=== PATIENT | male | born 1955 | race Caucasian/White ===

== ENCOUNTER 2018-05-23 11:43 | Inpatient (IN) ==
[2018-05-23] MEDS ORDERED: Sod Chloride 0.9% Inj 1,000 ML IV.SIG ONE (12:33)
--- NOTE | 2018-05-23 13:39 | XR ---
EXAM DATE: 05/23/2018 1:21 PM EDT AGE/SEX: 62 years / Male INDICATIONS: Shortness of breath. CLINICAL DATA: This is the patient's initial encounter. Patient reports that signs and symptoms have been present for 1 day and indicates a pain score of 0/10. MEDICAL/SURGICAL HISTORY: Cirrhosis. Diabetes. Hepatitis C. None. COMPARISON: No prior exams available for comparison. FINDINGS: No significant focal pleural or parenchymal opacities. The cardiomediastinal contours are unremarkabl e. Healed right clavicle fracture. Healed right rib fractures. CONCLUSION: 1. No acute cardiopulmonary disease. Electronically signed by: Bubba Vaughn MD 05/23/2018 1:38 PM EDT
[2018-05-23 14:11] LABS: Baso % (Auto) 0.4 % (0.0-2.0); Eos % (Auto) 0.2 % (0.0-4.0); Hematocrit 25.5 % (39.0-51.0); Lymph # (Auto) 0.5 th/mm3 (1.0-4.8); Lymph % (Auto) 8.7 % (9.0-44.0); Mean Corpuscular HGB Conc 35.4 % (32.0-36.0); Mean Corpuscular Hemoglobin 37.6 pg (27.0-34.0); Mean Corpuscular Volume 106.2 fL (80.0-100.0); Mean Platelet Volume 9.3 fL (7.0-11.0); Mono # (Auto) 0.7 th/mm3 (0.0-0.9); Mono % (Auto) 12.1 % (0.0-8.0); Neut # (Auto) 4.4 th/mm3 (1.8-7.7); Neut % (Auto) 78.6 % (16.0-70.0); Platelet Count 83 th/mm3 (150-450); Red Cell Distribution Width 15.7 % (11.6-17.2); White Blood Count 5.6 th/mm3 (4.0-11.0)
[2018-05-23 14:32] LABS: Albumin 1.4 g/dL (3.4-5.0); Anion Gap 9 meq/L (5-15); Aspartate Aminotransferase 60 U/L (15-37); Blood Urea Nitrogen 12 mg/dL (7-18); Calcium 7.5 mg/dL (8.5-10.1); Chloride 97 meq/L (98-107); Glomerular Filtration Rate 83 mL/min (>89); Glucose,Random 132 mg/dL (74-106); Potassium 4.6 meq/L (3.5-5.1); Sodium 131 meq/L (136-145)
--- NOTE | 2018-05-23 14:32 | ED ---
HPI General Chief complaint: Weakness Stated complaint: Medical Complaint Time Seen by Provider: 05/23/18 12:11 Source: patient and family Mode of arrival: ambulatory Limitations: no limitations History of Present Illness HPI Narrative: 62-year-old male with PMH of chronic alcoholism, hepatitis C, recently diagnosed diabetes presents to the ED for evaluation of "2 or 3 months " history of weakness, dyspnea on exertion. States that it has gotten acutely worse over the last few days. Patient endorses episodic dizziness, states that "even making myself a meal, I have to sit down because him too tired." He also complains of RLQ groin pain. Rated 6/10. Aching, occasionally sharp. No alleviating or exacerbating factors reported. No history of trauma. He denies fever or chills. He endorses occasional left-sided headaches, occasional left- sided chest pain. No headache or chest pain on presentation. He denies palpitations, cough. He endorses early satiety and low appetite. He denies abdominal pain, nausea, vomiting, changes in bowel habits, melena, hematochezia dysuria, hematuria. He was evaluated at [place], found to have a retroperitoneal mass and provided with outpatient follow-up instructions, however he states that he has decided to move back to [facility] and stay with his family and seek treatment here. He does not have a primary care provider. He states that he has not had any alcohol in "a few months." Denies history of withdrawal seizure. He is a current smoker. He has smoked since the age of 27. His sister is at bedside and helps to provide some information. She thinks he "looks more jaundiced." He does not work. He states that his overall activity level is very low. The patient is overall a poor historian. Related Data Home Medications Medication Instructions Recorded Confirmed ibuprofen [Advil] 200 mg PO Q6-8H PRN 05/23/18 05/23/18 Allergies Allergy/AdvReac Type Severity Reaction Status Date / Time penicillin G Allergy Severe Anaphylaxis Unverified 05/11/17 12:16 Review of Systems ROS: all other systems reviewed are negative [facility] Medical History Medical History Cirrhosis (Acute) Degenerative joint disease (Acute) Diabetes (Acute) Hep C w/o coma, chronic (Acute) Psoriasis (Acute) Retroperitoneal mass (Acute) Family History Family History Other Bone cancer Social History Social History Substance History: Past History Second Hand Smoke Exposure: Yes Smoking Status: Current some day smoker (The patient admits to 4 cigarettes daily) Tobacco Type: Cigarettes How Often Do You Have a Drink Containing Alcohol: Monthly or less (The patient says he quit drinking 8-10 weeks ago) Immunization History Tetanus Immunization: Unsure Exam Narrative Exam Narrative: GENERAL: Thin, chronically ill-appearing white male in no acute distress. SKIN: Focused skin assessment warm/dry. Psoriatic changes diffusely. Jaundiced. HEAD: Atraumatic. Normocephalic. EYES: Pupils equal and round. No scleral icterus. No injection or drainage. ENT: No nasal bleeding or discharge. Mucous membranes pink and moist. NECK: Trachea midline. No JVD. CARDIOVASCULAR: Regular rate and rhythm. No murmur appreciated. RESPIRATORY: No accessory muscle use. Clear to auscultation. Breath sounds equal bilaterally. GASTROINTESTINAL: Abdomen soft, nondistended. Hepatic and splenic margins not palpable. Tender to palpation in the right lower quadrant. No evidence of hernia. Active bowel sounds. RECTAL EXAM: No masses or tenderness, stool is brown. Guaiac negative. MUSCULOSKELETAL: No obvious deformities. No clubbing. No cyanosis. No edema. NEUROLOGICAL: Awake and alert. No obvious cranial nerve deficits. Motor grossly within normal limits. Normal speech. PSYCHIATRIC: Anhedonic, exasperated. Procedures Hemaprompt Stool Procedural Steps Taken: specimen placed in appropriate test area and controls appropriately positive and negative Hemaprompt Stool Result: negative Course Initial Documented Vital Signs Temperature 99.6 F 05/23/18 11:48 Pulse Rate 112 H 05/23/18 11:48 Respiratory Rate 20 05/23/18 11:48 Blood Pressure 110/72 05/23/18 11:48 Pulse Oximetry 98 05/23/18 11:48 Last Documented Vital Signs Temperature 99.6 F 05/23/18 11:48 Pulse Rate 72 05/23/18 19:16 Respiratory Rate 15 05/23/18 19:16 Blood Pressure 125/72 05/23/18 19:16 Pulse Oximetry 100 05/23/18 19:16 Medical Decision Making MDM Narrative Medical decision making narrative: 62-year-old male with PMH of chronic alcoholism, hepatitis C, recently diagnosed diabetes presents to the ED for evaluation of "2 or 3 months" history of weakness, dyspnea on exertion. States that it has gotten acutely worse over the last few days. Patient's afebrile, pulse 112, BP 106/58 on presentation. Physical exam reveals a thin, mildly jaundiced, chronically ill-appearing white male in no acute distress. No focal neuro deficits noted. Tender to palpation in the right lower quadrant of the abdomen. IV was established. Patient was administered 1 L normal saline. Lab work reveals hemoglobin of 9.0, thrombocytopenia with platelets of 83, hyper boot bilirubinemia 3.1 hypocalcemia 7.5. BUN and creatinine within normal limits. Ammonia 22. Alcohol less than 3. No acute changes on EKG. Cardiac enzymes negative 1. CT reveals right iliopsoas fluid collection abscess versus hematoma with extensive varicosities of the splenic hilum, fundus of the stomach. There is a small and patent portal vein. There is trace ascites and trace pleural effusion noted. I spoke with Dr. Woodard who does not recommend any surgical intervention but suggests that IR further evaluate the fluid collection. I spoke with Dr. Vaughn who suspects this is a perinephric hematoma and does not recommend intervention at this time. I discussed the results the workup with the patient as well as the recommendation for admission. He is agreeable. I spoke with Dr. Baker who agrees to accept the patient the medicine service. Please see medicine notes for disposition. Medical Screen Exam Complete: Yes Emergency Medical Condition: Yes Differential Diagnosis Differential Diagnosis: Deconditioning versus anemia versus metabolic derangement versus Lab Data Result diagrams: 05/23/18 12:50 05/23/18 12:50 Lab Results 05/23/18 05/23/18 05/23/18 Range/Units 12:50 12:50 14:30 WBC 5.6 (4.0-11.0) th/mm3 RBC 2.40 L (4.50-5.90) mil/mm3 Hgb 9.0 L (13.0-17.0) gm/dL Hct 25.5 L (39.0-51.0) % MCV 106.2 H (80.0-100.0) fL MCH 37.6 H (27.0-34.0) pg MCHC 35.4 (32.0-36.0) % RDW 15.7 (11.6-17.2) % Plt Count 83 L (150-450) th/mm3 MPV 9.3 (7.0-11.0) fL Prelim Diff (Auto) Slide review pending Neut % (Auto) 78.6 H (16.0-70.0) % Lymph % (Auto) 8.7 L (9.0-44.0) % Garza % (Auto) 12.1 H (0.0-8.0) % Eos % (Auto) 0.2 (0.0-4.0) % Baso % (Auto) 0.4 (0.0-2.0) % Neut # (Auto) 4.4 (1.8-7.7) th/mm3 Lymph # (Auto) 0.5 L (1.0-4.8) th/mm3 Garza # (Auto) 0.7 (0.0-0.9) th/mm3 Eos # (Auto) 0.0 (0.0-0.4) th/mm3 Baso # (Auto) 0.0 (0.0-0.2) th/mm3 WBC Differential . Diff Scan Auto diff confirmed Differential Comment . Platelet Estimate Low L (Normal) Platelet Morphology Normal (Normal) PT (9.8-11.6) sec INR Ratio APTT (24.3-30.1) sec Sodium 131 L (136-145) meq/L Potassium 4.6 (3.5-5.1) meq/L Chloride 97 L (98-107) meq/L Carbon Dioxide 25.0 (21.0-32.0) meq/L Anion Gap 9 (5-15) meq/L BUN 12 (7-18) mg/dL Creatinine 0.93 (0.60-1.30) mg/dL Estimated GFR 83 L (>89) mL/min Random Glucose 132 H (74-106) mg/dL Lactic Acid (0.4-2.0) mmol/L Calcium 7.5 L (8.5-10.1) mg/dL Magnesium 1.4 L (1.5-2.5) mg/dL Iron (65-175) mcg/dL TIBC (250-450) mcg/dL % Saturation (20-50) % Ferritin (26-388) ng/mL Total Bilirubin 3.1 H (0.2-1.0) mg/dL AST 60 H (15-37) U/L ALT 29 (12-78) U/L Alkaline Phosphatase 120 H (45-117) U/L Ammonia (11-32) mcmol/L Troponin I Less than 0.02 L (0.02-0.05) ng/mL Total Protein 8.5 H (6.4-8.2) g/dL Albumin 1.4 L (3.4-5.0) g/dL Vitamin B12 (193-986) pg/mL Folate (3.1-17.5) ng/mL TSH 1.500 (0.358-3.740) uIU/mL Urine Color (Yellw/Straw) Urine Clarity (Clear) Urine pH (5.0-8.5) Ur Specific [place] (1.002-1.035) Urine Protein (Neg-Trace) mg/dL Urine Glucose (UA) (Negative) mg/dL Urine Ketones (Negative) mg/dL Urine Occult Blood (Negative) Urine Nitrate (Negative) Urine Bilirubin (Negative) Urine Urobilinogen (Less than 2) mg/dL Ur Leukocyte Esterase (Negative) Urine RBC (0-3) /hpf Urine WBC (0-5) /hpf Urine Mucus (Occasional) /lpf Micro UA Comment Ur Microscopic Review Urine Culture Comments Serum Alcohol Less than 3 (0-5) mg/dL Blood Type Blood Type Recheck Antibody Screen 05/23/18 05/23/18 05/23/18 Range/Units 14:30 14:30 16:25 WBC (4.0-11.0) th/mm3 RBC (4.50-5.90) mil/mm3 Hgb (13.0-17.0) gm/dL Hct (39.0-51.0) % MCV (80.0-100.0) fL MCH (27.0-34.0) pg MCHC (32.0-36.0) % RDW (11.6-17.2) % Plt Count (150-450) th/mm3 MPV (7.0-11.0) fL Prelim Diff (Auto) Neut % (Auto) (16.0-70.0) % Lymph % (Auto) (9.0-44.0) % Garza % (Auto) (0.0-8.0) % Eos % (Auto) (0.0-4.0) % Baso % (Auto) (0.0-2.0) % Neut # (Auto) (1.8-7.7) th/mm3 Lymph # (Auto) (1.0-4.8) th/mm3 Garza # (Auto) (0.0-0.9) th/mm3 Eos # (Auto) (0.0-0.4) th/mm3 Baso # (Auto) (0.0-0.2) th/mm3 WBC Differential Diff Scan Differential Comment Platelet Estimate (Normal) Platelet Morphology (Normal) PT 15.4 H (9.8-11.6) sec INR 1.5 Ratio APTT 32.4 H (24.3-30.1) sec Sodium (136-145) meq/L Potassium (3.5-5.1) meq/L Chloride (98-107) meq/L Carbon Dioxide (21.0-32.0) meq/L Anion Gap (5-15) meq/L BUN (7-18) mg/dL Creatinine (0.60-1.30) mg/dL Estimated GFR (>89) mL/min Random Glucose (74-106) mg/dL Lactic Acid (0.4-2.0) mmol/L Calcium (8.5-10.1) mg/dL Magnesium (1.5-2.5) mg/dL Iron 45 L (65-175) mcg/dL TIBC 143 L (250-450) mcg/dL % Saturation 31.5 (20-50) % Ferritin 765 H (26-388) ng/mL Total Bilirubin (0.2-1.0) mg/dL AST (15-37) U/L ALT (12-78) U/L Alkaline Phosphatase (45-117) U/L Ammonia 22 (11-32) mcmol/L Troponin I (0.02-0.05) ng/mL Total Protein (6.4-8.2) g/dL Albumin (3.4-5.0) g/dL Vitamin B12 952 (193-986) pg/mL Folate 11.7 (3.1-17.5) ng/mL TSH (0.358-3.740) uIU/mL Urine Color (Yellw/Straw) Urine Clarity (Clear) Urine pH (5.0-8.5) Ur Specific [place] (1.002-1.035) Urine Protein (Neg-Trace) mg/dL Urine Glucose (UA) (Negative) mg/dL Urine Ketones (Negative) mg/dL Urine Occult Blood (Negative) Urine Nitrate (Negative) Urine Bilirubin (Negative) Urine Urobilinogen (Less than 2) mg/dL Ur Leukocyte Esterase (Negative) Urine RBC (0-3) /hpf Urine WBC (0-5) /hpf Urine Mucus (Occasional) /lpf Micro UA Comment Ur Microscopic Review Urine Culture Comments Serum Alcohol (0-5) mg/dL Blood Type Blood Type Recheck Antibody Screen 05/23/18 05/23/18 05/23/18 Range/Units 16:25 16:50 16:50 WBC (4.0-11.0) th/mm3 RBC (4.50-5.90) mil/mm3 Hgb (13.0-17.0) gm/dL Hct (39.0-51.0) % MCV (80.0-100.0) fL MCH (27.0-34.0) pg MCHC (32.0-36.0) % RDW (11.6-17.2) % Plt Count (150-450) th/mm3 MPV (7.0-11.0) fL Prelim Diff (Auto) Neut % (Auto) (16.0-70.0) % Lymph % (Auto) (9.0-44.0) % Garza % (Auto) (0.0-8.0) % Eos % (Auto) (0.0-4.0) % Baso % (Auto) (0.0-2.0) % Neut # (Auto) (1.8-7.7) th/mm3 Lymph # (Auto) (1.0-4.8) th/mm3 Garza # (Auto) (0.0-0.9) th/mm3 Eos # (Auto) (0.0-0.4) th/mm3 Baso # (Auto) (0.0-0.2) th/mm3 WBC Differential Diff Scan Differential Comment Platelet Estimate (Normal) Platelet Morphology (Normal) PT (9.8-11.6) sec INR Ratio APTT (24.3-30.1) sec Sodium (136-145) meq/L Potassium (3.5-5.1) meq/L Chloride (98-107) meq/L Carbon Dioxide (21.0-32.0) meq/L Anion Gap (5-15) meq/L BUN (7-18) mg/dL Creatinine (0.60-1.30) mg/dL Estimated GFR (>89) mL/min Random Glucose (74-106) mg/dL Lactic Acid 1.3 (0.4-2.0) mmol/L Calcium (8.5-10.1) mg/dL Magnesium (1.5-2.5) mg/dL Iron (65-175) mcg/dL TIBC (250-450) mcg/dL % Saturation (20-50) % Ferritin (26-388) ng/mL Total Bilirubin (0.2-1.0) mg/dL AST (15-37) U/L ALT (12-78) U/L Alkaline Phosphatase (45-117) U/L Ammonia (11-32) mcmol/L Troponin I (0.02-0.05) ng/mL Total Protein (6.4-8.2) g/dL Albumin (3.4-5.0) g/dL Vitamin B12 (193-986) pg/mL Folate (3.1-17.5) ng/mL TSH (0.358-3.740) uIU/mL Urine Color [place] (Yellw/Straw) Urine Clarity Clear (Clear) Urine pH 6.0 (5.0-8.5) Ur Specific [place] 1.038 H (1.002-1.035) Urine Protein 30 H (Neg-Trace) mg/dL Urine Glucose (UA) Negative (Negative) mg/dL Urine Ketones Trace (Negative) mg/dL Urine Occult Blood Negative (Negative) Urine Nitrate Negative (Negative) Urine Bilirubin Negative (Negative) Urine Urobilinogen 4 or greater (Less than 2) mg/dL Ur Leukocyte Esterase Negative (Negative) Urine RBC 2 (0-3) /hpf Urine WBC 7 H (0-5) /hpf Urine Mucus Few H (Occasional) /lpf Micro UA Comment Culture not ind Ur Microscopic Review Not Reportable Urine Culture Comments Culture not ind Serum Alcohol (0-5) mg/dL Blood Type B Positive Blood Type Recheck Required Antibody Screen Negative Imaging Data Radiologist's impression: Chest X-Ray 05/23/18 12:35 CONCLUSION: 1. No acute cardiopulmonary disease. Abdomen/Pelvis CT 05/23/18 14:34 CONCLUSION: 1. Right iliopsoas/psoas fluid collection either abscess or hematoma. 2. Extensive varicosities about the splenic hilum and fundus of the stomach with a patent but small portal vein. 3. Trace ascites in the pelvis 4. Trace right pleural effusion. Discharge Plan Discharge Disposition Patient Disposition: 30 Still Patient Discharge Details Diagnosis: Anemia, Thrombocytopenia, Hyperbilirubinemia Physicians Team ED Provider: Teodora Brandt ED Midlevel Provider: Magdalena Triplett Primary Care Provider: UNKNOWN, Attending Provider: Benito Baker Discharge Interventions Interventions: Vital Signs Last Done: 05/23/18 16:57 Status ED Status: Admitted Patient
[2018-05-23 14:34] LABS: Alanine Aminotransferase 29 U/L (12-78)
[2018-05-23 14:38] LABS: Platelet Morphology Normal (Normal)
[2018-05-23 14:43] LABS: Alkaline Phosphatase 120 U/L (45-117); Total Protein 8.5 g/dL (6.4-8.2)
--- NOTE | 2018-05-23 16:00 | CT ---
EXAM DATE: 05/23/2018 3:48 PM EDT AGE/SEX: 62 years / Male INDICATIONS: Right lower quadrant abdomen pain. CLINICAL DATA: This is the patient's initial encounter. Patient reports that signs and symptoms have been present for 1 day and indicates a pain score of 4/10. MEDICAL/SURGICAL HISTORY: Diabetes. Cirrhosis. Hepatitis C. Retroperitoneal mass. None. ORAL CONTRAST: No oral contrast ingested. RADIATION DOSE: 6.58 CTDI (mGy) COMPARISON: No prior exams available for comparison. TECHNIQUE: Multiple contiguous axial images were obtained through the abdomen and pelvis following b olus infusion of 71 ml Omnipaque 350 (iohexol) nonionic water-soluble contrast as a single exam dos e. No oral contrast ingested. Using automated exposure control and adjustment of the mA and/or kV ac cording to patient size, radiation dose was kept as low as reasonably achievable to obtain optimal di agnostic quality images. DICOM format image data is available electronically for review and comparis on. FINDINGS: Small right pleural effusion with normal size heart. Small liver with trace ascites Extensive varicosities in the left upper quadrant associated with the splenic hilum and stomach fundu s. The portal vein and left renal vein are patent. The adrenal glands appear normal. There is symmetrical renal function. There is a large psoas fluid collection extending obliquely down the right psoas and iliopsoas to the iliac crest. Considerations would include hematoma as well as inflammatory process. The cecum and terminal unremarkable In the pelvis Pelvis there are diverticuli in the sigmoid colon. Trace ascites is present. Bladder an d prostate are unremarkable. Review of bone windows reveals only degenerative changes. CONCLUSION: 1. Right iliopsoas/psoas fluid collection either abscess or hematoma. 2. Extensive varicosities about the splenic hilum and fundus of the stomach with a patent but small portal vein. 3. Trace ascites in the pelvis 4. Trace right pleural effusion. Electronically signed by: Ulises Crespo MD 05/23/2018 3:58 PM EDT
[2018-05-23] MEDS ORDERED: Morphine Inj 4 MG/ML Vial IV.PUSH ONE (16:12)
[2018-05-23 16:49] LABS: Activated Partial Thrombo Time 32.4 sec (24.3-30.1); INR 1.5 Ratio; Prothrombin Time 15.4 sec (9.8-11.6)
[2018-05-23 17:15] LABS: Bilirubin,Urine Negative (Negative); Clarity,Urine Clear (Clear); Color,Urine Amber (Yellw/Straw); Glucose,Urine (UA) Negative (Negative); Leukocyte Esterase,Urine Negative (Negative); Mucus,Urine Few /lpf (Occasional); Nitrite,Urine Negative (Negative); Specific Gravity,Urine 1.038 (1.002-1.035); Urobilinogen,Urine 4 or Greater mg/dL (Less than 2)
[2018-05-23] MEDS ORDERED: Acetaminophen 325 MG Tablet PO PRN (17:58)
--- NOTE | 2018-05-23 18:36 | P.HPIM ---
History of Present Illness Primary Care Physician: UNKNOWN Chief Complaint: Abdominal pain History of Present Illness: The patient is a 62-year-old male with a past medical history of hepatitis C and diabetes who is presenting to the hospital with abdominal pain, weakness and shortness of breath. The patient states that his girlfriend made him come to the hospital because she was concerned about his medical condition. The patient has been complaining of pain in the right lower quadrant. He says he has noticed that the pain is positional and goes away if he finds the right position. The patient says that his girlfriend told him he looks yellow. The patient states that he lost 24 pounds in the past 3 weeks. He says he cannot eat very much. He says he has lost his sense of taste. He endorses cold and hot sweats. He has not had any documented fevers. He denies any blood in his stools. He says that he is short of breath with minimal exertion. He says he brings a stool with him to sit down in so he can catch his breath. He says he has experienced episodes where his vision goes black and he falls to the floor. He denies loss of consciousness with those episodes. He states that he has had a colonoscopy but it has been over 10 years since then. He says he stopped drinking 8-10 weeks ago. He says he used drugs in the 80s. Inpatient Certification: I certify that the inpatient services were ordered in accordance with Medicare regulations governing the order. This includes certification that hospital inpatient services are reasonable and necessary and in the case of services not specified as inpatient-only under 42 CFR 419.22(n), that they are appropriately provided as inpatient services in accordance to with the 2-midnight benchmark under 43 CFR 412.3(e) Estimated Total Length of Stay (Days): 2 Plans for Post Hospital Care: Home Review of Systems All other systems reviewed negative except as stated in HPI PMFSH - History History Provided By: Patient, Family Member - Medical History Medical History: Medical History (Last Updated 05/23/18 @ 18:37 by Benito Baker DO) Cirrhosis Degenerative joint disease Diabetes Hep C w/o coma, chronic Psoriasis Retroperitoneal mass - Family History Family History: Family History (Last Updated 05/23/18 @ 18:37 by Benito Baker DO) Other Bone cancer - Tobacco History Second Hand Smoke Exposure: Yes Tobacco Use In Past 30 Days: Yes Smoking Status: Current some day smoker (The patient admits to 4 cigarettes daily) Tobacco Type: Cigarettes - Alcohol History How Often Do You Have a Drink Containing Alcohol: Monthly or less (The patient says he quit drinking 8-10 weeks ago) - Substance Use History Substance History: Past History - Immunization History Tetanus Immunization: Unsure Medications and Allergies Active Medications: Active Medications Acetaminophen (Tylenol) 650 mg PO Q4H PRN PRN Reason: Temp > 100.4 Ondansetron HCl (Zofran Inj) 4 mg IV.PUSH Q6H PRN PRN Reason: NAUSEA OR VOMITING Senna/Docusate Sodium (Lina-Colace) 1 tab PO BID CHARANJIT Sodium Chloride (Ns Flush) 2 ml IV.FLUSH PRN PRN PRN Reason: FLUSH AFTER USING IV ACCESS Allergies Allergy/AdvReac Type Severity Reaction Status Date / Time penicillin G Allergy Severe Anaphylaxis Unverified 05/11/17 12:16 Home Medications Medication Instructions Recorded Confirmed Type ibuprofen [Advil] 200 mg PO Q6-8H PRN 05/23/18 05/23/18 History Exam Vital signs: Vital Signs 05/23/18 11:48 05/23/18 12:11 05/23/18 12:54 Temperature 99.6 F Pulse Rate 112 H 96 H Respiratory Rate 20 17 Blood Pressure 110/72 106/58 L Pulse Oximetry 98 100 96 05/23/18 16:57 Temperature Pulse Rate 78 Respiratory Rate 18 Blood Pressure 133/72 Pulse Oximetry 96 Intake & Output 05/22/18 05/23/18 05/23/18 18:59 06:59 18:59 Intake Total 1000 / 1000 Balance 1000 / 1000 Weight 68.039 kg Intake: IV 1000 / 1000 NS Inj 1,000 ML @ Wide Open IV. 1000 / 1000 SIG BOLUS ONE Rx#:[id number] Narrative: GENERAL: Thin, chronically ill-appearing male in no acute distress. SKIN: Focused skin assessment warm/dry. Psoriatic changes diffusely. Jaundiced. HEAD: Atraumatic. Normocephalic. EYES: Pupils equal and round. No scleral icterus. No injection or drainage. ENT: No nasal bleeding or discharge. Mucous membranes pink and moist. NECK: Trachea midline. No JVD. CARDIOVASCULAR: Regular rate and rhythm. No murmur appreciated. RESPIRATORY: No accessory muscle use. Clear to auscultation. Breath sounds equal bilaterally. GASTROINTESTINAL: Abdomen soft, nondistended. Hepatic and splenic margins not palpable. Tender to palpation in the right lower quadrant. No evidence of hernia. Active bowel sounds. MUSCULOSKELETAL: No obvious deformities. No clubbing. No cyanosis. No edema. NEUROLOGICAL: Awake and alert. No obvious cranial nerve deficits. Motor grossly within normal limits. Normal speech. Results - Labs CBC & Chem 7: 05/23/18 12:50 05/23/18 12:50 Labs: Short CBC 05/23/18 Range/Units 12:50 WBC 5.6 (4.0-11.0) th/mm3 Hgb 9.0 L (13.0-17.0) gm/dL Hct 25.5 L (39.0-51.0) % Plt Count 83 L (150-450) th/mm3 BMP 05/23/18 12:50 Sodium 131 L Potassium 4.6 Chloride 97 L Carbon Dioxide 25.0 BUN 12 Creatinine 0.93 Calcium 7.5 L Cardiac Enzymes 05/23/18 Range/Units 12:50 Troponin I Less than 0.02 L (0.02-0.05) ng/mL Liver Function 05/23/18 Range/Units 12:50 Total Bilirubin 3.1 H (0.2-1.0) mg/dL AST 60 H (15-37) U/L ALT 29 (12-78) U/L Alkaline Phosphatase 120 H (45-117) U/L Albumin 1.4 L (3.4-5.0) g/dL Urine 05/23/18 Range/Units 16:50 Urine Color Silvia (Yellw/Straw) Urine Clarity Clear (Clear) Urine pH 6.0 (5.0-8.5) Ur Specific Gem 1.038 H (1.002-1.035) Urine Protein 30 H (Neg-Trace) mg/dL Urine Glucose (UA) Negative (Negative) mg/dL - Imaging Impressions Chest X-Ray 05/23/18 12:35 CONCLUSION: 1. No acute cardiopulmonary disease. Abdomen/Pelvis CT 05/23/18 14:34 CONCLUSION: 1. Right iliopsoas/psoas fluid collection either abscess or hematoma. 2. Extensive varicosities about the splenic hilum and fundus of the stomach with a patent but small portal vein. 3. Trace ascites in the pelvis 4. Trace right pleural effusion. Caprini VTE Risk Assessment Caprini VTE Risk Assessment: Moderate/High Risk (score >= 2) Caprini Risk Assessment Model: Point Value = 1 Point Value = 2 Point Value = 3 Point Value = 5 Age 41-60 Minor surgery BMI > 25 kg/m2 Swollen legs Varicose veins or History of unexplained or recurrent spontaneous Oral contraceptives or hormone replacement Sepsis (< 1 month) Serious lung disease, including pneumonia (< 1 month) Abnormal pulmonary function Acute myocardial infarction Congestive heart failure (< 1 month) History of inflammatory bowel disease Medical patient at bed rest Age 61-74 Arthroscopic surgery Major open surgery (> 45 min) Laparoscopic surgery (> 45 min) Malignancy Confined to bed (> 72 hours) Immobilizing plaster cast Central venous access Age >= 75 History of VTE Family history of VTE Factor V Leiden Prothrombin [id number] Lupus anticoagulant Anticardiolipin antibodies Elevated serum homocysteine Heparin-induced thrombocytopenia Other congenital or acquired thrombophilia Stroke (< 1 month) Elective arthroplasty Hip, pelvis, or leg fracture Acute spinal cord injury (< 1 month) Prophylaxis Regimen: Total Risk Factor Score Risk Level Prophylaxis Regimen 0-1 Low Early ambulation 2 Moderate Order ONE of the following: *Sequential Compression Device (SCD) *Heparin 5000 units SQ BID 3-4 Higher Order ONE of the following medications: *Heparin 5000 units SQ TID *Enoxaparin/Lovenox 40 mg SQ daily (WT < 150 kg, CrCl > 30 mL/min) *Enoxaparin/Lovenox 30 mg SQ daily (WT < 150 kg, CrCl > 10-29 mL/min) *Enoxaparin/Lovenox 30 mg SQ BID (WT < 150 kg, CrCl > 30 mL/min) AND/OR *Sequential Compression Device (SCD) 5 or more Highest Order ONE of the following medications: *Heparin 5000 units SQ TID (Preferred with Epidurals) *Enoxaparin/Lovenox 40 mg SQ daily (WT < 150 kg, CrCl > 30 mL/min) *Enoxaparin/Lovenox 30 mg SQ daily (WT < 150 kg, CrCl > 10-29 mL/min) *Enoxaparin/Lovenox 30 mg SQ BID (WT < 150 kg, CrCl > 30 mL/min) AND *Sequential Compression Device (SCD) Assessment and Plan - Plan Abdominal pain CT revealed a fluid collection in the right psoas area. Thought to be resolving hematoma vs abscess. Surgery and IR were contacted by the ED and no invasive procedure was recommended at the time. -pain control with a bowel regimen. -serial abdominal exams. -check a lipase level. -start a PPI. Weight loss/ Weakness/ Dyspnea on exertion/ DM MCKEE and weakness likely exacerbated by anemia. Weight loss may be exacerbated by diabetes, for which he has yet to start medications for. CXR unremarkable. TSH unremarkable. -PT eval. -oxygen and nebs as needed. -incentive spirometry. -check A1c and HIV serology. Anemia/ Thrombocytopenia Likely s/t underlying liver disease. Guaic negative in the ED. -follow CBC. -check Hemoccult. -check iron studies, B12 and folate levels. HCV INR is elevated and LFTs are decreased, suggesting cirrhosis. The pt says he quit drinking 8-10 weeks ago. -follow LFTs. -continue alcohol cessation. Nicotine abuse The pt smokes 4 cigarettes daily. -cessation instruction. PPx: SCDs Code Status: Full
[2018-05-23 19:28] LABS: % Iron Saturation 31.5 % (20-50)
[2018-05-23 19:53] LABS: Folate 11.7 ng/mL (3.1-17.5)
[2018-05-23] MEDS: Senna/Docusate Sodium 8.6/50 MG Tablet PO SCH (21:45)
[2018-05-24 06:42] LABS: INR 1.5 Ratio; Prothrombin Time 14.8 sec (9.8-11.6)
[2018-05-24 06:47] LABS: Baso % (Auto) 0.6 % (0.0-2.0); Eos # (Auto) 0.1 th/mm3 (0.0-0.4); Eos % (Auto) 2.9 % (0.0-4.0); Hematocrit 22.7 % (39.0-51.0); Lymph # (Auto) 1.1 th/mm3 (1.0-4.8); Lymph % (Auto) 21.4 % (9.0-44.0); Mean Corpuscular HGB Conc 35.3 % (32.0-36.0); Mean Corpuscular Hemoglobin 38.2 pg (27.0-34.0); Mean Corpuscular Volume 108.4 fL (80.0-100.0); Mean Platelet Volume 9.5 fL (7.0-11.0); Mono # (Auto) 0.6 th/mm3 (0.0-0.9); Mono % (Auto) 12.9 % (0.0-8.0); Neut # (Auto) 3.1 th/mm3 (1.8-7.7); Neut % (Auto) 62.2 % (16.0-70.0); Platelet Count 66 th/mm3 (150-450); Red Blood Count 2.09 mil/mm3 (4.50-5.90); White Blood Count 4.9 th/mm3 (4.0-11.0)
[2018-05-24 07:07] LABS: Alanine Aminotransferase 25 U/L (12-78); Albumin 1.1 g/dL (3.4-5.0); Anion Gap 10 meq/L (5-15); Aspartate Aminotransferase 47 U/L (15-37); Blood Urea Nitrogen 11 mg/dL (7-18); Calcium 6.9 mg/dL (8.5-10.1); Carbon Dioxide 24.8 meq/L (21.0-32.0); Chloride 98 meq/L (98-107); Glomerular Filtration Rate Greater Than 89 mL/min (>89); Glucose,Random 146 mg/dL (74-106); Lipase 280 U/L (73-393); Potassium 3.6 meq/L (3.5-5.1); Sodium 133 meq/L (136-145)
[2018-05-24 07:08] LABS: Alkaline Phosphatase 108 U/L (45-117); Total Protein 7.6 g/dL (6.4-8.2)
[2018-05-24 08:24] LABS: Eosinophils 1 % (0-4); Lymphocytes 20 % (9-44); Monocytes 4 % (0-8); Ovalocytes 1+; Platelet Morphology Normal (Normal)
--- NOTE | 2018-05-24 09:33 | P.PNIM ---
Subjective Interval history: The patient was a little disoriented. He said he received a painkiller a few hours ago. He thought he was going for a colonoscopy soon. He wanted the fluid collection drained. Discussed with nursing. Physical Exam Vital signs: Vital Signs 05/23/18 11:48 05/23/18 12:11 05/23/18 12:54 Temperature 99.6 F Pulse Rate 112 H 96 H Respiratory Rate 20 17 Blood Pressure 110/72 106/58 L Pulse Oximetry 98 100 96 05/23/18 16:57 05/23/18 18:43 05/23/18 19:16 Temperature Pulse Rate 78 72 72 Respiratory Rate 18 17 15 Blood Pressure 133/72 120/69 125/72 Pulse Oximetry 96 100 100 05/23/18 21:20 05/24/18 00:00 05/24/18 04:00 Temperature 98.2 F 98 F 98.7 F Pulse Rate 86 78 75 Respiratory Rate 17 19 16 Blood Pressure 124/64 118/60 109/58 L Pulse Oximetry 100 100 94 L Intake & Output 05/23/18 05/24/18 05/24/18 18:59 06:59 18:59 Intake Total 1000 / 1000 240 / 240 Output Total 550 / 550 Balance 1000 / 1000 -310 / -310 Weight 68.039 kg 67.6 kg Intake: IV 1000 / 1000 NS Inj 1,000 ML @ Wide Open IV. 1000 / 1000 SIG BOLUS ONE Rx#:[id number] Oral 240 / 240 Output: Urine 550 / 550 Narrative: GENERAL: Thin, chronically ill-appearing male in no acute distress. SKIN: Focused skin assessment warm/dry. Psoriatic changes diffusely. Jaundiced. HEAD: Atraumatic. Normocephalic. EYES: Pupils equal and round. No scleral icterus. No injection or drainage. ENT: No nasal bleeding or discharge. Mucous membranes pink and moist. NECK: Trachea midline. No JVD. CARDIOVASCULAR: Regular rate and rhythm. No murmur appreciated. RESPIRATORY: No accessory muscle use. Clear to auscultation. Breath sounds equal bilaterally. GASTROINTESTINAL: Abdomen soft, nondistended. Hepatic and splenic margins not palpable. Mildly tender to palpation in the right lower quadrant. No evidence of hernia. Active bowel sounds. MUSCULOSKELETAL: No obvious deformities. No clubbing. No cyanosis. No edema. NEUROLOGICAL: Awake and alert. No obvious cranial nerve deficits. Motor grossly within normal limits. Normal speech. Results - Labs CBC & Chem 7: 05/24/18 05:24 05/24/18 05:24 Laboratory Results - last 24 hr 05/23/18 05/23/18 05/23/18 12:50 12:50 12:50 WBC 5.6 RBC 2.40 L Hgb 9.0 L Hct 25.5 L MCV 106.2 H MCH 37.6 H MCHC 35.4 RDW 15.7 Plt Count 83 L MPV 9.3 Prelim Diff (Auto) Slide review pending Neut % (Auto) 78.6 H Lymph % (Auto) 8.7 L [place] % (Auto) 12.1 H Eos % (Auto) 0.2 Baso % (Auto) 0.4 Neut # (Auto) 4.4 Lymph # (Auto) 0.5 L [place] # (Auto) 0.7 Eos # (Auto) 0.0 Baso # (Auto) 0.0 WBC Differential . Diff Scan Auto diff confirmed Seg Neuts % (Manual) Band Neuts % (Manual) Lymphocytes % (Manual) Monocytes % (Manual) Eosinophils % (Manual) Abs Neuts (Manual) Differential Comment . Platelet Estimate Low L Platelet Morphology Normal Ovalocytes PT INR APTT Sodium 131 L Potassium 4.6 Chloride 97 L Carbon Dioxide 25.0 Anion Gap 9 BUN 12 Creatinine 0.93 Estimated GFR 83 L Random Glucose 132 H Hemoglobin A1c Lactic Acid Calcium 7.5 L Prot Corrected Calcium Magnesium Iron TIBC % Saturation Ferritin Total Bilirubin 3.1 H AST 60 H ALT 29 Alkaline Phosphatase 120 H Ammonia Troponin I Less than 0.02 L B-Natriuretic Peptide 43 Total Protein 8.5 H Albumin 1.4 L Lipase Vitamin B12 Folate TSH 1.500 Urine Color Urine Clarity Urine pH Ur Specific [place] Urine Protein Urine Glucose (UA) Urine Ketones Urine Occult Blood Urine Nitrate Urine Bilirubin Urine Urobilinogen Ur Leukocyte Esterase Urine RBC Urine WBC Urine Mucus Micro UA Comment Ur Microscopic Review Urine Culture Comments Serum Alcohol Less than 3 HIV 1&2 Ab/P24 Ag 4thGn Blood Type Blood Type Recheck Antibody Screen 05/23/18 05/23/18 05/23/18 12:50 14:30 14:30 WBC RBC Hgb Hct MCV MCH MCHC RDW Plt Count MPV Prelim Diff (Auto) Neut % (Auto) Lymph % (Auto) [place] % (Auto) Eos % (Auto) Baso % (Auto) Neut # (Auto) Lymph # (Auto) [place] # (Auto) Eos # (Auto) Baso # (Auto) WBC Differential Diff Scan Seg Neuts % (Manual) Band Neuts % (Manual) Lymphocytes % (Manual) Monocytes % (Manual) Eosinophils % (Manual) Abs Neuts (Manual) Differential Comment Platelet Estimate Platelet Morphology Ovalocytes PT INR APTT Sodium Potassium Chloride Carbon Dioxide Anion Gap BUN Creatinine Estimated GFR Random Glucose Hemoglobin A1c 7.0 H Lactic Acid Calcium Prot Corrected Calcium Magnesium 1.4 L Iron TIBC % Saturation Ferritin Total Bilirubin AST ALT Alkaline Phosphatase Ammonia 22 Troponin I B-Natriuretic Peptide Total Protein Albumin Lipase Vitamin B12 Folate TSH Urine Color Urine Clarity Urine pH Ur Specific [place] Urine Protein Urine Glucose (UA) Urine Ketones Urine Occult Blood Urine Nitrate Urine Bilirubin Urine Urobilinogen Ur Leukocyte Esterase Urine RBC Urine WBC Urine Mucus Micro UA Comment Ur Microscopic Review Urine Culture Comments Serum Alcohol HIV 1&2 Ab/P24 Ag 4thGn Blood Type Blood Type Recheck Antibody Screen 05/23/18 05/23/18 05/23/18 14:30 16:25 16:25 WBC RBC Hgb Hct MCV MCH MCHC RDW Plt Count MPV Prelim Diff (Auto) Neut % (Auto) Lymph % (Auto) [place] % (Auto) Eos % (Auto) Baso % (Auto) Neut # (Auto) Lymph # (Auto) [place] # (Auto) Eos # (Auto) Baso # (Auto) WBC Differential Diff Scan Seg Neuts % (Manual) Band Neuts % (Manual) Lymphocytes % (Manual) Monocytes % (Manual) Eosinophils % (Manual) Abs Neuts (Manual) Differential Comment Platelet Estimate Platelet Morphology Ovalocytes PT 15.4 H INR 1.5 APTT 32.4 H Sodium Potassium Chloride Carbon Dioxide Anion Gap BUN Creatinine Estimated GFR Random Glucose Hemoglobin A1c Lactic Acid 1.3 Calcium Prot Corrected Calcium Magnesium Iron 45 L TIBC 143 L % Saturation 31.5 Ferritin 765 H Total Bilirubin AST ALT Alkaline Phosphatase Ammonia Troponin I B-Natriuretic Peptide Total Protein Albumin Lipase Vitamin B12 952 Folate 11.7 TSH Urine Color Urine Clarity Urine pH Ur Specific [place] Urine Protein Urine Glucose (UA) Urine Ketones Urine Occult Blood Urine Nitrate Urine Bilirubin Urine Urobilinogen Ur Leukocyte Esterase Urine RBC Urine WBC Urine Mucus Micro UA Comment Ur Microscopic Review Urine Culture Comments Serum Alcohol HIV 1&2 Ab/P24 Ag 4thGn Blood Type Blood Type Recheck Antibody Screen 05/23/18 05/23/18 05/23/18 16:50 16:50 19:54 WBC RBC Hgb Hct MCV MCH MCHC RDW Plt Count MPV Prelim Diff (Auto) Neut % (Auto) Lymph % (Auto) [place] % (Auto) Eos % (Auto) Baso % (Auto) Neut # (Auto) Lymph # (Auto) [place] # (Auto) Eos # (Auto) Baso # (Auto) WBC Differential Diff Scan Seg Neuts % (Manual) Band Neuts % (Manual) Lymphocytes % (Manual) Monocytes % (Manual) Eosinophils % (Manual) Abs Neuts (Manual) Differential Comment Platelet Estimate Platelet Morphology Ovalocytes PT INR APTT Sodium Potassium Chloride Carbon Dioxide Anion Gap BUN Creatinine Estimated GFR Random Glucose Hemoglobin A1c Lactic Acid Calcium Prot Corrected Calcium Magnesium Iron TIBC % Saturation Ferritin Total Bilirubin AST ALT Alkaline Phosphatase Ammonia Troponin I B-Natriuretic Peptide Total Protein Albumin Lipase Vitamin B12 Folate TSH Urine Color Silvia Urine Clarity Clear Urine pH 6.0 Ur Specific [place] 1.038 H Urine Protein 30 H Urine Glucose (UA) Negative Urine Ketones Trace Urine Occult Blood Negative Urine Nitrate Negative Urine Bilirubin Negative Urine Urobilinogen 4 or greater Ur Leukocyte Esterase Negative Urine RBC 2 Urine WBC 7 H Urine Mucus Few H Micro UA Comment Culture not ind Ur Microscopic Review Not Reportable Urine Culture Comments Culture not ind Serum Alcohol HIV 1&2 Ab/P24 Ag 4thGn Nonreactive Blood Type B Positive Blood Type Recheck Required Antibody Screen Negative 05/24/18 05/24/18 05/24/18 05:24 05:24 05:24 WBC 4.9 RBC 2.09 L Hgb 8.0 L Hct 22.7 L MCV 108.4 H MCH 38.2 H MCHC 35.3 RDW 16.0 Plt Count 66 L MPV 9.5 Prelim Diff (Auto) Slide review pending Neut % (Auto) 62.2 Lymph % (Auto) 21.4 [place] % (Auto) 12.9 H Eos % (Auto) 2.9 Baso % (Auto) 0.6 Neut # (Auto) 3.1 Lymph # (Auto) 1.1 [place] # (Auto) 0.6 Eos # (Auto) 0.1 Baso # (Auto) 0.0 WBC Differential Manual diff final Diff Scan Seg Neuts % (Manual) 69 Band Neuts % (Manual) 6 Lymphocytes % (Manual) 20 Monocytes % (Manual) 4 Eosinophils % (Manual) 1 Abs Neuts (Manual) 3.7 Differential Comment . Platelet Estimate Low L Platelet Morphology Normal Ovalocytes 1+ H PT 14.8 H INR 1.5 APTT Sodium 133 L Potassium 3.6 D Chloride 98 Carbon Dioxide 24.8 Anion Gap 10 BUN 11 Creatinine 0.80 Estimated GFR Greater than 89 Random Glucose 146 H Hemoglobin A1c Lactic Acid Calcium 6.9 L* Prot Corrected Calcium 6.7 L* Magnesium Iron TIBC % Saturation Ferritin Total Bilirubin 1.9 H AST 47 H ALT 25 Alkaline Phosphatase 108 Ammonia Troponin I B-Natriuretic Peptide Total Protein 7.6 D Albumin 1.1 L Lipase 280 Vitamin B12 Folate TSH Urine Color Urine Clarity Urine pH Ur Specific [place] Urine Protein Urine Glucose (UA) Urine Ketones Urine Occult Blood Urine Nitrate Urine Bilirubin Urine Urobilinogen Ur Leukocyte Esterase Urine RBC Urine WBC Urine Mucus Micro UA Comment Ur Microscopic Review Urine Culture Comments Serum Alcohol HIV 1&2 Ab/P24 Ag 4thGn Blood Type Blood Type Recheck Antibody Screen - Imaging Impressions Chest X-Ray 05/23/18 12:35 CONCLUSION: 1. No acute cardiopulmonary disease. Abdomen/Pelvis CT 05/23/18 14:34 CONCLUSION: 1. Right iliopsoas/psoas fluid collection either abscess or hematoma. 2. Extensive varicosities about the splenic hilum and fundus of the stomach with a patent but small portal vein. 3. Trace ascites in the pelvis 4. Trace right pleural effusion. Assessment and Plan - Plan Abdominal pain CT revealed a fluid collection in the right psoas area. Thought to be resolving hematoma vs abscess. Surgery and IR were contacted by the ED and no invasive procedure was recommended at the time. Lipase level not elevated. -pain control with a bowel regimen. -serial abdominal exams. Stable. -continue PPI. Weight loss/ Weakness/ Dyspnea on exertion/ DM MCKEE and weakness likely exacerbated by anemia. Weight loss may be exacerbated by diabetes, for which he has yet to start medications for. CXR unremarkable. TSH unremarkable. A1c 7%. HIV serology negative. -PT eval. -oxygen and nebs as needed. -incentive spirometry. -GI eval. Anemia/ Thrombocytopenia Likely s/t underlying liver disease. Guaiac negative in the ED. -follow CBC. -check Hemoccult. -GI eval. HCV INR is elevated and LFTs are decreased, suggesting cirrhosis. The pt says he quit drinking 8-10 weeks ago. -follow LFTs. Improving. -continue alcohol cessation. Nicotine abuse The pt smokes 4 cigarettes daily. -cessation instruction. PPx: Sherrie
--- NOTE | 2018-05-24 10:35 | P.CONGI ---
History of Present Illness Consult date: 05/24/18 Chief complaint: Symptomatic Anemia, Thrombocytopenia, Hyponatremia History of Present Illness: This is a slim 62-year-old male who entered the hospital on 05/23/2018 symptoms right lower quadrant abdominal pain, weakness, and shortness of breath. Onset of symptoms of the uncontrolled right lower quadrant abdominal pain has been at least 2-1/2 months. Patient's weakness and shortness of breath has been going on for approximately a year and he also notes signs of dizziness with some near syncopal episodes for approximately 6 months. Patient denies any nausea or vomiting and no dyspepsia. Patient has been taking Advil on a routine basis, ( 1 bottle in a month), unknown number of pills, for pain meds and to assist with being able to get up and ambulate. Patient denies any obvious rectal bleeding and no epigastric pain. Patient is positive for weight loss and decreased appetite over a six-month period of approximately 27 pounds. He also has a history of hepatitis C and was receiving treatment at least 10 years ago but was unable to complete due to the side effects. Patient is awake attempting to answer simple questions but is a poor historian due to timing of some of the events. Some of his history is being obtained from the record. Patient does note previous colonoscopy over 10 years ago and no previous EGD. He does note history of tobacco use and daily shot of alcohol which he quit drinking approximately 8-10 weeks ago. Current labs show bilirubin 1.5, AST 47 ALT 25, hemoglobin initially on admission was 9 but has decreased to 8. in a 24 hour, platelets 66 today. Gastroenterology has been consulted to assist with this patient's symptom management and plan of care in relation to his anemia and weight loss. CT scan performed on 05/23/2018 showed a trace of ascites, extensive varicosities in the splenic hilum, and fundus of the stomach, right iliopsoas fluid which could be abscess or hematoma. <Radha Nazario - Last Filed: 05/24/18 10:55> Review of Systems All other systems reviewed negative except as stated in HPI <Radha Nazario - Last Filed: 05/24/18 10:55> PMFSH - History History Provided By: Patient - Medical History Medical History: Medical History (Last Reviewed 05/24/18 @ 08:21 by Jazmyne Martinez) Cirrhosis Degenerative joint disease Diabetes Hep C w/o coma, chronic Psoriasis Retroperitoneal mass - Family History Family History: Family History (Last Updated 05/23/18 @ 18:37 by Benito Baker DO) Other Bone cancer - Tobacco History Second Hand Smoke Exposure: Yes Tobacco Use In Past 30 Days: Yes Smoking Status: Light tobacco smoker Tobacco Type: Cigarettes - Alcohol History How Often Do You Have a Drink Containing Alcohol: Never - Substance Use History Substance History: Past History - Immunization History Tetanus Immunization: Unsure <Radha Nazario - Last Filed: 05/24/18 10:55> - Medical History Medical History: Medical History (Last Reviewed 05/24/18 @ 08:21 by Jazmyne Martinez) Cirrhosis Degenerative joint disease Diabetes Hep C w/o coma, chronic Psoriasis Retroperitoneal mass - Family History Family History: Family History (Last Updated 05/23/18 @ 18:37 by Benito Baker DO) Other Bone cancer <Venice Mcgowan - Last Filed: 05/24/18 15:48> Medications and Allergies Active Medications: Active Medications Acetaminophen (Tylenol) 650 mg PO Q4H PRN PRN Reason: Temp > 100.4 Calcium Chloride 2 gm/ Sodium (Chloride) 120 mls @ 120 mls/hr IV.SIG ONCE ONE Stop: 05/24/18 10:16 Magnesium Sulfate/Dextrose (Magnesium Sulfate 1 Gm/D5w 100 Ml Premix) 100 mls @ 100 mls/hr IV.SIG Q1H CHARANJIT Stop: 05/24/18 11:59 Ondansetron HCl (Zofran Inj) 4 mg IV.PUSH Q6H PRN PRN Reason: NAUSEA OR VOMITING Oxycodone HCl (Roxicodone) 5 mg PO Q6H PRN PRN Reason: pain 3-10 Last Admin: 05/24/18 05:29 Dose: 5 mg Pantoprazole Sodium (Protonix) 40 mg PO DAILY [facility] Last Admin: 05/23/18 19:14 Dose: 40 mg Senna/Docusate Sodium (Lina-Colace) 1 tab PO BID [facility] Last Admin: 05/23/18 21:45 Dose: Not Given Sodium Chloride (Ns Flush) 2 ml IV.FLUSH PRN PRN PRN Reason: FLUSH AFTER USING IV ACCESS <Radha Nazario - Last Filed: 05/24/18 10:55> Active Medications: Active Medications Acetaminophen (Tylenol) 650 mg PO Q4H PRN PRN Reason: Temp > 100.4 Bisacodyl (Dulcolax Ec) 20 mg PO ONCE ONE Stop: 05/24/18 16:01 Sodium Chloride (Ns Inj) 250 mls @ 15 mls/hr IV.SIG ONCE CHARANJIT Stop: 05/25/18 03:39 Magnesium Citrate (Citroma Liq) 300 ml PO ONCE ONE Stop: 05/24/18 16:01 Magnesium Citrate (Citroma Liq) 300 ml PO ONCE ONE Stop: 05/24/18 18:01 Ondansetron HCl (Zofran Inj) 4 mg IV.PUSH Q6H PRN PRN Reason: NAUSEA OR VOMITING Oxycodone HCl (Roxicodone) 5 mg PO Q6H PRN PRN Reason: pain 3-10 Last Admin: 05/24/18 05:29 Dose: 5 mg Pantoprazole Sodium (Protonix) 40 mg PO BID CHARANJIT Senna/Docusate Sodium (Lina-Colace) 1 tab PO BID CHARANJIT Last Admin: 05/24/18 12:11 Dose: 1 tab Sodium Chloride (Ns Flush) 2 ml IV.FLUSH PRN PRN PRN Reason: FLUSH AFTER USING IV ACCESS <Venice Mcgowan - Last Filed: 05/24/18 15:48> Allergies Allergy/AdvReac Type Severity Reaction Status Date / Time penicillin G Allergy Severe Anaphylaxis Verified 05/23/18 21:01 Home Medications Medication Instructions Recorded Confirmed Type ibuprofen [Advil] 200 mg PO Q6-8H PRN 05/23/18 05/23/18 History Exam Vital signs: Vital Signs 05/23/18 11:48 05/23/18 12:11 05/23/18 12:54 Temperature 99.6 F Pulse Rate 112 H 96 H Respiratory Rate 20 17 Blood Pressure 110/72 106/58 L Pulse Oximetry 98 100 96 05/23/18 16:57 05/23/18 18:43 05/23/18 19:16 Temperature Pulse Rate 78 72 72 Respiratory Rate 18 17 15 Blood Pressure 133/72 120/69 125/72 Pulse Oximetry 96 100 100 05/23/18 21:20 05/24/18 00:00 05/24/18 04:00 Temperature 98.2 F 98 F 98.7 F Pulse Rate 86 78 75 Respiratory Rate 17 19 16 Blood Pressure 124/64 118/60 109/58 L Pulse Oximetry 100 100 94 L 05/24/18 08:00 Temperature 97.4 F L Pulse Rate 77 Respiratory Rate 20 Blood Pressure 112/69 Pulse Oximetry 98 Intake & Output 05/23/18 05/24/18 05/24/18 18:59 06:59 18:59 Intake Total 1000 / 1000 240 / 240 Output Total 550 / 550 Balance 1000 / 1000 -310 / -310 Weight 68.039 kg 67.6 kg Intake: IV 1000 / 1000 NS Inj 1,000 ML @ Wide Open IV. 1000 / 1000 SIG BOLUS ONE Rx#:[id number] Oral 240 / 240 Output: Urine 550 / 550 - Constitutional mild distress, thin, cachectic - Routine HEENT Exam Head: Present: normocephalic ENT: Present: mucous membranes moist - Routine Neck Exam Present: supple - Routine Respiratory Exam Present: accessory muscle use (Low volumes but no obvious shortness of breath at rest) - Routine Cardiovascular Exam Present: S1, S2 - Routine Abdominal Exam Present: soft (Flat, right lower quadrant soft but palpable edema, no epigastric tenderness) - Routine Skin Exam Present: dry, pallor - Routine Neurological Exam Present: alert (Awake, answers simple questions but poor historian to some of the timing of situation) <Radha Nazario - Last Filed: 05/24/18 10:55> Vital signs: Vital Signs 05/23/18 16:57 05/23/18 18:43 05/23/18 19:16 Temperature Pulse Rate 78 72 72 Respiratory Rate 18 17 15 Blood Pressure 133/72 120/69 125/72 Pulse Oximetry 96 100 100 05/23/18 21:20 05/24/18 00:00 05/24/18 04:00 Temperature 98.2 F 98 F 98.7 F Pulse Rate 86 78 75 Respiratory Rate 17 19 16 Blood Pressure 124/64 118/60 109/58 L Pulse Oximetry 100 100 94 L 05/24/18 08:00 05/24/18 09:00 05/24/18 12:00 Temperature 97.4 F L 99.9 F H Pulse Rate 77 72 86 Respiratory Rate 20 20 Blood Pressure 112/69 93/50 L Pulse Oximetry 98 98 Intake & Output 05/23/18 05/24/18 05/24/18 18:59 06:59 18:59 Intake Total 1000 / 1000 240 / 240 Output Total 550 / 550 Balance 1000 / 1000 -310 / -310 Weight 68.039 kg 67.6 kg Intake: IV 1000 / 1000 NS Inj 1,000 ML @ Wide Open IV. 1000 / 1000 SIG BOLUS ONE Rx#:[id number] Oral 240 / 240 Output: Urine 550 / 550 <Venice Mcgowan - Last Filed: 05/24/18 15:48> Results - Labs CBC & Chem 7: 05/24/18 05:24 05/24/18 05:24 Labs: Laboratory Results - last 24 hr 05/23/18 05/23/18 05/23/18 12:50 12:50 12:50 WBC 5.6 RBC 2.40 L Hgb 9.0 L Hct 25.5 L MCV 106.2 H MCH 37.6 H MCHC 35.4 RDW 15.7 Plt Count 83 L MPV 9.3 Prelim Diff (Auto) Slide review pending Neut % (Auto) 78.6 H Lymph % (Auto) 8.7 L [place] % (Auto) 12.1 H Eos % (Auto) 0.2 Baso % (Auto) 0.4 Neut # (Auto) 4.4 Lymph # (Auto) 0.5 L [place] # (Auto) 0.7 Eos # (Auto) 0.0 Baso # (Auto) 0.0 WBC Differential . Diff Scan Auto diff confirmed Seg Neuts % (Manual) Band Neuts % (Manual) Lymphocytes % (Manual) Monocytes % (Manual) Eosinophils % (Manual) Abs Neuts (Manual) Differential Comment . Platelet Estimate Low L Platelet Morphology Normal Ovalocytes PT INR APTT Sodium 131 L Potassium 4.6 Chloride 97 L Carbon Dioxide 25.0 Anion Gap 9 BUN 12 Creatinine 0.93 Estimated GFR 83 L Random Glucose 132 H Hemoglobin A1c Lactic Acid Calcium 7.5 L Prot Corrected Calcium Magnesium Iron TIBC % Saturation Ferritin Total Bilirubin 3.1 H AST 60 H ALT 29 Alkaline Phosphatase 120 H Ammonia Troponin I Less than 0.02 L B-Natriuretic Peptide 43 Total Protein 8.5 H Albumin 1.4 L Lipase Vitamin B12 Folate TSH 1.500 Urine Color Urine Clarity Urine pH Ur Specific [place] Urine Protein Urine Glucose (UA) Urine Ketones Urine Occult Blood Urine Nitrate Urine Bilirubin Urine Urobilinogen Ur Leukocyte Esterase Urine RBC Urine WBC Urine Mucus Micro UA Comment Ur Microscopic Review Urine Culture Comments Serum Alcohol Less than 3 HIV 1&2 Ab/P24 Ag 4thGn Blood Type Blood Type Recheck Antibody Screen 05/23/18 05/23/18 05/23/18 12:50 14:30 14:30 WBC RBC Hgb Hct MCV MCH MCHC RDW Plt Count MPV Prelim Diff (Auto) Neut % (Auto) Lymph % (Auto) [place] % (Auto) Eos % (Auto) Baso % (Auto) Neut # (Auto) Lymph # (Auto) [place] # (Auto) Eos # (Auto) Baso # (Auto) WBC Differential Diff Scan Seg Neuts % (Manual) Band Neuts % (Manual) Lymphocytes % (Manual) Monocytes % (Manual) Eosinophils % (Manual) Abs Neuts (Manual) Differential Comment Platelet Estimate Platelet Morphology Ovalocytes PT INR APTT Sodium Potassium Chloride Carbon Dioxide Anion Gap BUN Creatinine Estimated GFR Random Glucose Hemoglobin A1c 7.0 H Lactic Acid Calcium Prot Corrected Calcium Magnesium 1.4 L Iron TIBC % Saturation Ferritin Total Bilirubin AST ALT Alkaline Phosphatase Ammonia 22 Troponin I B-Natriuretic Peptide Total Protein Albumin Lipase Vitamin B12 Folate TSH Urine Color Urine Clarity Urine pH Ur Specific [place] Urine Protein Urine Glucose (UA) Urine Ketones Urine Occult Blood Urine Nitrate Urine Bilirubin Urine Urobilinogen Ur Leukocyte Esterase Urine RBC Urine WBC Urine Mucus Micro UA Comment Ur Microscopic Review Urine Culture Comments Serum Alcohol HIV 1&2 Ab/P24 Ag 4thGn Blood Type Blood Type Recheck Antibody Screen 05/23/18 05/23/18 05/23/18 14:30 16:25 16:25 WBC RBC Hgb Hct MCV MCH MCHC RDW Plt Count MPV Prelim Diff (Auto) Neut % (Auto) Lymph % (Auto) [place] % (Auto) Eos % (Auto) Baso % (Auto) Neut # (Auto) Lymph # (Auto) [place] # (Auto) Eos # (Auto) Baso # (Auto) WBC Differential Diff Scan Seg Neuts % (Manual) Band Neuts % (Manual) Lymphocytes % (Manual) Monocytes % (Manual) Eosinophils % (Manual) Abs Neuts (Manual) Differential Comment Platelet Estimate Platelet Morphology Ovalocytes PT 15.4 H INR 1.5 APTT 32.4 H Sodium Potassium Chloride Carbon Dioxide Anion Gap BUN Creatinine Estimated GFR Random Glucose Hemoglobin A1c Lactic Acid 1.3 Calcium Prot Corrected Calcium Magnesium Iron 45 L TIBC 143 L % Saturation 31.5 Ferritin 765 H Total Bilirubin AST ALT Alkaline Phosphatase Ammonia Troponin I B-Natriuretic Peptide Total Protein Albumin Lipase Vitamin B12 952 Folate 11.7 TSH Urine Color Urine Clarity Urine pH Ur Specific [place] Urine Protein Urine Glucose (UA) Urine Ketones Urine Occult Blood Urine Nitrate Urine Bilirubin Urine Urobilinogen Ur Leukocyte Esterase Urine RBC Urine WBC Urine Mucus Micro UA Comment Ur Microscopic Review Urine Culture Comments Serum Alcohol HIV 1&2 Ab/P24 Ag 4thGn Blood Type Blood Type Recheck Antibody Screen 05/23/18 05/23/18 05/23/18 16:50 16:50 19:54 WBC RBC Hgb Hct MCV MCH MCHC RDW Plt Count MPV Prelim Diff (Auto) Neut % (Auto) Lymph % (Auto) [place] % (Auto) Eos % (Auto) Baso % (Auto) Neut # (Auto) Lymph # (Auto) [place] # (Auto) Eos # (Auto) Baso # (Auto) WBC Differential Diff Scan Seg Neuts % (Manual) Band Neuts % (Manual) Lymphocytes % (Manual) Monocytes % (Manual) Eosinophils % (Manual) Abs Neuts (Manual) Differential Comment Platelet Estimate Platelet Morphology Ovalocytes PT INR APTT Sodium Potassium Chloride Carbon Dioxide Anion Gap BUN Creatinine Estimated GFR Random Glucose Hemoglobin A1c Lactic Acid Calcium Prot Corrected Calcium Magnesium Iron TIBC % Saturation Ferritin Total Bilirubin AST ALT Alkaline Phosphatase Ammonia Troponin I B-Natriuretic Peptide Total Protein Albumin Lipase Vitamin B12 Folate TSH Urine Color Silvia Urine Clarity Clear Urine pH 6.0 Ur Specific [place] 1.038 H Urine Protein 30 H Urine Glucose (UA) Negative Urine Ketones Trace Urine Occult Blood Negative Urine Nitrate Negative Urine Bilirubin Negative Urine Urobilinogen 4 or greater Ur Leukocyte Esterase Negative Urine RBC 2 Urine WBC 7 H Urine Mucus Few H Micro UA Comment Culture not ind Ur Microscopic Review Not Reportable Urine Culture Comments Culture not ind Serum Alcohol HIV 1&2 Ab/P24 Ag 4thGn Nonreactive Blood Type B Positive Blood Type Recheck Required Antibody Screen Negative 05/24/18 05/24/18 05/24/18 05:24 05:24 05:24 WBC 4.9 RBC 2.09 L Hgb 8.0 L Hct 22.7 L MCV 108.4 H MCH 38.2 H MCHC 35.3 RDW 16.0 Plt Count 66 L MPV 9.5 Prelim Diff (Auto) Slide review pending Neut % (Auto) 62.2 Lymph % (Auto) 21.4 [place] % (Auto) 12.9 H Eos % (Auto) 2.9 Baso % (Auto) 0.6 Neut # (Auto) 3.1 Lymph # (Auto) 1.1 [place] # (Auto) 0.6 Eos # (Auto) 0.1 Baso # (Auto) 0.0 WBC Differential Manual diff final Diff Scan Seg Neuts % (Manual) 69 Band Neuts % (Manual) 6 Lymphocytes % (Manual) 20 Monocytes % (Manual) 4 Eosinophils % (Manual) 1 Abs Neuts (Manual) 3.7 Differential Comment . Platelet Estimate Low L Platelet Morphology Normal Ovalocytes 1+ H PT 14.8 H INR 1.5 APTT Sodium 133 L Potassium 3.6 D Chloride 98 Carbon Dioxide 24.8 Anion Gap 10 BUN 11 Creatinine 0.80 Estimated GFR Greater than 89 Random Glucose 146 H Hemoglobin A1c Lactic Acid Calcium 6.9 L* Prot Corrected Calcium 6.7 L* Magnesium Iron TIBC % Saturation Ferritin Total Bilirubin 1.9 H AST 47 H ALT 25 Alkaline Phosphatase 108 Ammonia Troponin I B-Natriuretic Peptide Total Protein 7.6 D Albumin 1.1 L Lipase 280 Vitamin B12 Folate TSH Urine Color Urine Clarity Urine pH Ur Specific [place] Urine Protein Urine Glucose (UA) Urine Ketones Urine Occult Blood Urine Nitrate Urine Bilirubin Urine Urobilinogen Ur Leukocyte Esterase Urine RBC Urine WBC Urine Mucus Micro UA Comment Ur Microscopic Review Urine Culture Comments Serum Alcohol HIV 1&2 Ab/P24 Ag 4thGn Blood Type Blood Type Recheck Antibody Screen - Imaging Impressions Chest X-Ray 05/23/18 12:35 CONCLUSION: 1. No acute cardiopulmonary disease. Abdomen/Pelvis CT 05/23/18 14:34 CONCLUSION: 1. Right iliopsoas/psoas fluid collection either abscess or hematoma. 2. Extensive varicosities about the splenic hilum and fundus of the stomach with a patent but small portal vein. 3. Trace ascites in the pelvis 4. Trace right pleural effusion. <Radha Nazario - Last Filed: 05/24/18 10:55> - Labs CBC & Chem 7: 05/24/18 05:24 05/24/18 05:24 Labs: Laboratory Results - last 24 hr 05/23/18 05/23/18 05/23/18 12:50 12:50 14:30 WBC RBC Hgb Hct MCV MCH MCHC RDW Plt Count MPV Prelim Diff (Auto) Neut % (Auto) Lymph % (Auto) [place] % (Auto) Eos % (Auto) Baso % (Auto) Neut # (Auto) Lymph # (Auto) [place] # (Auto) Eos # (Auto) Baso # (Auto) WBC Differential Seg Neuts % (Manual) Band Neuts % (Manual) Lymphocytes % (Manual) Monocytes % (Manual) Eosinophils % (Manual) Abs Neuts (Manual) Differential Comment Platelet Estimate Platelet Morphology Ovalocytes PT INR APTT Sodium Potassium Chloride Carbon Dioxide Anion Gap BUN Creatinine Estimated GFR Random Glucose Hemoglobin A1c 7.0 H Lactic Acid Calcium Prot Corrected Calcium Magnesium 1.4 L Iron TIBC % Saturation Ferritin Total Bilirubin AST ALT Alkaline Phosphatase B-Natriuretic Peptide 43 Total Protein Albumin Lipase Vitamin B12 Folate Urine Color Urine Clarity Urine pH Ur Specific [place] Urine Protein Urine Glucose (UA) Urine Ketones Urine Occult Blood Urine Nitrate Urine Bilirubin Urine Urobilinogen Ur Leukocyte Esterase Urine RBC Urine WBC Urine Mucus Micro UA Comment Ur Microscopic Review Urine Culture Comments HIV 1&2 Ab/P24 Ag 4thGn Blood Type Blood Type Recheck Antibody Screen Blood Bank Comment Bld Prod Order Comment 05/23/18 05/23/18 05/23/18 14:30 16:25 16:25 WBC RBC Hgb Hct MCV MCH MCHC RDW Plt Count MPV Prelim Diff (Auto) Neut % (Auto) Lymph % (Auto) [place] % (Auto) Eos % (Auto) Baso % (Auto) Neut # (Auto) Lymph # (Auto) [place] # (Auto) Eos # (Auto) Baso # (Auto) WBC Differential Seg Neuts % (Manual) Band Neuts % (Manual) Lymphocytes % (Manual) Monocytes % (Manual) Eosinophils % (Manual) Abs Neuts (Manual) Differential Comment Platelet Estimate Platelet Morphology Ovalocytes PT 15.4 H INR 1.5 APTT 32.4 H Sodium Potassium Chloride Carbon Dioxide Anion Gap BUN Creatinine Estimated GFR Random Glucose Hemoglobin A1c Lactic Acid 1.3 Calcium Prot Corrected Calcium Magnesium Iron 45 L TIBC 143 L % Saturation 31.5 Ferritin 765 H Total Bilirubin AST ALT Alkaline Phosphatase B-Natriuretic Peptide Total Protein Albumin Lipase Vitamin B12 952 Folate 11.7 Urine Color Urine Clarity Urine pH Ur Specific [place] Urine Protein Urine Glucose (UA) Urine Ketones Urine Occult Blood Urine Nitrate Urine Bilirubin Urine Urobilinogen Ur Leukocyte Esterase Urine RBC Urine WBC Urine Mucus Micro UA Comment Ur Microscopic Review Urine Culture Comments HIV 1&2 Ab/P24 Ag 4thGn Blood Type Blood Type Recheck Antibody Screen Blood Bank Comment Bld Prod Order Comment 05/23/18 05/23/18 05/23/18 16:50 16:50 19:54 WBC RBC Hgb Hct MCV MCH MCHC RDW Plt Count MPV Prelim Diff (Auto) Neut % (Auto) Lymph % (Auto) [place] % (Auto) Eos % (Auto) Baso % (Auto) Neut # (Auto) Lymph # (Auto) [place] # (Auto) Eos # (Auto) Baso # (Auto) WBC Differential Seg Neuts % (Manual) Band Neuts % (Manual) Lymphocytes % (Manual) Monocytes % (Manual) Eosinophils % (Manual) Abs Neuts (Manual) Differential Comment Platelet Estimate Platelet Morphology Ovalocytes PT INR APTT Sodium Potassium Chloride Carbon Dioxide Anion Gap BUN Creatinine Estimated GFR Random Glucose Hemoglobin A1c Lactic Acid Calcium Prot Corrected Calcium Magnesium Iron TIBC % Saturation Ferritin Total Bilirubin AST ALT Alkaline Phosphatase B-Natriuretic Peptide Total Protein Albumin Lipase Vitamin B12 Folate Urine Color Silvia Urine Clarity Clear Urine pH 6.0 Ur Specific [place] 1.038 H Urine Protein 30 H Urine Glucose (UA) Negative Urine Ketones Trace Urine Occult Blood Negative Urine Nitrate Negative Urine Bilirubin Negative Urine Urobilinogen 4 or greater Ur Leukocyte Esterase Negative Urine RBC 2 Urine WBC 7 H Urine Mucus Few H Micro UA Comment Culture not ind Ur Microscopic Review Not Reportable Urine Culture Comments Culture not ind HIV 1&2 Ab/P24 Ag 4thGn Nonreactive Blood Type B Positive Blood Type Recheck Required Antibody Screen Negative Blood Bank Comment Bld Prod Order Comment 05/24/18 05/24/18 05/24/18 05:24 05:24 05:24 WBC 4.9 RBC 2.09 L Hgb 8.0 L Hct 22.7 L MCV 108.4 H MCH 38.2 H MCHC 35.3 RDW 16.0 Plt Count 66 L MPV 9.5 Prelim Diff (Auto) Slide review pending Neut % (Auto) 62.2 Lymph % (Auto) 21.4 [place] % (Auto) 12.9 H Eos % (Auto) 2.9 Baso % (Auto) 0.6 Neut # (Auto) 3.1 Lymph # (Auto) 1.1 [place] # (Auto) 0.6 Eos # (Auto) 0.1 Baso # (Auto) 0.0 WBC Differential Manual diff final Seg Neuts % (Manual) 69 Band Neuts % (Manual) 6 Lymphocytes % (Manual) 20 Monocytes % (Manual) 4 Eosinophils % (Manual) 1 Abs Neuts (Manual) 3.7 Differential Comment . Platelet Estimate Low L Platelet Morphology Normal Ovalocytes 1+ H PT 14.8 H INR 1.5 APTT Sodium 133 L Potassium 3.6 D Chloride 98 Carbon Dioxide 24.8 Anion Gap 10 BUN 11 Creatinine 0.80 Estimated GFR Greater than 89 Random Glucose 146 H Hemoglobin A1c Lactic Acid Calcium 6.9 L* Prot Corrected Calcium 6.7 L* Magnesium Iron TIBC % Saturation Ferritin Total Bilirubin 1.9 H AST 47 H ALT 25 Alkaline Phosphatase 108 B-Natriuretic Peptide Total Protein 7.6 D Albumin 1.1 L Lipase 280 Vitamin B12 Folate Urine Color Urine Clarity Urine pH Ur Specific [place] Urine Protein Urine Glucose (UA) Urine Ketones Urine Occult Blood Urine Nitrate Urine Bilirubin Urine Urobilinogen Ur Leukocyte Esterase Urine RBC Urine WBC Urine Mucus Micro UA Comment Ur Microscopic Review Urine Culture Comments HIV 1&2 Ab/P24 Ag 4thGn Blood Type Blood Type Recheck Antibody Screen Blood Bank Comment Bld Prod Order Comment 05/24/18 10:58 WBC RBC Hgb Hct MCV MCH MCHC RDW Plt Count MPV Prelim Diff (Auto) Neut % (Auto) Lymph % (Auto) [place] % (Auto) Eos % (Auto) Baso % (Auto) Neut # (Auto) Lymph # (Auto) [place] # (Auto) Eos # (Auto) Baso # (Auto) WBC Differential Seg Neuts % (Manual) Band Neuts % (Manual) Lymphocytes % (Manual) Monocytes % (Manual) Eosinophils % (Manual) Abs Neuts (Manual) Differential Comment Platelet Estimate Platelet Morphology Ovalocytes PT INR APTT Sodium Potassium Chloride Carbon Dioxide Anion Gap BUN Creatinine Estimated GFR Random Glucose Hemoglobin A1c Lactic Acid Calcium Prot Corrected Calcium Magnesium Iron TIBC % Saturation Ferritin Total Bilirubin AST ALT Alkaline Phosphatase B-Natriuretic Peptide Total Protein Albumin Lipase Vitamin B12 Folate Urine Color Urine Clarity Urine pH Ur Specific [place] Urine Protein Urine Glucose (UA) Urine Ketones Urine Occult Blood Urine Nitrate Urine Bilirubin Urine Urobilinogen Ur Leukocyte Esterase Urine RBC Urine WBC Urine Mucus Micro UA Comment Ur Microscopic Review Urine Culture Comments HIV 1&2 Ab/P24 Ag 4thGn Blood Type Blood Type Recheck Antibody Screen Blood Bank Comment Bld Prod Order Comment - Imaging Impressions Abdomen/Pelvis CT 05/23/18 14:34 CONCLUSION: 1. Right iliopsoas/psoas fluid collection either abscess or hematoma. 2. Extensive varicosities about the splenic hilum and fundus of the stomach with a patent but small portal vein. 3. Trace ascites in the pelvis 4. Trace right pleural effusion. <Juan MVenice bledsoe - Last Filed: 05/24/18 15:48> Assessment and Plan (1) Hepatitis C Status: Acute Code(s): B19.20 - Unspecified viral hepatitis C without hepatic coma (2) Anemia Status: Acute Code(s): D64.9 - Anemia, unspecified (3) Thrombocytopenia Status: Acute Code(s): D69.6 - Thrombocytopenia, unspecified (4) Right lower quadrant abdominal pain Status: Acute Code(s): R10.31 - Right lower quadrant pain (5) Abdominal varicosities Status: Acute Code(s): I86.8 - Varicose veins of other specified sites (6) GI bleed due to NSAIDs Status: Acute Code(s): K92.2 - Gastrointestinal hemorrhage, unspecified; T39.395A - Adverse effect of other nonsteroidal anti-inflammatory drugs [NSAID] , initial encounter (7) GI bleed Status: Acute Code(s): K92.2 - Gastrointestinal hemorrhage, unspecified - Plan 62-year-old slim borderline frail male with a significant history of hepatitis C. Patient was initially treated 10 years or more ago but never completed his treatment due to the symptoms. Treatment was probably interferon, but patient is poor historian and does not remember some details to situation Current symptoms include right lower quadrant abdominal pain onset for at least 2-1/2 months or more affecting his ambulation and his stamina and mobility. 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 Patient denies any obvious bleeding, no rectal bleeding no hematemesis. Positive use for NSAIDs 1 bottle in 1 month, unknown number of tablets. Discussed with patient to use Tylenol instead of Aleve. Positive for weight loss at least 27 pounds and around a 6-month. Negative for nausea vomiting and dyspepsia but decreased appetite. EGD never, colonoscopy 10 years or more. Labs show hemoglobin on admission 9., Now 8 and a 24-hour period, PT/INR 1.5, bilirubin 1.5, AST 47, ALT 25, HIV nonreactive Thrombocytopenia platelet count 66 today, probable secondary to hep C. Transaminitis and hyperbilirubinemia also probable secondary to hep C, liver cirrhosis CT scan shows trace of ascites in the pelvis, extensive varicosities in the splenic hilum and fundus of the stomach, right iliopsoas fluid which could be hematoma or abscess. Appears at this point in time to be hematoma due to the extensive varicosities noted. Discussed with patient the need for EGD and colonoscopy to evaluate any obvious GI bleeding, and any other abnormal findings. Plan Diet clear liquids today, lunch, dinner Consent for EGD colonoscopy in a.m. Prep mag citrate x2 and Dulcolax tablets x4 Monitor labs with special attention to hemoglobin and transfuse as needed We will give 3 units of FFP and 1 unit platelets today PPI Bowel regimen Antiemetics Further recommendations to follow Patient was seen per myself and Dr. Mcgowan, note was written on his behalf <Radha Nazario - Last Filed: 05/24/18 10:55> (1) Hepatitis C Status: Acute Code(s): B19.20 - Unspecified viral hepatitis C without hepatic coma (2) Anemia Status: Acute Code(s): D64.9 - Anemia, unspecified (3) Thrombocytopenia Status: Acute Code(s): D69.6 - Thrombocytopenia, unspecified (4) Right lower quadrant abdominal pain Status: Acute Code(s): R10.31 - Right lower quadrant pain (5) Abdominal varicosities Status: Acute Code(s): I86.8 - Varicose veins of other specified sites (6) GI bleed due to NSAIDs Status: Acute Code(s): K92.2 - Gastrointestinal hemorrhage, unspecified; T39.395A - Adverse effect of other nonsteroidal anti-inflammatory drugs [NSAID] , initial encounter (7) GI bleed Status: Acute Code(s): K92.2 - Gastrointestinal hemorrhage, unspecified - Plan Seen and examined with Foreman/Project Manager, Transfuse 3 units of FFP and 1 packet of Platelets today. Monitor labs. Egd/colonoscopy tomorrow. Thankyou The exam, history, and the medical decision-making described in the above note were completed with the assistance of the mid-level provider. I reviewed and agree with the findings presented. I attest that I had a [id number] encounter with the patient on the same day, and personally performed and documented my assessment and findings in the medical record. <Venice Mcgowan - Last Filed: 05/24/18 15:48> <Radha Nazario - Last Filed: 05/24/18 10:55> (2) Anemia Qualifiers: Anemia type: unspecified type Qualified Code(s): D64.9 - Anemia, unspecified <Venice Mcgowan - Last Filed: 05/24/18 15:48> (2) Anemia Qualifiers: Anemia type: unspecified type Qualified Code(s): D64.9 - Anemia, unspecified
[2018-05-24] MEDS ORDERED: Calcium Chloride Inj 2 GM in Sodium Chlor 0.9% Inj 100 ML IV.SIG ONE (11:00)
[2018-05-24] MEDS ORDERED: Sodium Chlor 0.9% Inj 250 ML IV.SIG SCH (11:00)
[2018-05-24] MEDS: Senna/Docusate Sodium 8.6/50 MG Tablet PO SCH ×2 (12:11→20:35)
[2018-05-24] MEDS: Mag Sulf 1 gm/100 ml Premix 100 ML IV.SIG SCH ×2 (13:37→16:26)
--- NOTE | 2018-05-24 15:16 | P.DIET ---
Nutritional Evaluation Type of nutrition evaluation: initial Nutrition consult regarding: Diet Evaluation (MDC for Malnutrition) Subjective Subjective Comments: Pt seen in his room w/ no visitors. He was quite uncooperative with my assessment, occasionally cursing about the situation he's in. As I tried to ask more questions, pt became more defensive towards me and "his current medical situation". He did say he lost his taste buds ~2 years ago and states it's d/t something being wrong w/ his liver. Pt also has c/o early satiety, but would not elaborate on this. Pt was not cooperative w/ me so assessment was ended. Discussed w/ RN Mildred. Objective - Diagnosis Symptomatic Anemia, Thrombocytopenia, Hyponatremia - Objective % IBW: 78 (BJX=268#) Body Weight Used for Calculations: IBW (86.4kg) Energy Needs - Lower Range (kCal/kg): 25 Energy Needs - Upper Range (kCal/kg): 30 Lower Limit kCal/kg (kCals): 2,160 Upper Limit kCal/kg (kCals): 2,592 Lower Limit Protein Factor (Grams per Kg): 1.1 Upper Limit Protein Factor (Grams per Kg): 1.3 Lower Protein Needs (Protein): 95 Upper Protein Needs (Protein): 112 Dietitian Reviewed in Medical Record: Current diet, Curent medications, Intake & Output, Labs, Medical history Diet Order: Clear Liquid Objective Comments: Labs: Na 133, A1C 7.0, Ca 6.9, Donal Ca 6.7 (-) BM recorded Colonoscopy and EGD tomorrow Assessment Assessment: Pt admitted for symptomatic anemia, thrombocytopenia, and hyponatremia. Pt was uncooperative with my assessment, I was unable to get much information from him. He's currently on a clear liquid diet in preparation for EGD/colonoscopy tomorrow. Per EMR, he c/o 24# wt loss in 3 weeks. C/o loss of taste buds but cannot elaborate on this topic. Pt is at nutritional risk b/c he's at 78% of his IBW. This was explained to pt, but he was uninterested in any interventions or recommendations at that time. Advance diet per GI. Will continue to monitor. Recommendations: 1. Advance diet per GI. 2. Pt uncooperative w/ assessment, will continue to monitor. Dietitian to Monitor: Lab values, Intake & Output, Diet tolerance, Weight change , Diet advancement, Medical course
[2018-05-24] MEDS ORDERED: Magnesium Citrate Liq 300 ML Bottle PO ONE ×2 (16:00→18:00)
--- NOTE | 2018-05-24 16:06 | ECG ---
Date Performed: 05/23/2018 Time Performed: 15:04:52 PTAGE: 62 years EKG: Sinus rhythm NORMAL ECG NO PREVIOUS TRACING DOCTOR: Jovanni Li Interpretating Date/Time 05/24/2018 16:02:02
[2018-05-25] MEDS ORDERED: Chlorhexidine Gluconate 2% 1 Pack (2 Cloths) TOPICAL SCH (01:45)
[2018-05-25] MEDS ORDERED: Sodium Chlor 0.9% Inj 500 ML IV.SIG SCH (02:00)
[2018-05-25 07:12] LABS: Baso % (Auto) 0.5 % (0.0-2.0); Eos # (Auto) 0.1 th/mm3 (0.0-0.4); Lymph % (Auto) 18.9 % (9.0-44.0); Mean Corpuscular HGB Conc 35.6 % (32.0-36.0); Mean Corpuscular Hemoglobin 38.1 pg (27.0-34.0); Mean Corpuscular Volume 107.1 fL (80.0-100.0); Mean Platelet Volume 8.9 fL (7.0-11.0); Mono # (Auto) 0.7 th/mm3 (0.0-0.9); Mono % (Auto) 13.8 % (0.0-8.0); Neut # (Auto) 3.4 th/mm3 (1.8-7.7); Neut % (Auto) 65.8 % (16.0-70.0); Platelet Count 80 th/mm3 (150-450); Red Blood Count 1.89 mil/mm3 (4.50-5.90); Red Cell Distribution Width 15.5 % (11.6-17.2); White Blood Count 5.2 th/mm3 (4.0-11.0)
[2018-05-25 07:21] LABS: Albumin 1.6 g/dL (3.4-5.0); Anion Gap 7 meq/L (5-15); Aspartate Aminotransferase 47 U/L (15-37); Blood Urea Nitrogen 9 mg/dL (7-18); Calcium 7.6 mg/dL (8.5-10.1); Chloride 99 meq/L (98-107); Glomerular Filtration Rate Greater Than 89 mL/min (>89); Glucose,Random 97 mg/dL (74-106); Magnesium 1.7 mg/dL (1.5-2.5); Potassium 3.8 meq/L (3.5-5.1); Sodium 135 meq/L (136-145)
[2018-05-25 07:25] LABS: Alanine Aminotransferase 28 U/L (12-78); Alkaline Phosphatase 95 U/L (45-117); Total Protein 7.6 g/dL (6.4-8.2)
[2018-05-25 07:30] LABS: Hematocrit 20.3 % (39.0-51.0); Hemoglobin 7.2 gm/dL (13.0-17.0)
[2018-05-25 08:23] LABS: Platelet Morphology Normal (Normal)
[2018-05-25] MEDS ORDERED: Ketamine Inj 50 MG/5 ML Syringe IV.PUSH ONE (08:25)
[2018-05-25] MEDS ORDERED: Lidocaine PF 1% Inj 5 ML Syringe INFILTRATN ONE (09:37)
--- NOTE | 2018-05-25 09:43 | GIPROC ---
[facility] [address] [facility]. [facility], [address] EGD PROCEDURE REPORT EXAM DATE: 05/25/2018 PATIENT NAME: Ricardo Ma MR #: [id number] BIRTHDATE: 1955 ATTENDING: Venice Mcgowan MD ORDER #: [id number] STUDENT EDUCATION SPECIALIST: Julieth Crews and Tiffani Palumbo STATUS: inpatient INDICATIONS: The patient is a 62 yr old male here for an EGD due to iron deficiency anemia and abdominal pain PROCEDURE PERFORMED: EGD w/ biopsy MEDICATIONS: None and Per Anesthesia. TOPICAL ANESTHETIC: CONSENT: The patient understands the risks and benefits of the procedure and understands that these risks include, but are not limited to: sedation, allergic reaction, infection, perforation and/or bleeding. Alternative means of evaluation and treatment include, among others: physical exam, x-rays, and/or surgical intervention. The patient elects to proceed with this endoscopic procedure. medical equipment was checked for proper function. Hand hygiene and appropriate measures for infection prevention was taken. After the risks, benefits and alternatives of the procedure were thoroughly explained, Informed consent was verified, confirmed and timeout was successfully executed by the treatment team. The patient was anesthetized with topical anesthesia and the EC-[id number] (Pedi C) endoscope was introduced through the mouth and advanced to the second portion of the duodenum. Retroflexed views revealed no abnormalities The gastroscope was then slowly withdrawn and removed. ESOPHAGUS: The mucosa of the esophagus appeared normal. STOMACH: There was moderate and ulcerative gastritis in the gastric antrum. A biopsy was performed using cold forceps. Sample sent for histology. ADVERSE EVENTS: There were no complications. IMPRESSIONS: 1. The esophagus appeared normal 2. There was gastritis in the gastric antrum; biopsy was performed 3. Retroflexed views revealed no abnormalities RECOMMENDATIONS: 1. Await biopsy results. Biopsy results will not be ready for 7-10 days. If you don't hear from us in two weeks, call our office for biopsy results. 2. Anti-reflux regimen 3. Continue PPI 4. Avoid NSAIDS PATIENT CONDITION: stable DISPOSITION: Inpatient REPEAT EXAM: Return 3 months EGD pending biopsy results Venice Mcgowan MD eSigned: Venice Mcgowan MD 05/25/2018 9:42 AM cc: PATIENT NAME: Ricardo Ma Rafael MR#: [id number]
--- NOTE | 2018-05-25 09:56 | GIPROC ---
[facility] [address] [facility]. [facility], [address] COLONOSCOPY PROCEDURE REPORT EXAM DATE: 05/25/2018 PATIENT NAME: Ricardo Ma MR #: [id number] BIRTHDATE: 1955 ENDOSCOPIST: Venice Mcgowan MD ORDER #: [id number] CYBER SECURITY SPECIALIST: Julieth Crews RN STATUS: inpatient INDICATIONS: The patient is a 62 yr old male here for a colonoscopy due to abdominal pain and iron deficiency anemia PROCEDURE PERFORMED: Colonoscopy, diagnostic MEDICATIONS: None and Per Anesthesia. PREP QUALITY: The [place] Bowel Prep Score was Right colon 3, Mid colon 2, and Left colon 2. Total = 7. PREP TYPE:Magnesium Citrate ESTIMATED BLOOD LOSS: None CONSENT: The patient understands the risks and benefits of the procedure and understands that these risks include, but are not limited to: sedation, allergic reaction, infection, perforation and/or bleeding. Alternative means of evaluation and treatment include, among others: physical exam, x-rays, and/or surgical intervention. The patient elects to proceed with this endoscopic procedure. medical equipment was checked for proper function. Hand hygiene and appropriate measures for infection prevention was taken. After the risks, benefits and alternatives of the procedure were thoroughly explained, Informed consent was verified, confirmed and timeout was successfully executed by the treatment team. A digital exam revealed external hemorrhoids The Pentax EC-3490Li endoscope was introduced through the anus and advanced to the cecum, which was identified by both the appendix and ileocecal valve. The instrument was then slowly withdrawn as the colon was fully examined. COLON FINDINGS: The colonic mucosa appeared normal. Retroflexed views revealed internal hemorrhoids and Retroflexed views revealed medium internal hemorrhoids The scope was then completely withdrawn from the patient and the procedure terminated. PROCEDURE WITHDRAWAL TIME:6minutes ADVERSE EVENTS: There were no complications. IMPRESSIONS: 1. The colonic mucosa appeared normal 2. Retroflexed views revealed internal hemorrhoids 3. Retroflexed views revealed medium internal hemorrhoids 4. Revealed external hemorrhoids RECOMMENDATIONS: 1. Benefiber 2 tsp daily 2. Continue surveillance 3. Yearly hemoccult RECALL: Return 5 years Colonoscopy Venice Mcgowan MD eSigned: Venice Mcgowan MD 05/25/2018 9:56 AM cc:
[2018-05-25 13:14] LABS: INR 1.4 Ratio; Prothrombin Time 13.7 sec (9.8-11.6)
[2018-05-25] MEDS: Senna/Docusate Sodium 8.6/50 MG Tablet PO SCH ×2 (13:37→21:46)
--- NOTE | 2018-05-25 15:14 | P.PNIM ---
Subjective Interval history: The patient was feeling better. He said he slept through the procedures. His family was at the bedside. Their questions were answered. Discussed with nursing. Physical Exam Vital signs: Vital Signs 05/24/18 16:00 05/24/18 16:11 05/24/18 16:45 Temperature 99.9 F H 99.6 F 99.9 F H Pulse Rate 84 84 87 Respiratory Rate 20 18 18 Blood Pressure 119/58 L 119/58 L 115/58 L Pulse Oximetry 96 05/24/18 17:34 05/24/18 18:57 05/24/18 19:15 Temperature 100.0 F H 99.4 F 98.6 F Pulse Rate 87 77 70 Respiratory Rate 18 16 18 Blood Pressure 111/55 L 106/68 115/67 Pulse Oximetry 98 98 05/24/18 19:30 05/24/18 20:00 05/24/18 21:00 Temperature 98.8 F 99.2 F Pulse Rate 88 83 74 Respiratory Rate 20 17 Blood Pressure 108/57 L Pulse Oximetry 100 05/24/18 23:57 05/25/18 00:00 05/25/18 03:15 Temperature 98.6 F 98.5 F 98.9 F Pulse Rate 79 79 81 Respiratory Rate 18 19 20 Blood Pressure 123/68 123/68 107/57 L Pulse Oximetry 99 98 99 05/25/18 03:37 05/25/18 03:53 05/25/18 04:00 Temperature 98.9 F 98.5 F 99.5 F Pulse Rate 81 79 83 Respiratory Rate 20 20 16 Blood Pressure 113/59 L 115/68 126/71 Pulse Oximetry 96 05/25/18 09:03 05/25/18 09:14 05/25/18 10:18 Temperature 98.9 F 98.9 F Pulse Rate 77 77 69 Respiratory Rate 18 18 18 Blood Pressure 104/59 L 116/61 108/56 L Pulse Oximetry 98 98 100 Intake & Output 05/24/18 05/25/18 05/25/18 18:59 06:59 18:59 Intake Total 1679 / 1679 923 / 923 0 / 0 Output Total 354 / 354 550 / 550 Balance 1325 / 1325 373 / 373 0 / 0 Weight 69.1 kg Intake: IV 220 / 220 100 / 100 Calcium Chloride Inj 2 GM In NS 120 / 120 Inj 100 ML @ 120 mls/hr IV.SIG ONCE ONE Rx#:[id number] Magnesium Sulfate 1 gm/D5W 100 100 / 100 100 / 100 ml Premix 100 ML @ 100 mls/hr IV.SIG Q1H CHARANJIT Rx#:[id number] Oral 840 / 840 Intake (Blood Product) Amt 619 / 619 823 / 823 0 / 0 Liquid Plasma Cp2d Unit 233 / 233 [id number] Plasma Thawed 5 Day Acda Unit 232 / 232 [id number] Plasma Thawed 5 Day Cp2d Unit 358 / 358 [id number] Plt Pheresis S Leukoreduced 619 / 619 Unit [id number] Rbc As-3 Leukoreduced Unit 0 / 0 [id number] Output: Urine 354 / 354 550 / 550 Other: # Bowel Movements 1 Narrative: GENERAL: Thin, chronically ill-appearing male in no acute distress. SKIN: Focused skin assessment warm/dry. Psoriatic changes diffusely. Jaundiced. HEAD: Atraumatic. Normocephalic. EYES: Pupils equal and round. No scleral icterus. No injection or drainage. ENT: No nasal bleeding or discharge. Mucous membranes pink and moist. NECK: Trachea midline. No JVD. CARDIOVASCULAR: Regular rate and rhythm. No murmur appreciated. RESPIRATORY: No accessory muscle use. Clear to auscultation. Breath sounds equal bilaterally. GASTROINTESTINAL: Abdomen soft, nondistended. Hepatic and splenic margins not palpable. Mildly tender to palpation in the right lower quadrant. No evidence of hernia. Active bowel sounds. MUSCULOSKELETAL: No obvious deformities. No clubbing. No cyanosis. No edema. NEUROLOGICAL: Awake and alert. No obvious cranial nerve deficits. Motor grossly within normal limits. Normal speech. Results - Labs CBC & Chem 7: 05/25/18 06:37 05/25/18 06:37 Laboratory Results - last 24 hr 05/24/18 05/25/18 05/25/18 10:58 06:37 06:37 WBC 5.2 RBC 1.89 L Hgb 7.2 L Hct 20.3 L* MCV 107.1 H MCH 38.1 H MCHC 35.6 RDW 15.5 Plt Count 80 L MPV 8.9 Prelim Diff (Auto) Slide review pending Neut % (Auto) 65.8 Lymph % (Auto) 18.9 [place] % (Auto) 13.8 H Eos % (Auto) 1.0 Baso % (Auto) 0.5 Neut # (Auto) 3.4 Lymph # (Auto) 1.0 [place] # (Auto) 0.7 Eos # (Auto) 0.1 Baso # (Auto) 0.0 WBC Differential . Diff Scan Auto diff confirmed Differential Comment . Platelet Estimate Low L Platelet Morphology Normal PT INR Sodium 135 L Potassium 3.8 Chloride 99 Carbon Dioxide 29.0 Anion Gap 7 BUN 9 Creatinine 0.73 Estimated GFR Greater than 89 Random Glucose 97 Calcium 7.6 L Magnesium 1.7 Total Bilirubin 2.4 H Direct Bilirubin 1.6 H Indirect Bilirubin 0.8 AST 47 H ALT 28 Alkaline Phosphatase 95 Total Protein 7.6 Albumin 1.6 L MTS Gel Crossmatch Blood Bank Comment Bld Prod Order Comment 05/25/18 05/25/18 08:41 12:39 WBC RBC Hgb Hct MCV MCH MCHC RDW Plt Count MPV Prelim Diff (Auto) Neut % (Auto) Lymph % (Auto) [place] % (Auto) Eos % (Auto) Baso % (Auto) Neut # (Auto) Lymph # (Auto) [place] # (Auto) Eos # (Auto) Baso # (Auto) WBC Differential Diff Scan Differential Comment Platelet Estimate Platelet Morphology PT 13.7 H INR 1.4 Sodium Potassium Chloride Carbon Dioxide Anion Gap BUN Creatinine Estimated GFR Random Glucose Calcium Magnesium Total Bilirubin Direct Bilirubin Indirect Bilirubin AST ALT Alkaline Phosphatase Total Protein Albumin MTS Gel Crossmatch See Detail Blood Bank Comment Bld Prod Order Comment Microbiology 05/23/18 16:30 Blood - Peripheral Aerobic Blood Culture - Preliminary No growth in 2 days 05/23/18 16:30 Blood - Peripheral Anaerobic Blood Culture - Preliminary No growth in 2 days 05/23/18 16:25 Blood - Peripheral Aerobic Blood Culture - Preliminary No growth in 2 days 05/23/18 16:25 Blood - Peripheral Anaerobic Blood Culture - Preliminary No growth in 2 days 05/25/18 00:40 Stool Stool Occult Blood (WILLY) - Final Hemoccult negative Assessment and Plan - Plan Abdominal pain/ Hematoma/ Anemia CT revealed a fluid collection in the right psoas area. Thought to be resolving hematoma. Surgery and IR were contacted by the ED and no invasive procedure was recommended at the time. GI consult appreciated. S/p transfusion of FFP, platelets and red cells. S/p EGD and colonoscopy 05/25 without acute pathology -pain control with a bowel regimen. -follow pathology. -serial abdominal exams. Stable. -continue PPI. -follow CBC/INR and transfuse as needed. -hematology consult requested for hematoma and decreasing hemoglobin. Weight loss/ Weakness/ Dyspnea on exertion/ DM MCKEE and weakness likely exacerbated by anemia. Weight loss may be exacerbated by diabetes, for which he has yet to start medications for. CXR unremarkable. TSH unremarkable. A1c 7%. HIV serology negative. -PT eval. -oxygen and nebs as needed. -incentive spirometry. -GI eval as above. HCV INR is elevated and LFTs are decreased, suggesting cirrhosis. The pt says he quit drinking 8-10 weeks ago. -follow LFTs. Improving. -continue alcohol cessation. Nicotine abuse The pt smokes 4 cigarettes daily. -cessation instruction. PPx: ADALIs
[2018-05-25 16:17] LABS: Hematocrit 23.9 % (39.0-51.0); Hemoglobin 8.5 gm/dL (13.0-17.0); Mean Corpuscular HGB Conc 35.6 % (32.0-36.0); Mean Corpuscular Hemoglobin 37.1 pg (27.0-34.0); Mean Corpuscular Volume 104.3 fL (80.0-100.0); Mean Platelet Volume 9.2 fL (7.0-11.0); Platelet Count 81 th/mm3 (150-450); Red Blood Count 2.29 mil/mm3 (4.50-5.90); Red Cell Distribution Width 18.9 % (11.6-17.2); White Blood Count 6.2 th/mm3 (4.0-11.0)
[2018-05-26 05:44] LABS: Baso % (Auto) 0.5 % (0.0-2.0); Eos # (Auto) 0.1 th/mm3 (0.0-0.4); Hematocrit 22.2 % (39.0-51.0); Lymph # (Auto) 1.9 th/mm3 (1.0-4.8); Lymph % (Auto) 25.9 % (9.0-44.0); Mean Corpuscular Hemoglobin 36.9 pg (27.0-34.0); Mean Corpuscular Volume 102.5 fL (80.0-100.0); Mean Platelet Volume 8.4 fL (7.0-11.0); Mono # (Auto) 0.8 th/mm3 (0.0-0.9); Mono % (Auto) 10.9 % (0.0-8.0); Neut # (Auto) 4.4 th/mm3 (1.8-7.7); Neut % (Auto) 61.7 % (16.0-70.0); Platelet Count 69 th/mm3 (150-450); Red Blood Count 2.16 mil/mm3 (4.50-5.90); Red Cell Distribution Width 18.3 % (11.6-17.2); White Blood Count 7.1 th/mm3 (4.0-11.0)
[2018-05-26 05:51] LABS: INR 1.4 Ratio; Prothrombin Time 14.5 sec (9.8-11.6)
[2018-05-26 06:23] LABS: Alanine Aminotransferase 23 U/L (12-78); Albumin 1.4 g/dL (3.4-5.0); Alkaline Phosphatase 108 U/L (45-117); Anion Gap 8 meq/L (5-15); Aspartate Aminotransferase 39 U/L (15-37); Blood Urea Nitrogen 10 mg/dL (7-18); Calcium 7.1 mg/dL (8.5-10.1); Carbon Dioxide 27.2 meq/L (21.0-32.0); Chloride 99 meq/L (98-107); Glomerular Filtration Rate Greater Than 89 mL/min (>89); Glucose,Random 117 mg/dL (74-106); Magnesium 1.5 mg/dL (1.5-2.5); Potassium 3.8 meq/L (3.5-5.1); Sodium 134 meq/L (136-145); Total Protein 7.3 g/dL (6.4-8.2)
[2018-05-26] MEDS: Senna/Docusate Sodium 8.6/50 MG Tablet PO SCH ×2 (08:17→21:13)
[2018-05-26 08:33] LABS: Platelet Morphology Normal (Normal)
--- NOTE | 2018-05-26 11:03 | P.PNGI ---
Subjective Interval history: Pt resting in bed. States his family is bringing him in food from outside today , he is not happy with the hospital food. Denies nausea, vomiting. States some right lower quadrant abdominal pain. Has had some loose stools since the colonoscopy yesterday. <Ariadne Ortiz - Last Filed: 05/26/18 10:51> Physical Exam Vital signs: Vital Signs 05/25/18 12:00 05/25/18 13:00 05/25/18 16:00 Temperature 98.5 F 98.5 F 100.8 F H Pulse Rate 83 82 87 Respiratory Rate 20 16 20 Blood Pressure 123/57 L 110/66 126/71 Pulse Oximetry 100 98 98 05/25/18 20:00 05/25/18 20:05 05/26/18 00:00 Temperature 100.8 F H 100.7 F H Pulse Rate 91 H 97 H 86 Respiratory Rate 18 18 Blood Pressure 141/69 H 115/60 Pulse Oximetry 97 95 05/26/18 04:00 05/26/18 04:04 05/26/18 08:00 Temperature 97.3 F L 99.4 F Pulse Rate 84 88 81 Respiratory Rate 18 18 Blood Pressure 110/68 121/58 L Pulse Oximetry 96 97 05/26/18 09:00 Temperature Pulse Rate 82 Respiratory Rate Blood Pressure Pulse Oximetry Intake & Output 05/25/18 05/26/18 05/26/18 18:59 06:59 18:59 Intake Total 1040 / 1040 0 / 0 Output Total 0 / 0 Balance 1040 / 1040 0 / 0 Weight 70 kg Intake: Oral 240 / 240 0 / 0 Anesthesia Amount 400 / 400 Intake (Blood Product) Amt 400 / 400 Rbc As-3 Leukoreduced Unit 400 / 400 [id number] Output: Urine 0 / 0 Other: # Voids 3 # Bowel Movements 6 - Constitutional no acute distress - Routine HEENT Exam Head: Present: normocephalic, atraumatic - Routine Respiratory Exam Absent: accessory muscle use - Routine Abdominal Exam Present: soft, normoactive bowel sounds. Absent: tenderness, distended - Routine Skin Exam Present: dry, warm - Routine Neurological Exam Present: alert, oriented X3 <Ariadne Ortiz - Last Filed: 05/26/18 10:51> Vital signs: Vital Signs 05/25/18 16:00 05/25/18 20:00 05/25/18 20:05 Temperature 100.8 F H 100.8 F H Pulse Rate 87 91 H 97 H Respiratory Rate 20 18 Blood Pressure 126/71 141/69 H Pulse Oximetry 98 97 05/26/18 00:00 05/26/18 04:00 05/26/18 04:04 Temperature 100.7 F H 97.3 F L Pulse Rate 86 84 88 Respiratory Rate 18 18 Blood Pressure 115/60 110/68 Pulse Oximetry 95 96 05/26/18 08:00 05/26/18 09:00 05/26/18 12:00 Temperature 99.4 F 98.2 F Pulse Rate 81 82 79 Respiratory Rate 18 18 Blood Pressure 121/58 L 129/73 Pulse Oximetry 97 98 Intake & Output 05/25/18 05/26/18 05/26/18 18:59 06:59 18:59 Intake Total 1040 / 1040 0 / 0 120 / 120 Output Total 0 / 0 Balance 1040 / 1040 0 / 0 120 / 120 Weight 70 kg Intake: IV 120 / 120 Calcium Chloride Inj 2 GM In NS 120 / 120 Inj 100 ML @ 120 mls/hr IV.SIG ONCE ONE Rx#:[id number] Oral 240 / 240 0 / 0 Anesthesia Amount 400 / 400 Intake (Blood Product) Amt 400 / 400 Rbc As-3 Leukoreduced Unit 400 / 400 [id number] Output: Urine 0 / 0 Other: # Voids 3 # Bowel Movements 6 <Venice Mcgowan - Last Filed: 05/26/18 15:38> Results - Labs CBC & Chem 7: 05/26/18 05:20 05/26/18 05:20 Laboratory Results - last 24 hr 05/25/18 05/25/18 05/25/18 08:41 12:39 15:04 WBC 6.2 RBC 2.29 L Hgb 8.5 L Hct 23.9 L MCV 104.3 H MCH 37.1 H MCHC 35.6 RDW 18.9 H D Plt Count 81 L MPV 9.2 Prelim Diff (Auto) Neut % (Auto) Lymph % (Auto) Anson % (Auto) Eos % (Auto) Baso % (Auto) Neut # (Auto) Lymph # (Auto) Anson # (Auto) Eos # (Auto) Baso # (Auto) WBC Differential Diff Scan Differential Comment Platelet Estimate Platelet Morphology PT 13.7 H INR 1.4 Sodium Potassium Chloride Carbon Dioxide Anion Gap BUN Creatinine Estimated GFR Random Glucose Calcium Prot Corrected Calcium Magnesium Total Bilirubin Direct Bilirubin Indirect Bilirubin AST ALT Alkaline Phosphatase Total Protein Albumin MTS Gel Crossmatch See Detail 05/26/18 05/26/18 05/26/18 05:20 05:20 05:20 WBC 7.1 RBC 2.16 L Hgb 8.0 L Hct 22.2 L MCV 102.5 H MCH 36.9 H MCHC 36.0 RDW 18.3 H Plt Count 69 L MPV 8.4 Prelim Diff (Auto) Slide review pending Neut % (Auto) 61.7 Lymph % (Auto) 25.9 Anson % (Auto) 10.9 H Eos % (Auto) 1.0 Baso % (Auto) 0.5 Neut # (Auto) 4.4 Lymph # (Auto) 1.9 Anson # (Auto) 0.8 Eos # (Auto) 0.1 Baso # (Auto) 0.0 WBC Differential . Diff Scan Auto diff confirmed Differential Comment . Platelet Estimate Low L Platelet Morphology Normal PT 14.5 H INR 1.4 Sodium 134 L Potassium 3.8 Chloride 99 Carbon Dioxide 27.2 Anion Gap 8 BUN 10 Creatinine 0.74 Estimated GFR Greater than 89 Random Glucose 117 H Calcium 7.1 L* Prot Corrected Calcium 7.1 L* Magnesium 1.5 Total Bilirubin 1.8 H Direct Bilirubin 1.2 H Indirect Bilirubin 0.6 AST 39 H ALT 23 Alkaline Phosphatase 108 Total Protein 7.3 Albumin 1.4 L MTS Gel Crossmatch Microbiology 05/23/18 16:30 Blood - Peripheral Aerobic Blood Culture - Preliminary No growth in 2 days 05/23/18 16:30 Blood - Peripheral Anaerobic Blood Culture - Preliminary No growth in 2 days 05/23/18 16:25 Blood - Peripheral Aerobic Blood Culture - Preliminary No growth in 2 days 05/23/18 16:25 Blood - Peripheral Anaerobic Blood Culture - Preliminary No growth in 2 days <Ariadne Ortiz - Last Filed: 05/26/18 10:51> - Labs CBC & Chem 7: 05/26/18 05:20 05/26/18 05:20 Laboratory Results - last 24 hr 05/25/18 05/25/18 05/26/18 08:41 15:04 05:20 WBC 6.2 7.1 RBC 2.29 L 2.16 L Hgb 8.5 L 8.0 L Hct 23.9 L 22.2 L MCV 104.3 H 102.5 H MCH 37.1 H 36.9 H MCHC 35.6 36.0 RDW 18.9 H D 18.3 H Plt Count 81 L 69 L MPV 9.2 8.4 Prelim Diff (Auto) Slide review pending Neut % (Auto) 61.7 Lymph % (Auto) 25.9 Anson % (Auto) 10.9 H Eos % (Auto) 1.0 Baso % (Auto) 0.5 Neut # (Auto) 4.4 Lymph # (Auto) 1.9 Anson # (Auto) 0.8 Eos # (Auto) 0.1 Baso # (Auto) 0.0 WBC Differential . Diff Scan Auto diff confirmed Differential Comment . Platelet Estimate Low L Platelet Morphology Normal PT INR Sodium Potassium Chloride Carbon Dioxide Anion Gap BUN Creatinine Estimated GFR Random Glucose Calcium Prot Corrected Calcium Magnesium Total Bilirubin Direct Bilirubin Indirect Bilirubin AST ALT Alkaline Phosphatase Total Protein Albumin Hepatitis A IgM Ab Hep Bs Antigen Hep B Core IgM Ab Hep C IgG Ab MTS Gel Crossmatch See Detail 05/26/18 05/26/18 05/26/18 05:20 05:20 11:50 WBC RBC Hgb Hct MCV MCH MCHC RDW Plt Count MPV Prelim Diff (Auto) Neut % (Auto) Lymph % (Auto) Anson % (Auto) Eos % (Auto) Baso % (Auto) Neut # (Auto) Lymph # (Auto) Anson # (Auto) Eos # (Auto) Baso # (Auto) WBC Differential Diff Scan Differential Comment Platelet Estimate Platelet Morphology PT 14.5 H INR 1.4 Sodium 134 L Potassium 3.8 Chloride 99 Carbon Dioxide 27.2 Anion Gap 8 BUN 10 Creatinine 0.74 Estimated GFR Greater than 89 Random Glucose 117 H Calcium 7.1 L* Prot Corrected Calcium 7.1 L* Magnesium 1.5 Total Bilirubin 1.8 H Direct Bilirubin 1.2 H Indirect Bilirubin 0.6 AST 39 H ALT 23 Alkaline Phosphatase 108 Total Protein 7.3 Albumin 1.4 L Hepatitis A IgM Ab Nonreactive Hep Bs Antigen Nonreactive Hep B Core IgM Ab Nonreactive Hep C IgG Ab Reactive H MTS Gel Crossmatch Microbiology 05/23/18 16:30 Blood - Peripheral Aerobic Blood Culture - Preliminary No growth in 3 days 05/23/18 16:30 Blood - Peripheral Anaerobic Blood Culture - Preliminary No growth in 3 days 05/23/18 16:25 Blood - Peripheral Aerobic Blood Culture - Preliminary No growth in 3 days 05/23/18 16:25 Blood - Peripheral Anaerobic Blood Culture - Preliminary No growth in 3 days <Juan MVenice bledsoe - Last Filed: 05/26/18 15:38> Assessment and Plan (1) Hepatitis C Status: Acute Code(s): B19.20 - Unspecified viral hepatitis C without hepatic coma (2) Anemia Status: Acute Code(s): D64.9 - Anemia, unspecified (3) Thrombocytopenia Status: Acute Code(s): D69.6 - Thrombocytopenia, unspecified (4) Right lower quadrant abdominal pain Status: Acute Code(s): R10.31 - Right lower quadrant pain (5) Abdominal varicosities Status: Acute Code(s): I86.8 - Varicose veins of other specified sites (6) GI bleed due to NSAIDs Status: Acute Code(s): K92.2 - Gastrointestinal hemorrhage, unspecified; T39.395A - Adverse effect of other nonsteroidal anti-inflammatory drugs [NSAID] , initial encounter (7) GI bleed Status: Acute Code(s): K92.2 - Gastrointestinal hemorrhage, unspecified - Plan Assessment: - Anemia- pt with hematoma to right iliopsoas/psoas Macrocytic, hyperchromic- likely in part related to folate deficiency from ETOH history S/P EGD and colonoscopy --> Normal esophagus, gastritis in the gastric antrum - biopsy, colonic mucosa appeared normal, internal and external hemorrhoids - Cirrhosis secondary to ETOH abuse for multiple years, quit drinking 8-10 months ago and Hepatitis C S/P incomplete treatment with Interferon 10 years ago due to side effects Thrombocytopenia, coagulopathy, and hypoalbuminemia secondary to cirrhosis CT abdomen and pelvis W IV contrast (05/23) Extensive varicosities about the splenic hilum and fundus of the stomach with a patent but small portal vein. Trace ascites in the pelvis. Trace right pleural effusion. Plan: EGD biopsy pending Protonix Avoid hepatotoxins Monitor H/H Hematology has been consulted Hepatitis C tx outpatient Continue with ETOH cessation Megace can be considered if continued issues of weight loss Our service will sign off, please reconsult as needed Have pt follow up with GI after DC Pt has been seen and examined by myself and Dr. Mcgowan and this note is written on his behalf <Ariadne Ortiz - Last Filed: 05/26/18 10:51> (1) Hepatitis C Status: Acute Code(s): B19.20 - Unspecified viral hepatitis C without hepatic coma (2) Anemia Status: Acute Code(s): D64.9 - Anemia, unspecified (3) Thrombocytopenia Status: Acute Code(s): D69.6 - Thrombocytopenia, unspecified (4) Right lower quadrant abdominal pain Status: Acute Code(s): R10.31 - Right lower quadrant pain (5) Abdominal varicosities Status: Acute Code(s): I86.8 - Varicose veins of other specified sites (6) GI bleed due to NSAIDs Status: Acute Code(s): K92.2 - Gastrointestinal hemorrhage, unspecified; T39.395A - Adverse effect of other nonsteroidal anti-inflammatory drugs [NSAID] , initial encounter (7) GI bleed Status: Acute Code(s): K92.2 - Gastrointestinal hemorrhage, unspecified - Plan Seen and examined with ADVERTISING REP, no bleeding. egd/ colonoscopy biopsies pending.Ct scan reviewed.Gi will sign off. The exam, history, and the medical decision-making described in the above note were completed with the assistance of the mid-level provider. I reviewed and agree with the findings presented. I attest that I had a [id number] encounter with the patient on the same day, and personally performed and documented my assessment and findings in the medical record. <Venice Mcgowan - Last Filed: 05/26/18 15:38> <Ariadne Ortiz - Last Filed: 05/26/18 10:51> (2) Anemia Qualifiers: Anemia type: unspecified type Qualified Code(s): D64.9 - Anemia, unspecified <Venice Mcgowan - Last Filed: 05/26/18 15:38> (2) Anemia Qualifiers: Anemia type: unspecified type Qualified Code(s): D64.9 - Anemia, unspecified
[2018-05-26] MEDS ORDERED: Calcium Chloride Inj 2 GM in Sodium Chlor 0.9% Inj 100 ML IV.SIG ONE (11:44)
[2018-05-26 12:58] LABS: Hepatitits B Surface Antigen Nonreactive (Nonreactive)
--- NOTE | 2018-05-26 13:07 | P.PNIM ---
Subjective Interval history: The patient was upset that he needed to be connected back to the IV. He said he was concerned about his weight loss. He said he would drink Ensure shakes. Discussed with nursing at the bedside. Physical Exam Vital signs: Vital Signs 05/25/18 16:00 05/25/18 20:00 05/25/18 20:05 Temperature 100.8 F H 100.8 F H Pulse Rate 87 91 H 97 H Respiratory Rate 20 18 Blood Pressure 126/71 141/69 H Pulse Oximetry 98 97 05/26/18 00:00 05/26/18 04:00 05/26/18 04:04 Temperature 100.7 F H 97.3 F L Pulse Rate 86 84 88 Respiratory Rate 18 18 Blood Pressure 115/60 110/68 Pulse Oximetry 95 96 05/26/18 08:00 05/26/18 09:00 Temperature 99.4 F Pulse Rate 81 82 Respiratory Rate 18 Blood Pressure 121/58 L Pulse Oximetry 97 Intake & Output 05/25/18 05/26/18 05/26/18 18:59 06:59 18:59 Intake Total 1040 / 1040 0 / 0 Output Total 0 / 0 Balance 1040 / 1040 0 / 0 Weight 70 kg Intake: Oral 240 / 240 0 / 0 Anesthesia Amount 400 / 400 Intake (Blood Product) Amt 400 / 400 Rbc As-3 Leukoreduced Unit 400 / 400 [id number] Output: Urine 0 / 0 Other: # Voids 3 # Bowel Movements 6 Narrative: GENERAL: Cachectic. SKIN: Focused skin assessment warm/dry. Psoriatic changes diffusely. Jaundiced. HEAD: Atraumatic. Normocephalic. EYES: Pupils equal and round. No scleral icterus. No injection or drainage. ENT: No nasal bleeding or discharge. Mucous membranes pink and moist. NECK: Trachea midline. No JVD. CARDIOVASCULAR: Regular rate and rhythm. No murmur appreciated. RESPIRATORY: No accessory muscle use. Clear to auscultation. Breath sounds equal bilaterally. GASTROINTESTINAL: Abdomen soft, nondistended. Hepatic and splenic margins not palpable. Mildly tender to palpation in the right lower quadrant. No evidence of hernia. Active bowel sounds. MUSCULOSKELETAL: No obvious deformities. No clubbing. No cyanosis. No edema. NEUROLOGICAL: Awake and alert. No obvious cranial nerve deficits. Motor grossly within normal limits. Normal speech. Results - Labs CBC & Chem 7: 05/26/18 05:20 05/26/18 05:20 Laboratory Results - last 24 hr 05/25/18 05/25/18 05/25/18 08:41 12:39 15:04 WBC 6.2 RBC 2.29 L Hgb 8.5 L Hct 23.9 L MCV 104.3 H MCH 37.1 H MCHC 35.6 RDW 18.9 H D Plt Count 81 L MPV 9.2 Prelim Diff (Auto) Neut % (Auto) Lymph % (Auto) Vernon % (Auto) Eos % (Auto) Baso % (Auto) Neut # (Auto) Lymph # (Auto) Vernon # (Auto) Eos # (Auto) Baso # (Auto) WBC Differential Diff Scan Differential Comment Platelet Estimate Platelet Morphology PT 13.7 H INR 1.4 Sodium Potassium Chloride Carbon Dioxide Anion Gap BUN Creatinine Estimated GFR Random Glucose Calcium Prot Corrected Calcium Magnesium Total Bilirubin Direct Bilirubin Indirect Bilirubin AST ALT Alkaline Phosphatase Total Protein Albumin Hep Bs Antigen MTS Gel Crossmatch See Detail 05/26/18 05/26/18 05/26/18 05:20 05:20 05:20 WBC 7.1 RBC 2.16 L Hgb 8.0 L Hct 22.2 L MCV 102.5 H MCH 36.9 H MCHC 36.0 RDW 18.3 H Plt Count 69 L MPV 8.4 Prelim Diff (Auto) Slide review pending Neut % (Auto) 61.7 Lymph % (Auto) 25.9 Vernon % (Auto) 10.9 H Eos % (Auto) 1.0 Baso % (Auto) 0.5 Neut # (Auto) 4.4 Lymph # (Auto) 1.9 Vernon # (Auto) 0.8 Eos # (Auto) 0.1 Baso # (Auto) 0.0 WBC Differential . Diff Scan Auto diff confirmed Differential Comment . Platelet Estimate Low L Platelet Morphology Normal PT 14.5 H INR 1.4 Sodium 134 L Potassium 3.8 Chloride 99 Carbon Dioxide 27.2 Anion Gap 8 BUN 10 Creatinine 0.74 Estimated GFR Greater than 89 Random Glucose 117 H Calcium 7.1 L* Prot Corrected Calcium 7.1 L* Magnesium 1.5 Total Bilirubin 1.8 H Direct Bilirubin 1.2 H Indirect Bilirubin 0.6 AST 39 H ALT 23 Alkaline Phosphatase 108 Total Protein 7.3 Albumin 1.4 L Hep Bs Antigen MTS Gel Crossmatch 05/26/18 11:50 WBC RBC Hgb Hct MCV MCH MCHC RDW Plt Count MPV Prelim Diff (Auto) Neut % (Auto) Lymph % (Auto) Vernon % (Auto) Eos % (Auto) Baso % (Auto) Neut # (Auto) Lymph # (Auto) Vernon # (Auto) Eos # (Auto) Baso # (Auto) WBC Differential Diff Scan Differential Comment Platelet Estimate Platelet Morphology PT INR Sodium Potassium Chloride Carbon Dioxide Anion Gap BUN Creatinine Estimated GFR Random Glucose Calcium Prot Corrected Calcium Magnesium Total Bilirubin Direct Bilirubin Indirect Bilirubin AST ALT Alkaline Phosphatase Total Protein Albumin Hep Bs Antigen Nonreactive MTS Gel Crossmatch Microbiology 05/23/18 16:30 Blood - Peripheral Aerobic Blood Culture - Preliminary No growth in 3 days 05/23/18 16:30 Blood - Peripheral Anaerobic Blood Culture - Preliminary No growth in 3 days 05/23/18 16:25 Blood - Peripheral Aerobic Blood Culture - Preliminary No growth in 3 days 05/23/18 16:25 Blood - Peripheral Anaerobic Blood Culture - Preliminary No growth in 3 days Assessment and Plan - Plan Abdominal pain/ Hematoma/ Anemia CT revealed a fluid collection in the right psoas area. Thought to be resolving hematoma. Surgery and IR were contacted by the ED and no invasive procedure was recommended at the time. GI consult appreciated. S/p transfusion of FFP, platelets and red cells. S/p EGD and colonoscopy 05/25 without acute pathology -pain control with a bowel regimen. -follow pathology. -serial abdominal exams. Stable. -continue PPI. -follow CBC/INR and transfuse as needed. -hematology consult requested for hematoma and decreasing hemoglobin. Weight loss/ Weakness/ Dyspnea on exertion/ DM MCKEE and weakness likely exacerbated by anemia. Weight loss may be exacerbated by diabetes, for which he has yet to start medications for. CXR unremarkable. TSH unremarkable. A1c 7%. HIV serology negative. -PT eval. -oxygen and nebs as needed. -incentive spirometry. -GI and hematology evals as above. HCV INR is elevated and LFTs are decreased, suggesting cirrhosis. The pt says he quit drinking 8-10 weeks ago. -follow LFTs. Improving. -continue alcohol cessation. Nicotine abuse The pt smokes 4 cigarettes daily. -cessation instruction. Hypomagnesemia Stable. -replete and monitor. PPx: SCDs Discharge Planning: Await hematology evaluation. D/c when hemoglobin stable.
[2018-05-26 13:28] LABS: Hepatitis A IgM Antibody Nonreactive (Nonreactive)
[2018-05-26] MEDS ORDERED: Magnesium Sulfate Inj 2 GM in Sodium Chlor 0.9% Inj 96 ML IV.SIG ONE (15:00)
--- NOTE | 2018-05-27 02:41 | MB ---
cc: Kuldeep Alba MD DATE: 05/26/2018 REASON FOR CONSULTATION: The patient with a hematoma and underlying coagulopathy due to liver disease, also with anemia. HISTORY OF PRESENT ILLNESS: This is a 62-year-old male who has a history of alcoholic liver disease, liver cirrhosis, hepatitis C, and diabetes, who presents to the emergency department with symptoms of right lower quadrant abdominal pain. He states that the pain began approximately 2 months ago. He is also experiencing weight loss and loss of appetite. In the emergency department, he had a CT scan of the abdomen which showed trace ascites, extensive varicosities in the splenic hilum and fundus of the stomach, and there was right iliopsoas fluid which could be abscess or hematoma. The patient had been evaluated by gastroenterology for assessment of his anemia. EGD was completed. He also had a colonoscopy. Biopsies are pending. Final result on the EGD showed normal esophagus with gastritis in the gastric antrum. Colonoscopy showed internal and external hemorrhoids. The patient has thrombocytopenia with platelet count in the 60,000 range. His PT is 14.5 and INR is 1.4. The patient had anemia studies which showed an anemia of chronic disease with elevated ferritin level. TIBC low at 143. The patient has elevated total bilirubin of 1.8, AST is 39, ALT is 23. At this time, the patient is awake and alert, complains of right lower quadrant abdominal pain. REVIEW OF SYSTEMS: A comprehensive review of system was completed which is negative except as described in the HPI. PAST MEDICAL HISTORY: Alcoholic liver cirrhosis, degenerative joint disease, diabetes, hepatitis C, psoriasis, retroperitoneal bleeding. SURGICAL HISTORY: None. FAMILY HISTORY: Reviewed, is significant for some sort of bone cancer. SOCIAL HISTORY: He smoked cigarettes, half a pack per day. He states that he has not had an alcoholic beverage for 8-10 weeks and is trying to quit. He does have a history of alcoholism. He denies any illicit drug use. FAMILY HISTORY: Reviewed and is noncontributory to this admission. MEDICATIONS: 1. Tylenol p.r.n. 2. Chlorhexidine p.r.n. 3. Zofran p.r.n. 4. Roxicodone 5 mg p.o. q. 6 hours p.r.n. 5. Protonix 40 mg p.o. b.i.d. 6. Senna docusate 1 tablet p.o. b.i.d. ALLERGIES: HE IS ALLERGIC TO PENICILLIN. LABORATORY DATA: Sodium 134, potassium 3.8, chloride 99, BUN of 10, GFR is 89, calcium is 7.1. Total bilirubin is 1.8, direct bilirubin is 1.2, indirect is 0.6, AST is 39, ALT is 23, albumin is 1.4. PT is 14.5, INR is 1.4. WBC 7.1, hemoglobin is 8, and platelet count of 69,000. Imaging was reviewed in the EMR. ASSESSMENT AND PLAN: This is a 62-year-old male with a history of alcoholic liver cirrhosis, history of alcohol abuse, hepatitis C, who presents to the emergency department with right lower quadrant pain and was found to have a hematoma based on the CT scan. 1. Abdominal hematoma with anemia and coagulopathy due to alcoholic liver disease. I would recommend monitoring hemoglobin. We will check fibrinogen levels. We will transfuse cryoprecipitate if the fibrinogen level is less than 150. Monitor daily INR. Give vitamin K if INR is greater than 1.6. The patient has already been evaluated by GI. His hemoglobin appears to be stabilizing. We will continue to monitor. No blood product support is needed at this time. We will obtain LDH and haptoglobin. Obtain a direct Zeina test. He does have elevated total bilirubin, which is likely due to underlying alcoholic liver disease. 2. Alcoholic liver disease. 3. Elevated total bilirubin levels. 4. Elevated liver function tests. AST 39, ALT is 23, consistent with alcoholism. 5. Hypoalbuminemia with an albumin of 1.4. This is a poor prognostic feature in the setting of liver disease. Thank you for allowing us to participate in the care of this patient. We will continue to follow this patient along. MD LISE Regalado/dejah , 01:19 AM , 01:30 AM
[2018-05-27 04:40] LABS: Baso % (Auto) 0.5 % (0.0-2.0); Eos # (Auto) 0.1 th/mm3 (0.0-0.4); Eos % (Auto) 1.1 % (0.0-4.0); Hematocrit 22.7 % (39.0-51.0); Hemoglobin 8.2 gm/dL (13.0-17.0); Lymph # (Auto) 1.4 th/mm3 (1.0-4.8); Lymph % (Auto) 22.8 % (9.0-44.0); Mean Corpuscular HGB Conc 35.9 % (32.0-36.0); Mean Corpuscular Volume 103.1 fL (80.0-100.0); Mono # (Auto) 0.7 th/mm3 (0.0-0.9); Mono % (Auto) 11.3 % (0.0-8.0); Neut # (Auto) 4.1 th/mm3 (1.8-7.7); Neut % (Auto) 64.3 % (16.0-70.0); Platelet Count 71 th/mm3 (150-450); Red Blood Count 2.21 mil/mm3 (4.50-5.90); Red Cell Distribution Width 18.2 % (11.6-17.2); White Blood Count 6.3 th/mm3 (4.0-11.0)
[2018-05-27 04:47] LABS: INR 1.5 Ratio; Prothrombin Time 14.7 sec (9.8-11.6)
[2018-05-27 05:08] LABS: Alanine Aminotransferase 23 U/L (12-78); Albumin 1.3 g/dL (3.4-5.0); Anion Gap 7 meq/L (5-15); Aspartate Aminotransferase 37 U/L (15-37); Blood Urea Nitrogen 9 mg/dL (7-18); Calcium 7.4 mg/dL (8.5-10.1); Carbon Dioxide 29.1 meq/L (21.0-32.0); Chloride 98 meq/L (98-107); Glomerular Filtration Rate Greater Than 89 mL/min (>89); Glucose,Random 168 mg/dL (74-106); Magnesium 1.5 mg/dL (1.5-2.5); Potassium 3.7 meq/L (3.5-5.1); Sodium 134 meq/L (136-145)
[2018-05-27 05:16] LABS: Alkaline Phosphatase 97 U/L (45-117); Total Protein 7.3 g/dL (6.4-8.2)
[2018-05-27 07:59] LABS: Platelet Morphology Normal (Normal)
[2018-05-27] MEDS: Senna/Docusate Sodium 8.6/50 MG Tablet PO SCH ×2 (08:10→20:47)
--- NOTE | 2018-05-27 15:39 | P.PNONC ---
Subjective Interval history: Afebrile Patient reports he continues to have right lower quadrant abdominal pain Has just asked for something for pain a few minutes ago No bleeding Objective Vital Signs/Intake & Output: Vital Signs 05/26/18 16:00 05/26/18 19:49 05/26/18 20:00 Temperature 99.4 F 98.9 F Pulse Rate 89 80 87 Respiratory Rate 18 18 Blood Pressure 132/75 123/72 Pulse Oximetry 95 96 05/27/18 00:00 05/27/18 00:04 05/27/18 03:44 Temperature 97.8 F Pulse Rate 86 82 85 Respiratory Rate 18 Blood Pressure 136/74 Pulse Oximetry 94 L 05/27/18 04:00 05/27/18 08:00 05/27/18 12:00 Temperature 99.0 F 97.8 F 97.2 F L Pulse Rate 85 63 74 Respiratory Rate 18 18 18 Blood Pressure 121/62 106/65 107/63 Pulse Oximetry 94 L 96 100 Intake & Output 05/26/18 05/27/18 05/27/18 18:59 06:59 18:59 Intake Total 820 / 820 Balance 820 / 820 Weight 155 lb 6.814 oz Intake: IV 220 / 220 Calcium Chloride Inj 2 GM In NS 120 / 120 Inj 100 ML @ 120 mls/hr IV.SIG ONCE ONE Rx#:[id number] LR 1000 mL Inj 1,000 ML @ 30 0 / 0 mls/hr IV.SIG .Q24H [facility] Rx#: [id number] Magnesium Sulfate Inj 2 GM In 100 / 100 NS Inj 96 ML @ 50 mls/hr IV.SIG ONCE ONE Rx#:[id number] Oral 600 / 600 Other: # Voids 5 0 Date of Last Bowel Movement 05/26/18 Result Diagrams: 05/27/18 03:59 05/27/18 03:59 Laboratory Results: Laboratory Results - last 24 hr 05/27/18 05/27/18 05/27/18 03:59 03:59 03:59 WBC 6.3 RBC 2.21 L Hgb 8.2 L Hct 22.7 L MCV 103.1 H MCH 37.0 H MCHC 35.9 RDW 18.2 H Plt Count 71 L MPV 9.0 Prelim Diff (Auto) Slide review pending Neut % (Auto) 64.3 Lymph % (Auto) 22.8 [place] % (Auto) 11.3 H Eos % (Auto) 1.1 Baso % (Auto) 0.5 Neut # (Auto) 4.1 Lymph # (Auto) 1.4 [place] # (Auto) 0.7 Eos # (Auto) 0.1 Baso # (Auto) 0.0 WBC Differential . Diff Scan Auto diff confirmed Differential Comment . Platelet Estimate Low L Platelet Morphology Normal PT 14.7 H INR 1.5 Fibrinogen Sodium 134 L Potassium 3.7 Chloride 98 Carbon Dioxide 29.1 Anion Gap 7 BUN 9 Creatinine 0.77 Estimated GFR Greater than 89 Random Glucose 168 H Calcium 7.4 L* Prot Corrected Calcium 7.4 L* Magnesium 1.5 Total Bilirubin 1.8 H Direct Bilirubin 1.2 H Indirect Bilirubin 0.6 AST 37 ALT 23 Alkaline Phosphatase 97 Total Protein 7.3 Albumin 1.3 L 05/27/18 12:40 WBC RBC Hgb Hct MCV MCH MCHC RDW Plt Count MPV Prelim Diff (Auto) Neut % (Auto) Lymph % (Auto) [place] % (Auto) Eos % (Auto) Baso % (Auto) Neut # (Auto) Lymph # (Auto) [place] # (Auto) Eos # (Auto) Baso # (Auto) WBC Differential Diff Scan Differential Comment Platelet Estimate Platelet Morphology PT INR Fibrinogen 161 L Sodium Potassium Chloride Carbon Dioxide Anion Gap BUN Creatinine Estimated GFR Random Glucose Calcium Prot Corrected Calcium Magnesium Total Bilirubin Direct Bilirubin Indirect Bilirubin AST ALT Alkaline Phosphatase Total Protein Albumin Culture Results: Microbiology 05/23/18 16:30 Aerobic Blood Culture - Preliminary Blood - Peripheral No growth in 4 days Anaerobic Blood Culture - Preliminary No growth in 4 days 05/23/18 16:25 Aerobic Blood Culture - Preliminary Blood - Peripheral No growth in 4 days Anaerobic Blood Culture - Preliminary No growth in 4 days 05/25/18 00:40 Stool Occult Blood ([facility]) - Final Stool Hemoccult negative Medications: Active Medications Generic Name Dose Route Start Last Admin Trade Name Freq PRN Reason Stop Dose Admin Lactated Ringer's 1,000 mls @ 30 mls/hr 05/25/18 01:45 05/27/18 04:37 Lr 1000 Ml Inj IV.SIG 05/28/18 01:35 Not Given .Q24H [facility] Oxycodone HCl 5 mg 05/23/18 18:52 05/27/18 14:48 Roxicodone PO 5 mg Q6H PRN Administration pain 3-10 Pantoprazole Sodium 40 mg 05/24/18 21:00 05/27/18 08:10 Protonix PO 40 mg BID CHARANJIT Administration Senna/Docusate Sodium 1 tab 05/23/18 21:00 05/27/18 08:10 Lina-Colace PO Not Given BID CHARANJIT Sodium Chloride 2 ml 05/23/18 12:33 05/27/18 08:10 Ns Flush IV.FLUSH 2 ml PRN PRN Administration FLUSH AFTER USING IV ACCESS Objective Remarks: GENERAL: Older male resting in bed in no obvious distress. SKIN: Warm and dry. HEAD: Normocephalic. EYES: No injection or drainage. NECK: Supple, trachea midline. CARDIOVASCULAR: Regular rate and rhythm without murmurs. RESPIRATORY: Breath sounds equal bilaterally. No accessory muscle use. GASTROINTESTINAL: Right lower quadrant tenderness. Abdomen soft. EXTREMITIES: No cyanosis, or edema. MUSCULOSKELETAL: Adequate muscle tone. NEUROLOGICAL: No obvious focal deficit. Awake, alert, and oriented x3. Assessment/Plan - Plan 62-year-old male admitted with right lower quadrant pain. He has history of alcoholic liver disease, liver cirrhosis, hepatitis C and diabetes. He was found to have extensive varicosities on his CT abdomen and pelvis which could be possible abscess or hematoma. The patient has been evaluated by GI and is s/ p EGD and colonoscopy. 1. Fibrinogen okay today at 161. Patient is not having any bleeding. As hemoglobin is stable he can be discharged from hematology standpoint. 2. Thrombocytopenia due to liver disease. 3. Once patient is discharged he can follow-up with his primary care physician to monitor CBC.
[2018-05-27 16:49] LABS: Lactate Dehydrogenase 115 U/L (87-241)
--- NOTE | 2018-05-27 17:47 | P.PNIM ---
Subjective Interval history: Patient himself had no new complaints since last night. Was tolerating p.o. intake well, was complaining as to why he is getting laxatives when he had good and soft bowel movements. Says he still has pain in his right abdomen. Discharge was in process until the patient spiked a fever of 100.4 and he started feeling bad. Physical Exam Vital signs: Vital Signs 05/26/18 19:49 05/26/18 20:00 05/27/18 00:00 Temperature 98.9 F 97.8 F Pulse Rate 80 87 86 Respiratory Rate 18 18 Blood Pressure 123/72 136/74 Pulse Oximetry 96 94 L 05/27/18 00:04 05/27/18 03:44 05/27/18 04:00 Temperature 99.0 F Pulse Rate 82 85 85 Respiratory Rate 18 Blood Pressure 121/62 Pulse Oximetry 94 L 05/27/18 08:00 05/27/18 12:00 05/27/18 16:00 Temperature 97.8 F 97.2 F L Pulse Rate 63 74 78 Respiratory Rate 18 18 Blood Pressure 106/65 107/63 Pulse Oximetry 96 100 Intake & Output 05/26/18 05/27/18 05/27/18 18:59 06:59 18:59 Intake Total 820 / 820 Balance 820 / 820 Weight 70.5 kg Intake: IV 220 / 220 Calcium Chloride Inj 2 GM In NS 120 / 120 Inj 100 ML @ 120 mls/hr IV.SIG ONCE ONE Rx#:[id number] LR 1000 mL Inj 1,000 ML @ 30 0 / 0 mls/hr IV.SIG .Q24H [facility] Rx#: [id number] Magnesium Sulfate Inj 2 GM In 100 / 100 NS Inj 96 ML @ 50 mls/hr IV.SIG ONCE ONE Rx#:[id number] Oral 600 / 600 Other: # Voids 5 0 Date of Last Bowel Movement 05/26/18 Narrative: Soft, mild right sided tenderness palpation, nondistended Patient awake and alert, no acute distress Results - Labs CBC & Chem 7: 05/27/18 18:05 05/27/18 03:59 Laboratory Results - last 24 hr 05/27/18 05/27/18 05/27/18 03:59 03:59 03:59 WBC 6.3 RBC 2.21 L Hgb 8.2 L Hct 22.7 L MCV 103.1 H MCH 37.0 H MCHC 35.9 RDW 18.2 H Plt Count 71 L MPV 9.0 Prelim Diff (Auto) Slide review pending Neut % (Auto) 64.3 Lymph % (Auto) 22.8 [place] % (Auto) 11.3 H Eos % (Auto) 1.1 Baso % (Auto) 0.5 Neut # (Auto) 4.1 Lymph # (Auto) 1.4 [place] # (Auto) 0.7 Eos # (Auto) 0.1 Baso # (Auto) 0.0 WBC Differential . Diff Scan Auto diff confirmed Differential Comment . Platelet Estimate Low L Platelet Morphology Normal Haptoglobin PT 14.7 H INR 1.5 Fibrinogen Sodium 134 L Potassium 3.7 Chloride 98 Carbon Dioxide 29.1 Anion Gap 7 BUN 9 Creatinine 0.77 Estimated GFR Greater than 89 Random Glucose 168 H Calcium 7.4 L* Prot Corrected Calcium 7.4 L* Magnesium 1.5 Total Bilirubin 1.8 H Direct Bilirubin 1.2 H Indirect Bilirubin 0.6 AST 37 ALT 23 Alkaline Phosphatase 97 Lactate Dehydrogenase Total Protein 7.3 Albumin 1.3 L Direct Antiglob Test 05/27/18 05/27/18 05/27/18 12:40 15:36 16:05 WBC RBC Hgb Hct MCV MCH MCHC RDW Plt Count MPV Prelim Diff (Auto) Neut % (Auto) Lymph % (Auto) [place] % (Auto) Eos % (Auto) Baso % (Auto) Neut # (Auto) Lymph # (Auto) [place] # (Auto) Eos # (Auto) Baso # (Auto) WBC Differential Diff Scan Differential Comment Platelet Estimate Platelet Morphology Haptoglobin 51 PT INR Fibrinogen 161 L Sodium Potassium Chloride Carbon Dioxide Anion Gap BUN Creatinine Estimated GFR Random Glucose Calcium Prot Corrected Calcium Magnesium Total Bilirubin Direct Bilirubin Indirect Bilirubin AST ALT Alkaline Phosphatase Lactate Dehydrogenase 115 Total Protein Albumin Direct Antiglob Test Negative Microbiology 05/23/18 16:30 Blood - Peripheral Aerobic Blood Culture - Preliminary No growth in 4 days 05/23/18 16:30 Blood - Peripheral Anaerobic Blood Culture - Preliminary No growth in 4 days 05/23/18 16:25 Blood - Peripheral Aerobic Blood Culture - Preliminary No growth in 4 days 05/23/18 16:25 Blood - Peripheral Anaerobic Blood Culture - Preliminary No growth in 4 days Assessment and Plan - Plan New low-grade fever fever We will cancel discharge for now, ordering stat CBC, chest x-ray, blood cultures, UA Monitor, start antibiotics if fever recurs --> starting levaquin and vanc; source unclear, cxr w/ possible PNA, will repeat CT abd w/ contrast Abdominal pain/ Hematoma/ Anemia CT revealed a fluid collection in the right psoas area. Thought to be resolving hematoma. Surgery and IR were contacted by the ED and no invasive procedure was recommended at the time. GI consult appreciated. S/p transfusion of FFP, platelets and red cells. S/p EGD and colonoscopy 05/25 without acute pathology -pain control with a bowel regimen. -follow pathology. -serial abdominal exams. Stable. -continue PPI. -follow CBC/INR and transfuse as needed. -hematology input appreciated. Weight loss/ Weakness/ Dyspnea on exertion/ DM MCKEE and weakness likely exacerbated by anemia. Weight loss may be exacerbated by diabetes, for which he has yet to start medications for. CXR unremarkable. TSH unremarkable. A1c 7%. HIV serology negative. -PT eval. -GI and hematology evals as above. HCV INR is elevated and LFTs are decreased, suggesting cirrhosis. The pt says he quit drinking 8-10 weeks ago. -follow LFTs. Improving. -continue alcohol cessation. Nicotine abuse The pt smokes 4 cigarettes daily. -cessation instruction. Hypomagnesemia Stable.
[2018-05-27 18:25] LABS: Baso % (Auto) 0.7 % (0.0-2.0); Eos # (Auto) 0.1 th/mm3 (0.0-0.4); Eos % (Auto) 1.5 % (0.0-4.0); Hematocrit 23.4 % (39.0-51.0); Hemoglobin 8.3 gm/dL (13.0-17.0); Lymph % (Auto) 20.7 % (9.0-44.0); Mean Corpuscular HGB Conc 35.7 % (32.0-36.0); Mean Corpuscular Hemoglobin 36.8 pg (27.0-34.0); Mean Corpuscular Volume 103.1 fL (80.0-100.0); Mean Platelet Volume 8.9 fL (7.0-11.0); Mono # (Auto) 0.6 th/mm3 (0.0-0.9); Mono % (Auto) 11.6 % (0.0-8.0); Neut # (Auto) 3.2 th/mm3 (1.8-7.7); Neut % (Auto) 65.5 % (16.0-70.0); Platelet Count 70 th/mm3 (150-450); Red Blood Count 2.27 mil/mm3 (4.50-5.90); Red Cell Distribution Width 18.2 % (11.6-17.2); White Blood Count 4.8 th/mm3 (4.0-11.0)
[2018-05-27 18:57] LABS: Ovalocytes 1+; Platelet Morphology Normal (Normal)
--- NOTE | 2018-05-27 19:50 | XR ---
EXAM DATE: 05/27/2018 7:28 PM EDT AGE/SEX: 62 years / Male INDICATIONS: . Fever. CLINICAL DATA: This is the patient's subsequent encounter. Patient reports that signs and symptoms h ave been present for 1 day and indicates a pain score of 0/10. MEDICAL/SURGICAL HISTORY: . Cirrhosis. Diabetes. Hepatitis C. None. COMPARISON: [facility] – [place], CHEST 1V SINGLE AP, 05/23/2018. . FINDINGS: The heart size is normal. There is linear density seen at the medial right lower chest. Lungs are oth erwise clear. Old right rib fractures and right clavicle fracture seen. CONCLUSION: Linear atelectasis or consolidation at the medial right lower lung. Electronically signed by: Milton Augustine MD 05/27/2018 7:48 PM EDT
[2018-05-27] MEDS: Ibuprofen 600 MG Tablet PO PRN (22:26)
[2018-05-27] MEDS ORDERED: Vancomycin Consult Pharmacy OTHER PRN (23:06)
[2018-05-28] MEDS ORDERED: Vancomycin Inj 1,750 MG in Sodium Chlor 0.9% Inj 500 ML IV.SIG ONE (01:00)
[2018-05-28 02:15] LABS: Bacteria,Urine Moderate /hpf; Bilirubin,Urine Small (Negative); Clarity,Urine Cloudy (Clear); Color,Urine Amber (Yellw/Straw); Glucose,Urine (UA) 50 mg/dL (Negative); Hyaline Casts,Urine 52 /lpf (0-3); Leukocyte Esterase,Urine Small (Negative); Mucus,Urine Many /lpf (Occasional); Nitrite,Urine Negative (Negative); Specific Gravity,Urine 1.025 (1.002-1.035); Squamous Epithelial Cell,Urine 1 /hpf (0-5); Urobilinogen,Urine 4 or Greater mg/dL (Less than 2)
[2018-05-28 02:19] LABS: Ictotest,Urine Positive (Negative)
[2018-05-28 04:22] LABS: INR 1.6 Ratio; Prothrombin Time 15.8 sec (9.8-11.6)
[2018-05-28] MEDS: Senna/Docusate Sodium 8.6/50 MG Tablet PO SCH ×2 (08:08→20:29)
[2018-05-28] MEDS: Sod Chloride 0.9% Inj 1,000 ML IV.CONT SCH ×2 (09:04→18:02)
[2018-05-28] MEDS: Diatrizoate Meglum/Diatrizoate Sod Liq 9 ML UDC PO ONE ×2 (09:12→10:43)
[2018-05-28] MEDS ORDERED: Calcium Chloride Inj 0.3 GM in Sodium Chlor 0.9% Inj 100 ML IV.SIG ONE (11:00)
--- NOTE | 2018-05-28 12:45 | P.PNONC ---
Subjective Interval history: T max 103.3 last night Patient offers no specific complaints Abdominal pain improved today Waiting to go down for CT scan abdomen pelvis with recent pain and fever Objective Vital Signs/Intake & Output: Vital Signs 05/27/18 16:00 05/27/18 20:00 05/27/18 23:42 Temperature 100.4 F H 103.3 F H Pulse Rate 76 82 103 H Respiratory Rate 18 20 Blood Pressure 123/71 130/68 Pulse Oximetry 98 97 05/28/18 00:00 05/28/18 03:45 05/28/18 04:00 Temperature 100.5 F H 97.1 F L Pulse Rate 100 H 62 66 Respiratory Rate 16 18 Blood Pressure 102/60 101/62 Pulse Oximetry 94 L 98 05/28/18 08:00 05/28/18 12:00 Temperature 97.1 F L Pulse Rate 62 Respiratory Rate 16 Blood Pressure 91/53 L 101/58 L Pulse Oximetry 100 Intake & Output 05/27/18 05/28/18 05/28/18 18:59 06:59 18:59 Intake Total 720 / 720 907.5 / 907.5 1103 / 1103 Balance 720 / 720 907.5 / 907.5 1103 / 1103 Weight 155 lb 6.814 oz Intake: IV 667.5 / 667.5 1103 / 1103 NS Inj 1,000 ML @ 100 mls/hr IV 1000 / 1000 .CONT .Q10H [facility] Rx#:[id number] Calcium Chloride Inj 0.3 GM In 103 / 103 NS Inj 100 ML @ 103 mls/hr IV. SIG ONCE ONE Rx#:[id number] Levaquin 750 mg Premix Inj 150 150 / 150 ML @ 100 mls/hr IV.SIG Q24H [facility] Rx#:[id number] Vancomycin Inj 1,750 MG In NS 517.5 / 517.5 Inj 500 ML @ 250 mls/hr IV.SIG ONCE ONE Rx#:[id number] Oral 720 / 720 240 / 240 Other: # Voids 8 1 Date of Last Bowel Movement 05/26/18 05/26/18 Result Diagrams: 05/27/18 18:05 05/27/18 03:59 Laboratory Results: Laboratory Results - last 24 hr 05/27/18 05/27/18 05/27/18 12:40 15:36 16:05 WBC RBC Hgb Hct MCV MCH MCHC RDW Plt Count MPV Prelim Diff (Auto) Neut % (Auto) Lymph % (Auto) [place] % (Auto) Eos % (Auto) Baso % (Auto) Neut # (Auto) Lymph # (Auto) [place] # (Auto) Eos # (Auto) Baso # (Auto) WBC Differential Diff Scan Differential Comment Platelet Estimate Platelet Morphology Ovalocytes Haptoglobin 51 PT INR Fibrinogen 161 L Lactate Dehydrogenase 115 Urine Color Urine Clarity Urine pH Ur Specific [place] Urine Protein Urine Glucose (UA) Urine Ketones Urine Occult Blood Urine Nitrate Urine Bilirubin Urine Ictotest Urine Urobilinogen Ur Leukocyte Esterase Urine RBC Urine WBC Ur Squamous Epith Cells Urine Bacteria Hyaline Casts Urine Mucus Micro UA Comment Ur Microscopic Review Urine Culture Comments Direct Antiglob Test Negative 05/27/18 05/28/18 05/28/18 18:05 01:45 04:03 WBC 4.8 RBC 2.27 L Hgb 8.3 L Hct 23.4 L MCV 103.1 H MCH 36.8 H MCHC 35.7 RDW 18.2 H Plt Count 70 L MPV 8.9 Prelim Diff (Auto) Slide review pending Neut % (Auto) 65.5 Lymph % (Auto) 20.7 [place] % (Auto) 11.6 H Eos % (Auto) 1.5 Baso % (Auto) 0.7 Neut # (Auto) 3.2 Lymph # (Auto) 1.0 [place] # (Auto) 0.6 Eos # (Auto) 0.1 Baso # (Auto) 0.0 WBC Differential . Diff Scan Auto diff confirmed Differential Comment . Platelet Estimate Low L Platelet Morphology Normal Ovalocytes 1+ H Haptoglobin PT 15.8 H INR 1.6 Fibrinogen Lactate Dehydrogenase Urine Color [place] Urine Clarity Cloudy H Urine pH 5.0 Ur Specific [place] 1.025 Urine Protein 100 H Urine Glucose (UA) 50 Urine Ketones Trace H Urine Occult Blood Negative Urine Nitrate Negative Urine Bilirubin Small H Urine Ictotest Positive H Urine Urobilinogen 4 or greater Ur Leukocyte Esterase Small H Urine RBC 2 Urine WBC 146 H Ur Squamous Epith Cells 1 Urine Bacteria Moderate H Hyaline Casts 52 Urine Mucus Many H Micro UA Comment Culture indicated Ur Microscopic Review Not Reportable Urine Culture Comments Culture indicated Direct Antiglob Test Culture Results: Microbiology 05/27/18 17:50 Aerobic Blood Culture - Preliminary Blood - Peripheral No growth in 1 day Anaerobic Blood Culture - Preliminary No growth in 1 day 05/27/18 18:05 Aerobic Blood Culture - Preliminary Blood - Peripheral No growth in 1 day Anaerobic Blood Culture - Preliminary No growth in 1 day 05/23/18 16:30 Aerobic Blood Culture - Final Blood - Peripheral No growth in 5 days Anaerobic Blood Culture - Final No growth in 5 days 05/23/18 16:25 Aerobic Blood Culture - Final Blood - Peripheral No growth in 5 days Anaerobic Blood Culture - Final No growth in 5 days Imaging Studies: Impressions Chest X-Ray 05/27/18 00:00 CONCLUSION: Linear atelectasis or consolidation at the medial right lower lung. Medications: Active Medications Generic Name Dose Route Start Last Admin Trade Name Freq PRN Reason Stop Dose Admin Levofloxacin/Dextrose 150 mls @ 100 mls/hr 05/28/18 00:00 05/28/18 01:07 Levaquin 750 Mg Premix Inj IV.SIG Infused Q24H [facility] Infusion Sodium Chloride 1,000 mls @ 100 mls/hr 05/28/18 09:00 05/28/18 09:22 Ns Inj IV.CONT Infused .Q10H [facility] Infusion Ibuprofen 600 mg 05/27/18 21:56 05/27/18 22:26 Motrin PO 600 mg Q6H PRN Administration Fever >101 Ondansetron HCl 4 mg 05/23/18 17:58 05/28/18 09:41 Zofran Inj IV.PUSH 4 mg Q6H PRN Administration NAUSEA OR VOMITING Oxycodone HCl 5 mg 05/23/18 18:52 05/28/18 03:55 Roxicodone PO 5 mg Q6H PRN Administration pain 3-10 Pantoprazole Sodium 40 mg 05/24/18 21:00 05/28/18 08:08 Protonix PO 40 mg BID CHARANJIT Administration Senna/Docusate Sodium 1 tab 05/23/18 21:00 05/28/18 08:08 Lina-Colace PO 1 tab BID CHARANJIT Administration Sodium Chloride 2 ml 05/23/18 12:33 05/27/18 08:10 Ns Flush IV.FLUSH 2 ml PRN PRN Administration FLUSH AFTER USING IV ACCESS Objective Remarks: GENERAL: Older male resting in bed in no obvious distress. SKIN: Warm and dry. Few scattered psoriasis plaques noted HEAD: Normocephalic. EYES: No injection or drainage. NECK: Supple, trachea midline. CARDIOVASCULAR: Regular rate and rhythm without murmurs. RESPIRATORY: Clear posteriorly. Breathing unlabored at rest. GASTROINTESTINAL: Right lower quadrant tenderness; improved from yesterday. Abdomen soft. EXTREMITIES: No cyanosis, or edema. MUSCULOSKELETAL: Adequate muscle tone. NEUROLOGICAL: No obvious focal deficit. Awake, alert, and oriented x3. Assessment/Plan - Plan 62-year-old male admitted with right lower quadrant pain. He has history of alcoholic liver disease, liver cirrhosis, hepatitis C and diabetes. He was found to have extensive varicosities on his CT abdomen and pelvis which could be possible abscess or hematoma. The patient has been evaluated by GI and is s/ p EGD and colonoscopy. 1. Patient became febrile last night and discharge was held. He is currently waiting to go downstairs for CT abdomen and pelvis. He previously had EGD and colonoscopy that showed gastritis as well as internal and external hemorrhoids. 2. Blood cultures pending. Patient has been started on Levaquin. Continue to monitor CBC, coags. 3. Once patient is discharged he can follow-up with his primary care physician to monitor CBC. - Attending Statement The exam, history, and the medical decision-making described in the above note were completed with the assistance of the mid-level provider. I reviewed and agree with the findings presented. I attest that I had a [id number] encounter with the patient on the same day, and personally performed and documented my assessment and findings in the medical record. Pending CT of the abdomen. Noted no fever. No localizing symptoms. Labs are ordered for tomorrow. No evidence of bleeding. No petechia or bruising.
--- NOTE | 2018-05-28 14:43 | P.PNIM ---
Subjective Interval history: Patient reports no fevers today, still painful in his right lower quadrant and with extended leg moving. He is tolerating diet well. Physical Exam Vital signs: Vital Signs 05/27/18 16:00 05/27/18 20:00 05/27/18 23:42 Temperature 100.4 F H 103.3 F H Pulse Rate 76 82 103 H Respiratory Rate 18 20 Blood Pressure 123/71 130/68 Pulse Oximetry 98 97 05/28/18 00:00 05/28/18 03:45 05/28/18 04:00 Temperature 100.5 F H 97.1 F L Pulse Rate 100 H 62 66 Respiratory Rate 16 18 Blood Pressure 102/60 101/62 Pulse Oximetry 94 L 98 05/28/18 08:00 05/28/18 12:00 Temperature 97.1 F L Pulse Rate 62 Respiratory Rate 16 Blood Pressure 91/53 L 101/58 L Pulse Oximetry 100 Intake & Output 05/27/18 05/28/18 05/28/18 18:59 06:59 18:59 Intake Total 720 / 720 907.5 / 907.5 1103 / 1103 Balance 720 / 720 907.5 / 907.5 1103 / 1103 Weight 70.5 kg Intake: IV 667.5 / 667.5 1103 / 1103 NS Inj 1,000 ML @ 100 mls/hr IV 1000 / 1000 .CONT .Q10H [facility] Rx#:[id number] Calcium Chloride Inj 0.3 GM In 103 / 103 NS Inj 100 ML @ 103 mls/hr IV. SIG ONCE ONE Rx#:[id number] Levaquin 750 mg Premix Inj 150 150 / 150 ML @ 100 mls/hr IV.SIG Q24H [facility] Rx#:[id number] Vancomycin Inj 1,750 MG In NS 517.5 / 517.5 Inj 500 ML @ 250 mls/hr IV.SIG ONCE ONE Rx#:[id number] Oral 720 / 720 240 / 240 Other: # Voids 8 1 Date of Last Bowel Movement 05/26/18 05/26/18 Narrative: GENERAL: AAOx3, no acute distress SKIN: Warm and dry. Hyperpigmented [place] around umbilicus HEAD: Atruamtic, normocephalic. EYES: No scleral icterus. No injection or drainage. ENT: Moist mucous membranes, patent nares, no erythema of oropharynx. NECK: Supple, trachea midline. No JVD or lymphadenopathy. Normal thyroid. CARDIOVASCULAR: Regular rate and rhythm. No murmurs, gallops, or rubs. RESPIRATORY: Breath sounds clear equal bilaterally. No crackles or wheezes. No accessory muscle use. GASTROINTESTINAL: Abdomen soft, tender to palpation and inguinal line of right lower quadrant, nondistended, normal active bowel sounds MUSCULOSKELETAL: No cyanosis, or edema. NEURO: CN II-XII grossly intact, no focal deficits, no slurring of speech Results - Labs CBC & Chem 7: 05/27/18 18:05 05/27/18 03:59 Laboratory Results - last 24 hr 05/27/18 05/27/18 05/27/18 15:36 16:05 18:05 WBC 4.8 RBC 2.27 L Hgb 8.3 L Hct 23.4 L MCV 103.1 H MCH 36.8 H MCHC 35.7 RDW 18.2 H Plt Count 70 L MPV 8.9 Prelim Diff (Auto) Slide review pending Neut % (Auto) 65.5 Lymph % (Auto) 20.7 [place] % (Auto) 11.6 H Eos % (Auto) 1.5 Baso % (Auto) 0.7 Neut # (Auto) 3.2 Lymph # (Auto) 1.0 [place] # (Auto) 0.6 Eos # (Auto) 0.1 Baso # (Auto) 0.0 WBC Differential . Diff Scan Auto diff confirmed Differential Comment . Platelet Estimate Low L Platelet Morphology Normal Ovalocytes 1+ H Haptoglobin 51 PT INR Lactate Dehydrogenase 115 Urine Color Urine Clarity Urine pH Ur Specific [place] Urine Protein Urine Glucose (UA) Urine Ketones Urine Occult Blood Urine Nitrate Urine Bilirubin Urine Ictotest Urine Urobilinogen Ur Leukocyte Esterase Urine RBC Urine WBC Ur Squamous Epith Cells Urine Bacteria Hyaline Casts Urine Mucus Micro UA Comment Ur Microscopic Review Urine Culture Comments Direct Antiglob Test Negative 05/28/18 05/28/18 01:45 04:03 WBC RBC Hgb Hct MCV MCH MCHC RDW Plt Count MPV Prelim Diff (Auto) Neut % (Auto) Lymph % (Auto) [place] % (Auto) Eos % (Auto) Baso % (Auto) Neut # (Auto) Lymph # (Auto) [place] # (Auto) Eos # (Auto) Baso # (Auto) WBC Differential Diff Scan Differential Comment Platelet Estimate Platelet Morphology Ovalocytes Haptoglobin PT 15.8 H INR 1.6 Lactate Dehydrogenase Urine Color Silvia Urine Clarity Cloudy H Urine pH 5.0 Ur Specific [place] 1.025 Urine Protein 100 H Urine Glucose (UA) 50 Urine Ketones Trace H Urine Occult Blood Negative Urine Nitrate Negative Urine Bilirubin Small H Urine Ictotest Positive H Urine Urobilinogen 4 or greater Ur Leukocyte Esterase Small H Urine RBC 2 Urine WBC 146 H Ur Squamous Epith Cells 1 Urine Bacteria Moderate H Hyaline Casts 52 Urine Mucus Many H Micro UA Comment Culture indicated Ur Microscopic Review Not Reportable Urine Culture Comments Culture indicated Direct Antiglob Test Microbiology 05/27/18 17:50 Blood - Peripheral Aerobic Blood Culture - Preliminary No growth in 1 day 05/27/18 17:50 Blood - Peripheral Anaerobic Blood Culture - Preliminary No growth in 1 day 05/27/18 18:05 Blood - Peripheral Aerobic Blood Culture - Preliminary No growth in 1 day 05/27/18 18:05 Blood - Peripheral Anaerobic Blood Culture - Preliminary No growth in 1 day 05/23/18 16:30 Blood - Peripheral Aerobic Blood Culture - Final No growth in 5 days 05/23/18 16:30 Blood - Peripheral Anaerobic Blood Culture - Final No growth in 5 days 05/23/18 16:25 Blood - Peripheral Aerobic Blood Culture - Final No growth in 5 days 05/23/18 16:25 Blood - Peripheral Anaerobic Blood Culture - Final No growth in 5 days - Imaging Impressions Chest X-Ray 05/27/18 00:00 CONCLUSION: Linear atelectasis or consolidation at the medial right lower lung. Assessment and Plan - Plan New fever Yesterday's discharge held due to onset of fever, unexplained Continue Levaquin and vancomycin Possible pneumonia on chest x-ray, covered with current antibiotics CT of abdomen and pelvis is pending Abdominal pain/ Hematoma/ Anemia CT revealed a fluid collection in the right psoas area. Thought to be resolving hematoma. Consider infection. Surgery and IR were contacted by the ED and no invasive procedure was recommended at the time. S/p transfusion of FFP, platelets and red cells. S/p EGD and colonoscopy 05/25 without acute pathology Pathology reports pending Continue proton pump inhibitor Appreciate GI consult Appreciate heme/onc consult Weight loss/ Weakness/ Dyspnea on exertion/ DM MCKEE and weakness likely exacerbated by anemia. Weight loss may be exacerbated by diabetes, for which he has yet to start medications for. Hemoglobin A1c 7% CXR unremarkable. TSH within normal limits Hepatitis C INR is 1.6 naturally. Suggestive of cirrhosis. Patient quit drinking 10 weeks ago Consider coagulation abnormality in context of hematoma present and psoas Continue alcohol cessation Nicotine abuse Patient smokes 4 cigarettes daily DVT prophylaxis Ambulation, chemoprophylaxis held due to hematoma
[2018-05-28] MEDS: Vancomycin Inj 1,250 MG in Sodium Chlor 0.9% Inj 250 ML IV.SIG SCH (18:01)
--- NOTE | 2018-05-28 18:02 | CT ---
EXAM DATE: 05/28/2018 5:51 PM EDT AGE/SEX: 62 years / Male INDICATIONS: Diffuse abdomen pain today. CLINICAL DATA: This is the patient's initial encounter. Patient reports that signs and symptoms have been present for 1 day and indicates a pain score of 7/10. MEDICAL/SURGICAL HISTORY: None. None. ORAL CONTRAST: Prescribed oral contrast ingested. RADIATION DOSE: 5.5 CTDI (mGy) COMPARISON: [facility] [place] ABDOMEN & PELVIS W CONTRAST, 05/23/2018. . TECHNIQUE: Multiple contiguous axial images were obtained through the abdomen and pelvis following b olus infusion of 85 ml Omnipaque 350 (iohexol) nonionic water-soluble contrast as a single exam dos e. Prescribed oral contrast ingested. Using automated exposure control and adjustment of the mA and/ or kV according to patient size, radiation dose was kept as low as reasonably achievable to obtain op timal diagnostic quality images. DICOM format image data is available electronically for review and comparison. FINDINGS: Abdomen CT: The spleen, pancreas, kidneys, adrenals are unremarkable. The liver appears possibly congested. Again noted is a complex fluid collection in the perinephric space on the right side measures 5.8 x 5.1 cm with septation and soft tissue components to it. The largest pocket of fluid collection measures emile ost 5.3 cm in size not significantly changed. Extensive varices are present in the splenic hilum and surrounding the spleen not significantly changed. Small retroperitoneal lymph nodes are present the l argest one measures almost 1.4 cm in size not significantly changed. There is no evidence for any fr ee fluid, or bowel obstruction. Small right pleural effusion is present with slight right lung base atelectasis and/or infiltrate. There are atherosclerotic calcifications involving the aorta and iliac arteries chronic in nature. Pelvic CT: There is no evidence for mass, abscess formation, or any significant adenopathy within the pelvis. Th ere is moderate fluid within the intraperitoneal cavity of the pelvis increased since the prior exami [facility]. CONCLUSION: 1. No significant change in septated complex cystic mass in the perinephric space on the right side may be hematoma versus abscess. 2. Increasing sinusitis within the pelvis and otherwise not significantly changed. Electronically signed by: Valentin Cooper MD 05/28/2018 6:00 PM EDT
[2018-05-29] MEDS: Sod Chloride 0.9% Inj 1,000 ML IV.CONT SCH ×3 (01:24→14:36)
[2018-05-29 05:57] LABS: INR 1.6 Ratio; Prothrombin Time 16.1 sec (9.8-11.6)
[2018-05-29] MEDS: Vancomycin Inj 1,250 MG in Sodium Chlor 0.9% Inj 250 ML IV.SIG SCH ×2 (06:07→17:46)
[2018-05-29 07:51] LABS: HCV Genotype 1a (Not Detecte)
[2018-05-29] MEDS: Senna/Docusate Sodium 8.6/50 MG Tablet PO SCH ×2 (09:49→21:27)
[2018-05-29 10:12] LABS: Anion Gap 6 meq/L (5-15); Blood Urea Nitrogen 11 mg/dL (7-18); Calcium 7.1 mg/dL (8.5-10.1); Carbon Dioxide 28.1 meq/L (21.0-32.0); Chloride 100 meq/L (98-107); Glomerular Filtration Rate Greater Than 89 mL/min (>89); Glucose,Random 117 mg/dL (74-106); Potassium 4.4 meq/L (3.5-5.1); Sodium 134 meq/L (136-145)
--- NOTE | 2018-05-29 11:24 | P.PNIM ---
Subjective Interval history: Patient has no new complaints, he keeps having low calcium levels but does not have symptoms from this. He feels weak with right lower quadrant pain, but these are both chronic since his admission. Physical Exam Vital signs: Vital Signs 05/28/18 12:00 05/28/18 16:00 05/28/18 19:56 Temperature 97.1 F L 97.4 F L Pulse Rate 64 72 73 Respiratory Rate 16 16 Blood Pressure 101/58 L 107/55 L Pulse Oximetry 100 100 05/28/18 20:00 05/29/18 00:00 05/29/18 00:02 Temperature 97.4 F L 98.8 F Pulse Rate 84 82 90 Respiratory Rate 20 20 Blood Pressure 116/56 L 114/64 Pulse Oximetry 96 100 05/29/18 03:54 05/29/18 04:00 05/29/18 08:00 Temperature 98.3 F 99 F Pulse Rate 84 90 74 Respiratory Rate 20 18 Blood Pressure 95/52 L Pulse Oximetry 97 95 Intake & Output 05/28/18 05/29/18 05/29/18 18:59 06:59 18:59 Intake Total 2806 / 2806 990 / 990 262.5 / 262.5 Output Total 0 / 0 Balance 2806 / 2806 990 / 990 262.5 / 262.5 Weight 70.5 kg Intake: IV 2366 / 2366 150 / 150 262.5 / 262.5 NS Inj 1,000 ML @ 100 mls/hr IV 1999 / 1999 .CONT .Q10H [facility] Rx#:[id number] Calcium Chloride Inj 0.3 GM In 103 / 103 NS Inj 100 ML @ 103 mls/hr IV. SIG ONCE ONE Rx#:[id number] Levaquin 750 mg Premix Inj 150 150 / 150 ML @ 100 mls/hr IV.SIG Q24H [facility] Rx#:[id number] Vancomycin Inj 1,250 MG In NS 263 / 263 262.5 / 262.5 Inj 250 ML @ 250 mls/hr IV.SIG Q12H [facility] Rx#:[id number] Oral 440 / 440 440 / 440 Anesthesia Amount 400 / 400 Output: Urine 0 / 0 Other: # Voids 4 4 Date of Last Bowel Movement 05/26/18 05/26/18 # Bowel Movements 0 0 Narrative: GENERAL: AAOx3, no acute distress SKIN: Warm and dry. Hyperpigmented [place] around umbilicus HEAD: Atruamtic, normocephalic. EYES: No scleral icterus. No injection or drainage. ENT: Moist mucous membranes, patent nares, no erythema of oropharynx. NECK: Supple, trachea midline. No JVD or lymphadenopathy. Normal thyroid. CARDIOVASCULAR: Regular rate and rhythm. No murmurs, gallops, or rubs. RESPIRATORY: Breath sounds clear equal bilaterally. No crackles or wheezes. No accessory muscle use. GASTROINTESTINAL: Abdomen soft, tender to palpation and inguinal line of right lower quadrant, nondistended, normal active bowel sounds MUSCULOSKELETAL: No cyanosis, or edema. NEURO: CN II-XII grossly intact, no focal deficits, no slurring of speech Results - Labs CBC & Chem 7: 05/27/18 18:05 05/29/18 09:10 Laboratory Results - last 24 hr 05/26/18 05/28/18 05/29/18 11:50 01:45 04:31 PT 16.1 H INR 1.6 Sodium Potassium Chloride Carbon Dioxide Anion Gap BUN Creatinine Estimated GFR Random Glucose Calcium Prot Corrected Calcium Total Protein Urine Color Silvia Urine Clarity Cloudy H Urine pH 5.0 Ur Specific [place] 1.025 Urine Protein 100 H Urine Glucose (UA) 50 Urine Ketones Trace H Urine Occult Blood Negative Urine Nitrate Negative Urine Bilirubin Small H Urine Ictotest Positive H Urine Urobilinogen 4 or greater Ur Leukocyte Esterase Small H Urine RBC 2 Urine WBC 146 H Ur Squamous Epith Cells 1 Urine Bacteria Moderate H Hyaline Casts 52 Urine Mucus Many H Micro UA Comment Culture indicated Urine Culture Comments Culture indicated HCV RNA Genotype 1a 05/29/18 09:10 PT INR Sodium 134 L Potassium 4.4 Chloride 100 Carbon Dioxide 28.1 Anion Gap 6 BUN 11 Creatinine 0.86 Estimated GFR Greater than 89 Random Glucose 117 H Calcium 7.1 L* Prot Corrected Calcium 7.2 L* Total Protein 7.0 Urine Color Urine Clarity Urine pH Ur Specific [place] Urine Protein Urine Glucose (UA) Urine Ketones Urine Occult Blood Urine Nitrate Urine Bilirubin Urine Ictotest Urine Urobilinogen Ur Leukocyte Esterase Urine RBC Urine WBC Ur Squamous Epith Cells Urine Bacteria Hyaline Casts Urine Mucus Micro UA Comment Urine Culture Comments HCV RNA Genotype Microbiology 05/27/18 17:50 Blood - Peripheral Aerobic Blood Culture - Preliminary No growth in 2 days 05/27/18 17:50 Blood - Peripheral Anaerobic Blood Culture - Preliminary No growth in 2 days 05/27/18 18:05 Blood - Peripheral Aerobic Blood Culture - Preliminary No growth in 2 days 05/27/18 18:05 Blood - Peripheral Anaerobic Blood Culture - Preliminary No growth in 2 days 05/28/18 01:45 Clean Catch Urine Urine Culture - Preliminary Staphylococcus aureus 05/23/18 16:30 Blood - Peripheral Aerobic Blood Culture - Final No growth in 5 days 05/23/18 16:30 Blood - Peripheral Anaerobic Blood Culture - Final No growth in 5 days 05/23/18 16:25 Blood - Peripheral Aerobic Blood Culture - Final No growth in 5 days 05/23/18 16:25 Blood - Peripheral Anaerobic Blood Culture - Final No growth in 5 days - Imaging Impressions Abdomen/Pelvis CT 05/28/18 06:00 CONCLUSION: 1. No significant change in septated complex cystic mass in the perinephric space on the right side may be hematoma versus abscess. 2. Increasing sinusitis within the pelvis and otherwise not significantly changed. Assessment and Plan - Plan New fever Previous discharge held due to onset of fever, unexplained Possible pneumonia on chest x-ray, covered with current antibiotics CT of abdomen and pelvis shows complex cystic mass in the perinephric space, hematoma versus abscess Continue Levaquin and vancomycin Hypocalcemia Recurrent, possibly related to chronic liver disease Replace as needed, follow with daily lab work Abdominal pain/ Hematoma/ Anemia CT revealed a fluid collection in the right psoas area. Thought to be resolving hematoma. Consider infection. Repeat CT of abdomen and pelvis shows complex cystic mass in the perinephric space, hematoma versus abscess Surgery and IR were contacted by the ED and no invasive procedure was recommended at the time, INR 1.6 S/p transfusion of FFP, platelets and red cells. S/p EGD and colonoscopy 05/25 without acute pathology Pathology reports pending Continue proton pump inhibitor Appreciate GI consult Appreciate heme/onc consult Weight loss/ Weakness/ Dyspnea on exertion/ DM MCKEE and weakness likely exacerbated by anemia. Weight loss may be exacerbated by diabetes, for which he has yet to start medications for. Hemoglobin A1c 7% CXR unremarkable. TSH within normal limits Hepatitis C INR is 1.6 naturally. Suggestive of cirrhosis. Patient quit drinking 10 weeks ago Consider coagulation abnormality in context of hematoma present and psoas Continue alcohol cessation Nicotine abuse Patient smokes 4 cigarettes daily DVT prophylaxis Ambulation, chemoprophylaxis held due to hematoma
[2018-05-29] MEDS ORDERED: Calcium Chloride Inj 0.5 GM in Sodium Chlor 0.9% Inj 100 ML IV.SIG ONE (12:00)
[2018-05-29] MEDS: Artificial Tears Opth Drops 15 ML Bottle EACH EYE SCH ×4 (14:40→21:28)
[2018-05-29 15:50] LABS: Hepatitis C RNA (PCR) IUs/ml 1210000 IU/mL; Hepatitis C RNA (PCR) log IUs 6.08
[2018-05-29] MEDS: Hypromellose 0.3% Opth Gel 10 GM Bottle EACH EYE SCH ×2 (18:25→21:27)
[2018-05-29] MEDS: Ibuprofen 600 MG Tablet PO PRN (18:25)
[2018-05-30] MEDS: Artificial Tears Opth Drops 15 ML Bottle EACH EYE SCH ×6 (01:25→22:21)
[2018-05-30] MEDS: Hypromellose 0.3% Opth Gel 10 GM Bottle EACH EYE SCH ×6 (01:25→22:21)
[2018-05-30] MEDS: Sod Chloride 0.9% Inj 1,000 ML IV.CONT SCH ×3 (04:12→22:16)
[2018-05-30] MEDS: Vancomycin Inj 1,250 MG in Sodium Chlor 0.9% Inj 250 ML IV.SIG SCH ×2 (05:25→17:11)
[2018-05-30] MEDS ORDERED: Pharmacy Ordered Lab Info OTHER ONE (05:45)
[2018-05-30 06:36] LABS: Hematocrit 22.5 % (39.0-51.0); Mean Corpuscular HGB Conc 35.5 % (32.0-36.0); Mean Corpuscular Hemoglobin 36.9 pg (27.0-34.0); Mean Corpuscular Volume 103.8 fL (80.0-100.0); Mean Platelet Volume 9.2 fL (7.0-11.0); Platelet Count 67 th/mm3 (150-450); Red Blood Count 2.17 mil/mm3 (4.50-5.90); White Blood Count 4.7 th/mm3 (4.0-11.0)
[2018-05-30 06:42] LABS: INR 1.6 Ratio; Prothrombin Time 15.7 sec (9.8-11.6)
[2018-05-30 06:57] LABS: Calcium 7.1 mg/dL (8.5-10.1); Carbon Dioxide 25.8 meq/L (21.0-32.0); Potassium 3.9 meq/L (3.5-5.1); Vancomycin,Trough 16.7 mcg/mL (5.0-10.0)
[2018-05-30 07:16] LABS: Total Protein 6.7 g/dL (6.4-8.2)
[2018-05-30] MEDS ORDERED: Calcium Chloride Inj 1 GM in Dextrose 5% in Water Inj 100 ML IV.SIG ONE ×2 (08:30)
[2018-05-30] MEDS: Senna/Docusate Sodium 8.6/50 MG Tablet PO SCH ×2 (08:40→20:05)
--- NOTE | 2018-05-30 13:46 | P.PNIM ---
Subjective Interval history: Patient has no new complaints today. We discussed the new medication Harvoni as a treatment option for hepatitis C. Physical Exam Vital signs: Vital Signs 05/29/18 16:00 05/29/18 16:12 05/29/18 18:22 Temperature 100.4 F H 101.1 F H Pulse Rate 83 82 Respiratory Rate 18 Blood Pressure 96/59 L Pulse Oximetry 97 05/29/18 20:00 05/30/18 00:00 05/30/18 04:00 Temperature 97.8 F 97.1 F L 97.5 F L Pulse Rate 75 64 69 Respiratory Rate 20 20 20 Blood Pressure 105/76 120/58 L 102/58 L Pulse Oximetry 93 L 99 99 05/30/18 08:00 Temperature 97.5 F L Pulse Rate 69 Respiratory Rate 18 Blood Pressure 117/69 Pulse Oximetry 99 Intake & Output 05/29/18 05/30/18 05/30/18 18:59 06:59 18:59 Intake Total 2350.0 / 2350.0 1892.5 / 1892.5 2109 Output Total 3 / 3 400 / 400 Balance 2347.0 / 2347.0 1492.5 / 1492.5 2109 Weight 70.5 kg Intake: IV 1630.0 / 1630.0 1412.5 / 1412.5 2109 NS Inj 1,000 ML @ 100 mls/hr IV 1000 / 1000 1000 / 1000 1999 / 1999 .CONT .Q10H [facility] Rx#:[id number] Calcium Chloride Inj 1 GM In 110 / 110 D5W Inj 100 ML @ 110 mls/hr IV. SIG ONCE ONE Rx#:[id number] Calcium Chloride Inj 0.5 GM In 105 / 105 NS Inj 100 ML @ 110 mls/hr IV. SIG ONCE ONE Rx#:[id number] Levaquin 750 mg Premix Inj 150 150 / 150 ML @ 100 mls/hr IV.SIG Q24H [facility] Rx#:[id number] Vancomycin Inj 1,250 MG In NS 525.0 / 525.0 262.5 / 262.5 Inj 250 ML @ 250 mls/hr IV.SIG Q12H [facility] Rx#:[id number] Oral 720 / 720 480 / 480 Output: Urine 3 / 3 400 / 400 Other: # Voids 2 Date of Last Bowel Movement 05/26/18 Narrative: GENERAL: AAOx3, no acute distress SKIN: Warm and dry. Hyperpigmented [place] around umbilicus HEAD: Atruamtic, normocephalic. EYES: No scleral icterus. No injection or drainage. ENT: Moist mucous membranes, patent nares, no erythema of oropharynx. NECK: Supple, trachea midline. No JVD or lymphadenopathy. Normal thyroid. CARDIOVASCULAR: Regular rate and rhythm. No murmurs, gallops, or rubs. RESPIRATORY: Breath sounds clear equal bilaterally. No crackles or wheezes. No accessory muscle use. GASTROINTESTINAL: Abdomen soft, tender to palpation and inguinal line of right lower quadrant, nondistended, normal active bowel sounds MUSCULOSKELETAL: No cyanosis, or edema. NEURO: CN II-XII grossly intact, no focal deficits, no slurring of speech Results - Labs CBC & Chem 7: 05/30/18 05:56 05/30/18 05:16 Laboratory Results - last 24 hr 05/26/18 05/30/18 05/30/18 11:50 05:16 05:56 WBC 4.7 RBC 2.17 L Hgb 8.0 L Hct 22.5 L MCV 103.8 H MCH 36.9 H MCHC 35.5 RDW 18.0 H Plt Count 67 L MPV 9.2 PT INR Sodium 134 L Potassium 3.9 Chloride 101 Carbon Dioxide 25.8 Anion Gap 7 BUN 11 Creatinine 0.89 Estimated GFR 87 L Random Glucose 199 H Calcium 7.1 L* Prot Corrected Calcium 7.3 L* Ammonia Total Protein 6.7 Vancomycin Trough 16.7 H HCV RNA (PCR) IUs/ml [id number] H HCV RNA PCR log IUs/ml 6.08 H 05/30/18 05/30/18 05:56 05:56 WBC RBC Hgb Hct MCV MCH MCHC RDW Plt Count MPV PT 15.7 H INR 1.6 Sodium Potassium Chloride Carbon Dioxide Anion Gap BUN Creatinine Estimated GFR Random Glucose Calcium Prot Corrected Calcium Ammonia 20 Total Protein Vancomycin Trough HCV RNA (PCR) IUs/ml HCV RNA PCR log IUs/ml Microbiology 05/28/18 01:45 Clean Catch Urine Urine Culture - Final Staphylococcus aureus 05/27/18 17:50 Blood - Peripheral Aerobic Blood Culture - Preliminary No growth in 3 days 05/27/18 17:50 Blood - Peripheral Anaerobic Blood Culture - Preliminary No growth in 3 days 05/27/18 18:05 Blood - Peripheral Aerobic Blood Culture - Preliminary No growth in 3 days 05/27/18 18:05 Blood - Peripheral Anaerobic Blood Culture - Preliminary No growth in 3 days Assessment and Plan - Plan New fever Previous discharge held due to onset of fever, unexplained Possible pneumonia on chest x-ray, covered with current antibiotics CT of abdomen and pelvis shows complex cystic mass in the perinephric space, hematoma versus abscess Continue Levaquin and vancomycin Hypocalcemia Recurrent, possibly related to chronic liver disease Replace as needed, follow with daily lab work Abdominal pain/ Hematoma/ Anemia CT revealed a fluid collection in the right psoas area. Thought to be resolving hematoma. Consider infection. Repeat CT of abdomen and pelvis shows complex cystic mass in the perinephric space, hematoma versus abscess Surgery and IR were contacted by the ED and no invasive procedure was recommended at the time, INR 1.6 S/p transfusion of FFP, platelets and red cells. S/p EGD and colonoscopy 05/25 without acute pathology Pathology reports pending Continue proton pump inhibitor Appreciate GI consult Appreciate heme/onc consult Weight loss/ Weakness/ Dyspnea on exertion/ DM MCKEE and weakness likely exacerbated by anemia. Weight loss may be exacerbated by diabetes, for which he has yet to start medications for. Hemoglobin A1c 7% CXR unremarkable. TSH within normal limits Hepatitis C INR is 1.6 naturally. Suggestive of cirrhosis. Patient quit drinking 10 weeks ago Consider coagulation abnormality in context of hematoma present and psoas Continue alcohol cessation Nicotine abuse Patient smokes 4 cigarettes daily DVT prophylaxis Ambulation, chemoprophylaxis held due to hematoma
[2018-05-30] MEDS: Ibuprofen 600 MG Tablet PO PRN (22:18)
[2018-05-31] MEDS: Hypromellose 0.3% Opth Gel 10 GM Bottle EACH EYE SCH ×6 (01:44→21:35)
[2018-05-31] MEDS: Artificial Tears Opth Drops 15 ML Bottle EACH EYE SCH ×5 (01:44→21:35)
[2018-05-31] MEDS: Vancomycin Inj 1,250 MG in Sodium Chlor 0.9% Inj 250 ML IV.SIG SCH ×2 (05:31→18:09)
[2018-05-31 07:13] LABS: Hematocrit 23.5 % (39.0-51.0); Hemoglobin 8.2 gm/dL (13.0-17.0); Mean Corpuscular Hemoglobin 36.9 pg (27.0-34.0); Mean Corpuscular Volume 105.3 fL (80.0-100.0); Mean Platelet Volume 9.2 fL (7.0-11.0); Platelet Count 68 th/mm3 (150-450); Red Blood Count 2.23 mil/mm3 (4.50-5.90); Red Cell Distribution Width 18.1 % (11.6-17.2); White Blood Count 5.9 th/mm3 (4.0-11.0)
[2018-05-31 07:19] LABS: INR 1.5 Ratio; Prothrombin Time 15.5 sec (9.8-11.6)
[2018-05-31 07:43] LABS: Calcium 7.3 mg/dL (8.5-10.1); Carbon Dioxide 27.2 meq/L (21.0-32.0); Potassium 3.9 meq/L (3.5-5.1)
[2018-05-31] MEDS ORDERED: Calcium Chloride Inj 1 GM in Sodium Chlor 0.9% Inj 100 ML IV.SIG ONE (09:00)
[2018-05-31] MEDS: Senna/Docusate Sodium 8.6/50 MG Tablet PO SCH ×2 (10:16→20:06)
[2018-05-31] MEDS: Sod Chloride 0.9% Inj 1,000 ML IV.CONT SCH (10:17)
--- NOTE | 2018-05-31 11:25 | P.DIET ---
Nutritional Evaluation Type of nutrition evaluation: follow-up Nutrition consult regarding: Diet Evaluation ([facility] [place] for Malnutrition) Objective - Diagnosis Symptomatic Anemia, Thrombocytopenia, Hyponatremia - Objective % IBW: 90 (UEO=096#) Body Weight Used for Calculations: IBW (86.4kg) Energy Needs - Lower Range (kCal/kg): 25 Energy Needs - Upper Range (kCal/kg): 30 Lower Limit kCal/kg (kCals): 2,160 Upper Limit kCal/kg (kCals): 2,592 Lower Limit Protein Factor (Grams per Kg): 1.1 Upper Limit Protein Factor (Grams per Kg): 1.3 Lower Protein Needs (Protein): 95 Upper Protein Needs (Protein): 112 Dietitian Reviewed in Medical Record: Current diet, Curent medications, Intake & Output, Labs Diet Order: Regular Oral Diet Intake Amount: Excellent 90%+ Objective Comments: Labs: Na 135, A1C 7.0, Glucose 158, Ca 7.2, Donal Ca 7.4 LBM recorded 8/30 s/p EGD and colonoscopy-> gastritis in antrum, internal/external hemorrhoids Feeding - Current PO Supplement Current Supplement: Ensure Enlive Current Supplement Flavor: Chocolate Current Frequency of Supplement: Three times a day Current kCals Provided by Supplement: 350 Current Protein Provided by Supplement: 20 Assessment Assessment: Pt advanced to a Regular diet w/ Ensure Enlive TID per MD order. This is appropriate. Pt is eating well now that he is on a Regular diet, usually 100% of his meals. C/o the taste of hospital food. He remains at nutritional risk 2/ 2 being under his IBW of 190#. Questionable wt jump in the last 24hrs ( increased 7.4kg). Education was provided to the pt on initial visit regarding the importance of increasing nutritional intake and including oral supplements into his diet, even when he is D/C'd. Likes the Enlive supplements. Pt exhibits some confusion and resistance during visits. Continue current POC. RD will continue to follow. Recommendations: 1. Continue current POC. 2. Pt has been provided w/ oral education regarding nutritional intake, he is resistant and changes topics frequently during visits. Dietitian to Monitor: Lab values, Supplement acceptance, Intake & Output, Diet tolerance, Weight change, PO Intake, Medical course
--- NOTE | 2018-05-31 15:53 | P.PNIM ---
Subjective Interval history: Patient has no new complaints, his sister is looking up [employer] and trying to contact [employer] for charitable case. Physical Exam Vital signs: Vital Signs 05/30/18 16:00 05/30/18 20:00 05/31/18 00:00 Temperature 97.7 F 101.4 F H 101 F H Pulse Rate 70 98 H 89 Respiratory Rate 18 20 20 Blood Pressure 110/70 134/82 112/73 Pulse Oximetry 100 96 95 05/31/18 04:00 05/31/18 08:00 05/31/18 12:00 Temperature 97.4 F L 97.2 F L 98.1 F Pulse Rate 66 71 79 Respiratory Rate 18 18 18 Blood Pressure 117/69 103/64 115/78 Pulse Oximetry 98 96 96 Intake & Output 05/30/18 05/31/18 05/31/18 18:59 06:59 18:59 Intake Total 2703 / 2703 390 / 390 1000 / 1000 Output Total 750 / 750 Balance 2703 / 2703 -360 / -360 1000 / 1000 Weight 77.9 kg Intake: IV 2373 / 2373 150 / 150 1000 / 1000 NS Inj 1,000 ML @ 100 mls/hr IV 2000 / 2000 1000 / 1000 .CONT .Q10H [facility] Rx#:[id number] Calcium Chloride Inj 1 GM In 110 / 110 D5W Inj 100 ML @ 110 mls/hr IV. SIG ONCE ONE Rx#:[id number] Levaquin 750 mg Premix Inj 150 150 / 150 ML @ 100 mls/hr IV.SIG Q24H [facility] Rx#:[id number] Vancomycin Inj 1,250 MG In NS 263 / 263 Inj 250 ML @ 250 mls/hr IV.SIG Q12H [facility] Rx#:[id number] Oral 330 / 330 240 / 240 Output: Urine 750 / 750 Other: # Voids 2 # Bowel Movements 0 0 Narrative: GENERAL: AAOx3, no acute distress SKIN: Warm and dry. Hyperpigmented [place] around umbilicus HEAD: [place], normocephalic. EYES: No scleral icterus. No injection or drainage. ENT: Moist mucous membranes, patent nares, no erythema of oropharynx. NECK: Supple, trachea midline. No JVD or lymphadenopathy. Normal thyroid. CARDIOVASCULAR: Regular rate and rhythm. No murmurs, gallops, or rubs. RESPIRATORY: Breath sounds clear equal bilaterally. No crackles or wheezes. No accessory muscle use. GASTROINTESTINAL: Abdomen soft, tender to palpation and inguinal line of right lower quadrant, nondistended, normal active bowel sounds MUSCULOSKELETAL: No cyanosis, or edema. NEURO: CN II-XII grossly intact, no focal deficits, no slurring of speech Results - Labs CBC & Chem 7: 05/31/18 06:52 05/31/18 06:52 Laboratory Results - last 24 hr 05/31/18 05/31/18 05/31/18 06:52 06:52 06:52 WBC 5.9 RBC 2.23 L Hgb 8.2 L Hct 23.5 L MCV 105.3 H MCH 36.9 H MCHC 35.0 RDW 18.1 H Plt Count 68 L MPV 9.2 PT INR Sodium 135 L Potassium 3.9 Chloride 101 Carbon Dioxide 27.2 Anion Gap 7 BUN 10 Creatinine 0.96 Estimated GFR 80 L Random Glucose 158 H Calcium 7.3 L* Prot Corrected Calcium 7.4 L* Ammonia 17 Total Protein 7.0 05/31/18 06:52 WBC RBC Hgb Hct MCV MCH MCHC RDW Plt Count MPV PT 15.5 H INR 1.5 Sodium Potassium Chloride Carbon Dioxide Anion Gap BUN Creatinine Estimated GFR Random Glucose Calcium Prot Corrected Calcium Ammonia Total Protein Microbiology 05/27/18 17:50 Blood - Peripheral Aerobic Blood Culture - Preliminary No growth in 4 days 05/27/18 17:50 Blood - Peripheral Anaerobic Blood Culture - Preliminary No growth in 4 days 05/27/18 18:05 Blood - Peripheral Aerobic Blood Culture - Preliminary No growth in 4 days 05/27/18 18:05 Blood - Peripheral Anaerobic Blood Culture - Preliminary No growth in 4 days Assessment and Plan - Plan New fever Previous discharge held due to onset of fever, unexplained Possible pneumonia on chest x-ray, covered with current antibiotics CT of abdomen and pelvis shows complex cystic mass in the perinephric space, hematoma versus abscess Continue Levaquin and vancomycin Patient keeps having fevers, he blames this on blankets but that is not likely Consult infectious disease to assist with antibiotic selection Hypocalcemia Recurrent, possibly related to chronic liver disease Replace as needed, follow with daily lab work Abdominal pain/ Hematoma/ Anemia CT revealed a fluid collection in the right psoas area. Thought to be resolving hematoma. Consider infection. Repeat CT of abdomen and pelvis shows complex cystic mass in the perinephric space, hematoma versus abscess Surgery and IR were contacted by the ED and no invasive procedure was recommended at the time, INR 1.6 S/p transfusion of FFP, platelets and red cells. S/p EGD and colonoscopy 05/25 without acute pathology Pathology reports pending Continue proton pump inhibitor Appreciate GI consult Appreciate heme/onc consult Weight loss/ Weakness/ Dyspnea on exertion/ DM MCKEE and weakness likely exacerbated by anemia. Weight loss may be exacerbated by diabetes, for which he has yet to start medications for. Hemoglobin A1c 7% CXR unremarkable. TSH within normal limits Hepatitis C INR is 1.6 naturally. Suggestive of cirrhosis. Patient quit drinking 10 weeks ago Consider coagulation abnormality in context of hematoma present and psoas Continue alcohol cessation Nicotine abuse Patient smokes 4 cigarettes daily DVT prophylaxis Ambulation, chemoprophylaxis held due to hematoma
--- NOTE | 2018-05-31 16:53 | P.CONID ---
History of Present Illness Service: Infectious disease Consult date: 05/31/18 Requesting Physician: David Padilla Reason for Consult: Evaluate patient with fever Primary Care Provider: UNKNOWN Chief Complaint: Abdominal pain History of Present Illness: Patient seen and examined. Records reviewed. Patient is a 62-year-old male, brought into the hospital for further evaluation of generalized weakness, shortness of breath, poor appetite, weight loss, and abdominal pain. Patient is not a very good historian. Looks like he was hospitalized several times in [facility]. In 1 of his hospitalization he was apparently found to have some kind of a retroperitoneal mass, and a biopsy was done. Patient could not tell me when the biopsy was done but that was when the right-sided abdominal pain started. The pain would radiate to the back, and it could also radiate down to his right medial thigh. He was also having other problems then which was felt to be related to his hepatitis C. On this admission he was found to have anemia. He had an upper and lower endoscopy. The procedure showed some gastritis and there was no active bleeding. Since around May 28 he started having intermittent fevers. He has had blood cultures done and they were negative. He had a urinalysis which showed some pyuria, and the culture grew staph aureus methicillin sensitive. He has had CT of the abdomen and pelvis and they are showing a complex fluid collection in the right perinephric space, psoas muscle area. He continues to have the right lower quadrant pain. Denies any urinary complaints. He has not had any congestion or any cough. No nausea or vomiting. His WBC is normal. His had problem with thrombocytopenia which was felt to be related to his liver disease. Chest x-ray does not show any acute disease. Infectious disease consultation has been requested to evaluate the patient with fevers. He is currently on Levaquin and vancomycin. There is mention of anaphylaxis with penicillin. Review of Systems Constitutional: Reports anorexia, Reports chills, Reports fatigue, Reports fever (s), Reports lack of energy, Reports weakness, Reports weight loss Eyes: Denies discharge, Denies dry eyes Ears, Nose, Mouth, and Throat: Denies difficulty swallowing, Denies mouth lesions, Denies mouth pain, Denies nasal congestion, Denies nasal discharge, Denies sore throat Cardiovascular: Denies chest pain, Denies shortness of breath Respiratory: Denies chest congestion, Denies cough, Denies shortness of breath Gastrointestinal: Reports abdominal pain, Denies difficulty swallowing, Denies loose stools, Denies nausea, Denies pain with swallowing, Denies vomiting Genitourinary: Denies difficulty urinating, Denies painful urination Musculoskeletal: Reports back pain, Denies joint pain, Denies joint swelling Skin/Breast: Reports yellowing of the skin, Denies rash, Denies sores PMFSH - History History Provided By: Patient - Medical History Medical History: Medical History (Last Reviewed 05/31/18 @ 07:54 by [employer]) Cirrhosis Degenerative joint disease Diabetes Hep C w/o coma, chronic Psoriasis Retroperitoneal mass - Family History Family History: Family History (Last Updated 05/23/18 @ 18:37 by Benito Baker DO) Other Bone cancer - Tobacco History Second Hand Smoke Exposure: Yes Tobacco Use In Past 30 Days: Yes Smoking Status: Light tobacco smoker Tobacco Type: Cigarettes - Alcohol History How Often Do You Have a Drink Containing Alcohol: Never - Substance Use History Substance History: Past History - Immunization History Tetanus Immunization: Unsure Medications and Allergies Active Medications: Active Medications Artificial Tears (Tears Naturale Opth Drops) 1 drop EACH EYE Q4H [facility] Last Admin: 05/31/18 11:49 Dose: Not Given Artificial Tears (Genteal Severe Dry Eye Relief 0.3% Opth Gel) 1 drops EACH EYE Q4H [facility] Last Admin: 05/31/18 11:49 Dose: Not Given Levofloxacin/Dextrose (Levaquin 750 Mg Premix Inj) 150 mls @ 100 mls/hr IV.SIG Q24H [facility] Last Infusion: 05/31/18 01:20 Dose: Infused Vancomycin HCl 1,250 mg/ (Sodium Chloride) 262.5 mls @ 250 mls/hr IV.SIG Q12H [facility] Last Admin: 05/31/18 05:31 Dose: 250 mls/hr Ibuprofen (Motrin) 600 mg PO Q6H PRN PRN Reason: Fever >101 Last Admin: 05/30/18 22:18 Dose: 600 mg Ondansetron HCl (Zofran Inj) 4 mg IV.PUSH Q6H PRN PRN Reason: NAUSEA OR VOMITING Last Admin: 05/28/18 09:41 Dose: 4 mg Oxycodone HCl (Roxicodone) 5 mg PO Q6H PRN PRN Reason: pain 3-10 Last Admin: 05/31/18 11:45 Dose: 5 mg Pantoprazole Sodium (Protonix) 40 mg PO BID [facility] Last Admin: 05/31/18 10:15 Dose: 40 mg Pharmacy Profile Note (Vancomycin Consult Pharmacy) 1 each OTHER UNSCH PRN PRN Reason: Pharmacy to dose Senna/Docusate Sodium (Lina-Colace) 1 tab PO BID [facility] Last Admin: 05/31/18 10:16 Dose: Not Given Sodium Chloride (Ns Flush) 2 ml IV.FLUSH PRN PRN PRN Reason: FLUSH AFTER USING IV ACCESS Last Admin: 05/27/18 08:10 Dose: 2 ml Allergies Allergy/AdvReac Type Severity Reaction Status Date / Time penicillin G Allergy Severe Anaphylaxis Verified 05/23/18 21:01 Exam Vital signs: Vital Signs 05/30/18 20:00 05/31/18 00:00 05/31/18 04:00 Temperature 101.4 F H 101 F H 97.4 F L Pulse Rate 98 H 89 66 Respiratory Rate 20 20 18 Blood Pressure 134/82 112/73 117/69 Pulse Oximetry 96 95 98 05/31/18 08:00 05/31/18 12:00 Temperature 97.2 F L 98.1 F Pulse Rate 71 79 Respiratory Rate 18 18 Blood Pressure 103/64 115/78 Pulse Oximetry 96 96 Intake & Output 05/30/18 05/31/18 05/31/18 18:59 06:59 18:59 Intake Total 2703 / 2703 390 / 390 1000 / 1000 Output Total 750 / 750 Balance 2703 / 2703 -360 / -360 1000 / 1000 Weight 77.9 kg Intake: IV 2373 / 2373 150 / 150 1000 / 1000 NS Inj 1,000 ML @ 100 mls/hr IV 2000 / 2000 1000 / 1000 .CONT .Q10H [facility] Rx#:[id number] Calcium Chloride Inj 1 GM In 110 / 110 D5W Inj 100 ML @ 110 mls/hr IV. SIG ONCE ONE Rx#:[id number] Levaquin 750 mg Premix Inj 150 150 / 150 ML @ 100 mls/hr IV.SIG Q24H [facility] Rx#:[id number] Vancomycin Inj 1,250 MG In NS 263 / 263 Inj 250 ML @ 250 mls/hr IV.SIG Q12H [facility] Rx#:[id number] Oral 330 / 330 240 / 240 Output: Urine 750 / 750 Other: # Voids 2 # Bowel Movements 0 0 Narrative: Physical Examination GENERAL: Patient is a thin, well-developed male, awake and alert, not in respiratory distress. SKIN: Cool and dry. Has scattered psoriasis rash in BUE and BLE HEAD: Atraumatic. Normocephalic. No temporal wasting, or tenderness. EYES: [place] conjunctiva. No petechia or hemorrhage. Pupils equal, round and reactive to light. Extraocular movements full and intact. Has mild scleral icterus. No injection or drainage. EARS, NOSE AND THROAT: Nose without bleeding or purulent nasal discharge. No sinus tenderness. Mucous membranes pink and moist. No oral lesions noted. No exudate. No oral thrush. NECK: Trachea midline. Supple and not tender, no meningeal signs CARDIOVASCULAR: Regular rate and rhythm. No murmurs, rubs or gallops heard RESPIRATORY: Clear to auscultation. Breath sounds equal bilaterally. No rales , wheezing or rhonchi ABDOMEN: Soft, flat, nondistended, with RLQ tenderness. Bowel sounds present and normoactive. No guarding. No rebound. No organomegaly. BACK: R CVA tenderness, no spine tenderness EXTREMITIES: No clubbing, cyanosis, or edema. No joint effusion, has good ROM. No calf tenderness. NEUROLOGICAL: Awake and alert. Cranial nerves grossly intact. Motor grossly within normal limits. PSYCHIATRIC: Normal affect, calm and cooperative. LINE: No evidence of infection Results - Labs CBC & Chem 7: 05/31/18 06:52 05/31/18 06:52 Labs: Laboratory Results - last 24 hr 05/31/18 05/31/18 05/31/18 06:52 06:52 06:52 WBC 5.9 RBC 2.23 L Hgb 8.2 L Hct 23.5 L MCV 105.3 H MCH 36.9 H MCHC 35.0 RDW 18.1 H Plt Count 68 L MPV 9.2 PT INR Sodium 135 L Potassium 3.9 Chloride 101 Carbon Dioxide 27.2 Anion Gap 7 BUN 10 Creatinine 0.96 Estimated GFR 80 L Random Glucose 158 H Calcium 7.3 L* Prot Corrected Calcium 7.4 L* Ammonia 17 Total Protein 7.0 05/31/18 06:52 WBC RBC Hgb Hct MCV MCH MCHC RDW Plt Count MPV PT 15.5 H INR 1.5 Sodium Potassium Chloride Carbon Dioxide Anion Gap BUN Creatinine Estimated GFR Random Glucose Calcium Prot Corrected Calcium Ammonia Total Protein Assessment and Plan - Plan Impression Fevers, etiology? 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
[2018-05-31 19:59] LABS: Bacteria,Urine Occasional /hpf; Bilirubin,Urine Negative (Negative); Clarity,Urine Hazy (Clear); Color,Urine Yellow (Yellw/Straw); Glucose,Urine (UA) Negative (Negative); Leukocyte Esterase,Urine Negative (Negative); Mucus,Urine Few /lpf (Occasional); Nitrite,Urine Negative (Negative); Specific Gravity,Urine 1.016 (1.002-1.035); Squamous Epithelial Cell,Urine <1 /hpf (0-5); Urobilinogen,Urine 4 or Greater mg/dL (Less than 2)
[2018-06-01] MEDS: Hypromellose 0.3% Opth Gel 10 GM Bottle EACH EYE SCH ×6 (01:25→21:41)
[2018-06-01] MEDS: Artificial Tears Opth Drops 15 ML Bottle EACH EYE SCH ×6 (01:25→21:42)
[2018-06-01] MEDS: Vancomycin Inj 1,250 MG in Sodium Chlor 0.9% Inj 250 ML IV.SIG SCH ×2 (05:22→18:09)
[2018-06-01 07:26] LABS: Hematocrit 23.9 % (39.0-51.0); Hemoglobin 8.3 gm/dL (13.0-17.0); Mean Corpuscular HGB Conc 34.8 % (32.0-36.0); Mean Corpuscular Hemoglobin 36.9 pg (27.0-34.0); Mean Corpuscular Volume 106.2 fL (80.0-100.0); Mean Platelet Volume 8.6 fL (7.0-11.0); Platelet Count 72 th/mm3 (150-450); Red Blood Count 2.25 mil/mm3 (4.50-5.90); Red Cell Distribution Width 18.7 % (11.6-17.2); White Blood Count 5.5 th/mm3 (4.0-11.0)
[2018-06-01 07:47] LABS: Calcium 7.5 mg/dL (8.5-10.1); Carbon Dioxide 29.2 meq/L (21.0-32.0); Potassium 3.8 meq/L (3.5-5.1)
[2018-06-01] MEDS: Senna/Docusate Sodium 8.6/50 MG Tablet PO SCH ×2 (09:18→21:40)
--- NOTE | 2018-06-01 12:35 | P.PNIM ---
Subjective Interval history: Fevers last night. Has been seen by infectious disease. Has history of hepatitis C and liver cirrhosis. Has history of thrombocytopenia Has complex fluid collection on CAT scan Seen by infectious disease continued on Vanco and Levaquin A.m. labs Physical Exam Vital signs: Vital Signs 05/31/18 16:00 05/31/18 20:00 06/01/18 00:00 Temperature 99.2 F 99.0 F 100.5 F H Pulse Rate 69 82 83 Respiratory Rate 18 16 18 Blood Pressure 131/84 125/77 115/63 Pulse Oximetry 99 99 96 06/01/18 04:00 06/01/18 08:00 Temperature 98.8 F 98.1 F Pulse Rate 82 80 Respiratory Rate 18 16 Blood Pressure 123/76 141/79 H Pulse Oximetry 96 98 Intake & Output 05/31/18 06/01/18 06/01/18 18:59 06:59 18:59 Intake Total 1710 / 1710 2155.0 / 2155.0 Output Total 575 / 575 400 / 400 Balance 1135 / 1135 1755.0 / 1755.0 Weight 78.1 kg Intake: IV 1110 / 1110 1675.0 / 1675.0 NS Inj 1,000 ML @ 100 mls/hr IV 1000 / 1000 1000 / 1000 .CONT .Q10H [facility] Rx#:[id number] Calcium Chloride Inj 1 GM In NS 110 / 110 Inj 100 ML @ 110 mls/hr IV.SIG ONCE ONE Rx#:[id number] Levaquin 750 mg Premix Inj 150 150 / 150 ML @ 100 mls/hr IV.SIG Q24H [facility] Rx#:[id number] Vancomycin Inj 1,250 MG In NS 525.0 / 525.0 Inj 250 ML @ 250 mls/hr IV.SIG Q12H [facility] Rx#:[id number] Oral 600 / 600 480 / 480 Output: Urine 575 / 575 400 / 400 Other: Date of Last Bowel Movement 05/26/18 # Bowel Movements 0 Narrative: GENERAL: AAOx3, no acute distress SKIN: Warm and dry. Hyperpigmented ambler around umbilicus HEAD: Atruamtic, normocephalic. EYES: No scleral icterus. No injection or drainage. ENT: Moist mucous membranes, patent nares, no erythema of oropharynx. NECK: Supple, trachea midline. No JVD or lymphadenopathy. Normal thyroid. CARDIOVASCULAR: Regular rate and rhythm. No murmurs, gallops, or rubs. RESPIRATORY: Breath sounds clear equal bilaterally. No crackles or wheezes. No accessory muscle use. GASTROINTESTINAL: Abdomen soft, tender to palpation and inguinal line of right lower quadrant, nondistended, normal active bowel sounds MUSCULOSKELETAL: No cyanosis, or edema. NEURO: CN II-XII grossly intact, no focal deficits, no slurring of speech Results - Labs CBC & Chem 7: 06/01/18 07:00 06/01/18 07:00 Laboratory Results - last 24 hr 05/31/18 06/01/18 06/01/18 19:30 07:00 07:00 WBC 5.5 RBC 2.25 L Hgb 8.3 L Hct 23.9 L MCV 106.2 H MCH 36.9 H MCHC 34.8 RDW 18.7 H Plt Count 72 L MPV 8.6 Sodium 135 L Potassium 3.8 Chloride 100 Carbon Dioxide 29.2 Anion Gap 6 BUN 11 Creatinine 1.06 Estimated GFR 71 L Random Glucose 193 H Calcium 7.5 L Urine Color Yellow Urine Clarity Hazy H Urine pH 5.0 Ur Specific [place] 1.016 Urine Protein Negative Urine Glucose (UA) Negative Urine Ketones Negative Urine Occult Blood Negative Urine Nitrate Negative Urine Bilirubin Negative Urine Urobilinogen 4 or greater Ur Leukocyte Esterase Negative Urine RBC 1 Urine WBC 2 Ur Squamous Epith Cells <1 Urine Bacteria Occasional H Urine Mucus Few H Micro UA Comment Culture not ind Ur Microscopic Review Not Reportable Urine Culture Comments Culture not ind Microbiology 05/27/18 17:50 Blood - Peripheral Aerobic Blood Culture - Final No growth in 5 days 05/27/18 17:50 Blood - Peripheral Anaerobic Blood Culture - Final No growth in 5 days 05/27/18 18:05 Blood - Peripheral Aerobic Blood Culture - Final No growth in 5 days 05/27/18 18:05 Blood - Peripheral Anaerobic Blood Culture - Final No growth in 5 days - Imaging Chest X-Ray 05/23/18 12:35 CONCLUSION: 1. No acute cardiopulmonary disease. Abdomen/Pelvis CT 05/23/18 14:34 CONCLUSION: 1. Right iliopsoas/psoas fluid collection either abscess or hematoma. 2. Extensive varicosities about the splenic hilum and fundus of the stomach with a patent but small portal vein. 3. Trace ascites in the pelvis 4. Trace right pleural effusion. Chest X-Ray 05/27/18 00:00 CONCLUSION: Linear atelectasis or consolidation at the medial right lower lung. Abdomen/Pelvis CT 05/28/18 06:00 CONCLUSION: 1. No significant change in septated complex cystic mass in the perinephric space on the right side may be hematoma versus abscess. 2. Increasing sinusitis within the pelvis and otherwise not significantly changed. - Procedures COLONOSCOPY PROCEDURE REPORT EXAM DATE: 05/25/2018 PATIENT NAME: Ricardo Ma MR #: [id number] BIRTHDATE: 1955 ENDOSCOPIST: Venice Mcgowan MD ORDER #: [id number] DIRECTOR OF DIETARY: Julieth Crews RN STATUS: inpatient INDICATIONS: The patient is a 62 yr old male here for a colonoscopy due to abdominal pain and iron deficiency anemia PROCEDURE PERFORMED: Colonoscopy, diagnostic MEDICATIONS: None and Per Anesthesia. PREP QUALITY: The [place] Bowel Prep Score was Right colon 3, Mid colon 2, and Left colon 2. Total = 7. PREP TYPE:Magnesium Citrate ESTIMATED BLOOD LOSS: None CONSENT: The patient understands the risks and benefits of the procedure and understands that these risks include, but are not limited to: sedation, allergic reaction, infection, perforation and/or bleeding. Alternative means of evaluation and treatment include, among others: physical exam, x-rays, and/or surgical intervention. The patient elects to proceed with this endoscopic procedure. medical equipment was checked for proper function. Hand hygiene and appropriate measures for infection prevention was taken. After the risks, benefits and alternatives of the procedure were thoroughly explained, Informed consent was verified, confirmed and timeout was successfully executed by the treatment team. A digital exam revealed external hemorrhoids The Pentax EC-[id number] endoscope was introduced through the anus and advanced to the cecum, which was identified by both the appendix and ileocecal valve. The instrument was then slowly withdrawn as the colon was fully examined. COLON FINDINGS: The colonic mucosa appeared normal. Retroflexed views revealed internal hemorrhoids and Retroflexed views revealed medium internal hemorrhoids The scope was then completely withdrawn from the patient and the procedure terminated. PROCEDURE WITHDRAWAL TIME:6minutes ADVERSE EVENTS: There were no complications. IMPRESSIONS: 1. The colonic mucosa appeared normal 2. Retroflexed views revealed internal hemorrhoids 3. Retroflexed views revealed medium internal hemorrhoids 4. Revealed external hemorrhoids RECOMMENDATIONS: 1. Benefiber 2 tsp daily 2. Continue surveillance 3. Yearly hemoccult RECALL: Return 5 years Colonoscopy Venice Mcgowan MD eSigned: Venice Mcgowan MD 05/25/2018 9:56 AM EGD PROCEDURE REPORT EXAM DATE: 05/25/2018 PATIENT NAME: Ricardo Ma MR #: [id number] BIRTHDATE: 1955 ATTENDING: Venice Mcgowan MD ORDER #: [id number] DIRECTOR OF DIETARY: Julieth Crews and Tiffani Palumbo STATUS: inpatient INDICATIONS: The patient is a 62 yr old male here for an EGD due to iron deficiency anemia and abdominal pain PROCEDURE PERFORMED: EGD w/ biopsy MEDICATIONS: None and Per Anesthesia. TOPICAL ANESTHETIC: CONSENT: The patient understands the risks and benefits of the procedure and understands that these risks include, but are not limited to: sedation, allergic reaction, infection, perforation and/or bleeding. Alternative means of evaluation and treatment include, among others: physical exam, x-rays, and/or surgical intervention. The patient elects to proceed with this endoscopic procedure. medical equipment was checked for proper function. Hand hygiene and appropriate measures for infection prevention was taken. After the risks, benefits and alternatives of the procedure were thoroughly explained, Informed consent was verified, confirmed and timeout was successfully executed by the treatment team. The patient was anesthetized with topical anesthesia and the EC-[id number] (Pedi C) endoscope was introduced through the mouth and advanced to the second portion of the duodenum. Retroflexed views revealed no abnormalities The gastroscope was then slowly withdrawn and removed. ESOPHAGUS: The mucosa of the esophagus appeared normal. STOMACH: There was moderate and ulcerative gastritis in the gastric antrum. A biopsy was performed using cold forceps. Sample sent for histology. ADVERSE EVENTS: There were no complications. IMPRESSIONS: 1. The esophagus appeared normal 2. There was gastritis in the gastric antrum; biopsy was performed 3. Retroflexed views revealed no abnormalities RECOMMENDATIONS: 1. Await biopsy results. Biopsy results will not be ready for 7-10 days. If you don't hear from us in two weeks, call our office for biopsy results. 2. Anti-reflux regimen 3. Continue PPI 4. Avoid NSAIDS PATIENT CONDITION: stable DISPOSITION: Inpatient REPEAT EXAM: Return 3 months EGD pending biopsy results Venice Mcgowan MD eSigned: Venice Mcgowan MD 05/25/2018 9:42 AM Assessment and Plan - Plan New fever Previous discharge held due to onset of fever, unexplained Possible pneumonia on chest x-ray, covered with current antibiotics CT of abdomen and pelvis shows complex cystic mass in the perinephric space, hematoma versus abscess Continue Levaquin and vancomycin Patient keeps having fevers, he blames this on blankets but that is not likely Consult infectious disease to assist with antibiotic selection Seen by infectious disease is currently on vancomycin and Levaquin Hypocalcemia Recurrent, possibly related to chronic liver disease Replace as needed, follow with daily lab work Abdominal pain/ Hematoma/ Anemia CT revealed a fluid collection in the right psoas area. Thought to be resolving hematoma. Consider infection. Repeat CT of abdomen and pelvis shows complex cystic mass in the perinephric space, hematoma versus abscess Surgery and IR were contacted by the ED and no invasive procedure was recommended at the time, INR 1.6 S/p transfusion of FFP, platelets and red cells. S/p EGD and colonoscopy 05/25 without acute pathology Pathology --gastritis on pathology Continue proton pump inhibitor Appreciate GI consult Appreciate heme/onc consult Weight loss/ Weakness/ Dyspnea on exertion/ DM MCKEE and weakness likely exacerbated by anemia. Weight loss may be exacerbated by diabetes, for which he has yet to start medications for. Hemoglobin A1c 7% CXR unremarkable. TSH within normal limits Hepatitis C INR is 1.6 naturally. Suggestive of cirrhosis. Patient quit drinking 10 weeks ago Consider coagulation abnormality in context of hematoma present and psoas Continue alcohol cessation Nicotine abuse Patient smokes 4 cigarettes daily DVT prophylaxis Ambulation, chemoprophylaxis held due to hematoma Code Status: Full code Discussed Condition With: Discussed with RN and patient and case management Discharge Planning: Once improved and not having fevers anymore and cleared by infectious disease
--- NOTE | 2018-06-01 13:52 | P.PNID ---
Subjective Remarks: Patient is a 62-year-old male, brought into the hospital for further evaluation of generalized weakness, shortness of breath, poor appetite, weight loss, and abdominal pain. Patient is not a very good historian. Looks like he was hospitalized several times in [facility]. In 1 of his hospitalization he was apparently found to have some kind of a retroperitoneal mass, and a biopsy was done. Patient could not tell me when the biopsy was done but that was when the right-sided abdominal pain started. The pain would radiate to the back, and it could also radiate down to his right medial thigh. He was also having other problems then which was felt to be related to his hepatitis C. On this admission he was found to have anemia. He had an upper and lower endoscopy. The procedure showed some gastritis and there was no active bleeding. Since around May 28 he started having intermittent fevers. He has had blood cultures done and they were negative. He had a urinalysis which showed some pyuria, and the culture grew staph aureus methicillin sensitive. He has had CT of the abdomen and pelvis and they are showing a complex fluid collection in the right perinephric space, psoas muscle area. He continues to have the right lower quadrant pain. Denies any urinary complaints. He has not had any congestion or any cough. No nausea or vomiting. His WBC is normal. His had problem with thrombocytopenia which was felt to be related to his liver disease. Chest x-ray does not show any acute disease. Infectious disease consultation has been requested to evaluate the patient with fevers. He is currently on Levaquin and vancomycin. There is mention of anaphylaxis with penicillin. Patient stated he got very swollen and couldn't breathe Notes reviewed Still with fevers Still with pain RLQ to back and R medial thigh Repeat UA better Patient showed me records he got from other hospital - there were discharge papers; he is now agreeing to sign release of medical records Antibiotics: Vancomycin Levaquin Lines: PIV Past Medical History: Cirrhosis Degenerative joint disease Diabetes Hep C w/o coma, chronic Psoriasis Retroperitoneal mass (?) Allergies/Adverse Reactions: Allergies penicillin G Allergy (Severe, Verified 05/23/18 21:01) Anaphylaxis Objective Vital Signs 05/31/18 16:00 05/31/18 20:00 06/01/18 00:00 Temperature 99.2 F 99.0 F 100.5 F H Pulse Rate 69 82 83 Respiratory Rate 18 16 18 Blood Pressure 131/84 125/77 115/63 Pulse Oximetry 99 99 96 06/01/18 04:00 06/01/18 08:00 06/01/18 12:00 Temperature 98.8 F 98.1 F Pulse Rate 82 74 77 Respiratory Rate 18 16 Blood Pressure 123/76 141/79 H Pulse Oximetry 96 98 Intake & Output 05/31/18 06/01/18 06/01/18 18:59 06:59 18:59 Intake Total 1710 / 1710 2155.0 / 2155.0 Output Total 575 / 575 400 / 400 Balance 1135 / 1135 1755.0 / 1755.0 Weight 78.1 kg Intake: IV 1110 / 1110 1675.0 / 1675.0 NS Inj 1,000 ML @ 100 mls/hr IV 1000 / 1000 1000 / 1000 .CONT .Q10H [facility] Rx#:[id number] Calcium Chloride Inj 1 GM In NS 110 / 110 Inj 100 ML @ 110 mls/hr IV.SIG ONCE ONE Rx#:[id number] Levaquin 750 mg Premix Inj 150 150 / 150 ML @ 100 mls/hr IV.SIG Q24H [facility] Rx#:[id number] Vancomycin Inj 1,250 MG In NS 525.0 / 525.0 Inj 250 ML @ 250 mls/hr IV.SIG Q12H [facility] Rx#:[id number] Oral 600 / 600 480 / 480 Output: Urine 575 / 575 400 / 400 Other: Date of Last Bowel Movement 05/26/18 05/26/18 # Bowel Movements 0 05/27/18 17:50 Blood - Peripheral Aerobic Blood Culture - Final No growth in 5 days 05/27/18 17:50 Blood - Peripheral Anaerobic Blood Culture - Final No growth in 5 days 05/27/18 18:05 Blood - Peripheral Aerobic Blood Culture - Final No growth in 5 days 05/27/18 18:05 Blood - Peripheral Anaerobic Blood Culture - Final No growth in 5 days 05/28/18 01:45 Clean Catch Urine Urine Culture - Final Staphylococcus aureus Lab - Hematology Results 05/31/18 06/01/18 06:52 07:00 WBC 5.9 5.5 RBC 2.23 L 2.25 L Hgb 8.2 L 8.3 L Hct 23.5 L 23.9 L MCV 105.3 H 106.2 H MCH 36.9 H 36.9 H MCHC 35.0 34.8 RDW 18.1 H 18.7 H Plt Count 68 L 72 L MPV 9.2 8.6 Lab - Chemistry Results 05/31/18 05/31/18 06/01/18 06:52 06:52 07:00 Sodium 135 L 135 L Potassium 3.9 3.8 Chloride 101 100 Carbon Dioxide 27.2 29.2 Anion Gap 7 6 BUN 10 11 Creatinine 0.96 1.06 Estimated GFR 80 L 71 L Random Glucose 158 H 193 H Calcium 7.3 L* 7.5 L Prot Corrected Calcium 7.4 L* Ammonia 17 Total Protein 7.0 Imaging: ITS Impressions Chest X-Ray 05/27/18 00:00 CONCLUSION: Linear atelectasis or consolidation at the medial right lower lung. Abdomen/Pelvis CT 05/28/18 06:00 CONCLUSION: 1. No significant change in septated complex cystic mass in the perinephric space on the right side may be hematoma versus abscess. 2. Increasing sinusitis within the pelvis and otherwise not significantly changed. Physical Exam: GENERAL: Patient is a thin, well-developed male, awake and alert, not in respiratory distress. SKIN: Cool and dry. Has scattered psoriasis rash in BUE and BLE HEAD: Atraumatic. Normocephalic. No temporal wasting, or tenderness. EYES: [place] conjunctiva. No petechia or hemorrhage. Pupils equal, round and reactive to light. Extraocular movements full and intact. Has mild scleral icterus. No injection or drainage. EARS, NOSE AND THROAT: Nose without bleeding or purulent nasal discharge. No sinus tenderness. Mucous membranes pink and moist. No oral lesions noted. No exudate. No oral thrush. NECK: Trachea midline. Supple and not tender, no meningeal signs CARDIOVASCULAR: Regular rate and rhythm. No murmurs, rubs or gallops heard RESPIRATORY: Clear to auscultation. Breath sounds equal bilaterally. No rales , wheezing or rhonchi ABDOMEN: Soft, flat, nondistended, with RLQ tenderness. Bowel sounds present and normoactive. No guarding. No rebound. No organomegaly. BACK: R CVA tenderness, no spine tenderness EXTREMITIES: No clubbing, cyanosis, or edema. No joint effusion, has good ROM. No calf tenderness. NEUROLOGICAL: Awake and alert. Cranial nerves grossly intact. Motor grossly within normal limits. PSYCHIATRIC: Normal affect, calm and cooperative. LINE: No evidence of infection Assessment and Plan - Plan Impression Fevers, etiology? 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, hypersplenism Recommendation Get records from [facility] and get info on his CT and biopsy - he is now agreeing to sign release of records May need to aspirate the complex fluid collection for diagnosis, if ok by hematology - will ask hematology to evaluate risks given his coagulopathy and thrombocytopenia Discussed with radiologist, Dr Gibson, reviewed CT, and the fluid collection is accessible for percutaneous drainage Follow C/S Continue current Abx: Vanco and levaquin Follow temps Monitor progress Explained plan to the patient D/W RN I will be off Jun 02- Other ID MD covering in my absence D/W Dr Morse ([facility]AS)
[2018-06-02] MEDS: Artificial Tears Opth Drops 15 ML Bottle EACH EYE SCH ×6 (03:34→21:42)
[2018-06-02] MEDS: Hypromellose 0.3% Opth Gel 10 GM Bottle EACH EYE SCH ×6 (03:34→21:43)
[2018-06-02 04:48] LABS: Baso % (Auto) 0.7 % (0.0-2.0); Eos # (Auto) 0.1 th/mm3 (0.0-0.4); Eos % (Auto) 2.1 % (0.0-4.0); Hematocrit 22.9 % (39.0-51.0); Lymph # (Auto) 1.3 th/mm3 (1.0-4.8); Lymph % (Auto) 23.9 % (9.0-44.0); Mean Corpuscular Hemoglobin 37.1 pg (27.0-34.0); Mean Corpuscular Volume 106.1 fL (80.0-100.0); Mono # (Auto) 0.9 th/mm3 (0.0-0.9); Mono % (Auto) 15.5 % (0.0-8.0); Neut # (Auto) 3.2 th/mm3 (1.8-7.7); Neut % (Auto) 57.8 % (16.0-70.0); Platelet Count 73 th/mm3 (150-450); Red Blood Count 2.15 mil/mm3 (4.50-5.90); Red Cell Distribution Width 18.5 % (11.6-17.2); White Blood Count 5.6 th/mm3 (4.0-11.0)
[2018-06-02 04:57] LABS: INR 1.6 Ratio; Prothrombin Time 15.9 sec (9.8-11.6)
[2018-06-02] MEDS: Vancomycin Inj 1,250 MG in Sodium Chlor 0.9% Inj 250 ML IV.SIG SCH ×2 (05:07→17:27)
[2018-06-02 05:20] LABS: Albumin 1.2 g/dL (3.4-5.0); Calcium 7.3 mg/dL (8.5-10.1); Carbon Dioxide 28.5 meq/L (21.0-32.0); Free T4 (Free Thyroxine) 0.98 ng/dL (0.76-1.46); Magnesium 1.2 mg/dL (1.5-2.5); Phosphorus 2.7 mg/dL (2.5-4.9); Thyroid Stimulating Hormone 3.7 uIU/mL (0.358-3.740); Total Protein 6.9 g/dL (6.4-8.2)
[2018-06-02] MEDS ORDERED: Mag Sulf 1 gm/100 ml Premix 100 ML IV.SIG ONE (06:01)
[2018-06-02] MEDS ORDERED: Calcium Gluconate Inj 1 GM in Sodium Chlor 0.9% Inj 100 ML IV.SIG ONE ×2 (06:30→07:36)
[2018-06-02] MEDS: Senna/Docusate Sodium 8.6/50 MG Tablet PO SCH ×2 (08:55→21:41)
--- NOTE | 2018-06-02 08:57 | P.PNONC ---
Subjective Interval history: T-max 100.9F. Patient lying in bed comfortably. He reports an overall "not feeling well". He denies any bleeding. Objective Vital Signs/Intake & Output: Vital Signs 06/01/18 12:00 06/01/18 16:00 06/01/18 20:00 Temperature 99.6 F 100.0 F H 100.9 F H Pulse Rate 77 82 81 Respiratory Rate 16 16 20 Blood Pressure 133/78 126/69 133/66 Pulse Oximetry 95 97 94 L 06/02/18 00:00 06/02/18 03:45 06/02/18 04:00 Temperature 100.7 F H 99.5 F Pulse Rate 83 78 78 Respiratory Rate 18 18 Blood Pressure 126/63 125/65 Pulse Oximetry 92 L 93 L Intake & Output 06/01/18 06/02/18 06/02/18 18:59 06:59 18:59 Intake Total 880 / 880 935 / 935 100 / 100 Output Total 400 / 400 Balance 480 / 480 935 / 935 100 / 100 Weight 78.4 kg Intake: IV 695 / 695 100 / 100 Levaquin 750 mg Premix Inj 150 150 / 150 ML @ 100 mls/hr IV.SIG Q24H [facility] Rx#:[id number] Magnesium Sulfate 1 gm/D5W 100 100 / 100 ml Premix 100 ML @ 100 mls/hr IV.SIG ONCE ONE Rx#:[id number] Vancomycin Inj 1,250 MG In NS 545 / 545 Inj 250 ML @ 250 mls/hr IV.SIG Q12H [facility] Rx#:[id number] Oral 480 / 480 240 / 240 Anesthesia Amount 400 / 400 Output: Urine 400 / 400 Other: # Voids 2 3 Date of Last Bowel Movement 05/26/18 06/01/18 # Bowel Movements 0 Result Diagrams: 06/02/18 04:15 06/02/18 04:15 Laboratory Results: Laboratory Results - last 24 hr 06/02/18 06/02/18 06/02/18 04:15 04:15 04:15 WBC 5.6 RBC 2.15 L Hgb 8.0 L Hct 22.9 L MCV 106.1 H MCH 37.1 H MCHC 35.0 RDW 18.5 H Plt Count 73 L MPV 9.0 Prelim Diff (Auto) Slide review pending Neut % (Auto) 57.8 Lymph % (Auto) 23.9 [place] % (Auto) 15.5 H Eos % (Auto) 2.1 Baso % (Auto) 0.7 Neut # (Auto) 3.2 Lymph # (Auto) 1.3 [place] # (Auto) 0.9 Eos # (Auto) 0.1 Baso # (Auto) 0.0 WBC Differential . Diff Scan Auto diff confirmed Differential Comment . PT 15.9 H INR 1.6 Sodium 135 L Potassium 4.0 Chloride 100 Carbon Dioxide 28.5 Anion Gap 7 BUN 9 Creatinine 1.11 Estimated GFR 67 L Random Glucose 207 H Calcium 7.3 L* Prot Corrected Calcium 7.4 L* Phosphorus 2.7 Magnesium 1.2 L Total Bilirubin 1.7 H AST 37 ALT 16 Alkaline Phosphatase 114 Total Protein 6.9 Albumin 1.2 L TSH 3.700 Free T4 0.98 Culture Results: Microbiology 05/27/18 17:50 Aerobic Blood Culture - Final Blood - Peripheral No growth in 5 days Anaerobic Blood Culture - Final No growth in 5 days 05/27/18 18:05 Aerobic Blood Culture - Final Blood - Peripheral No growth in 5 days Anaerobic Blood Culture - Final No growth in 5 days 05/28/18 01:45 Urine Culture - Final Clean Catch Urine Staphylococcus aureus Medications: Active Medications Generic Name Dose Route Start Last Admin Trade Name Freq PRN Reason Stop Dose Admin Artificial Tears 1 drop 05/29/18 10:00 06/02/18 05:08 Tears Naturale Opth Drops EACH EYE Not Given Q4H [facility] Artificial Tears 1 drops 05/29/18 18:00 06/02/18 05:08 Genteal Severe Dry Eye Relief 0.3% Opth Gel EACH EYE Not Given Q4H [facility] Levofloxacin/Dextrose 150 mls @ 100 mls/hr 05/28/18 00:00 06/02/18 02:15 Levaquin 750 Mg Premix Inj IV.SIG Infused Q24H [facility] Infusion Vancomycin HCl 1,250 mg/ 262.5 mls @ 250 mls/hr 05/28/18 18:00 06/02/18 06:30 Sodium Chloride IV.SIG Infused Q12H [facility] Infusion Ibuprofen 600 mg 05/27/18 21:56 05/30/18 22:18 Motrin PO 600 mg Q6H PRN Administration Fever >101 Ondansetron HCl 4 mg 05/23/18 17:58 09/01/18 09:41 Zofran Inj IV.PUSH 4 mg Q6H PRN Administration NAUSEA OR VOMITING Oxycodone HCl 5 mg 05/23/18 18:52 06/02/18 04:34 Roxicodone PO 5 mg Q6H PRN Administration pain 3-10 Pantoprazole Sodium 40 mg 05/24/18 21:00 06/01/18 21:40 Protonix PO 40 mg BID [facility] Administration Senna/Docusate Sodium 1 tab 05/23/18 21:00 06/01/18 21:40 Lina-Colace PO 1 tab BID [facility] Administration Sodium Chloride 2 ml 05/23/18 12:33 06/01/18 21:45 Ns Flush IV.FLUSH 2 ml PRN PRN Administration FLUSH AFTER USING IV ACCESS Objective Remarks: GENERAL: Older male patient, lying in bed, in no acute distress. SKIN: Warm and dry. Few scattered psoriasis plaques and chronic skin color changes noted to BLE. HEAD: Normocephalic. EYES: No injection or drainage. NECK: Supple, trachea midline. CARDIOVASCULAR: Regular rate and rhythm without murmurs. RESPIRATORY: Anterior breath sounds clear, equal bilaterally. Nonlabored. GASTROINTESTINAL: Abdomen soft, flat, tender in all quadrants. EXTREMITIES: No cyanosis, or edema. MUSCULOSKELETAL: Adequate muscle tone. NEUROLOGICAL: No obvious focal deficit. Awake, alert, and oriented x3. Assessment/Plan - Plan 62-year-old male admitted with right lower quadrant pain. He has history of alcoholic liver disease, liver cirrhosis, hepatitis C and diabetes. He was found to have extensive varicosities on his CT abdomen and pelvis which could be possible abscess or hematoma. The patient has been evaluated by GI and is s/ p EGD and colonoscopy. The patient was seen by hematology services earlier in this admission, he was scheduled for discharge home when he started having fevers. CT abdomen showed a complex fluid collection in the perinephric space on the right side measures 5.8 x 5.1 cm with septation and soft tissue components to it. The largest pocket of fluid collection measures almost 5.3 cm in size not significantly changed. Hematology was reconsulted for evaluation/ risk for aspirate of the complex fluid collection in the perinephric space, given his history of coagulopathy and thrombocytopenia. 1. Patient with prolonged PT of 15.9, INR of 1.6. We will obtain a APTT and fibrinogen level today to further evaluate his coagulability. 2. Fevers, management per ID. Patient continues on antibiotics. CT abdomen showed septated complex cystic mass in the perinephric space on the right side may be hematoma versus abscess, ID considering aspirating this complex fluid collection. 3. Coagulopathy and thrombocytopenia, likely secondary to liver disease. We will await APTT and fibrinogen levels today.
[2018-06-02] MEDS ORDERED: Magnesium Sulfate Inj 2 GM in Sodium Chlor 0.9% Inj 96 ML IV.SIG ONE (08:58)
[2018-06-02 10:53] LABS: Activated Partial Thrombo Time 33.4 sec (24.3-30.1)
--- NOTE | 2018-06-02 12:24 | P.PNIM ---
Subjective Interval history: 9-5 Fevers last night. Has been seen by infectious disease. Has history of hepatitis C and liver cirrhosis. Has history of thrombocytopenia Has complex fluid collection on CAT scan Seen by infectious disease continued on Vanco and Levaquin A.m. labs 9-6 NEEDS IR TO DO A BIOPSY OF THIS iliopsoas/psoas fluid collection either abscess or hematoma. CONSULT IR FOR BIOPSY AM LABS MEDS PER ID AND HEMATOLOGY STILL HAS FEVERS Physical Exam Vital signs: Vital Signs 06/01/18 16:00 06/01/18 20:00 06/02/18 00:00 Temperature 100.0 F H 100.9 F H 100.7 F H Pulse Rate 82 81 83 Respiratory Rate 16 20 18 Blood Pressure 126/69 133/66 126/63 Pulse Oximetry 97 94 L 92 L 06/02/18 03:45 06/02/18 04:00 06/02/18 08:00 Temperature 99.5 F Pulse Rate 78 78 105 H Respiratory Rate 18 Blood Pressure 125/65 Pulse Oximetry 93 L Intake & Output 06/01/18 06/02/18 06/02/18 18:59 06:59 18:59 Intake Total 880 / 880 935 / 935 210 / 210 Output Total 400 / 400 Balance 480 / 480 935 / 935 210 / 210 Weight 78.4 kg Intake: IV 695 / 695 210 / 210 Calcium Gluconate Inj 1 GM In 110 / 110 NS Inj 100 ML @ 110 mls/hr IV. SIG ONCE ONE Rx#:[id number] Levaquin 750 mg Premix Inj 150 150 / 150 ML @ 100 mls/hr IV.SIG Q24H [facility] Rx#:[id number] Magnesium Sulfate 1 gm/D5W 100 100 / 100 ml Premix 100 ML @ 100 mls/hr IV.SIG ONCE ONE Rx#:[id number] Vancomycin Inj 1,250 MG In NS 545 / 545 Inj 250 ML @ 250 mls/hr IV.SIG Q12H [facility] Rx#:[id number] Oral 480 / 480 240 / 240 Anesthesia Amount 400 / 400 Output: Urine 400 / 400 Other: # Voids 2 3 Date of Last Bowel Movement 05/26/18 06/01/18 # Bowel Movements 0 Narrative: GENERAL: AAOx3, no acute distress SKIN: Warm and dry. Hyperpigmented resighini around umbilicus HEAD: Atruamtic, normocephalic. EYES: No scleral icterus. No injection or drainage. ENT: Moist mucous membranes, patent nares, no erythema of oropharynx. NECK: Supple, trachea midline. No JVD or lymphadenopathy. Normal thyroid. CARDIOVASCULAR: Regular rate and rhythm. No murmurs, gallops, or rubs. RESPIRATORY: Breath sounds clear equal bilaterally. No crackles or wheezes. No accessory muscle use. GASTROINTESTINAL: Abdomen soft, tender to palpation and inguinal line of right lower quadrant, nondistended, normal active bowel sounds MUSCULOSKELETAL: No cyanosis, or edema. NEURO: CN II-XII grossly intact, no focal deficits, no slurring of speech Results - Labs CBC & Chem 7: 06/02/18 04:15 06/02/18 04:15 Laboratory Results - last 24 hr 06/02/18 06/02/18 06/02/18 04:15 04:15 04:15 WBC 5.6 RBC 2.15 L Hgb 8.0 L Hct 22.9 L MCV 106.1 H MCH 37.1 H MCHC 35.0 RDW 18.5 H Plt Count 73 L MPV 9.0 Prelim Diff (Auto) Slide review pending Neut % (Auto) 57.8 Lymph % (Auto) 23.9 [place] % (Auto) 15.5 H Eos % (Auto) 2.1 Baso % (Auto) 0.7 Neut # (Auto) 3.2 Lymph # (Auto) 1.3 [place] # (Auto) 0.9 Eos # (Auto) 0.1 Baso # (Auto) 0.0 WBC Differential . Diff Scan Auto diff confirmed Differential Comment . PT 15.9 H INR 1.6 APTT Fibrinogen Sodium 135 L Potassium 4.0 Chloride 100 Carbon Dioxide 28.5 Anion Gap 7 BUN 9 Creatinine 1.11 Estimated GFR 67 L Random Glucose 207 H Calcium 7.3 L* Prot Corrected Calcium 7.4 L* Phosphorus 2.7 Magnesium 1.2 L Total Bilirubin 1.7 H AST 37 ALT 16 Alkaline Phosphatase 114 Total Protein 6.9 Albumin 1.2 L TSH 3.700 Free T4 0.98 06/02/18 09:49 WBC RBC Hgb Hct MCV MCH MCHC RDW Plt Count MPV Prelim Diff (Auto) Neut % (Auto) Lymph % (Auto) [place] % (Auto) Eos % (Auto) Baso % (Auto) Neut # (Auto) Lymph # (Auto) [place] # (Auto) Eos # (Auto) Baso # (Auto) WBC Differential Diff Scan Differential Comment PT INR APTT 33.4 H Fibrinogen 147 L Sodium Potassium Chloride Carbon Dioxide Anion Gap BUN Creatinine Estimated GFR Random Glucose Calcium Prot Corrected Calcium Phosphorus Magnesium Total Bilirubin AST ALT Alkaline Phosphatase Total Protein Albumin TSH Free T4 Microbiology 06/01/18 17:14 Blood - Peripheral Aerobic Blood Culture - Preliminary No growth in 1 day 06/01/18 17:14 Blood - Peripheral Anaerobic Blood Culture - Preliminary No growth in 1 day 06/01/18 17:05 Blood - Peripheral Aerobic Blood Culture - Preliminary No growth in 1 day 06/01/18 17:05 Blood - Peripheral Anaerobic Blood Culture - Preliminary No growth in 1 day 05/27/18 17:50 Blood - Peripheral Aerobic Blood Culture - Final No growth in 5 days 05/27/18 17:50 Blood - Peripheral Anaerobic Blood Culture - Final No growth in 5 days 05/27/18 18:05 Blood - Peripheral Aerobic Blood Culture - Final No growth in 5 days 05/27/18 18:05 Blood - Peripheral Anaerobic Blood Culture - Final No growth in 5 days - Imaging Chest X-Ray 05/23/18 12:35 CONCLUSION: 1. No acute cardiopulmonary disease. Abdomen/Pelvis CT 05/23/18 14:34 CONCLUSION: 1. Right iliopsoas/psoas fluid collection either abscess or hematoma. 2. Extensive varicosities about the splenic hilum and fundus of the stomach with a patent but small portal vein. 3. Trace ascites in the pelvis 4. Trace right pleural effusion. Chest X-Ray 05/27/18 00:00 CONCLUSION: Linear atelectasis or consolidation at the medial right lower lung. Abdomen/Pelvis CT 05/28/18 06:00 CONCLUSION: 1. No significant change in septated complex cystic mass in the perinephric space on the right side may be hematoma versus abscess. 2. Increasing sinusitis within the pelvis and otherwise not significantly changed. - Procedures COLONOSCOPY PROCEDURE REPORT EXAM DATE: 05/25/2018 PATIENT NAME: Ricardo Ma MR #: [id number] BIRTHDATE: 1955 ENDOSCOPIST: Venice Mcgowan MD ORDER #: [id number] HIGH LIGHTER: Julieth Crews RN STATUS: inpatient INDICATIONS: The patient is a 62 yr old male here for a colonoscopy due to abdominal pain and iron deficiency anemia PROCEDURE PERFORMED: Colonoscopy, diagnostic MEDICATIONS: None and Per Anesthesia. PREP QUALITY: The [place] Bowel Prep Score was Right colon 3, Mid colon 2, and Left colon 2. Total = 7. PREP TYPE:Magnesium Citrate ESTIMATED BLOOD LOSS: None CONSENT: The patient understands the risks and benefits of the procedure and understands that these risks include, but are not limited to: sedation, allergic reaction, infection, perforation and/or bleeding. Alternative means of evaluation and treatment include, among others: physical exam, x-rays, and/or surgical intervention. The patient elects to proceed with this endoscopic procedure. medical equipment was checked for proper function. Hand hygiene and appropriate measures for infection prevention was taken. After the risks, benefits and alternatives of the procedure were thoroughly explained, Informed consent was verified, confirmed and timeout was successfully executed by the treatment team. A digital exam revealed external hemorrhoids The Pentax EC-[id number] endoscope was introduced through the anus and advanced to the cecum, which was identified by both the appendix and ileocecal valve. The instrument was then slowly withdrawn as the colon was fully examined. COLON FINDINGS: The colonic mucosa appeared normal. Retroflexed views revealed internal hemorrhoids and Retroflexed views revealed medium internal hemorrhoids The scope was then completely withdrawn from the patient and the procedure terminated. PROCEDURE WITHDRAWAL TIME:6minutes ADVERSE EVENTS: There were no complications. IMPRESSIONS: 1. The colonic mucosa appeared normal 2. Retroflexed views revealed internal hemorrhoids 3. Retroflexed views revealed medium internal hemorrhoids 4. Revealed external hemorrhoids RECOMMENDATIONS: 1. Benefiber 2 tsp daily 2. Continue surveillance 3. Yearly hemoccult RECALL: Return 5 years Colonoscopy Venice Mcgowan MD eSigned: Venice Mcgowan MD 05/25/2018 9:56 AM EGD PROCEDURE REPORT EXAM DATE: 05/25/2018 PATIENT NAME: Ricardo Ma MR #: [id number] BIRTHDATE: 1955 ATTENDING: Venice Mcgowan MD ORDER #: [id number] HIGH LIGHTER: Julieth Crews and Tiffani Palumbo STATUS: inpatient INDICATIONS: The patient is a 62 yr old male here for an EGD due to iron deficiency anemia and abdominal pain PROCEDURE PERFORMED: EGD w/ biopsy MEDICATIONS: None and Per Anesthesia. TOPICAL ANESTHETIC: CONSENT: The patient understands the risks and benefits of the procedure and understands that these risks include, but are not limited to: sedation, allergic reaction, infection, perforation and/or bleeding. Alternative means of evaluation and treatment include, among others: physical exam, x-rays, and/or surgical intervention. The patient elects to proceed with this endoscopic procedure. medical equipment was checked for proper function. Hand hygiene and appropriate measures for infection prevention was taken. After the risks, benefits and alternatives of the procedure were thoroughly explained, Informed consent was verified, confirmed and timeout was successfully executed by the treatment team. The patient was anesthetized with topical anesthesia and the EC-[id number] (Pedi C) endoscope was introduced through the mouth and advanced to the second portion of the duodenum. Retroflexed views revealed no abnormalities The gastroscope was then slowly withdrawn and removed. ESOPHAGUS: The mucosa of the esophagus appeared normal. STOMACH: There was moderate and ulcerative gastritis in the gastric antrum. A biopsy was performed using cold forceps. Sample sent for histology. ADVERSE EVENTS: There were no complications. IMPRESSIONS: 1. The esophagus appeared normal 2. There was gastritis in the gastric antrum; biopsy was performed 3. Retroflexed views revealed no abnormalities RECOMMENDATIONS: 1. Await biopsy results. Biopsy results will not be ready for 7-10 days. If you don't hear from us in two weeks, call our office for biopsy results. 2. Anti-reflux regimen 3. Continue PPI 4. Avoid NSAIDS PATIENT CONDITION: stable DISPOSITION: Inpatient REPEAT EXAM: Return 3 months EGD pending biopsy results Venice Mcgowan MD eSigned: Venice Mcgowan MD 05/25/2018 9:42 AM Assessment and Plan - Plan New fever Previous discharge held due to onset of fever, unexplained Possible pneumonia on chest x-ray, covered with current antibiotics CT of abdomen and pelvis shows complex cystic mass in the perinephric space, hematoma versus abscess Continue Levaquin and vancomycin Patient keeps having fevers, he blames this on blankets but that is not likely Consult infectious disease to assist with antibiotic selection Seen by infectious disease is currently on vancomycin and Levaquin CONSULT IR FOR BIOPSY/DRAIN Right iliopsoas/psoas fluid collection either abscess or hematoma Hypocalcemia Recurrent, possibly related to chronic liver disease Replace as needed, follow with daily lab work Abdominal pain/ Hematoma/ Anemia CT revealed a fluid collection in the right psoas area. Thought to be resolving hematoma. Consider infection. Repeat CT of abdomen and pelvis shows complex cystic mass in the perinephric space, hematoma versus abscess Surgery and IR were contacted by the ED and no invasive procedure was recommended at the time, INR 1.6 S/p transfusion of FFP, platelets and red cells. S/p EGD and colonoscopy 05/25 without acute pathology Pathology --gastritis on pathology Continue proton pump inhibitor Appreciate GI consult Appreciate heme/onc consult Weight loss/ Weakness/ Dyspnea on exertion/ DM MKCEE and weakness likely exacerbated by anemia. Weight loss may be exacerbated by diabetes, for which he has yet to start medications for. Hemoglobin A1c 7% CXR unremarkable. TSH within normal limits Hepatitis C INR is 1.6 naturally. Suggestive of cirrhosis. Patient quit drinking 10 weeks ago Consider coagulation abnormality in context of hematoma present and psoas Continue alcohol cessation Nicotine abuse Patient smokes 4 cigarettes daily DVT prophylaxis Ambulation, chemoprophylaxis held due to hematoma Code Status: FULL CODE Discussed Condition With: RN AND PT AND CM Discharge Planning: Once improved and not having fevers anymore and cleared by infectious disease
[2018-06-03] MEDS: Artificial Tears Opth Drops 15 ML Bottle EACH EYE SCH ×6 (03:56→22:14)
[2018-06-03] MEDS: Hypromellose 0.3% Opth Gel 10 GM Bottle EACH EYE SCH ×6 (03:56→22:14)
[2018-06-03] MEDS: Vancomycin Inj 1,250 MG in Sodium Chlor 0.9% Inj 250 ML IV.SIG SCH ×2 (06:07→18:05)
[2018-06-03 06:15] LABS: Baso % (Auto) 0.7 % (0.0-2.0); Eos # (Auto) 0.1 th/mm3 (0.0-0.4); Eos % (Auto) 1.8 % (0.0-4.0); Hematocrit 23.7 % (39.0-51.0); Hemoglobin 8.5 gm/dL (13.0-17.0); Lymph # (Auto) 0.9 th/mm3 (1.0-4.8); Lymph % (Auto) 16.9 % (9.0-44.0); Mean Corpuscular HGB Conc 35.6 % (32.0-36.0); Mean Corpuscular Hemoglobin 37.3 pg (27.0-34.0); Mean Corpuscular Volume 104.6 fL (80.0-100.0); Mean Platelet Volume 8.8 fL (7.0-11.0); Mono # (Auto) 0.8 th/mm3 (0.0-0.9); Mono % (Auto) 15.4 % (0.0-8.0); Neut # (Auto) 3.3 th/mm3 (1.8-7.7); Neut % (Auto) 65.2 % (16.0-70.0); Platelet Count 74 th/mm3 (150-450); Red Blood Count 2.27 mil/mm3 (4.50-5.90); Red Cell Distribution Width 18.6 % (11.6-17.2); White Blood Count 5.1 th/mm3 (4.0-11.0)
[2018-06-03 06:24] LABS: INR 1.6 Ratio; Prothrombin Time 15.7 sec (9.8-11.6)
[2018-06-03 07:51] LABS: Ovalocytes 1+; Platelet Morphology Normal (Normal); Tear Drop Cells 1+
--- NOTE | 2018-06-03 09:46 | P.PNONC ---
Subjective Interval history: T-max 100.9F. Patient reports continued generalized fatigue. He is currently n.p.o. for percutaneous drainage. Objective Vital Signs/Intake & Output: Vital Signs 06/02/18 12:00 06/02/18 16:00 06/02/18 20:00 Temperature 99.4 F 99.2 F 100.6 F H Pulse Rate 79 80 84 Respiratory Rate 20 20 19 Blood Pressure 116/65 110/61 119/58 L Pulse Oximetry 96 96 94 L 06/03/18 00:00 06/03/18 04:00 06/03/18 08:00 Temperature 99.4 F 98.2 F 98.1 F Pulse Rate 80 76 71 Respiratory Rate 19 17 19 Blood Pressure 122/62 97/55 L 114/63 Pulse Oximetry 97 95 97 Intake & Output 06/02/18 06/03/18 06/03/18 18:59 06:59 18:59 Intake Total 1052.5 / 1052.5 592 / 592 Output Total 650 / 650 750 / 750 Balance 402.5 / 402.5 -158 / -158 Weight 79.4 kg Intake: IV 572.5 / 572.5 150 / 150 Calcium Gluconate Inj 1 GM In 110 / 110 NS Inj 100 ML @ 110 mls/hr IV. SIG ONCE ONE Rx#:[id number] Levaquin 750 mg Premix Inj 150 150 / 150 ML @ 100 mls/hr IV.SIG Q24H [facility] Rx#:[id number] Magnesium Sulfate 1 gm/D5W 100 100 / 100 ml Premix 100 ML @ 100 mls/hr IV.SIG ONCE ONE Rx#:[id number] Magnesium Sulfate Inj 2 GM In 100 / 100 NS Inj 96 ML @ 50 mls/hr IV.SIG ONCE ONE Rx#:[id number] Vancomycin Inj 1,250 MG In NS 262.5 / 262.5 Inj 250 ML @ 250 mls/hr IV.SIG Q12H [facility] Rx#:[id number] Oral 480 / 480 442 / 442 Output: Urine 650 / 650 750 / 750 Other: Date of Last Bowel Movement 06/01/18 Result Diagrams: 06/03/18 05:34 06/03/18 09:39 Laboratory Results: Laboratory Results - last 24 hr 06/02/18 06/03/18 06/03/18 09:49 05:34 05:34 WBC 5.1 RBC 2.27 L Hgb 8.5 L Hct 23.7 L MCV 104.6 H MCH 37.3 H MCHC 35.6 RDW 18.6 H Plt Count 74 L MPV 8.8 Prelim Diff (Auto) Slide review pending Neut % (Auto) 65.2 Lymph % (Auto) 16.9 [place] % (Auto) 15.4 H Eos % (Auto) 1.8 Baso % (Auto) 0.7 Neut # (Auto) 3.3 Lymph # (Auto) 0.9 L [place] # (Auto) 0.8 Eos # (Auto) 0.1 Baso # (Auto) 0.0 WBC Differential . Diff Scan Auto diff confirmed Differential Comment . Platelet Estimate Low L Platelet Morphology Normal Tear Drop Cells 1+ H Ovalocytes 1+ H PT 15.7 H INR 1.6 APTT 33.4 H Fibrinogen 147 L Culture Results: Microbiology 06/01/18 17:14 Aerobic Blood Culture - Preliminary Blood - Peripheral No growth in 1 day Anaerobic Blood Culture - Preliminary No growth in 1 day 06/01/18 17:05 Aerobic Blood Culture - Preliminary Blood - Peripheral No growth in 1 day Anaerobic Blood Culture - Preliminary No growth in 1 day 05/27/18 17:50 Aerobic Blood Culture - Final Blood - Peripheral No growth in 5 days Anaerobic Blood Culture - Final No growth in 5 days 05/27/18 18:05 Aerobic Blood Culture - Final Blood - Peripheral No growth in 5 days Anaerobic Blood Culture - Final No growth in 5 days Medications: Active Medications Generic Name Dose Route Start Last Admin Trade Name Freq PRN Reason Stop Dose Admin Artificial Tears 1 drop 05/29/18 10:00 06/03/18 06:07 Tears Naturale Opth Drops EACH EYE Not Given Q4H CHARANJIT Artificial Tears 1 drops 05/29/18 18:00 06/03/18 06:07 Genteal Severe Dry Eye Relief 0.3% Opth Gel EACH EYE Not Given Q4H CHARANJIT Levofloxacin/Dextrose 150 mls @ 100 mls/hr 05/28/18 00:00 06/03/18 02:30 Levaquin 750 Mg Premix Inj IV.SIG Infused Q24H CHARANJIT Infusion Vancomycin HCl 1,250 mg/ 262.5 mls @ 250 mls/hr 05/28/18 18:00 06/03/18 06:07 Sodium Chloride IV.SIG 250 mls/hr Q12H CHARANJIT Administration Ibuprofen 600 mg 05/27/18 21:56 05/30/18 22:18 Motrin PO 600 mg Q6H PRN Administration Fever >101 Ondansetron HCl 4 mg 05/23/18 17:58 05/28/18 09:41 Zofran Inj IV.PUSH 4 mg Q6H PRN Administration NAUSEA OR VOMITING Oxycodone HCl 5 mg 05/23/18 18:52 06/03/18 06:48 Roxicodone PO 5 mg Q6H PRN Administration pain 3-10 Pantoprazole Sodium 40 mg 05/24/18 21:00 06/02/18 21:42 Protonix PO 40 mg BID CHARANJIT Administration Senna/Docusate Sodium 1 tab 05/23/18 21:00 06/02/18 21:41 Lina-Colace PO 1 tab BID CHARANJIT Administration Sodium Chloride 2 ml 05/23/18 12:33 06/02/18 21:43 Ns Flush IV.FLUSH 2 ml PRN PRN Administration FLUSH AFTER USING IV ACCESS Objective Remarks: GENERAL: Older male patient, lying in bed, in no acute distress. SKIN: Warm and dry. Few scattered psoriasis plaques to BLE. HEAD: Normocephalic. EYES: No injection or drainage. NECK: Supple, trachea midline. CARDIOVASCULAR: Regular rate and rhythm without murmurs. RESPIRATORY: Posterior breath sounds clear, equal bilaterally. Nonlabored. GASTROINTESTINAL: Abdomen soft, flat, tender in all quadrants. EXTREMITIES: No cyanosis, or edema. Chronic skin discoloration and psoriasis plaques to BLE. MUSCULOSKELETAL: Adequate muscle tone. NEUROLOGICAL: No obvious focal deficit. Awake, alert, and oriented x3. Assessment/Plan - Plan 62-year-old male admitted with right lower quadrant pain. He has history of alcoholic liver disease, liver cirrhosis, hepatitis C and diabetes. He was found to have extensive varicosities on his CT abdomen and pelvis which could be possible abscess or hematoma. The patient has been evaluated by GI and is s/ p EGD and colonoscopy. The patient was seen by hematology services earlier in this admission, he was scheduled for discharge home when he started having fevers. CT abdomen showed a complex fluid collection in the perinephric space on the right side measures 5.8 x 5.1 cm with septation and soft tissue components to it. The largest pocket of fluid collection measures almost 5.3 cm in size not significantly changed. Hematology was reconsulted for evaluation/ risk for aspirate of the complex fluid collection in the perinephric space, given his history of coagulopathy and thrombocytopenia. 1. Coagulopathy and thrombocytopenia, likely secondary to liver disease. Patient with pending percutaneous drainage of fluid collection in the perinephric space today. We will give him 2.5 mg of p.o. vitamin K now and 2 units of FFP prior to the procedure today. I have spoke to the patient's RN in regards to this. 2. Fevers, management per ID. Patient continues on antibiotics. CT abdomen showed septated complex cystic mass in the perinephric space on the right side may be hematoma versus abscess, patient pending percutaneous drainage of this complex fluid collection today. 3. Continue to monitor for bleeding. 4. Continue supportive care. - Attending Statement The exam, history, and the medical decision-making described in the above note were completed with the assistance of the mid-level provider. I reviewed and agree with the findings presented. I attest that I had a [id number] encounter with the patient on the same day, and personally performed and documented my assessment and findings in the medical record. Monitor daily fibrinogen/INR and Hb daily Give Vitamin K prn for INR> 1.6 Transfuse cryo if Fibrinigen < 150
[2018-06-03] MEDS ORDERED: Sodium Chlor 0.9% Inj 250 ML IV.SIG SCH (10:00)
[2018-06-03] MEDS ORDERED: Phytonadione 2.5 MG/SWFI 2.5 ML Oral Syringe PO ONE (10:00)
[2018-06-03] MEDS: Senna/Docusate Sodium 8.6/50 MG Tablet PO SCH ×2 (10:02→21:15)
[2018-06-03 10:59] LABS: Albumin 1.3 g/dL (3.4-5.0); Calcium 7.4 mg/dL (8.5-10.1); Carbon Dioxide 28.7 meq/L (21.0-32.0); Magnesium 1.3 mg/dL (1.5-2.5); Phosphorus 2.8 mg/dL (2.5-4.9); Potassium 3.6 meq/L (3.5-5.1); Total Protein 7.4 g/dL (6.4-8.2); Vancomycin,Trough 31.7 mcg/mL (5.0-10.0)
[2018-06-03] MEDS ORDERED: fentaNYL Citrate Inj 100 MCG/2 ML Ampul ONE (11:53)
--- NOTE | 2018-06-03 12:03 | P.PNIM ---
Subjective Interval history: 9-5 Fevers last night. Has been seen by infectious disease. Has history of hepatitis C and liver cirrhosis. Has history of thrombocytopenia Has complex fluid collection on CAT scan Seen by infectious disease continued on Vanco and Levaquin A.m. labs 9-6 NEEDS IR TO DO A BIOPSY OF THIS iliopsoas/psoas fluid collection either abscess or hematoma. CONSULT IR FOR BIOPSY AM LABS MEDS PER ID AND HEMATOLOGY STILL HAS FEVERS 9-7 TO HAVE DRAINAGE BY IR TODAY DW RN AND PT GIVEN FFP AND VITAMIN K NO NEW COMPLAINTS STILL HAVING FEVERS AM LABS Physical Exam Vital signs: Vital Signs 06/02/18 16:00 06/02/18 20:00 06/03/18 00:00 Temperature 99.2 F 100.6 F H 99.4 F Pulse Rate 80 84 80 Respiratory Rate 20 19 19 Blood Pressure 110/61 119/58 L 122/62 Pulse Oximetry 96 94 L 97 06/03/18 04:00 06/03/18 08:00 06/03/18 10:40 Temperature 98.2 F 98.1 F 98.3 F Pulse Rate 76 71 71 Respiratory Rate 17 19 20 Blood Pressure 97/55 L 114/63 144/66 H Pulse Oximetry 95 97 100 06/03/18 11:18 06/03/18 11:38 Temperature 98.0 F 98.1 F Pulse Rate 66 69 Respiratory Rate 20 16 Blood Pressure 115/65 108/73 Pulse Oximetry 99 99 Intake & Output 06/02/18 06/03/18 06/03/18 18:59 06:59 18:59 Intake Total 1052.5 / 1052.5 592 / 592 262.5 / 262.5 Output Total 650 / 650 750 / 750 Balance 402.5 / 402.5 -158 / -158 262.5 / 262.5 Weight 79.4 kg Intake: IV 572.5 / 572.5 150 / 150 262.5 / 262.5 Calcium Gluconate Inj 1 GM In 110 / 110 NS Inj 100 ML @ 110 mls/hr IV. SIG ONCE ONE Rx#:[id number] Levaquin 750 mg Premix Inj 150 150 / 150 ML @ 100 mls/hr IV.SIG Q24H CHARANJIT Rx#:[id number] Magnesium Sulfate 1 gm/D5W 100 100 / 100 ml Premix 100 ML @ 100 mls/hr IV.SIG ONCE ONE Rx#:[id number] Magnesium Sulfate Inj 2 GM In 100 / 100 NS Inj 96 ML @ 50 mls/hr IV.SIG ONCE ONE Rx#:[id number] Vancomycin Inj 1,250 MG In NS 262.5 / 262.5 262.5 / 262.5 Inj 250 ML @ 250 mls/hr IV.SIG Q12H CHARANJIT Rx#:[id number] Oral 480 / 480 442 / 442 Intake (Blood Product) Amt 0 / 0 Plasma Thawed 5 Day Cp2d Unit 0 / 0 [id number] Output: Urine 650 / 650 750 / 750 Other: Date of Last Bowel Movement 06/01/18 Narrative: GENERAL: AAOx3, no acute distress SKIN: Warm and dry. Hyperpigmented shinnecock around umbilicus HEAD: Atruamtic, normocephalic. EYES: No scleral icterus. No injection or drainage. ENT: Moist mucous membranes, patent nares, no erythema of oropharynx. NECK: Supple, trachea midline. No JVD or lymphadenopathy. Normal thyroid. CARDIOVASCULAR: Regular rate and rhythm. No murmurs, gallops, or rubs. RESPIRATORY: Breath sounds clear equal bilaterally. No crackles or wheezes. No accessory muscle use. GASTROINTESTINAL: Abdomen soft, tender to palpation and inguinal line of right lower quadrant, nondistended, normal active bowel sounds MUSCULOSKELETAL: No cyanosis, or edema. NEURO: CN II-XII grossly intact, no focal deficits, no slurring of speech Results - Labs CBC & Chem 7: 06/03/18 05:34 06/03/18 09:39 Laboratory Results - last 24 hr 06/03/18 06/03/18 06/03/18 05:34 05:34 09:38 WBC 5.1 RBC 2.27 L Hgb 8.5 L Hct 23.7 L MCV 104.6 H MCH 37.3 H MCHC 35.6 RDW 18.6 H Plt Count 74 L MPV 8.8 Prelim Diff (Auto) Slide review pending Neut % (Auto) 65.2 Lymph % (Auto) 16.9 Blaine % (Auto) 15.4 H Eos % (Auto) 1.8 Baso % (Auto) 0.7 Neut # (Auto) 3.3 Lymph # (Auto) 0.9 L Blaine # (Auto) 0.8 Eos # (Auto) 0.1 Baso # (Auto) 0.0 WBC Differential . Diff Scan Auto diff confirmed Differential Comment . Platelet Estimate Low L Platelet Morphology Normal Tear Drop Cells 1+ H Ovalocytes 1+ H PT 15.7 H INR 1.6 Sodium Potassium Chloride Carbon Dioxide Anion Gap BUN Creatinine Estimated GFR Random Glucose Calcium Prot Corrected Calcium Phosphorus Magnesium Total Bilirubin AST ALT Alkaline Phosphatase Total Protein Albumin Vancomycin Trough Blood Bank Comment 06/03/18 09:39 WBC RBC Hgb Hct MCV MCH MCHC RDW Plt Count MPV Prelim Diff (Auto) Neut % (Auto) Lymph % (Auto) Blaine % (Auto) Eos % (Auto) Baso % (Auto) Neut # (Auto) Lymph # (Auto) Blaine # (Auto) Eos # (Auto) Baso # (Auto) WBC Differential Diff Scan Differential Comment Platelet Estimate Platelet Morphology Tear Drop Cells Ovalocytes PT INR Sodium 132 L Potassium 3.6 Chloride 96 L Carbon Dioxide 28.7 Anion Gap 7 BUN 10 Creatinine 1.08 Estimated GFR 70 L Random Glucose 148 H Calcium 7.4 L* Prot Corrected Calcium 7.3 L* Phosphorus 2.8 Magnesium 1.3 L Total Bilirubin 2.0 H AST 34 ALT 15 Alkaline Phosphatase 93 Total Protein 7.4 Albumin 1.3 L Vancomycin Trough 31.7 H Blood Bank Comment Microbiology 06/01/18 17:14 Blood - Peripheral Aerobic Blood Culture - Preliminary No growth in 2 days 06/01/18 17:14 Blood - Peripheral Anaerobic Blood Culture - Preliminary No growth in 2 days 06/01/18 17:05 Blood - Peripheral Aerobic Blood Culture - Preliminary No growth in 2 days 06/01/18 17:05 Blood - Peripheral Anaerobic Blood Culture - Preliminary No growth in 2 days - Procedures COLONOSCOPY PROCEDURE REPORT EXAM DATE: 05/25/2018 PATIENT NAME: Ricardo Ma MR #: [id number] BIRTHDATE: 1955 ENDOSCOPIST: Venice Mcgowan MD ORDER #: [id number] ROUTE AIDE: Julieth Crews RN STATUS: inpatient INDICATIONS: The patient is a 62 yr old male here for a colonoscopy due to abdominal pain and iron deficiency anemia PROCEDURE PERFORMED: Colonoscopy, diagnostic MEDICATIONS: None and Per Anesthesia. PREP QUALITY: The [place] Bowel Prep Score was Right colon 3, Mid colon 2, and Left colon 2. Total = 7. PREP TYPE:Magnesium Citrate ESTIMATED BLOOD LOSS: None CONSENT: The patient understands the risks and benefits of the procedure and understands that these risks include, but are not limited to: sedation, allergic reaction, infection, perforation and/or bleeding. Alternative means of evaluation and treatment include, among others: physical exam, x-rays, and/or surgical intervention. The patient elects to proceed with this endoscopic procedure. medical equipment was checked for proper function. Hand hygiene and appropriate measures for infection prevention was taken. After the risks, benefits and alternatives of the procedure were thoroughly explained, Informed consent was verified, confirmed and timeout was successfully executed by the treatment team. A digital exam revealed external hemorrhoids The Pentax EC-3490Li endoscope was introduced through the anus and advanced to the cecum, which was identified by both the appendix and ileocecal valve. The instrument was then slowly withdrawn as the colon was fully examined. COLON FINDINGS: The colonic mucosa appeared normal. Retroflexed views revealed internal hemorrhoids and Retroflexed views revealed medium internal hemorrhoids The scope was then completely withdrawn from the patient and the procedure terminated. PROCEDURE WITHDRAWAL TIME:6minutes ADVERSE EVENTS: There were no complications. IMPRESSIONS: 1. The colonic mucosa appeared normal 2. Retroflexed views revealed internal hemorrhoids 3. Retroflexed views revealed medium internal hemorrhoids 4. Revealed external hemorrhoids RECOMMENDATIONS: 1. Benefiber 2 tsp daily 2. Continue surveillance 3. Yearly hemoccult RECALL: Return 5 years Colonoscopy Venice Mcgowan MD eSigned: Venice Mcgowan MD 05/25/2018 9:56 AM EGD PROCEDURE REPORT EXAM DATE: 05/25/2018 PATIENT NAME: Ricardo Ma MR #: [id number] BIRTHDATE: 1955 ATTENDING: Venice Mcgowan MD ORDER #: [id number] ROUTE AIDE: Julieth Crews and Tiffani Palumbo STATUS: inpatient INDICATIONS: The patient is a 62 yr old male here for an EGD due to iron deficiency anemia and abdominal pain PROCEDURE PERFORMED: EGD w/ biopsy MEDICATIONS: None and Per Anesthesia. TOPICAL ANESTHETIC: CONSENT: The patient understands the risks and benefits of the procedure and understands that these risks include, but are not limited to: sedation, allergic reaction, infection, perforation and/or bleeding. Alternative means of evaluation and treatment include, among others: physical exam, x-rays, and/or surgical intervention. The patient elects to proceed with this endoscopic procedure. medical equipment was checked for proper function. Hand hygiene and appropriate measures for infection prevention was taken. After the risks, benefits and alternatives of the procedure were thoroughly explained, Informed consent was verified, confirmed and timeout was successfully executed by the treatment team. The patient was anesthetized with topical anesthesia and the EC-3490Li (Pedi C) endoscope was introduced through the mouth and advanced to the second portion of the duodenum. Retroflexed views revealed no abnormalities The gastroscope was then slowly withdrawn and removed. ESOPHAGUS: The mucosa of the esophagus appeared normal. STOMACH: There was moderate and ulcerative gastritis in the gastric antrum. A biopsy was performed using cold forceps. Sample sent for histology. ADVERSE EVENTS: There were no complications. IMPRESSIONS: 1. The esophagus appeared normal 2. There was gastritis in the gastric antrum; biopsy was performed 3. Retroflexed views revealed no abnormalities RECOMMENDATIONS: 1. Await biopsy results. Biopsy results will not be ready for 7-10 days. If you don't hear from us in two weeks, call our office for biopsy results. 2. Anti-reflux regimen 3. Continue PPI 4. Avoid NSAIDS PATIENT CONDITION: stable DISPOSITION: Inpatient REPEAT EXAM: Return 3 months EGD pending biopsy results Venice Mcgowan MD eSigned: Venice Mcgowan MD 05/25/2018 9:42 AM Assessment and Plan - Plan New fever Previous discharge held due to onset of fever, unexplained Possible pneumonia on chest x-ray, covered with current antibiotics CT of abdomen and pelvis shows complex cystic mass in the perinephric space, hematoma versus abscess Continue Levaquin and vancomycin Patient keeps having fevers, he blames this on blankets but that is not likely Consult infectious disease to assist with antibiotic selection Seen by infectious disease is currently on vancomycin and Levaquin CONSULT IR FOR BIOPSY/DRAIN Right iliopsoas/psoas fluid collection either abscess or hematoma Hypocalcemia Recurrent, possibly related to chronic liver disease Replace as needed, follow with daily lab work Abdominal pain/ Hematoma/ Anemia CT revealed a fluid collection in the right psoas area. Thought to be resolving hematoma. Consider infection. Repeat CT of abdomen and pelvis shows complex cystic mass in the perinephric space, hematoma versus abscess Surgery and IR were contacted by the ED and no invasive procedure was recommended at the time, INR 1.6 S/p transfusion of FFP, platelets and red cells. S/p EGD and colonoscopy 05/25 without acute pathology Pathology --gastritis on pathology Continue proton pump inhibitor Appreciate GI consult Appreciate heme/onc consult Weight loss/ Weakness/ Dyspnea on exertion/ DM MCKEE and weakness likely exacerbated by anemia. Weight loss may be exacerbated by diabetes, for which he has yet to start medications for. Hemoglobin A1c 7% CXR unremarkable. TSH within normal limits Hepatitis C INR is 1.6 naturally. Suggestive of cirrhosis. Patient quit drinking 10 weeks ago Consider coagulation abnormality in context of hematoma present and psoas Continue alcohol cessation GIVEN FFP AND VITAMIN K SO CAN HAVE PROCEDURE Nicotine abuse Patient smokes 4 cigarettes daily DVT prophylaxis Ambulation, chemoprophylaxis held due to hematoma Code Status: FULL CODE Discussed Condition With: RN AND PT AND CM Discharge Planning: Once improved and not having fevers anymore and cleared by infectious disease
--- NOTE | 2018-06-03 13:51 | CT ---
EXAM DATE: 06/03/2018 1:45 PM EDT AGE/SEX: 62 years / Male INDICATIONS: Right iliopsoas abscess. CLINICAL DATA: This is the patient's initial encounter. Patient reports that signs and symptoms have been present for 1 day and indicates a pain score of 0/10. MEDICAL/SURGICAL HISTORY: Cirrhosis. Diabetes. Hepatitis C. None. COMPARISON: No prior exams available for comparison. SEDATION TIME (min): 30 BIOPSY SITE: right iliopsoas abscess MEDICATION(S): 3.5mg midazolam (Versed) IV 175mcg fentanyl (Sublimaze) IV DEVICE(S): 8 Fr Skater FLUID: Total volume of 25 of purulent, red fluid was removed. Fluid was sent to lab for ordered studies.. . . PROCEDURE : CT guided drainage of the right iliopsoas abscess. Conscious sedation with continuous EKG and oximetry monitoring. The risks, benefits and alternatives to the procedure were explained and verbal and written consent w as obtained. Using automated exposure control and adjustment of the mA and/or kV according to patient size, radiation dose was kept as low as reasonably achievable to obtain optimal diagnostic quality i mages. The site was prepped in sterile fashion. Full sterile technique was used, including cap, ma sk, sterile gloves and gown and a large sterile sheet. Hand hygiene and 2% chlorhexidine and/or beta dine/alcohol prep was utilized per protocol for cutaneous antisepsis. The skin and subcutaneous tiss ues were infiltrated with local anesthetic solution. DICOM format image data is available electronic ally for review and comparison. FINDINGS: Using CT guidance the prescribed site was localized. An 18-gauge needle was advanced into the hypode nse collection in the right psoas. Purulent material was aspirated. Therefore, the 035 Bentson wire w as advanced through the outer cannula and coiled in the collection. Tract was dilated to accommodate the 8 Greek locking cope loop. Drainage was performed using the prescribed catheter. The patient tolerated the procedure well and there were no complications. The patient tolerated the procedure well and there were no complications. The patient was sent to post anesthesia recovery in s table condition. CONCLUSION: 1. Uncomplicated CT guided drainage of right psoas abscess as above. Electronically signed by: Darrius Pascal MD 06/03/2018 1:50 PM EDT
--- NOTE | 2018-06-03 14:34 | P.PNID ---
Infectious Disease Brief Note Vital Signs - 24 hr Patient in IR again today Dw no change clinically. Cx reviewed. Bacterial cultures not in chart. Called Tracie in [facility] to process order. available if need be over weekend. 06/02/18 16:00 06/02/18 20:00 06/03/18 00:00 Temperature 99.2 F 100.6 F H 99.4 F Pulse Rate 80 84 80 Respiratory Rate 20 19 19 Blood Pressure 110/61 119/58 L 122/62 Pulse Oximetry 96 94 L 97 06/03/18 04:00 06/03/18 08:00 06/03/18 10:40 Temperature 98.2 F 98.1 F 98.3 F Pulse Rate 76 71 71 Respiratory Rate 17 19 20 Blood Pressure 97/55 L 114/63 144/66 H Pulse Oximetry 95 97 100 06/03/18 11:18 06/03/18 11:38 06/03/18 13:10 Temperature 98.0 F 98.1 F 98 F Pulse Rate 66 69 78 Respiratory Rate 20 16 20 Blood Pressure 115/65 108/73 110/63 Pulse Oximetry 99 99 94 L 06/03/18 13:25 Temperature Pulse Rate 76 Respiratory Rate 20 Blood Pressure 122/67 Pulse Oximetry 98 Laboratory Results - last 24 hr 06/03/18 06/03/18 06/03/18 05:34 05:34 09:38 WBC 5.1 RBC 2.27 L Hgb 8.5 L Hct 23.7 L MCV 104.6 H MCH 37.3 H MCHC 35.6 RDW 18.6 H Plt Count 74 L MPV 8.8 Prelim Diff (Auto) Slide review pending Neut % (Auto) 65.2 Lymph % (Auto) 16.9 [place] % (Auto) 15.4 H Eos % (Auto) 1.8 Baso % (Auto) 0.7 Neut # (Auto) 3.3 Lymph # (Auto) 0.9 L Emmet # (Auto) 0.8 Eos # (Auto) 0.1 Baso # (Auto) 0.0 WBC Differential . Diff Scan Auto diff confirmed Differential Comment . Platelet Estimate Low L Platelet Morphology Normal Tear Drop Cells 1+ H Ovalocytes 1+ H PT 15.7 H INR 1.6 Sodium Potassium Chloride Carbon Dioxide Anion Gap BUN Creatinine Estimated GFR Random Glucose Calcium Prot Corrected Calcium Phosphorus Magnesium Total Bilirubin AST ALT Alkaline Phosphatase Total Protein Albumin Vancomycin Trough Blood Bank Comment 06/03/18 09:39 WBC RBC Hgb Hct MCV MCH MCHC RDW Plt Count MPV Prelim Diff (Auto) Neut % (Auto) Lymph % (Auto) Emm[place] % (Auto) Eos % (Auto) Baso % (Auto) Neut # (Auto) Lymph # (Auto) [place] # (Auto) Eos # (Auto) Baso # (Auto) WBC Differential Diff Scan Differential Comment Platelet Estimate Platelet Morphology Tear Drop Cells Ovalocytes PT INR Sodium 132 L Potassium 3.6 Chloride 96 L Carbon Dioxide 28.7 Anion Gap 7 BUN 10 Creatinine 1.08 Estimated GFR 70 L Random Glucose 148 H Calcium 7.4 L* Prot Corrected Calcium 7.3 L* Phosphorus 2.8 Magnesium 1.3 L Total Bilirubin 2.0 H AST 34 ALT 15 Alkaline Phosphatase 93 Total Protein 7.4 Albumin 1.3 L Vancomycin Trough 31.7 H Blood Bank Comment
[2018-06-03] MEDS ORDERED: Pharmacy Ordered Lab Info OTHER SCH (17:45)
[2018-06-04] MEDS: Artificial Tears Opth Drops 15 ML Bottle EACH EYE SCH ×6 (03:07→21:04)
[2018-06-04] MEDS: Hypromellose 0.3% Opth Gel 10 GM Bottle EACH EYE SCH ×6 (03:07→21:04)
[2018-06-04] MEDS: Vancomycin Inj 1,000 MG in Sodium Chlor 0.9% Inj 250 ML IV.SIG SCH ×2 (05:29→18:50)
[2018-06-04 09:17] LABS: Baso % (Auto) 0.8 % (0.0-2.0); Eos # (Auto) 0.1 th/mm3 (0.0-0.4); Eos % (Auto) 2.6 % (0.0-4.0); Hematocrit 23.9 % (39.0-51.0); Hemoglobin 8.2 gm/dL (13.0-17.0); Lymph # (Auto) 1.1 th/mm3 (1.0-4.8); Lymph % (Auto) 20.3 % (9.0-44.0); Mean Corpuscular HGB Conc 34.4 % (32.0-36.0); Mean Corpuscular Hemoglobin 36.8 pg (27.0-34.0); Mean Corpuscular Volume 107.1 fL (80.0-100.0); Mean Platelet Volume 9.1 fL (7.0-11.0); Mono # (Auto) 0.8 th/mm3 (0.0-0.9); Mono % (Auto) 14.7 % (0.0-8.0); Neut # (Auto) 3.5 th/mm3 (1.8-7.7); Neut % (Auto) 61.6 % (16.0-70.0); Platelet Count 67 th/mm3 (150-450); Red Blood Count 2.23 mil/mm3 (4.50-5.90); Red Cell Distribution Width 18.5 % (11.6-17.2); White Blood Count 5.7 th/mm3 (4.0-11.0)
[2018-06-04] MEDS: Senna/Docusate Sodium 8.6/50 MG Tablet PO SCH ×2 (09:21→21:01)
[2018-06-04 09:25] LABS: INR 1.4 Ratio; Prothrombin Time 14.5 sec (9.8-11.6)
[2018-06-04 09:58] LABS: Albumin 1.4 g/dL (3.4-5.0); Calcium 7.3 mg/dL (8.5-10.1); Carbon Dioxide 26.5 meq/L (21.0-32.0); Magnesium 1.4 mg/dL (1.5-2.5); Phosphorus 2.5 mg/dL (2.5-4.9); Potassium 3.8 meq/L (3.5-5.1); Total Protein 7.3 g/dL (6.4-8.2)
[2018-06-04 10:06] LABS: Ovalocytes 1+; Platelet Morphology Normal (Normal)
--- NOTE | 2018-06-04 11:20 | P.PNIM ---
Subjective Interval history: 9-5 Fevers last night. Has been seen by infectious disease. Has history of hepatitis C and liver cirrhosis. Has history of thrombocytopenia Has complex fluid collection on CAT scan Seen by infectious disease continued on Vanco and Levaquin A.m. labs 9-6 NEEDS IR TO DO A BIOPSY OF THIS iliopsoas/psoas fluid collection either abscess or hematoma. CONSULT IR FOR BIOPSY AM LABS MEDS PER ID AND HEMATOLOGY STILL HAS FEVERS 9-7 TO HAVE DRAINAGE BY IR TODAY DW RN AND PT GIVEN FFP AND VITAMIN K NO NEW COMPLAINTS STILL HAVING FEVERS AM LABS 9-8 HAD DRAIN PLACED BY IR INTO RIGHT PSOAS AREA HAS DRAINAGE FROM AREA DW RN AND PT AND CM AND FAMILY AM LABS AWAIT CULTURES DENIES FEVERS TODAY Physical Exam Vital signs: Vital Signs 06/03/18 11:18 06/03/18 11:38 06/03/18 12:00 Temperature 98.0 F 98.1 F Pulse Rate 66 69 71 Respiratory Rate 20 16 Blood Pressure 115/65 108/73 Pulse Oximetry 99 99 06/03/18 13:10 06/03/18 13:25 06/03/18 14:48 Temperature 98 F 97.7 F Pulse Rate 78 76 68 Respiratory Rate 20 20 17 Blood Pressure 110/63 122/67 123/68 Pulse Oximetry 94 L 98 99 06/03/18 16:00 06/03/18 19:55 06/03/18 20:00 Temperature 98.8 F 100.0 F H Pulse Rate 73 83 85 Respiratory Rate 19 18 Blood Pressure 133/79 137/82 Pulse Oximetry 97 98 06/04/18 00:00 06/04/18 04:00 06/04/18 04:05 Temperature 99 F 100.6 F H Pulse Rate 81 84 84 Respiratory Rate 17 20 Blood Pressure 146/65 H 116/57 L Pulse Oximetry 97 94 L 06/04/18 08:00 Temperature 99.1 F Pulse Rate 75 Respiratory Rate 20 Blood Pressure 112/57 L Pulse Oximetry 98 Intake & Output 06/03/18 06/04/18 06/04/18 18:59 06:59 18:59 Intake Total 603.5 / 603.5 1447.5 / 1447.5 Output Total 45 / 45 445 / 445 Balance 558.5 / 558.5 1002.5 / 1002.5 Weight 79.4 kg Intake: IV 262.5 / 262.5 687.5 / 687.5 Levaquin 750 mg Premix Inj 150 150 / 150 ML @ 100 mls/hr IV.SIG Q24H [facility] Rx#:[id number] Vancomycin Inj 1,000 MG In NS 275 / 275 Inj 250 ML @ 250 mls/hr IV.SIG Q12H [facility] Rx#:[id number] Vancomycin Inj 1,250 MG In NS 262.5 / 262.5 262.5 / 262.5 Inj 250 ML @ 250 mls/hr IV.SIG Q12H [facility] Rx#:[id number] Oral 360 / 360 Anesthesia Amount 400 / 400 Intake (Blood Product) Amt 341 / 341 Plasma Thawed 5 Day Cp2d Unit 341 / 341 [id number] Output: Urine 400 / 400 Wound Drainage 45 / 45 45 / 45 right posterior 45 / 45 45 / 45 Other: # Voids 2 Date of Last Bowel Movement 06/01/18 # Bowel Movements 0 Narrative: GENERAL: AAOx3, no acute distress SKIN: Warm and dry. Hyperpigmented [place] around umbilicus HEAD: Atruamtic, normocephalic. EYES: No scleral icterus. No injection or drainage. ENT: Moist mucous membranes, patent nares, no erythema of oropharynx. NECK: Supple, trachea midline. No JVD or lymphadenopathy. Normal thyroid. CARDIOVASCULAR: Regular rate and rhythm. No murmurs, gallops, or rubs. RESPIRATORY: Breath sounds clear equal bilaterally. No crackles or wheezes. No accessory muscle use. GASTROINTESTINAL: Abdomen soft, tender to palpation and inguinal line of right lower quadrant, nondistended, normal active bowel sounds MUSCULOSKELETAL: No cyanosis, or edema. NEURO: CN II-XII grossly intact, no focal deficits, no slurring of speech RIGHT PSOAS DRAIN IN PLACE Results - Labs CBC & Chem 7: 06/04/18 06:58 06/04/18 06:58 Laboratory Results - last 24 hr 06/03/18 06/03/18 06/04/18 09:38 17:40 06:58 WBC 5.7 RBC 2.23 L Hgb 8.2 L Hct 23.9 L MCV 107.1 H MCH 36.8 H MCHC 34.4 RDW 18.5 H Plt Count 67 L MPV 9.1 Prelim Diff (Auto) Slide review pending Neut % (Auto) 61.6 Lymph % (Auto) 20.3 [place] % (Auto) 14.7 H Eos % (Auto) 2.6 Baso % (Auto) 0.8 Neut # (Auto) 3.5 Lymph # (Auto) 1.1 [place] # (Auto) 0.8 Eos # (Auto) 0.1 Baso # (Auto) 0.0 WBC Differential . Diff Scan Auto diff confirmed Differential Comment . Platelet Estimate Low L Platelet Morphology Normal Ovalocytes 1+ H PT INR Fibrinogen Sodium Potassium Chloride Carbon Dioxide Anion Gap BUN Creatinine Estimated GFR Random Glucose Calcium Prot Corrected Calcium Phosphorus Magnesium Total Bilirubin AST ALT Alkaline Phosphatase Total Protein Albumin Vancomycin Trough 22.8 H Blood Bank Comment 06/04/18 06/04/18 06/04/18 06:58 06:58 06:58 WBC RBC Hgb Hct MCV MCH MCHC RDW Plt Count MPV Prelim Diff (Auto) Neut % (Auto) Lymph % (Auto) [place] % (Auto) Eos % (Auto) Baso % (Auto) Neut # (Auto) Lymph # (Auto) [place] # (Auto) Eos # (Auto) Baso # (Auto) WBC Differential Diff Scan Differential Comment Platelet Estimate Platelet Morphology Ovalocytes PT 14.5 H INR 1.4 Fibrinogen 136 L Sodium 133 L Potassium 3.8 Chloride 97 L Carbon Dioxide 26.5 Anion Gap 10 BUN 9 Creatinine 1.05 Estimated GFR 72 L Random Glucose 104 Calcium 7.3 L* Prot Corrected Calcium 7.3 L* Phosphorus 2.5 Magnesium 1.4 L Total Bilirubin 2.0 H AST 35 ALT 16 Alkaline Phosphatase 90 Total Protein 7.3 Albumin 1.4 L Vancomycin Trough Blood Bank Comment Microbiology 06/01/18 17:14 Blood - Peripheral Aerobic Blood Culture - Preliminary No growth in 3 days 06/01/18 17:14 Blood - Peripheral Anaerobic Blood Culture - Preliminary No growth in 3 days 06/01/18 17:05 Blood - Peripheral Aerobic Blood Culture - Preliminary No growth in 3 days 06/01/18 17:05 Blood - Peripheral Anaerobic Blood Culture - Preliminary No growth in 3 days 06/03/18 12:40 Abscess - Other Gram Stain - Final 06/03/18 12:40 Abscess - Other Fungal Smear - Final No fungal elements seen - Imaging Impressions Abscess Drainage CT 06/03/18 00:00 CONCLUSION: 1. Uncomplicated CT guided drainage of right psoas abscess as above. - Procedures COLONOSCOPY PROCEDURE REPORT EXAM DATE: 05/25/2018 PATIENT NAME: Ricardo Ma MR #: [id number] BIRTHDATE: 1955 ENDOSCOPIST: Venice Mcgowan MD ORDER #: [id number] DESTINATION COORDINATOR: Julieth Crews RN STATUS: inpatient INDICATIONS: The patient is a 62 yr old male here for a colonoscopy due to abdominal pain and iron deficiency anemia PROCEDURE PERFORMED: Colonoscopy, diagnostic MEDICATIONS: None and Per Anesthesia. PREP QUALITY: The [place] Bowel Prep Score was Right colon 3, Mid colon 2, and Left colon 2. Total = 7. PREP TYPE:Magnesium Citrate ESTIMATED BLOOD LOSS: None CONSENT: The patient understands the risks and benefits of the procedure and understands that these risks include, but are not limited to: sedation, allergic reaction, infection, perforation and/or bleeding. Alternative means of evaluation and treatment include, among others: physical exam, x-rays, and/or surgical intervention. The patient elects to proceed with this endoscopic procedure. medical equipment was checked for proper function. Hand hygiene and appropriate measures for infection prevention was taken. After the risks, benefits and alternatives of the procedure were thoroughly explained, Informed consent was verified, confirmed and timeout was successfully executed by the treatment team. A digital exam revealed external hemorrhoids The Pentax EC-[id number] endoscope was introduced through the anus and advanced to the cecum, which was identified by both the appendix and ileocecal valve. The instrument was then slowly withdrawn as the colon was fully examined. COLON FINDINGS: The colonic mucosa appeared normal. Retroflexed views revealed internal hemorrhoids and Retroflexed views revealed medium internal hemorrhoids The scope was then completely withdrawn from the patient and the procedure terminated. PROCEDURE WITHDRAWAL TIME:6minutes ADVERSE EVENTS: There were no complications. IMPRESSIONS: 1. The colonic mucosa appeared normal 2. Retroflexed views revealed internal hemorrhoids 3. Retroflexed views revealed medium internal hemorrhoids 4. Revealed external hemorrhoids RECOMMENDATIONS: 1. Benefiber 2 tsp daily 2. Continue surveillance 3. Yearly hemoccult RECALL: Return 5 years Colonoscopy Venice Mcgowan MD eSigned: Venice Mcgowan MD 05/25/2018 9:56 AM EGD PROCEDURE REPORT EXAM DATE: 05/25/2018 PATIENT NAME: Ricardo Ma MR #: [id number] BIRTHDATE: 1955 ATTENDING: Venice Mcgowan MD ORDER #: [id number] DESTINATION COORDINATOR: Julieth Crews and Tiffani Palumbo STATUS: inpatient INDICATIONS: The patient is a 62 yr old male here for an EGD due to iron deficiency anemia and abdominal pain PROCEDURE PERFORMED: EGD w/ biopsy MEDICATIONS: None and Per Anesthesia. TOPICAL ANESTHETIC: CONSENT: The patient understands the risks and benefits of the procedure and understands that these risks include, but are not limited to: sedation, allergic reaction, infection, perforation and/or bleeding. Alternative means of evaluation and treatment include, among others: physical exam, x-rays, and/or surgical intervention. The patient elects to proceed with this endoscopic procedure. medical equipment was checked for proper function. Hand hygiene and appropriate measures for infection prevention was taken. After the risks, benefits and alternatives of the procedure were thoroughly explained, Informed consent was verified, confirmed and timeout was successfully executed by the treatment team. The patient was anesthetized with topical anesthesia and the EC-[id number] (Pedi C) endoscope was introduced through the mouth and advanced to the second portion of the duodenum. Retroflexed views revealed no abnormalities The gastroscope was then slowly withdrawn and removed. ESOPHAGUS: The mucosa of the esophagus appeared normal. STOMACH: There was moderate and ulcerative gastritis in the gastric antrum. A biopsy was performed using cold forceps. Sample sent for histology. ADVERSE EVENTS: There were no complications. IMPRESSIONS: 1. The esophagus appeared normal 2. There was gastritis in the gastric antrum; biopsy was performed 3. Retroflexed views revealed no abnormalities RECOMMENDATIONS: 1. Await biopsy results. Biopsy results will not be ready for 7-10 days. If you don't hear from us in two weeks, call our office for biopsy results. 2. Anti-reflux regimen 3. Continue PPI 4. Avoid NSAIDS PATIENT CONDITION: stable DISPOSITION: Inpatient REPEAT EXAM: Return 3 months EGD pending biopsy results Venice Mcgowan MD eSigned: Venice Mcgowan MD 05/25/2018 9:[address] abscess drainage Signed EXAM DATE: 06/03/2018 1:45 PM EDT AGE/SEX: 62 years / Male INDICATIONS: Right iliopsoas abscess. CLINICAL DATA: This is the patient's initial encounter. Patient reports that signs and symptoms have been present for 1 day and indicates a pain score of 0/ 10. MEDICAL/SURGICAL HISTORY: Cirrhosis. Diabetes. Hepatitis C. None. COMPARISON: No prior exams available for comparison. SEDATION TIME (min): 30 BIOPSY SITE: right iliopsoas abscess MEDICATION(S): 3.5mg midazolam (Versed) IV 175mcg fentanyl (Sublimaze) IV DEVICE(S): 8 Fr Skater FLUID: Total volume of 25 of purulent, red fluid was removed. Fluid was sent to lab for ordered studies.. . . PROCEDURE : CT guided drainage of the right iliopsoas abscess. Conscious sedation with continuous EKG and oximetry monitoring. The risks, benefits and alternatives to the procedure were explained and verbal and written consent was obtained. Using automated exposure control and adjustment of the mA and/or kV according to patient size, radiation dose was kept as low as reasonably achievable to obtain optimal diagnostic quality images. The site was prepped in sterile fashion. Full sterile technique was used, including cap, mask, sterile gloves and gown and a large sterile sheet. Hand hygiene and 2% chlorhexidine and/or betadine/alcohol prep was utilized per protocol for cutaneous antisepsis. The skin and subcutaneous tissues were infiltrated with local anesthetic solution. DICOM format image data is available electronically for review and comparison. FINDINGS: Using CT guidance the prescribed site was localized. An 18-gauge needle was advanced into the hypodense collection in the right psoas. Purulent material was aspirated. Therefore, the 035 [place] wire was advanced through the outer cannula and coiled in the collection. Tract was dilated to accommodate the 8 [place] locking cope loop. Drainage was performed using the prescribed catheter. The patient tolerated the procedure well and there were no complications. The patient tolerated the procedure well and there were no complications. The patient was sent to post anesthesia recovery in stable condition. CONCLUSION: 1. Uncomplicated CT guided drainage of right psoas abscess as above. Electronically signed by: Darrius Pascal MD 06/03/2018 1:50 PM EDT Assessment and Plan - Plan New fever Previous discharge held due to onset of fever, unexplained Possible pneumonia on chest x-ray, covered with current antibiotics CT of abdomen and pelvis shows complex cystic mass in the perinephric space, hematoma versus abscess Continue Levaquin and vancomycin Patient keeps having fevers, he blames this on blankets but that is not likely Consult infectious disease to assist with antibiotic selection Seen by infectious disease is currently on vancomycin and Levaquin CONSULT IR FOR BIOPSY/DRAIN Right iliopsoas/psoas fluid collection either abscess or hematoma SP RIGHT PSOAS DRAIN PLACEMENT ON 05-03 REMAINS ON VANCO IV Hypocalcemia Recurrent, possibly related to chronic liver disease Replace as needed, follow with daily lab work Abdominal pain/ Hematoma/ Anemia CT revealed a fluid collection in the right psoas area. Thought to be resolving hematoma. Consider infection. Repeat CT of abdomen and pelvis shows complex cystic mass in the perinephric space, hematoma versus abscess Surgery and IR were contacted by the ED and no invasive procedure was recommended at the time, INR 1.6 S/p transfusion of FFP, platelets and red cells. S/p EGD and colonoscopy 05/25 without acute pathology Pathology --gastritis on pathology Continue proton pump inhibitor Appreciate GI consult Appreciate heme/onc consult Weight loss/ Weakness/ Dyspnea on exertion/ DM MCKEE and weakness likely exacerbated by anemia. Weight loss may be exacerbated by diabetes, for which he has yet to start medications for. Hemoglobin A1c 7% CXR unremarkable. TSH within normal limits Hepatitis C INR is 1.6 naturally. Suggestive of cirrhosis. Patient quit drinking 10 weeks ago Consider coagulation abnormality in context of hematoma present and psoas Continue alcohol cessation GIVEN FFP AND VITAMIN K SO CAN HAVE PROCEDURE Nicotine abuse Patient smokes 4 cigarettes daily DVT prophylaxis Ambulation, chemoprophylaxis held due to hematoma Code Status: FULL CODE Discussed Condition With: RN AND PT AND FAMILY AND CM Discharge Planning: Once improved and not having fevers anymore and cleared by infectious disease
--- NOTE | 2018-06-04 11:22 | P.PNONC ---
Subjective Interval history: T-max 100.6F. Patient sitting up in bed, reports not feeling well. He states he is not sure how long he will be able to tolerate the abscess drain. He was able to eat this a.m. Status post abscess drainage, right psoas. Objective Vital Signs/Intake & Output: Vital Signs 06/03/18 11:18 06/03/18 11:38 06/03/18 12:00 Temperature 98.0 F 98.1 F Pulse Rate 66 69 71 Respiratory Rate 20 16 Blood Pressure 115/65 108/73 Pulse Oximetry 99 99 06/03/18 13:10 06/03/18 13:25 06/03/18 14:48 Temperature 98 F 97.7 F Pulse Rate 78 76 68 Respiratory Rate 20 20 17 Blood Pressure 110/63 122/67 123/68 Pulse Oximetry 94 L 98 99 06/03/18 16:00 06/03/18 19:55 06/03/18 20:00 Temperature 98.8 F 100.0 F H Pulse Rate 73 83 85 Respiratory Rate 19 18 Blood Pressure 133/79 137/82 Pulse Oximetry 97 98 06/04/18 00:00 06/04/18 04:00 06/04/18 04:05 Temperature 99 F 100.6 F H Pulse Rate 81 84 84 Respiratory Rate 17 20 Blood Pressure 146/65 H 116/57 L Pulse Oximetry 97 94 L 06/04/18 08:00 Temperature 99.1 F Pulse Rate 75 Respiratory Rate 20 Blood Pressure 112/57 L Pulse Oximetry 98 Intake & Output 06/03/18 06/04/18 06/04/18 18:59 06:59 18:59 Intake Total 603.5 / 603.5 1447.5 / 1447.5 Output Total 45 / 45 445 / 445 Balance 558.5 / 558.5 1002.5 / 1002.5 Weight 79.4 kg Intake: IV 262.5 / 262.5 687.5 / 687.5 Levaquin 750 mg Premix Inj 150 150 / 150 ML @ 100 mls/hr IV.SIG Q24H [facility] Rx#:[id number] Vancomycin Inj 1,000 MG In NS 275 / 275 Inj 250 ML @ 250 mls/hr IV.SIG Q12H [facility] Rx#:[id number] Vancomycin Inj 1,250 MG In NS 262.5 / 262.5 262.5 / 262.5 Inj 250 ML @ 250 mls/hr IV.SIG Q12H [facility] Rx#:[id number] Oral 360 / 360 Anesthesia Amount 400 / 400 Intake (Blood Product) Amt 341 / 341 Plasma Thawed 5 Day Cp2d Unit 341 / 341 [id number] Output: Urine 400 / 400 Wound Drainage 45 / 45 45 / 45 right posterior 45 / 45 45 / 45 Other: # Voids 2 Date of Last Bowel Movement 06/01/18 # Bowel Movements 0 Result Diagrams: 06/05/18 08:43 06/05/18 09:46 Laboratory Results: Laboratory Results - last 24 hr 06/03/18 06/03/18 06/04/18 09:38 17:40 06:58 WBC 5.7 RBC 2.23 L Hgb 8.2 L Hct 23.9 L MCV 107.1 H MCH 36.8 H MCHC 34.4 RDW 18.5 H Plt Count 67 L MPV 9.1 Prelim Diff (Auto) Slide review pending Neut % (Auto) 61.6 Lymph % (Auto) 20.3 [place] % (Auto) 14.7 H Eos % (Auto) 2.6 Baso % (Auto) 0.8 Neut # (Auto) 3.5 Lymph # (Auto) 1.1 [place] # (Auto) 0.8 Eos # (Auto) 0.1 Baso # (Auto) 0.0 WBC Differential . Diff Scan Auto diff confirmed Differential Comment . Platelet Estimate Low L Platelet Morphology Normal Ovalocytes 1+ H PT INR Fibrinogen Sodium Potassium Chloride Carbon Dioxide Anion Gap BUN Creatinine Estimated GFR Random Glucose Calcium Prot Corrected Calcium Phosphorus Magnesium Total Bilirubin AST ALT Alkaline Phosphatase Total Protein Albumin Vancomycin Trough 22.8 H Blood Bank Comment 06/04/18 06/04/18 06/04/18 06:58 06:58 06:58 WBC RBC Hgb Hct MCV MCH MCHC RDW Plt Count MPV Prelim Diff (Auto) Neut % (Auto) Lymph % (Auto) [place] % (Auto) Eos % (Auto) Baso % (Auto) Neut # (Auto) Lymph # (Auto) [place] # (Auto) Eos # (Auto) Baso # (Auto) WBC Differential Diff Scan Differential Comment Platelet Estimate Platelet Morphology Ovalocytes PT 14.5 H INR 1.4 Fibrinogen 136 L Sodium 133 L Potassium 3.8 Chloride 97 L Carbon Dioxide 26.5 Anion Gap 10 BUN 9 Creatinine 1.05 Estimated GFR 72 L Random Glucose 104 Calcium 7.3 L* Prot Corrected Calcium 7.3 L* Phosphorus 2.5 Magnesium 1.4 L Total Bilirubin 2.0 H AST 35 ALT 16 Alkaline Phosphatase 90 Total Protein 7.3 Albumin 1.4 L Vancomycin Trough Blood Bank Comment Culture Results: Microbiology 06/01/18 17:14 Aerobic Blood Culture - Preliminary Blood - Peripheral No growth in 3 days Anaerobic Blood Culture - Preliminary No growth in 3 days 06/01/18 17:05 Aerobic Blood Culture - Preliminary Blood - Peripheral No growth in 3 days Anaerobic Blood Culture - Preliminary No growth in 3 days 06/03/18 12:40 Gram Stain - Final Abscess - Other 06/03/18 12:40 Fungal Smear - Final Abscess - Other No fungal elements seen 05/27/18 17:50 Aerobic Blood Culture - Final Blood - Peripheral No growth in 5 days Anaerobic Blood Culture - Final No growth in 5 days 05/27/18 18:05 Aerobic Blood Culture - Final Blood - Peripheral No growth in 5 days Anaerobic Blood Culture - Final No growth in 5 days Imaging Studies: Impressions Abscess Drainage CT 06/03/18 00:00 CONCLUSION: 1. Uncomplicated CT guided drainage of right psoas abscess as above. Medications: Active Medications Generic Name Dose Route Start Last Admin Trade Name Freq PRN Reason Stop Dose Admin Artificial Tears 1 drop 05/29/18 10:00 06/04/18 05:32 Tears Naturale Opth Drops EACH EYE Not Given Q4H [facility] Artificial Tears 1 drops 05/29/18 18:00 06/04/18 05:32 Genteal Severe Dry Eye Relief 0.3% Opth Gel EACH EYE Not Given Q4H [facility] Levofloxacin/Dextrose 150 mls @ 100 mls/hr 05/28/18 00:00 06/04/18 01:50 Levaquin 750 Mg Premix Inj IV.SIG Infused Q24H [facility] Infusion Vancomycin HCl 1,000 mg/ 250 mls @ 250 mls/hr 06/04/18 06:00 06/04/18 06:50 Sodium Chloride IV.SIG Infused Q12H [facility] Infusion Ibuprofen 600 mg 05/27/18 21:56 05/30/18 22:18 Motrin PO 600 mg Q6H PRN Administration Fever >101 Ondansetron HCl 4 mg 05/23/18 17:58 05/28/18 09:41 Zofran Inj IV.PUSH 4 mg Q6H PRN Administration NAUSEA OR VOMITING Oxycodone HCl 5 mg 05/23/18 18:52 06/04/18 09:21 Roxicodone PO 5 mg Q6H PRN Administration pain 3-10 Pantoprazole Sodium 40 mg 05/24/18 21:00 06/04/18 09:21 Protonix PO 40 mg BID [facility] Administration Senna/Docusate Sodium 1 tab 05/23/18 21:00 06/04/18 09:21 Lina-Colace PO 1 tab BID [facility] Administration Sodium Chloride 2 ml 05/23/18 12:33 06/03/18 21:14 Ns Flush IV.FLUSH 2 ml PRN PRN Administration FLUSH AFTER USING IV ACCESS Objective Remarks: GENERAL: Older male patient, sitting upright in bed, in no acute distress. SKIN: Warm and dry. +psoriasis plaques to BLE. HEAD: Normocephalic. EYES: No injection or drainage. NECK: Supple, trachea midline. CARDIOVASCULAR: Regular rate and rhythm without murmurs. RESPIRATORY: Posterior breath sounds clear, equal bilaterally. Nonlabored. GASTROINTESTINAL: Abdomen soft, flat, tender in all quadrants. Right flank drain minimal dark red drainagein bag. No swelling, erythema at drain site, dressing intact. EXTREMITIES: No cyanosis, or edema. Chronic skin discoloration and psoriasis plaques to BLE. MUSCULOSKELETAL: Adequate muscle tone. NEUROLOGICAL: No obvious focal deficit. Awake, alert, and oriented x3. Assessment/Plan - Plan 62-year-old male admitted with right lower quadrant pain. He has history of alcoholic liver disease, liver cirrhosis, hepatitis C and diabetes. He was found to have extensive varicosities on his CT abdomen and pelvis which could be possible abscess or hematoma. The patient has been evaluated by GI and is s/ p EGD and colonoscopy. The patient was seen by hematology services earlier in this admission, he was scheduled for discharge home when he started having fevers. CT abdomen showed a complex fluid collection in the perinephric space on the right side measures 5.8 x 5.1 cm with septation and soft tissue components to it. The largest pocket of fluid collection measures almost 5.3 cm in size not significantly changed. Hematology was reconsulted for evaluation/ risk for aspirate of the complex fluid collection in the perinephric space, given his history of coagulopathy and thrombocytopenia. 1. Coagulopathy and thrombocytopenia, likely secondary to liver disease. S/P percutaneous drainage of fluid collection in the perinephric space today. Right flank drain remains in place. 2. Fevers, management per ID. Patient continues on antibiotics. CT abdomen showed septated complex cystic mass in the perinephric space on the right side may be hematoma versus abscess, Status post drainage yesterday. 3. Continue to monitor for bleeding. 4. Continue supportive care. - Attending Statement The exam, history, and the medical decision-making described in the above note were completed with the assistance of the mid-level provider. I reviewed and agree with the findings presented. I attest that I had a [id number] encounter with the patient on the same day, and personally performed and documented my assessment and findings in the medical record. Fibrinogen 130--give 2 units of cryoprecipitate Hb 8.2 INR 1.[address]- minimal output.
[2018-06-04] MEDS ORDERED: Sodium Chlor 0.9% Inj 250 ML IV.SIG SCH (13:00)
[2018-06-05] MEDS: Hypromellose 0.3% Opth Gel 10 GM Bottle EACH EYE SCH ×6 (02:00→21:53)
[2018-06-05] MEDS: Artificial Tears Opth Drops 15 ML Bottle EACH EYE SCH ×6 (02:00→21:53)
[2018-06-05] MEDS: Vancomycin Inj 1,000 MG in Sodium Chlor 0.9% Inj 250 ML IV.SIG SCH ×2 (05:40→17:50)
[2018-06-05] MEDS: Senna/Docusate Sodium 8.6/50 MG Tablet PO SCH ×2 (08:16→20:35)
[2018-06-05 09:13] LABS: Baso % (Auto) 0.7 % (0.0-2.0); Eos # (Auto) 0.1 th/mm3 (0.0-0.4); Eos % (Auto) 3.2 % (0.0-4.0); Hematocrit 22.1 % (39.0-51.0); Hemoglobin 7.7 gm/dL (13.0-17.0); Lymph % (Auto) 22.5 % (9.0-44.0); Mean Corpuscular HGB Conc 34.8 % (32.0-36.0); Mean Corpuscular Volume 106.4 fL (80.0-100.0); Mean Platelet Volume 8.7 fL (7.0-11.0); Mono # (Auto) 0.6 th/mm3 (0.0-0.9); Mono % (Auto) 14.4 % (0.0-8.0); Neut # (Auto) 2.7 th/mm3 (1.8-7.7); Neut % (Auto) 59.2 % (16.0-70.0); Platelet Count 53 th/mm3 (150-450); Red Blood Count 2.08 mil/mm3 (4.50-5.90); Red Cell Distribution Width 18.1 % (11.6-17.2); White Blood Count 4.5 th/mm3 (4.0-11.0)
[2018-06-05 09:28] LABS: Activated Partial Thrombo Time 37.8 sec (24.3-30.1); INR 1.5 Ratio; Prothrombin Time 15.2 sec (9.8-11.6)
[2018-06-05 10:08] LABS: Albumin 1.6 g/dL (3.4-5.0); Anion Gap 9 meq/L (5-15); Aspartate Aminotransferase 40 U/L (15-37); Blood Urea Nitrogen 10 mg/dL (7-18); Calcium 7.6 mg/dL (8.5-10.1); Carbon Dioxide 27.5 meq/L (21.0-32.0); Chloride 97 meq/L (98-107); Glomerular Filtration Rate 63 mL/min (>89); Glucose,Random 99 mg/dL (74-106); Magnesium 1.4 mg/dL (1.5-2.5); Potassium 3.7 meq/L (3.5-5.1); Sodium 133 meq/L (136-145)
[2018-06-05 10:10] LABS: Alanine Aminotransferase 17 U/L (12-78); Phosphorus 2.7 mg/dL (2.5-4.9)
[2018-06-05 10:12] LABS: Alkaline Phosphatase 91 U/L (45-117); Total Protein 7.9 g/dL (6.4-8.2)
[2018-06-05] MEDS ORDERED: Magnesium Sulfate Inj 4 GM in Sodium Chlor 0.9% Inj 92 ML IV.SIG ONE (13:52)
--- NOTE | 2018-06-05 13:52 | P.PNIM ---
Subjective Interval history: 9-5 Fevers last night. Has been seen by infectious disease. Has history of hepatitis C and liver cirrhosis. Has history of thrombocytopenia Has complex fluid collection on CAT scan Seen by infectious disease continued on Vanco and Levaquin A.m. labs 9-6 NEEDS IR TO DO A BIOPSY OF THIS iliopsoas/psoas fluid collection either abscess or hematoma. CONSULT IR FOR BIOPSY AM LABS MEDS PER ID AND HEMATOLOGY STILL HAS FEVERS 9-7 TO HAVE DRAINAGE BY IR TODAY DW RN AND PT GIVEN FFP AND VITAMIN K NO NEW COMPLAINTS STILL HAVING FEVERS AM LABS 9-8 HAD DRAIN PLACED BY IR INTO RIGHT PSOAS AREA HAS DRAINAGE FROM AREA DW RN AND PT AND CM AND FAMILY AM LABS AWAIT CULTURES DENIES FEVERS TODAY 9-9 COMPLAINS OF SOME PAIN AT SITE OF DRAIN IN RIGHT PSOAS REGION DW RN AND PT AND CM HYPOMAGNESIUM WILL REPLACE Physical Exam Vital signs: Vital Signs 06/04/18 13:52 06/04/18 14:12 06/04/18 14:15 Temperature 98.1 F 98.9 F 98.6 F Pulse Rate 76 78 76 Respiratory Rate Blood Pressure 117/62 100/56 L 99/57 L Pulse Oximetry 97 97 99 06/04/18 16:00 06/04/18 17:17 06/04/18 17:38 Temperature 99.0 F 99.4 F 98.9 F Pulse Rate 76 73 71 Respiratory Rate 18 Blood Pressure 114/59 L 108/60 119/64 Pulse Oximetry 98 98 97 06/04/18 18:51 06/04/18 19:47 06/04/18 20:00 Temperature 98.8 F 98.5 F Pulse Rate 77 74 77 Respiratory Rate 16 Blood Pressure 116/67 126/61 Pulse Oximetry 99 95 06/05/18 00:00 06/05/18 03:56 06/05/18 04:00 Temperature 97.9 F 98.1 F Pulse Rate 70 71 97 H Respiratory Rate 18 18 Blood Pressure 114/62 110/53 L Pulse Oximetry 94 L 95 06/05/18 08:00 06/05/18 12:00 Temperature 98.0 F 98.1 F Pulse Rate 65 68 Respiratory Rate 18 18 Blood Pressure 99/54 L 101/59 L Pulse Oximetry 96 96 Intake & Output 06/04/18 06/05/18 06/05/18 18:59 06:59 18:59 Intake Total 913 / 913 1130 / 1130 250 / 250 Output Total 700 / 700 390 / 390 Balance 213 / 213 740 / 740 250 / 250 Intake: IV 650 / 650 250 / 250 Levaquin 750 mg Premix Inj 150 150 / 150 ML @ 100 mls/hr IV.SIG Q24H CHARANJIT Rx#:[id number] NS Inj 250 ML @ 15 mls/hr IV. 250 / 250 SIG ONCE CHARANJIT Rx#:[id number] Vancomycin Inj 1,000 MG In NS 250 / 250 250 / 250 Inj 250 ML @ 250 mls/hr IV.SIG Q12H CHARANJIT Rx#:[id number] Oral 480 / 480 480 / 480 Intake (Blood Product) Amt 433 / 433 Pre-Pooled Cryo Thawed 10units 213 / 213 Unit [id number] Pre-Pooled Cryo Thawed 10units 220 / 220 Unit [id number] Output: Urine 700 / 700 200 / 200 Wound Drainage 190 / 190 right posterior 190 / 190 Other: # Voids 1 1 Date of Last Bowel Movement 06/04/18 Narrative: GENERAL: AAOx3, no acute distress SKIN: Warm and dry. Hyperpigmented [place] around umbilicus HEAD: Atruamtic, normocephalic. EYES: No scleral icterus. No injection or drainage. ENT: Moist mucous membranes, patent nares, no erythema of oropharynx. NECK: Supple, trachea midline. No JVD or lymphadenopathy. Normal thyroid. CARDIOVASCULAR: Regular rate and rhythm. No murmurs, gallops, or rubs. RESPIRATORY: Breath sounds clear equal bilaterally. No crackles or wheezes. No accessory muscle use. GASTROINTESTINAL: Abdomen soft, tender to palpation and inguinal line of right lower quadrant, nondistended, normal active bowel sounds MUSCULOSKELETAL: No cyanosis, or edema. NEURO: CN II-XII grossly intact, no focal deficits, no slurring of speech RIGHT PSOAS DRAIN IN PLACE Results - Labs CBC & Chem 7: 06/05/18 08:43 06/05/18 09:46 Laboratory Results - last 24 hr 06/04/18 06/05/18 06/05/18 13:03 08:43 08:43 CBC w Diff WBC 4.5 Corrected WBC RBC 2.08 L Hgb 7.7 L Hct 22.1 L MCV 106.4 H MCH 37.0 H MCHC 34.8 RDW 18.1 H Plt Count 53 L MPV 8.7 Prelim Diff (Auto) Slide review pending Immature Gran % (Auto) Neut % (Auto) 59.2 Lymph % (Auto) 22.5 Jones % (Auto) 14.4 H Eos % (Auto) 3.2 Baso % (Auto) 0.7 Immature Gran # (Auto) Neut # (Auto) 2.7 Lymph # (Auto) 1.0 Jones # (Auto) 0.6 Eos # (Auto) 0.1 Baso # (Auto) 0.0 WBC Differential . Diff Scan Auto diff confirmed Seg Neuts % (Manual) Band Neuts % (Manual) Lymphocytes % (Manual) Atypical Lymphs % (Man) Monocytes % (Manual) Eosinophils % (Manual) Basophils % (Manual) Metamyelocytes % (Man) Myelocytes % (Man) Promyelocytes % (Man) Blast Cells % (Manual) Plasma Cell % (Manual) Other Cells % Abs Neuts (Manual) Nucleated RBCs/100 WBC Differential Comment . Hypersegmented Neuts Smudge Cells Toxic Granulation Toxic Vacuolation Dohle Bodies Platelet Estimate Platelet Morphology RBC Morphology Dimorphic RBCs Polychromasia Basophilic Stippling Spherocytes Pappenheimer Bodies Sickle Cells Target Cells Tear Drop Cells Ovalocytes Stomatocytes Helmet Cells Lopez-Cadott Bodies [place]em[place] Cells Acanthocytes (Spur) Rouleaux Keratocytes Hematology Comments PT 15.2 H INR 1.5 APTT 37.8 H Fibrinogen 181 L Sodium Potassium Chloride Carbon Dioxide Anion Gap BUN Creatinine Estimated GFR Random Glucose Calcium Phosphorus Magnesium Total Bilirubin AST ALT Alkaline Phosphatase Total Protein Albumin Blood Bank Comment 06/05/18 06/05/18 06/05/18 08:43 09:46 09:46 CBC w Diff Cancelled WBC Cancelled Corrected WBC Cancelled RBC Cancelled Hgb Cancelled Hct Cancelled MCV Cancelled MCH Cancelled MCHC Cancelled RDW Cancelled Plt Count Cancelled MPV Cancelled Prelim Diff (Auto) Cancelled Immature Gran % (Auto) Cancelled Neut % (Auto) Cancelled Lymph % (Auto) Cancelled Jones % (Auto) Cancelled Eos % (Auto) Cancelled Baso % (Auto) Cancelled Immature Gran # (Auto) Cancelled Neut # (Auto) Cancelled Lymph # (Auto) Cancelled Jones # (Auto) Cancelled Eos # (Auto) Cancelled Baso # (Auto) Cancelled WBC Differential Cancelled Diff Scan Cancelled Seg Neuts % (Manual) Cancelled Band Neuts % (Manual) Cancelled Lymphocytes % (Manual) Cancelled Atypical Lymphs % (Man) Cancelled Monocytes % (Manual) Cancelled Eosinophils % (Manual) Cancelled Basophils % (Manual) Cancelled Metamyelocytes % (Man) Cancelled Myelocytes % (Man) Cancelled Promyelocytes % (Man) Cancelled Blast Cells % (Manual) Cancelled Plasma Cell % (Manual) Cancelled Other Cells % Cancelled Abs Neuts (Manual) Cancelled Nucleated RBCs/100 WBC Cancelled Differential Comment Cancelled Hypersegmented Neuts Cancelled Smudge Cells Cancelled Toxic Granulation Cancelled Toxic Vacuolation Cancelled Dohle Bodies Cancelled Platelet Estimate Cancelled Platelet Morphology Cancelled RBC Morphology Cancelled Dimorphic RBCs Cancelled Polychromasia Cancelled Basophilic Stippling Cancelled Spherocytes Cancelled Pappenheimer Bodies Cancelled Sickle Cells Cancelled Target Cells Cancelled Tear Drop Cells Cancelled Ovalocytes Cancelled Stomatocytes Cancelled Helmet Cells Cancelled Lopez-Cadott Bodies Cancelled Fatemeh Cells Cancelled Acanthocytes (Spur) Cancelled Rouleaux Cancelled Keratocytes Cancelled Hematology Comments Cancelled PT INR APTT Fibrinogen Sodium 133 L Potassium 3.7 Chloride 97 L Carbon Dioxide 27.5 Anion Gap 9 BUN 10 10 Creatinine 1.11 1.17 Estimated GFR 67 L 63 L Random Glucose 99 Calcium 7.6 L Phosphorus 2.7 Magnesium 1.4 L Total Bilirubin 2.1 H AST 40 H ALT 17 Alkaline Phosphatase 91 Total Protein 7.9 D Albumin 1.6 L Blood Bank Comment Microbiology 06/01/18 17:14 Blood - Peripheral Aerobic Blood Culture - Preliminary No growth in 4 days 06/01/18 17:14 Blood - Peripheral Anaerobic Blood Culture - Preliminary No growth in 4 days 06/01/18 17:05 Blood - Peripheral Aerobic Blood Culture - Preliminary No growth in 4 days 06/01/18 17:05 Blood - Peripheral Anaerobic Blood Culture - Preliminary No growth in 4 days 06/03/18 12:40 Abscess - Other Gram Stain - Final 06/03/18 12:40 Abscess - Other Wound Culture - Final Staphylococcus aureus - Procedures COLONOSCOPY PROCEDURE REPORT EXAM DATE: 05/25/2018 PATIENT NAME: Ricardo Ma MR #: [id number] BIRTHDATE: 1955 ENDOSCOPIST: Venice Mcgowan MD ORDER #: [id number] SHIP UNLOADER: Julieth Crews RN STATUS: inpatient INDICATIONS: The patient is a 62 yr old male here for a colonoscopy due to abdominal pain and iron deficiency anemia PROCEDURE PERFORMED: Colonoscopy, diagnostic MEDICATIONS: None and Per Anesthesia. PREP QUALITY: The [place] Bowel Prep Score was Right colon 3, Mid colon 2, and Left colon 2. Total = 7. PREP TYPE:Magnesium Citrate ESTIMATED BLOOD LOSS: None CONSENT: The patient understands the risks and benefits of the procedure and understands that these risks include, but are not limited to: sedation, allergic reaction, infection, perforation and/or bleeding. Alternative means of evaluation and treatment include, among others: physical exam, x-rays, and/or surgical intervention. The patient elects to proceed with this endoscopic procedure. medical equipment was checked for proper function. Hand hygiene and appropriate measures for infection prevention was taken. After the risks, benefits and alternatives of the procedure were thoroughly explained, Informed consent was verified, confirmed and timeout was successfully executed by the treatment team. A digital exam revealed external hemorrhoids The Pentax EC-[id number] endoscope was introduced through the anus and advanced to the cecum, which was identified by both the appendix and ileocecal valve. The instrument was then slowly withdrawn as the colon was fully examined. COLON FINDINGS: The colonic mucosa appeared normal. Retroflexed views revealed internal hemorrhoids and Retroflexed views revealed medium internal hemorrhoids The scope was then completely withdrawn from the patient and the procedure terminated. PROCEDURE WITHDRAWAL TIME:6minutes ADVERSE EVENTS: There were no complications. IMPRESSIONS: 1. The colonic mucosa appeared normal 2. Retroflexed views revealed internal hemorrhoids 3. Retroflexed views revealed medium internal hemorrhoids 4. Revealed external hemorrhoids RECOMMENDATIONS: 1. Benefiber 2 tsp daily 2. Continue surveillance 3. Yearly hemoccult RECALL: Return 5 years Colonoscopy Venice Mcgowan MD eSigned: Venice Mcgowan MD 05/25/2018 9:56 AM EGD PROCEDURE REPORT EXAM DATE: 05/25/2018 PATIENT NAME: Ricardo Ma MR #: [id number] BIRTHDATE: 1955 ATTENDING: Venice Mcgowan MD ORDER #: [id number] SHIP UNLOADER: Alma Crews Bianca STATUS: inpatient INDICATIONS: The patient is a 62 yr old male here for an EGD due to iron deficiency anemia and abdominal pain PROCEDURE PERFORMED: EGD w/ biopsy MEDICATIONS: None and Per Anesthesia. TOPICAL ANESTHETIC: CONSENT: The patient understands the risks and benefits of the procedure and understands that these risks include, but are not limited to: sedation, allergic reaction, infection, perforation and/or bleeding. Alternative means of evaluation and treatment include, among others: physical exam, x-rays, and/or surgical intervention. The patient elects to proceed with this endoscopic procedure. medical equipment was checked for proper function. Hand hygiene and appropriate measures for infection prevention was taken. After the risks, benefits and alternatives of the procedure were thoroughly explained, Informed consent was verified, confirmed and timeout was successfully executed by the treatment team. The patient was anesthetized with topical anesthesia and the EC-3490Li (Pedi C) endoscope was introduced through the mouth and advanced to the second portion of the duodenum. Retroflexed views revealed no abnormalities The gastroscope was then slowly withdrawn and removed. ESOPHAGUS: The mucosa of the esophagus appeared normal. STOMACH: There was moderate and ulcerative gastritis in the gastric antrum. A biopsy was performed using cold forceps. Sample sent for histology. ADVERSE EVENTS: There were no complications. IMPRESSIONS: 1. The esophagus appeared normal 2. There was gastritis in the gastric antrum; biopsy was performed 3. Retroflexed views revealed no abnormalities RECOMMENDATIONS: 1. Await biopsy results. Biopsy results will not be ready for 7-10 days. If you don't hear from us in two weeks, call our office for biopsy results. 2. Anti-reflux regimen 3. Continue PPI 4. Avoid NSAIDS PATIENT CONDITION: stable DISPOSITION: Inpatient REPEAT EXAM: Return 3 months EGD pending biopsy results Venice Mcgowan MD eSigned: Venice Mcgowan MD 05/25/2018 9:[address] abscess drainage Signed EXAM DATE: 06/03/2018 1:45 PM EDT AGE/SEX: 62 years / Male INDICATIONS: Right iliopsoas abscess. CLINICAL DATA: This is the patient's initial encounter. Patient reports that signs and symptoms have been present for 1 day and indicates a pain score of 0/ 10. MEDICAL/SURGICAL HISTORY: Cirrhosis. Diabetes. Hepatitis C. None. COMPARISON: No prior exams available for comparison. SEDATION TIME (min): 30 BIOPSY SITE: right iliopsoas abscess MEDICATION(S): 3.5mg midazolam (Versed) IV 175mcg fentanyl (Sublimaze) IV DEVICE(S): 8 Fr Skater FLUID: Total volume of 25 of purulent, red fluid was removed. Fluid was sent to lab for ordered studies.. . . PROCEDURE : CT guided drainage of the right iliopsoas abscess. Conscious sedation with continuous EKG and oximetry monitoring. The risks, benefits and alternatives to the procedure were explained and verbal and written consent was obtained. Using automated exposure control and adjustment of the mA and/or kV according to patient size, radiation dose was kept as low as reasonably achievable to obtain optimal diagnostic quality images. The site was prepped in sterile fashion. Full sterile technique was used, including cap, mask, sterile gloves and gown and a large sterile sheet. Hand hygiene and 2% chlorhexidine and/or betadine/alcohol prep was utilized per protocol for cutaneous antisepsis. The skin and subcutaneous tissues were infiltrated with local anesthetic solution. DICOM format image data is available electronically for review and comparison. FINDINGS: Using CT guidance the prescribed site was localized. An 18-gauge needle was advanced into the hypodense collection in the right psoas. Purulent material was aspirated. Therefore, the 035 Bentson wire was advanced through the outer cannula and coiled in the collection. Tract was dilated to accommodate the 8 Amharic locking cope loop. Drainage was performed using the prescribed catheter. The patient tolerated the procedure well and there were no complications. The patient tolerated the procedure well and there were no complications. The patient was sent to post anesthesia recovery in stable condition. CONCLUSION: 1. Uncomplicated CT guided drainage of right psoas abscess as above. Electronically signed by: Darrius Pascal MD 06/03/2018 1:50 PM EDT Assessment and Plan - Plan New fever Previous discharge held due to onset of fever, unexplained Possible pneumonia on chest x-ray, covered with current antibiotics CT of abdomen and pelvis shows complex cystic mass in the perinephric space, hematoma versus abscess Continue Levaquin and vancomycin Patient keeps having fevers, he blames this on blankets but that is not likely Consult infectious disease to assist with antibiotic selection Seen by infectious disease is currently on vancomycin and Levaquin CONSULT IR FOR BIOPSY/DRAIN Right iliopsoas/psoas fluid collection either abscess or hematoma SP RIGHT PSOAS DRAIN PLACEMENT ON 05-03 REMAINS ON VANCO IV Hypocalcemia Recurrent, possibly related to chronic liver disease Replace as needed, follow with daily lab work Abdominal pain/ Hematoma/ Anemia CT revealed a fluid collection in the right psoas area. Thought to be resolving hematoma. Consider infection. Repeat CT of abdomen and pelvis shows complex cystic mass in the perinephric space, hematoma versus abscess Surgery and IR were contacted by the ED and no invasive procedure was recommended at the time, INR 1.6 S/p transfusion of FFP, platelets and red cells. S/p EGD and colonoscopy 05/25 without acute pathology Pathology --gastritis on pathology Continue proton pump inhibitor Appreciate GI consult Appreciate heme/onc consult Weight loss/ Weakness/ Dyspnea on exertion/ DM MCKEE and weakness likely exacerbated by anemia. Weight loss may be exacerbated by diabetes, for which he has yet to start medications for. Hemoglobin A1c 7% CXR unremarkable. TSH within normal limits Hepatitis C INR is 1.6 naturally. Suggestive of cirrhosis. Patient quit drinking 10 weeks ago Consider coagulation abnormality in context of hematoma present and psoas Continue alcohol cessation GIVEN FFP AND VITAMIN K SO CAN HAVE PROCEDURE Nicotine abuse Patient smokes 4 cigarettes daily HYPOMAGNESIA WE WILL REPLACE DVT prophylaxis Ambulation, chemoprophylaxis held due to hematoma Code Status: FULL CODE Discussed Condition With: RN AND PT AND CM Discharge Planning: Once improved and not having fevers anymore and cleared by infectious disease
[2018-06-05] MEDS: Mag Sulf 1 gm/100 ml Premix 100 ML IV.SIG SCH ×4 (14:56→20:30)
[2018-06-05] MEDS ORDERED: Pharmacy Ordered Lab Info OTHER ONE (17:45)
[2018-06-06] MEDS: Artificial Tears Opth Drops 15 ML Bottle EACH EYE SCH ×6 (02:00→23:26)
[2018-06-06] MEDS: Hypromellose 0.3% Opth Gel 10 GM Bottle EACH EYE SCH ×6 (02:00→23:26)
[2018-06-06 06:23] LABS: Baso % (Auto) 0.6 % (0.0-2.0); Eos # (Auto) 0.1 th/mm3 (0.0-0.4); Eos % (Auto) 3.4 % (0.0-4.0); Hematocrit 23.7 % (39.0-51.0); Hemoglobin 8.3 gm/dL (13.0-17.0); Lymph # (Auto) 0.9 th/mm3 (1.0-4.8); Lymph % (Auto) 21.5 % (9.0-44.0); Mean Corpuscular HGB Conc 34.9 % (32.0-36.0); Mean Corpuscular Hemoglobin 37.3 pg (27.0-34.0); Mean Corpuscular Volume 106.9 fL (80.0-100.0); Mean Platelet Volume 9.4 fL (7.0-11.0); Mono # (Auto) 0.5 th/mm3 (0.0-0.9); Mono % (Auto) 12.1 % (0.0-8.0); Neut # (Auto) 2.7 th/mm3 (1.8-7.7); Neut % (Auto) 62.4 % (16.0-70.0); Platelet Count 59 th/mm3 (150-450); Red Blood Count 2.21 mil/mm3 (4.50-5.90); Red Cell Distribution Width 18.2 % (11.6-17.2); White Blood Count 4.3 th/mm3 (4.0-11.0)
[2018-06-06 07:06] LABS: Albumin 1.2 g/dL (3.4-5.0); Calcium 6.9 mg/dL (8.5-10.1); Magnesium 1.9 mg/dL (1.5-2.5); Phosphorus 2.6 mg/dL (2.5-4.9); Potassium 3.6 meq/L (3.5-5.1); Total Protein 6.7 g/dL (6.4-8.2)
[2018-06-06 08:36] LABS: Platelet Morphology Normal (Normal); Toxic Granulation 1+
[2018-06-06] MEDS: Senna/Docusate Sodium 8.6/50 MG Tablet PO SCH ×2 (09:36→20:48)
[2018-06-06] MEDS ORDERED: Vancomycin Inj 1,500 MG in Sodium Chlor 0.9% Inj 500 ML IV.SIG SCH (12:00)
--- NOTE | 2018-06-06 13:09 | P.PNONC ---
Subjective Interval history: Afebrile Patient reports not much drainage from abscess Pain was bad earlier today; now somewhat improved No oozing Objective Vital Signs/Intake & Output: Vital Signs 06/05/18 16:00 06/05/18 19:46 06/05/18 20:00 Temperature 98.2 F 98.3 F Pulse Rate 74 69 67 Respiratory Rate 18 16 Blood Pressure 105/57 L 99/57 L Pulse Oximetry 98 98 06/05/18 23:43 06/06/18 00:00 06/06/18 04:00 Temperature 98.1 F 98.7 F Pulse Rate 64 64 66 Respiratory Rate 16 18 Blood Pressure 104/57 L 100/63 Pulse Oximetry 97 97 06/06/18 08:00 06/06/18 12:00 Temperature 97.9 F 97.7 F Pulse Rate 63 70 Respiratory Rate 16 17 Blood Pressure 110/59 L 92/51 L Pulse Oximetry 95 97 Intake & Output 06/05/18 06/06/18 06/06/18 18:59 06:59 18:59 Intake Total 1330 / 1330 600 / 600 Output Total 640 / 640 Balance 690 / 690 585 / 585 Weight 175 lb 14.862 oz Intake: IV 450 / 450 600 / 600 Levaquin 750 mg Premix Inj 150 150 / 150 ML @ 100 mls/hr IV.SIG Q24H CHARANJIT Rx#:[id number] Magnesium Sulfate 1 gm/D5W 100 200 / 200 200 / 200 ml Premix 100 ML @ 100 mls/hr IV.SIG Q1H CHARANJIT Rx#:[id number] Vancomycin Inj 1,000 MG In NS 250 / 250 250 / 250 Inj 250 ML @ 250 mls/hr IV.SIG Q12H CHARANJIT Rx#:[id number] Oral 480 / 480 Anesthesia Amount 400 / 400 Output: Urine 600 / 600 Wound Drainage 40 / 40 15 / 15 right posterior 40 / 40 15 / 15 Other: Date of Last Bowel Movement 06/04/18 # Bowel Movements 1 Result Diagrams: 06/06/18 05:51 06/06/18 05:51 Laboratory Results: Laboratory Results - last 24 hr 06/05/18 06/06/18 06/06/18 17:00 05:51 05:51 WBC 4.3 RBC 2.21 L Hgb 8.3 L Hct 23.7 L MCV 106.9 H MCH 37.3 H MCHC 34.9 RDW 18.2 H Plt Count 59 L MPV 9.4 Prelim Diff (Auto) Slide review pending Neut % (Auto) 62.4 Lymph % (Auto) 21.5 [place] % (Auto) 12.1 H Eos % (Auto) 3.4 Baso % (Auto) 0.6 Neut # (Auto) 2.7 Lymph # (Auto) 0.9 L [place] # (Auto) 0.5 Eos # (Auto) 0.1 Baso # (Auto) 0.0 WBC Differential . Diff Scan Auto diff confirmed Differential Comment . Toxic Granulation 1+ H Platelet Estimate Low L Platelet Morphology Normal Sodium 135 L Potassium 3.6 Chloride 100 Carbon Dioxide 28.0 Anion Gap 7 BUN 10 Creatinine 1.00 Estimated GFR 76 L Random Glucose 123 H Calcium 6.9 L* Prot Corrected Calcium 7.1 L* Phosphorus 2.6 Magnesium 1.9 Total Bilirubin 1.5 H AST 32 ALT 14 Alkaline Phosphatase 77 Total Protein 6.7 D Albumin 1.2 L Vancomycin Trough 23.7 H Culture Results: Microbiology 06/01/18 17:14 Aerobic Blood Culture - Final Blood - Peripheral No growth in 5 days Anaerobic Blood Culture - Final No growth in 5 days 06/01/18 17:05 Aerobic Blood Culture - Final Blood - Peripheral No growth in 5 days Anaerobic Blood Culture - Final No growth in 5 days 06/03/18 12:40 Acid Fast Bacilli Smear - Final Abscess - Other No acid fast bacilli seen 06/03/18 12:40 Gram Stain - Final Abscess - Other Wound Culture - Final Staphylococcus aureus 06/03/18 12:40 Fungal Smear - Final Abscess - Other No fungal elements seen Medications: Active Medications Generic Name Dose Route Start Last Admin Trade Name Freq PRN Reason Stop Dose Admin Artificial Tears 1 drop 05/29/18 10:00 06/06/18 09:37 Tears Naturale Opth Drops EACH EYE Not Given Q4H CHARANJIT Artificial Tears 1 drops 05/29/18 18:00 06/06/18 09:37 Genteal Severe Dry Eye Relief 0.3% Opth Gel EACH EYE Not Given Q4H CHARANJIT Levofloxacin/Dextrose 150 mls @ 100 mls/hr 05/28/18 00:00 06/06/18 01:44 Levaquin 750 Mg Premix Inj IV.SIG Infused Q24H CHARANJIT Infusion Vancomycin HCl 1,500 mg/ 515 mls @ 250 mls/hr 06/06/18 12:00 06/06/18 11:52 Sodium Chloride IV.SIG 250 mls/hr Q24H CHARANJIT Administration Ibuprofen 600 mg 05/27/18 21:56 05/30/18 22:18 Motrin PO 600 mg Q6H PRN Administration Fever >101 Ondansetron HCl 4 mg 05/23/18 17:58 05/28/18 09:41 Zofran Inj IV.PUSH 4 mg Q6H PRN Administration NAUSEA OR VOMITING Oxycodone HCl 5 mg 05/23/18 18:52 06/06/18 09:37 Roxicodone PO 5 mg Q6H PRN Administration pain 3-10 Pantoprazole Sodium 40 mg 05/24/18 21:00 06/06/18 09:36 Protonix PO 40 mg BID CHARANJIT Administration Senna/Docusate Sodium 1 tab 05/23/18 21:00 06/06/18 09:36 Lina-Colace PO 1 tab BID CHARANJIT Administration Sodium Chloride 2 ml 05/23/18 12:33 06/03/18 21:14 Ns Flush IV.FLUSH 2 ml PRN PRN Administration FLUSH AFTER USING IV ACCESS Objective Remarks: GENERAL: Older male patient, sitting upright in bed, in no acute distress. SKIN: Warm and dry. +psoriasis plaques to BLE. HEAD: Normocephalic. EYES: No injection or drainage. NECK: Supple, trachea midline. CARDIOVASCULAR: Regular rate and rhythm without murmurs. RESPIRATORY: Posterior breath sounds clear, equal bilaterally. Nonlabored. GASTROINTESTINAL: Abdomen soft, flat, tender in all quadrants, mostly on the right. Right flank drain in place. No oozing from insertion site. EXTREMITIES: No cyanosis, or edema. Chronic skin discoloration and psoriasis plaques to BLE. MUSCULOSKELETAL: Adequate muscle tone. NEUROLOGICAL: No obvious focal deficit. Awake, alert, and oriented x3. Assessment/Plan - Plan 62-year-old male admitted with right lower quadrant pain. He has history of alcoholic liver disease, liver cirrhosis, hepatitis C and diabetes. He was found to have extensive varicosities on his CT abdomen and pelvis which could be possible abscess or hematoma. The patient has been evaluated by GI and is s/ p EGD and colonoscopy. The patient was seen by hematology services earlier in this admission, he was scheduled for discharge home when he started having fevers. CT abdomen showed a complex fluid collection in the perinephric space on the right side measures 5.8 x 5.1 cm with septation and soft tissue components to it. The largest pocket of fluid collection measures almost 5.3 cm in size not significantly changed. Hematology was reconsulted for evaluation/ risk for aspirate of the complex fluid collection in the perinephric space, given his history of coagulopathy and thrombocytopenia. 1. Coagulopathy and thrombocytopenia, likely secondary to liver disease. S/P percutaneous drainage of abscess. Right flank drain remains in place. 2. Fevers, management per ID. Patient currently on Levaquin and vancomycin. 3. Coags pending today; ideally would like to keep fibrinogen greater than 150 and INR less than 1.6.
--- NOTE | 2018-06-06 13:17 | P.PNIM ---
Subjective Interval history: 9-5 Fevers last night. Has been seen by infectious disease. Has history of hepatitis C and liver cirrhosis. Has history of thrombocytopenia Has complex fluid collection on CAT scan Seen by infectious disease continued on Vanco and Levaquin A.m. labs 9-6 NEEDS IR TO DO A BIOPSY OF THIS iliopsoas/psoas fluid collection either abscess or hematoma. CONSULT IR FOR BIOPSY AM LABS MEDS PER ID AND HEMATOLOGY STILL HAS FEVERS 9-7 TO HAVE DRAINAGE BY IR TODAY DW RN AND PT GIVEN FFP AND VITAMIN K NO NEW COMPLAINTS STILL HAVING FEVERS AM LABS 9-8 HAD DRAIN PLACED BY IR INTO RIGHT PSOAS AREA HAS DRAINAGE FROM AREA DW RN AND PT AND CM AND FAMILY AM LABS AWAIT CULTURES DENIES FEVERS TODAY 9-9 COMPLAINS OF SOME PAIN AT SITE OF DRAIN IN RIGHT PSOAS REGION DW RN AND PT AND CM HYPOMAGNESIUM WILL REPLACE 9-10 CONTINUE CURRENT ANTIBIOTICS WITH VANCO DW RN AND PT AND ID WILL NEED AN ECHO DW ID AND PT Physical Exam Vital signs: Vital Signs 06/05/18 16:00 06/05/18 19:46 06/05/18 20:00 Temperature 98.2 F 98.3 F Pulse Rate 74 69 67 Respiratory Rate 18 16 Blood Pressure 105/57 L 99/57 L Pulse Oximetry 98 98 06/05/18 23:43 06/06/18 00:00 06/06/18 04:00 Temperature 98.1 F 98.7 F Pulse Rate 64 64 66 Respiratory Rate 16 18 Blood Pressure 104/57 L 100/63 Pulse Oximetry 97 97 06/06/18 08:00 06/06/18 12:00 Temperature 97.9 F 97.7 F Pulse Rate 63 70 Respiratory Rate 16 17 Blood Pressure 110/59 L 92/51 L Pulse Oximetry 95 97 Intake & Output 06/05/18 06/06/18 06/06/18 18:59 06:59 18:59 Intake Total 1330 / 1330 600 / 600 Output Total 640 / 640 15 / 15 Balance 690 / 690 585 / 585 Weight 79.8 kg Intake: IV 450 / 450 600 / 600 Levaquin 750 mg Premix Inj 150 150 / 150 ML @ 100 mls/hr IV.SIG Q24H CHARANJIT Rx#:[id number] Magnesium Sulfate 1 gm/D5W 100 200 / 200 200 / 200 ml Premix 100 ML @ 100 mls/hr IV.SIG Q1H CHARANJIT Rx#:[id number] Vancomycin Inj 1,000 MG In NS 250 / 250 250 / 250 Inj 250 ML @ 250 mls/hr IV.SIG Q12H CHARANJIT Rx#:[id number] Oral 480 / 480 Anesthesia Amount 400 / 400 Output: Urine 600 / 600 Wound Drainage 40 / 40 15 / 15 right posterior 40 / 40 15 / 15 Other: Date of Last Bowel Movement 06/04/18 # Bowel Movements 1 Narrative: GENERAL: AAOx3, no acute distress SKIN: Warm and dry. Hyperpigmented chilkoot around umbilicus HEAD: Atruamtic, normocephalic. EYES: No scleral icterus. No injection or drainage. ENT: Moist mucous membranes, patent nares, no erythema of oropharynx. NECK: Supple, trachea midline. No JVD or lymphadenopathy. Normal thyroid. CARDIOVASCULAR: Regular rate and rhythm. No murmurs, gallops, or rubs. RESPIRATORY: Breath sounds clear equal bilaterally. No crackles or wheezes. No accessory muscle use. GASTROINTESTINAL: Abdomen soft, tender to palpation and inguinal line of right lower quadrant, nondistended, normal active bowel sounds MUSCULOSKELETAL: No cyanosis, or edema. NEURO: CN II-XII grossly intact, no focal deficits, no slurring of speech RIGHT PSOAS DRAIN IN PLACE Results - Labs CBC & Chem 7: 06/06/18 05:51 06/06/18 05:51 Laboratory Results - last 24 hr 06/05/18 06/06/18 06/06/18 17:00 05:51 05:51 WBC 4.3 RBC 2.21 L Hgb 8.3 L Hct 23.7 L MCV 106.9 H MCH 37.3 H MCHC 34.9 RDW 18.2 H Plt Count 59 L MPV 9.4 Prelim Diff (Auto) Slide review pending Neut % (Auto) 62.4 Lymph % (Auto) 21.5 [place] % (Auto) 12.1 H Eos % (Auto) 3.4 Baso % (Auto) 0.6 Neut # (Auto) 2.7 Lymph # (Auto) 0.9 L [place] # (Auto) 0.5 Eos # (Auto) 0.1 Baso # (Auto) 0.0 WBC Differential . Diff Scan Auto diff confirmed Differential Comment . Toxic Granulation 1+ H Platelet Estimate Low L Platelet Morphology Normal Sodium 135 L Potassium 3.6 Chloride 100 Carbon Dioxide 28.0 Anion Gap 7 BUN 10 Creatinine 1.00 Estimated GFR 76 L Random Glucose 123 H Calcium 6.9 L* Prot Corrected Calcium 7.1 L* Phosphorus 2.6 Magnesium 1.9 Total Bilirubin 1.5 H AST 32 ALT 14 Alkaline Phosphatase 77 Total Protein 6.7 D Albumin 1.2 L Vancomycin Trough 23.7 H Microbiology 06/01/18 17:14 Blood - Peripheral Aerobic Blood Culture - Final No growth in 5 days 06/01/18 17:14 Blood - Peripheral Anaerobic Blood Culture - Final No growth in 5 days 06/01/18 17:05 Blood - Peripheral Aerobic Blood Culture - Final No growth in 5 days 06/01/18 17:05 Blood - Peripheral Anaerobic Blood Culture - Final No growth in 5 days 06/03/18 12:40 Abscess - Other Acid Fast Bacilli Smear - Final No acid fast bacilli seen 06/03/18 12:40 Abscess - Other Gram Stain - Final 06/03/18 12:40 Abscess - Other Wound Culture - Final Staphylococcus aureus - Imaging Chest X-Ray 05/23/18 12:35 CONCLUSION: 1. No acute cardiopulmonary disease. Abdomen/Pelvis CT 05/23/18 14:34 CONCLUSION: 1. Right iliopsoas/psoas fluid collection either abscess or hematoma. 2. Extensive varicosities about the splenic hilum and fundus of the stomach with a patent but small portal vein. 3. Trace ascites in the pelvis 4. Trace right pleural effusion. Chest X-Ray 05/27/18 00:00 CONCLUSION: Linear atelectasis or consolidation at the medial right lower lung. Abdomen/Pelvis CT 05/28/18 06:00 CONCLUSION: 1. No significant change in septated complex cystic mass in the perinephric space on the right side may be hematoma versus abscess. 2. Increasing sinusitis within the pelvis and otherwise not significantly changed. Abscess Drainage CT 06/03/18 00:00 CONCLUSION: 1. Uncomplicated CT guided drainage of right psoas abscess as above. - Procedures COLONOSCOPY PROCEDURE REPORT EXAM DATE: 05/25/2018 PATIENT NAME: Ricardo Ma MR #: [id number] BIRTHDATE: 1955 ENDOSCOPIST: Venice Mcgowan MD ORDER #: [id number] CUTTING TABLE OPERATOR: Julieth Crews RN STATUS: inpatient INDICATIONS: The patient is a 62 yr old male here for a colonoscopy due to abdominal pain and iron deficiency anemia PROCEDURE PERFORMED: Colonoscopy, diagnostic MEDICATIONS: None and Per Anesthesia. PREP QUALITY: The [place] Bowel Prep Score was Right colon 3, Mid colon 2, and Left colon 2. Total = 7. PREP TYPE:Magnesium Citrate ESTIMATED BLOOD LOSS: None CONSENT: The patient understands the risks and benefits of the procedure and understands that these risks include, but are not limited to: sedation, allergic reaction, infection, perforation and/or bleeding. Alternative means of evaluation and treatment include, among others: physical exam, x-rays, and/or surgical intervention. The patient elects to proceed with this endoscopic procedure. medical equipment was checked for proper function. Hand hygiene and appropriate measures for infection prevention was taken. After the risks, benefits and alternatives of the procedure were thoroughly explained, Informed consent was verified, confirmed and timeout was successfully executed by the treatment team. A digital exam revealed external hemorrhoids The Pentax EC-3490Li endoscope was introduced through the anus and advanced to the cecum, which was identified by both the appendix and ileocecal valve. The instrument was then slowly withdrawn as the colon was fully examined. COLON FINDINGS: The colonic mucosa appeared normal. Retroflexed views revealed internal hemorrhoids and Retroflexed views revealed medium internal hemorrhoids The scope was then completely withdrawn from the patient and the procedure terminated. PROCEDURE WITHDRAWAL TIME:6minutes ADVERSE EVENTS: There were no complications. IMPRESSIONS: 1. The colonic mucosa appeared normal 2. Retroflexed views revealed internal hemorrhoids 3. Retroflexed views revealed medium internal hemorrhoids 4. Revealed external hemorrhoids RECOMMENDATIONS: 1. Benefiber 2 tsp daily 2. Continue surveillance 3. Yearly hemoccult RECALL: Return 5 years Colonoscopy Venice Mcgowan MD eSigned: Venice Mcgowan MD 05/25/2018 9:56 AM EGD PROCEDURE REPORT EXAM DATE: 05/25/2018 PATIENT NAME: Ricardo Ma MR #: [id number] BIRTHDATE: 1955 ATTENDING: Venice Mcgowan MD ORDER #: [id number] CUTTING TABLE OPERATOR: Alma Crews Bianca STATUS: inpatient INDICATIONS: The patient is a 62 yr old male here for an EGD due to iron deficiency anemia and abdominal pain PROCEDURE PERFORMED: EGD w/ biopsy MEDICATIONS: None and Per Anesthesia. TOPICAL ANESTHETIC: CONSENT: The patient understands the risks and benefits of the procedure and understands that these risks include, but are not limited to: sedation, allergic reaction, infection, perforation and/or bleeding. Alternative means of evaluation and treatment include, among others: physical exam, x-rays, and/or surgical intervention. The patient elects to proceed with this endoscopic procedure. medical equipment was checked for proper function. Hand hygiene and appropriate measures for infection prevention was taken. After the risks, benefits and alternatives of the procedure were thoroughly explained, Informed consent was verified, confirmed and timeout was successfully executed by the treatment team. The patient was anesthetized with topical anesthesia and the EC-3490Li (Pedi C) endoscope was introduced through the mouth and advanced to the second portion of the duodenum. Retroflexed views revealed no abnormalities The gastroscope was then slowly withdrawn and removed. ESOPHAGUS: The mucosa of the esophagus appeared normal. STOMACH: There was moderate and ulcerative gastritis in the gastric antrum. A biopsy was performed using cold forceps. Sample sent for histology. ADVERSE EVENTS: There were no complications. IMPRESSIONS: 1. The esophagus appeared normal 2. There was gastritis in the gastric antrum; biopsy was performed 3. Retroflexed views revealed no abnormalities RECOMMENDATIONS: 1. Await biopsy results. Biopsy results will not be ready for 7-10 days. If you don't hear from us in two weeks, call our office for biopsy results. 2. Anti-reflux regimen 3. Continue PPI 4. Avoid NSAIDS PATIENT CONDITION: stable DISPOSITION: Inpatient REPEAT EXAM: Return 3 months EGD pending biopsy results Venice Mcgowan MD eSigned: Venice Mcgowan MD 05/25/2018 9:[address] abscess drainage Signed EXAM DATE: 06/03/2018 1:45 PM EDT AGE/SEX: 62 years / Male INDICATIONS: Right iliopsoas abscess. CLINICAL DATA: This is the patient's initial encounter. Patient reports that signs and symptoms have been present for 1 day and indicates a pain score of 0/ 10. MEDICAL/SURGICAL HISTORY: Cirrhosis. Diabetes. Hepatitis C. None. COMPARISON: No prior exams available for comparison. SEDATION TIME (min): 30 BIOPSY SITE: right iliopsoas abscess MEDICATION(S): 3.5mg midazolam (Versed) IV 175mcg fentanyl (Sublimaze) IV DEVICE(S): 8 Fr Skater FLUID: Total volume of 25 of purulent, red fluid was removed. Fluid was sent to lab for ordered studies.. . . PROCEDURE : CT guided drainage of the right iliopsoas abscess. Conscious sedation with continuous EKG and oximetry monitoring. The risks, benefits and alternatives to the procedure were explained and verbal and written consent was obtained. Using automated exposure control and adjustment of the mA and/or kV according to patient size, radiation dose was kept as low as reasonably achievable to obtain optimal diagnostic quality images. The site was prepped in sterile fashion. Full sterile technique was used, including cap, mask, sterile gloves and gown and a large sterile sheet. Hand hygiene and 2% chlorhexidine and/or betadine/alcohol prep was utilized per protocol for cutaneous antisepsis. The skin and subcutaneous tissues were infiltrated with local anesthetic solution. DICOM format image data is available electronically for review and comparison. FINDINGS: Using CT guidance the prescribed site was localized. An 18-gauge needle was advanced into the hypodense collection in the right psoas. Purulent material was aspirated. Therefore, the 035 [place] wire was advanced through the outer cannula and coiled in the collection. Tract was dilated to accommodate the 8 [place] locking cope loop. Drainage was performed using the prescribed catheter. The patient tolerated the procedure well and there were no complications. The patient tolerated the procedure well and there were no complications. The patient was sent to post anesthesia recovery in stable condition. CONCLUSION: 1. Uncomplicated CT guided drainage of right psoas abscess as above. Electronically signed by: Darrius Pascal MD 06/03/2018 1:50 PM EDT Assessment and Plan - Plan New fever Previous discharge held due to onset of fever, unexplained Possible pneumonia on chest x-ray, covered with current antibiotics CT of abdomen and pelvis shows complex cystic mass in the perinephric space, hematoma versus abscess Continue Levaquin and vancomycin Patient keeps having fevers, he blames this on blankets but that is not likely Consult infectious disease to assist with antibiotic selection Seen by infectious disease is currently on vancomycin and Levaquin CONSULT IR FOR BIOPSY/DRAIN Right iliopsoas/psoas fluid collection either abscess or hematoma SP RIGHT PSOAS DRAIN PLACEMENT ON 05-03 REMAINS ON VANCO IV MSSA Hypocalcemia Recurrent, possibly related to chronic liver disease Replace as needed, follow with daily lab work Abdominal pain/ Hematoma/ Anemia CT revealed a fluid collection in the right psoas area. Thought to be resolving hematoma. Consider infection. Repeat CT of abdomen and pelvis shows complex cystic mass in the perinephric space, hematoma versus abscess Surgery and IR were contacted by the ED and no invasive procedure was recommended at the time, INR 1.6 S/p transfusion of FFP, platelets and red cells. S/p EGD and colonoscopy 05/25 without acute pathology Pathology --gastritis on pathology Continue proton pump inhibitor Appreciate GI consult Appreciate heme/onc consult Weight loss/ Weakness/ Dyspnea on exertion/ DM MCKEE and weakness likely exacerbated by anemia. Weight loss may be exacerbated by diabetes, for which he has yet to start medications for. Hemoglobin A1c 7% CXR unremarkable. TSH within normal limits Hepatitis C INR is 1.6 naturally. Suggestive of cirrhosis. Patient quit drinking 10 weeks ago Consider coagulation abnormality in context of hematoma present and psoas Continue alcohol cessation GIVEN FFP AND VITAMIN K SO CAN HAVE PROCEDURE Nicotine abuse Patient smokes 4 cigarettes daily HYPOMAGNESIA WE WILL REPLACE DVT prophylaxis Ambulation, chemoprophylaxis held due to hematoma Code Status: FULL CODE Discussed Condition With: RN AND PT AND CM AND ID Discharge Planning: Once improved and not having fevers anymore and cleared by infectious disease
--- NOTE | 2018-06-06 13:27 | P.PNID ---
Subjective Remarks: Patient is a 62-year-old male, brought into the hospital for further evaluation of generalized weakness, shortness of breath, poor appetite, weight loss, and abdominal pain. Patient is not a very good historian. Looks like he was hospitalized several times in [facility]. In 1 of his hospitalization he was apparently found to have some kind of a retroperitoneal mass, and a biopsy was done. Patient could not tell me when the biopsy was done but that was when the right-sided abdominal pain started. The pain would radiate to the back, and it could also radiate down to his right medial thigh. He was also having other problems then which was felt to be related to his hepatitis C. On this admission he was found to have anemia. He had an upper and lower endoscopy. The procedure showed some gastritis and there was no active bleeding. Since around May 28 he started having intermittent fevers. He has had blood cultures done and they were negative. He had a urinalysis which showed some pyuria, and the culture grew staph aureus methicillin sensitive. He has had CT of the abdomen and pelvis and they are showing a complex fluid collection in the right perinephric space, psoas muscle area. He continues to have the right lower quadrant pain. Denies any urinary complaints. He has not had any congestion or any cough. No nausea or vomiting. His WBC is normal. His had problem with thrombocytopenia which was felt to be related to his liver disease. Chest x-ray does not show any acute disease. Infectious disease consultation has been requested to evaluate the patient with fevers. He is currently on Levaquin and vancomycin. There is mention of anaphylaxis with penicillin. Patient stated he got very swollen and couldn't breathe Overnight events reviewed No fevers No rash No diarrhea Fluid Cx with MSSA. UA with MSSA. Antibiotics: Vancomycin Levaquin Lines: PIV Past Medical History: Cirrhosis Degenerative joint disease Diabetes Hep C w/o coma, chronic Psoriasis Retroperitoneal mass (?) Allergies/Adverse Reactions: Allergies penicillin G Allergy (Severe, Verified 05/23/18 21:01) Anaphylaxis Objective Vital Signs 06/05/18 16:00 06/05/18 19:46 06/05/18 20:00 Temperature 98.2 F 98.3 F Pulse Rate 74 69 67 Respiratory Rate 18 16 Blood Pressure 105/57 L 99/57 L Pulse Oximetry 98 98 06/05/18 23:43 06/06/18 00:00 06/06/18 04:00 Temperature 98.1 F 98.7 F Pulse Rate 64 64 66 Respiratory Rate 16 18 Blood Pressure 104/57 L 100/63 Pulse Oximetry 97 97 06/06/18 08:00 06/06/18 12:00 Temperature 97.9 F 97.7 F Pulse Rate 63 70 Respiratory Rate 16 17 Blood Pressure 110/59 L 92/51 L Pulse Oximetry 95 97 Intake & Output 06/05/18 06/06/18 06/06/18 18:59 06:59 18:59 Intake Total 1330 / 1330 600 / 600 Output Total 640 / 640 15 / 15 Balance 690 / 690 585 / 585 Weight 79.8 kg Intake: IV 450 / 450 600 / 600 Levaquin 750 mg Premix Inj 150 150 / 150 ML @ 100 mls/hr IV.SIG Q24H CHARANJIT Rx#:[id number] Magnesium Sulfate 1 gm/D5W 100 200 / 200 200 / 200 ml Premix 100 ML @ 100 mls/hr IV.SIG Q1H CHARANJIT Rx#:[id number] Vancomycin Inj 1,000 MG In NS 250 / 250 250 / 250 Inj 250 ML @ 250 mls/hr IV.SIG Q12H CHARANJIT Rx#:[id number] Oral 480 / 480 Anesthesia Amount 400 / 400 Output: Urine 600 / 600 Wound Drainage 40 40 15 right posterior 40 40 15 Other: Date of Last Bowel Movement 06/04/18 # Bowel Movements 1 06/01/18 17:14 Blood - Peripheral Aerobic Blood Culture - Final No growth in 5 days 06/01/18 17:14 Blood - Peripheral Anaerobic Blood Culture - Final No growth in 5 days 06/01/18 17:05 Blood - Peripheral Aerobic Blood Culture - Final No growth in 5 days 06/01/18 17:05 Blood - Peripheral Anaerobic Blood Culture - Final No growth in 5 days 06/03/18 12:40 Abscess - Other Acid Fast Bacilli Smear - Final No acid fast bacilli seen 06/03/18 12:40 Abscess - Other Mycobacterial Culture - Pending 06/03/18 12:40 Abscess - Other Gram Stain - Final 06/03/18 12:40 Abscess - Other Wound Culture - Final Staphylococcus aureus 06/03/18 12:40 Abscess - Other Fungal Smear - Final No fungal elements seen 06/03/18 12:40 Abscess - Other Fungal Culture - Pending Lab - Hematology Results 06/05/18 06/05/18 06/06/18 08:43 09:46 05:51 CBC w Diff Cancelled WBC 4.5 Cancelled 4.3 Corrected WBC Cancelled RBC 2.08 L Cancelled 2.21 L Hgb 7.7 L Cancelled 8.3 L Hct 22.1 L Cancelled 23.7 L MCV 106.4 H Cancelled 106.9 H MCH 37.0 H Cancelled 37.3 H MCHC 34.8 Cancelled 34.9 RDW 18.1 H Cancelled 18.2 H Plt Count 53 L Cancelled 59 L MPV 8.7 Cancelled 9.4 Prelim Diff (Auto) Slide review pending Cancelled Slide review pending Immature Gran % (Auto) Cancelled Neut % (Auto) 59.2 Cancelled 62.4 Lymph % (Auto) 22.5 Cancelled 21.5 Saunders % (Auto) 14.4 H Cancelled 12.1 H Eos % (Auto) 3.2 Cancelled 3.4 Baso % (Auto) 0.7 Cancelled 0.6 Immature Gran # (Auto) Cancelled Neut # (Auto) 2.7 Cancelled 2.7 Lymph # (Auto) 1.0 Cancelled 0.9 L Saunders # (Auto) 0.6 Cancelled 0.5 Eos # (Auto) 0.1 Cancelled 0.1 Baso # (Auto) 0.0 Cancelled 0.0 WBC Differential . Cancelled . Diff Scan Auto diff confirmed Cancelled Auto diff confirmed Seg Neuts % (Manual) Cancelled Band Neuts % (Manual) Cancelled Lymphocytes % (Manual) Cancelled Atypical Lymphs % (Man) Cancelled Monocytes % (Manual) Cancelled Eosinophils % (Manual) Cancelled Basophils % (Manual) Cancelled Metamyelocytes % (Man) Cancelled Myelocytes % (Man) Cancelled Promyelocytes % (Man) Cancelled Blast Cells % (Manual) Cancelled Plasma Cell % (Manual) Cancelled Other Cells % Cancelled Abs Neuts (Manual) Cancelled Nucleated RBCs/100 WBC Cancelled Differential Comment . Cancelled . Hypersegmented Neuts Cancelled Smudge Cells Cancelled Toxic Granulation Cancelled 1+ H Toxic Vacuolation Cancelled Dohle Bodies Cancelled Platelet Estimate Cancelled Low L Platelet Morphology Cancelled Normal RBC Morphology Cancelled Dimorphic RBCs Cancelled Polychromasia Cancelled Basophilic Stippling Cancelled Spherocytes Cancelled Pappenheimer Bodies Cancelled Sickle Cells Cancelled Target Cells Cancelled Tear Drop Cells Cancelled Ovalocytes Cancelled Stomatocytes Cancelled Helmet Cells Cancelled [place] Bodies Cancelled Vera Cells Cancelled Acanthocytes (Spur) Cancelled Rouleaux Cancelled Keratocytes Cancelled Hematology Comments Cancelled Lab - Chemistry Results 06/05/18 06/05/18 06/06/18 08:43 09:46 05:51 Sodium 133 L 135 L Potassium 3.7 3.6 Chloride 97 L 100 Carbon Dioxide 27.5 28.0 Anion Gap 9 7 BUN 10 10 10 Creatinine 1.11 1.17 1.00 Estimated GFR 67 L 63 L 76 L Random Glucose 99 123 H Calcium 7.6 L 6.9 L* Prot Corrected Calcium 7.1 L* Phosphorus 2.7 2.6 Magnesium 1.4 L 1.9 Total Bilirubin 2.1 H 1.5 H AST 40 H 32 ALT 17 14 Alkaline Phosphatase 91 77 Total Protein 7.9 D 6.7 D Albumin 1.6 L 1.2 L Imaging: ITS Impressions Chest X-Ray 05/27/18 00:00 CONCLUSION: Linear atelectasis or consolidation at the medial right lower lung. Abdomen/Pelvis CT 05/28/18 06:00 CONCLUSION: 1. No significant change in septated complex cystic mass in the perinephric space on the right side may be hematoma versus abscess. 2. Increasing sinusitis within the pelvis and otherwise not significantly changed. Abscess Drainage CT 06/03/18 00:00 CONCLUSION: 1. Uncomplicated CT guided drainage of right psoas abscess as above. Physical Exam: GENERAL: Patient is a thin, well-developed male, awake and alert, not in respiratory distress. SKIN: Cool and dry. Has scattered psoriasis rash in BUE and BLE HEAD: Atraumatic. Normocephalic. No temporal wasting, or tenderness. EYES: [place] conjunctiva. No petechia or hemorrhage. Pupils equal, round and reactive to light. Extraocular movements full and intact. Has mild scleral icterus. No injection or drainage. EARS, NOSE AND THROAT: Nose without bleeding or purulent nasal discharge. No sinus tenderness. Mucous membranes pink and moist. No oral lesions noted. No exudate. No oral thrush. NECK: Trachea midline. Supple and not tender, no meningeal signs CARDIOVASCULAR: Regular rate and rhythm. No murmurs, rubs or gallops heard RESPIRATORY: Clear to auscultation. Breath sounds equal bilaterally. No rales , wheezing or rhonchi ABDOMEN: Soft, flat, nondistended, with RLQ tenderness. Bowel sounds present and normoactive. No guarding. No rebound. No organomegaly. BACK: R CVA tenderness, no spine tenderness. Right flank/back with accordion drain in place with sanguinous discharge. EXTREMITIES: No clubbing, cyanosis, or edema. No joint effusion, has good ROM. No calf tenderness. NEUROLOGICAL: Awake and alert. Cranial nerves grossly intact. Motor grossly within normal limits. PSYCHIATRIC: Normal affect, calm and cooperative. LINE: No evidence of infection Assessment and Plan - Plan Impression Infective discitis based on clinical suspicion Suspect Infective Endocarditis. MSSA retroperitoneal abscess s.p IR drainage. Also prior drainage at [place]. Records not available. Hepatitis C, liver cirrhosis Thrombocytopenia related to his liver disease, hypersplenism Recommendation Continue current Abx: Vanco IV(target trough 15-20) and levaquin per plan. Dw patient allergies Reports anaphylaxis to penicillin. Discussed penicillin desensitization as an option as it is drug of choice. He says he was told penicillin would kill him. Last PCN when he had strep throat as a child. Explained plan to the patient: continue Vanco IV Since this is a multiloculated fluid collection and Vanco IV is not first line option will continue Vanco IV in house for another week and then repeat imaging. He still has a drain in place. Also get 2D ECHO to look for endocarditis. MSSA infection in RP area is suspicious of Infective discitis and also potential IV drug abuse. If does not respond to Vanco IV or has persistent infection may need further drainage plus change of regimen. D/W RN Other ID MD covering in my absence D/W Dr Morse ([facility]AS): will follow prn in the interim. Please call sooner if any changes in the interim, to resume care on 06/13/2018.
--- NOTE | 2018-06-06 16:05 | P.PCN ---
Procedure: THANK YOU FOR THE REFERRAL Indication; dysphagia, anemia Procedure Performed; upper endoscopy with bleeding control using cauterization of gold probe and injection of epinephrine, PEG tube placement, biopsy After informing the patient about procedure and possible complications consent was signed. history and physical were updated. Patient was taken to the procedure room and placed in position. Time out was completed. Adequate sedation was performed by anesthesia provider. Upper Endoscopy, the scope was placed in the mouth advanced under video guide to the second portion of the duodenum, there was significant amount of blood coming from the duodenum from bleeding ulcer, the patient was intubated to avoid risk of aspiration by anesthesia, the area in the duodenum was cleaned with normal saline, I switched scope to therapeutic scope dual channel in order to be able to suction and injected at the same time, the area of bleeding was identified in the first portion of the duodenum this was injected with epinephrine 6 cc 1/10,000, cauterized with gold probe, bleeding was completely controlled, then the scope was withdrawal to the stomach and retro-flexion was performed, the area for the PEG tube was identified with illumination and indentation, the area was sterilized with Betadine,injected with lidocaine, and then the PEG tube 20 [place] Microvasive was placed with a pull technique without any immediate. Complication , the PEG tube was verified by endoscopy then the scope was withdrawal to the esophagus then out of the mouth without any immediate complication Findings; Esophagus: Normal Stomach severe gastritis with ulcerations biopsy was done from the antrum and body of the stomach, PEG tube was placed as above in the left upper quadrant Duodenum multiple ulcers in the duodenum throughout the first second and third portion 1 of them was actively bleeding this was controlled by injecting epinephrine and cauterization, biopsy was done Recommendations; 1- Supportive care 2- ok to transfer to recovery area then discharge per protocol 3-n.p.o. for at least 6 hours if there is no sign of bleeding then may use the tube for clear liquid and medication 4-monitor hemoglobin with packed RBC as needed 5- EGD as needed 6-no NSAIDs 7-Protonix 40 mg daily
[2018-06-06 17:32] LABS: INR 1.5 Ratio; Prothrombin Time 14.8 sec (9.8-11.6)
[2018-06-07] MEDS: Hypromellose 0.3% Opth Gel 10 GM Bottle EACH EYE SCH ×6 (03:14→21:36)
[2018-06-07] MEDS: Artificial Tears Opth Drops 15 ML Bottle EACH EYE SCH ×6 (03:14→21:36)
[2018-06-07] MEDS: Vancomycin Inj 1,250 MG in Sodium Chlor 0.9% Inj 250 ML IV.SIG SCH (05:13)
[2018-06-07 09:11] LABS: Baso % (Auto) 0.6 % (0.0-2.0); Eos # (Auto) 0.1 th/mm3 (0.0-0.4); Eos % (Auto) 2.4 % (0.0-4.0); Hematocrit 21.6 % (39.0-51.0); Hemoglobin 7.5 gm/dL (13.0-17.0); Lymph # (Auto) 0.9 th/mm3 (1.0-4.8); Lymph % (Auto) 17.6 % (9.0-44.0); Mean Corpuscular Hemoglobin 37.3 pg (27.0-34.0); Mean Corpuscular Volume 106.7 fL (80.0-100.0); Mean Platelet Volume 9.1 fL (7.0-11.0); Mono # (Auto) 0.6 th/mm3 (0.0-0.9); Mono % (Auto) 11.3 % (0.0-8.0); Neut # (Auto) 3.4 th/mm3 (1.8-7.7); Neut % (Auto) 68.1 % (16.0-70.0); Platelet Count 50 th/mm3 (150-450); Red Blood Count 2.02 mil/mm3 (4.50-5.90); Red Cell Distribution Width 18.3 % (11.6-17.2)
[2018-06-07] MEDS: Senna/Docusate Sodium 8.6/50 MG Tablet PO SCH ×2 (09:14→20:33)
[2018-06-07 09:22] LABS: INR 1.6 Ratio; Prothrombin Time 16.2 sec (9.8-11.6)
[2018-06-07 09:49] LABS: Albumin 1.2 g/dL (3.4-5.0); Carbon Dioxide 26.9 meq/L (21.0-32.0); Magnesium 1.5 mg/dL (1.5-2.5); Phosphorus 2.5 mg/dL (2.5-4.9); Potassium 3.6 meq/L (3.5-5.1); Total Protein 6.5 g/dL (6.4-8.2)
[2018-06-07 10:10] LABS: Ovalocytes 1+; Platelet Morphology Normal (Normal)
--- NOTE | 2018-06-07 12:39 | ECHRPT ---
Indication: Sepsis and Possible Endocarditis CONCLUSIONS Normal left ventricular size. Wall thickness is measured at the upper limits of normal. The left ventricular systolic function is low normal with an estimated ejection fraction in the rang e of 50- 55%. Trace mitral valve regurgitation. Mitral annular calcification is present. Aortic valve sclerosis is present. There is trace tricuspid valve regurgitation. The estimated pulmonary arterial pressure is 43mmHg. The inferior vena cava is dilated. Estimated RAP 15mmHg. A left sided pleural effusion is present. No obvious valvular vegetations noted on this study with limited echocardiographic window visualizat ion. A CHARISMA may be completed for improved visualization if clinically appropriate. BP: / HR: Rhythm: MEASUREMENTS (Male / Female) Normal Values Technical Quality:Fair 2D ECHO LV Diastolic Diameter PLAX 4.2 cm 4.2 - 5.9 / 3.9 - 5.3 cm LV Systolic Diameter PLAX 3.0 cm IVS Diastolic Thickness 1.1 cm 0.6 - 1.0 / 0.6 - 0.9 cm LVPW Diastolic Thickness 1.1 cm 0.6 - 1.0 / 0.6 - 0.9 cm LV Relative Wall Thickness 0.5 LVOT Diameter 1.9 cm Aortic Root Diameter 3.2 cm LA Systolic Diameter LX 3.8 cm 3.0 - 4.0 / 2.7 - 3.8 cm M-MODE AV Cusp Separation MM 1.7 cm DOPPLER AV Peak Velocity 192.0 cm/s AV Peak Gradient 14.7 mmHg LVOT Peak Velocity 107.0 cm/s LVOT Peak Gradient 4.6 mmHg AV Area Cont Eq pk 1.6 cm Mitral E Point Velocity 98.7 cm/s Mitral A Point Velocity 76.5 cm/s Mitral E to A Ratio 1.3 LV E' Lateral Velocity 13.2 cm/s Mitral E to LV E' Lateral Ratio 7.5 LV E' Septal Velocity 12.0 cm/s Mitral E to LV E' Septal Ratio 8.2 TR Peak Velocity 288.0 cm/s TR Peak Gradient 33.2 mmHg Right Atrial Pressure 10.0 mmHg Pulmonary Artery Systolic Pressu 43.2 mmHg Right Ventricular Systolic Press 43.2 mmHg PV Peak Velocity 92.3 cm/s PV Peak Gradient 3.4 mmHg FINDINGS LEFT VENTRICLE Normal left ventricular size. Wall thickness is measured at the upper limits of normal. The left ventricular systolic function is low normal with an estimated ejection fraction in the rang e of 50- 55%. No regional wall motion abnormalities are present. RIGHT VENTRICLE Normal right ventricular size and systolic function. LEFT ATRIUM The left atrial size is normal. RIGHT ATRIUM The right atrial size is normal. ATRIAL SEPTUM Normal atrial septal thickness without atrial level shunting by limited color doppler interrogation. AORTA The aortic root and proximal ascending aorta are normal in size on limited imaging. MITRAL VALVE Trace mitral valve regurgitation. Mitral annular calcification is present. AORTIC VALVE The aortic valve is not well visualized. Trileaflet aortic valve. Aortic valve sclerosis is present. No aortic valve stenosis or regurgitati on. TRICUSPID VALVE There is trace tricuspid valve regurgitation. The estimated pulmonary arterial pressure is 43mmHg. PULMONARY VALVE No pulmonary valve regurgitation or stenosis. VESSELS The inferior vena cava is dilated. PERICARDIUM A left sided pleural effusion is present. Amador Murdock (Electronically Signed) Final Date:07 June 2018 12:38
--- NOTE | 2018-06-07 14:25 | P.PNIM ---
Subjective Interval history: 9-5 Fevers last night. Has been seen by infectious disease. Has history of hepatitis C and liver cirrhosis. Has history of thrombocytopenia Has complex fluid collection on CAT scan Seen by infectious disease continued on Vanco and Levaquin A.m. labs 9-6 NEEDS IR TO DO A BIOPSY OF THIS iliopsoas/psoas fluid collection either abscess or hematoma. CONSULT IR FOR BIOPSY AM LABS MEDS PER ID AND HEMATOLOGY STILL HAS FEVERS 9-7 TO HAVE DRAINAGE BY IR TODAY DW RN AND PT GIVEN FFP AND VITAMIN K NO NEW COMPLAINTS STILL HAVING FEVERS AM LABS 9-8 HAD DRAIN PLACED BY IR INTO RIGHT PSOAS AREA HAS DRAINAGE FROM AREA DW RN AND PT AND CM AND FAMILY AM LABS AWAIT CULTURES DENIES FEVERS TODAY 9-9 COMPLAINS OF SOME PAIN AT SITE OF DRAIN IN RIGHT PSOAS REGION DW RN AND PT AND CM HYPOMAGNESIUM WILL REPLACE 9-10 CONTINUE CURRENT ANTIBIOTICS WITH VANCO DW RN AND PT AND ID WILL NEED AN ECHO DW ID AND PT 9-11 CONTINUE CURRENT ANTIBIOTICS WITH VANCO ECHO IS STABLE NO VEGETATIONS ON TTE Physical Exam Vital signs: Vital Signs 06/06/18 16:00 06/06/18 20:00 06/07/18 00:00 Temperature 98.3 F 98.6 F 99.1 F Pulse Rate 72 68 78 Respiratory Rate 16 16 14 Blood Pressure 108/62 109/53 L 104/58 L Pulse Oximetry 97 98 99 06/07/18 04:00 06/07/18 08:00 06/07/18 12:00 Temperature 98.6 F 98.3 F 99.6 F Pulse Rate 72 69 77 Respiratory Rate 15 16 20 Blood Pressure 126/60 123/62 107/52 L Pulse Oximetry 99 97 98 Intake & Output 06/06/18 06/07/18 06/07/18 18:59 06:59 18:59 Intake Total 1115 / 1115 412.5 / 412.5 Output Total 515 / 515 550 / 550 Balance 600 / 600 -137.5 / -137.5 Weight 80.4 kg Intake: IV 515 / 515 412.5 / 412.5 Levaquin 750 mg Premix Inj 150 150 / 150 ML @ 100 mls/hr IV.SIG Q24H CHARANJIT Rx#:[id number] Vancomycin Inj 1,250 MG In NS 262.5 / 262.5 Inj 250 ML @ 250 mls/hr IV.SIG Q18H CHARANJIT Rx#:[id number] Vancomycin Inj 1,500 MG In NS 515 / 515 Inj 500 ML @ 250 mls/hr IV.SIG Q24H CHARANJIT Rx#:[id number] Oral 600 / 600 Output: Urine 500 / 500 550 / 550 Wound Drainage right posterior Other: Date of Last Bowel Movement 06/05/18 # Bowel Movements 0 Narrative: GENERAL: AAOx3, no acute distress SKIN: Warm and dry. Hyperpigmented [place] around umbilicus HEAD: Atru[place], normocephalic. EYES: No scleral icterus. No injection or drainage. ENT: Moist mucous membranes, patent nares, no erythema of oropharynx. NECK: Supple, trachea midline. No JVD or lymphadenopathy. Normal thyroid. CARDIOVASCULAR: Regular rate and rhythm. No murmurs, gallops, or rubs. RESPIRATORY: Breath sounds clear equal bilaterally. No crackles or wheezes. No accessory muscle use. GASTROINTESTINAL: Abdomen soft, tender to palpation and inguinal line of right lower quadrant, nondistended, normal active bowel sounds MUSCULOSKELETAL: No cyanosis, or edema. NEURO: CN II-XII grossly intact, no focal deficits, no slurring of speech RIGHT PSOAS DRAIN IN PLACE Results - Labs CBC & Chem 7: 06/07/18 07:04 06/07/18 07:04 Laboratory Results - last 24 hr 06/06/18 06/06/18 06/07/18 16:35 17:16 07:04 WBC RBC Hgb Hct MCV MCH MCHC RDW Plt Count MPV Prelim Diff (Auto) Neut % (Auto) Lymph % (Auto) [place] % (Auto) Eos % (Auto) Baso % (Auto) Neut # (Auto) Lymph # (Auto) [place] # (Auto) Eos # (Auto) Baso # (Auto) WBC Differential Diff Scan Differential Comment Platelet Estimate Platelet Morphology Ovalocytes PT 14.8 H INR 1.5 Fibrinogen 148 L Sodium Potassium Chloride Carbon Dioxide Anion Gap BUN Cancelled Creatinine Estimated GFR Random Glucose Calcium Prot Corrected Calcium Phosphorus Cancelled Magnesium Total Bilirubin AST ALT Alkaline Phosphatase C-Reactive Protein 2.30 H Total Protein Albumin 06/07/18 06/07/18 06/07/18 07:04 07:04 07:04 WBC 5.0 RBC 2.02 L Hgb 7.5 L Hct 21.6 L MCV 106.7 H MCH 37.3 H MCHC 35.0 RDW 18.3 H Plt Count 50 L MPV 9.1 Prelim Diff (Auto) Slide review pending Neut % (Auto) 68.1 Lymph % (Auto) 17.6 [place] % (Auto) 11.3 H Eos % (Auto) 2.4 Baso % (Auto) 0.6 Neut # (Auto) 3.4 Lymph # (Auto) 0.9 L [place] # (Auto) 0.6 Eos # (Auto) 0.1 Baso # (Auto) 0.0 WBC Differential . Diff Scan Auto diff confirmed Differential Comment . Platelet Estimate Low L Platelet Morphology Normal Ovalocytes 1+ H PT 16.2 H INR 1.6 Fibrinogen Sodium 136 Potassium 3.6 Chloride 101 Carbon Dioxide 26.9 Anion Gap 8 BUN 9 Creatinine 1.05 Estimated GFR 72 L Random Glucose 90 Calcium 7.0 L* Prot Corrected Calcium 7.3 L* Phosphorus 2.5 Magnesium 1.5 Total Bilirubin 1.5 H AST 36 ALT 14 Alkaline Phosphatase 75 C-Reactive Protein Total Protein 6.5 Albumin 1.2 L Microbiology 06/01/18 17:14 Blood - Peripheral Aerobic Blood Culture - Final No growth in 5 days 06/01/18 17:14 Blood - Peripheral Anaerobic Blood Culture - Final No growth in 5 days 06/01/18 17:05 Blood - Peripheral Aerobic Blood Culture - Final No growth in 5 days 06/01/18 17:05 Blood - Peripheral Anaerobic Blood Culture - Final No growth in 5 days - Procedures COLONOSCOPY PROCEDURE REPORT EXAM DATE: 05/25/2018 PATIENT NAME: Ricardo Ma MR #: [id number] BIRTHDATE: 1955 ENDOSCOPIST: Venice Mcgowan MD ORDER #: [id number] SPLICER HELPER: Julieth Crews RN STATUS: inpatient INDICATIONS: The patient is a 62 yr old male here for a colonoscopy due to abdominal pain and iron deficiency anemia PROCEDURE PERFORMED: Colonoscopy, diagnostic MEDICATIONS: None and Per Anesthesia. PREP QUALITY: The [place] Bowel Prep Score was Right colon 3, Mid colon 2, and Left colon 2. Total = 7. PREP TYPE:Magnesium Citrate ESTIMATED BLOOD LOSS: None CONSENT: The patient understands the risks and benefits of the procedure and understands that these risks include, but are not limited to: sedation, allergic reaction, infection, perforation and/or bleeding. Alternative means of evaluation and treatment include, among others: physical exam, x-rays, and/or surgical intervention. The patient elects to proceed with this endoscopic procedure. medical equipment was checked for proper function. Hand hygiene and appropriate measures for infection prevention was taken. After the risks, benefits and alternatives of the procedure were thoroughly explained, Informed consent was verified, confirmed and timeout was successfully executed by the treatment team. A digital exam revealed external hemorrhoids The Pentax EC-[id number] endoscope was introduced through the anus and advanced to the cecum, which was identified by both the appendix and ileocecal valve. The instrument was then slowly withdrawn as the colon was fully examined. COLON FINDINGS: The colonic mucosa appeared normal. Retroflexed views revealed internal hemorrhoids and Retroflexed views revealed medium internal hemorrhoids The scope was then completely withdrawn from the patient and the procedure terminated. PROCEDURE WITHDRAWAL TIME:6minutes ADVERSE EVENTS: There were no complications. IMPRESSIONS: 1. The colonic mucosa appeared normal 2. Retroflexed views revealed internal hemorrhoids 3. Retroflexed views revealed medium internal hemorrhoids 4. Revealed external hemorrhoids RECOMMENDATIONS: 1. Benefiber 2 tsp daily 2. Continue surveillance 3. Yearly hemoccult RECALL: Return 5 years Colonoscopy Venice Mcgowan MD eSigned: Venice Mcgowan MD 05/25/2018 9:56 AM EGD PROCEDURE REPORT EXAM DATE: 05/25/2018 PATIENT NAME: Ricardo Ma MR #: [id number] BIRTHDATE: 1955 ATTENDING: Venice Mcgowan MD ORDER #: [id number] SPLICER HELPER: Alma Crews Bianca STATUS: inpatient INDICATIONS: The patient is a 62 yr old male here for an EGD due to iron deficiency anemia and abdominal pain PROCEDURE PERFORMED: EGD w/ biopsy MEDICATIONS: None and Per Anesthesia. TOPICAL ANESTHETIC: CONSENT: The patient understands the risks and benefits of the procedure and understands that these risks include, but are not limited to: sedation, allergic reaction, infection, perforation and/or bleeding. Alternative means of evaluation and treatment include, among others: physical exam, x-rays, and/or surgical intervention. The patient elects to proceed with this endoscopic procedure. medical equipment was checked for proper function. Hand hygiene and appropriate measures for infection prevention was taken. After the risks, benefits and alternatives of the procedure were thoroughly explained, Informed consent was verified, confirmed and timeout was successfully executed by the treatment team. The patient was anesthetized with topical anesthesia and the EC-3490Li (Pedi C) endoscope was introduced through the mouth and advanced to the second portion of the duodenum. Retroflexed views revealed no abnormalities The gastroscope was then slowly withdrawn and removed. ESOPHAGUS: The mucosa of the esophagus appeared normal. STOMACH: There was moderate and ulcerative gastritis in the gastric antrum. A biopsy was performed using cold forceps. Sample sent for histology. ADVERSE EVENTS: There were no complications. IMPRESSIONS: 1. The esophagus appeared normal 2. There was gastritis in the gastric antrum; biopsy was performed 3. Retroflexed views revealed no abnormalities RECOMMENDATIONS: 1. Await biopsy results. Biopsy results will not be ready for 7-10 days. If you don't hear from us in two weeks, call our office for biopsy results. 2. Anti-reflux regimen 3. Continue PPI 4. Avoid NSAIDS PATIENT CONDITION: stable DISPOSITION: Inpatient REPEAT EXAM: Return 3 months EGD pending biopsy results Venice Mcgowan MD eSigned: Venice Mcgowan MD 05/25/2018 9:[address] abscess drainage Signed EXAM DATE: 06/03/2018 1:45 PM EDT AGE/SEX: 62 years / Male INDICATIONS: Right iliopsoas abscess. CLINICAL DATA: This is the patient's initial encounter. Patient reports that signs and symptoms have been present for 1 day and indicates a pain score of 0/ 10. MEDICAL/SURGICAL HISTORY: Cirrhosis. Diabetes. Hepatitis C. None. COMPARISON: No prior exams available for comparison. SEDATION TIME (min): 30 BIOPSY SITE: right iliopsoas abscess MEDICATION(S): 3.5mg midazolam (Versed) IV 175mcg fentanyl (Sublimaze) IV DEVICE(S): 8 Fr Skater FLUID: Total volume of 25 of purulent, red fluid was removed. Fluid was sent to lab for ordered studies.. . . PROCEDURE : CT guided drainage of the right iliopsoas abscess. Conscious sedation with continuous EKG and oximetry monitoring. The risks, benefits and alternatives to the procedure were explained and verbal and written consent was obtained. Using automated exposure control and adjustment of the mA and/or kV according to patient size, radiation dose was kept as low as reasonably achievable to obtain optimal diagnostic quality images. The site was prepped in sterile fashion. Full sterile technique was used, including cap, mask, sterile gloves and gown and a large sterile sheet. Hand hygiene and 2% chlorhexidine and/or betadine/alcohol prep was utilized per protocol for cutaneous antisepsis. The skin and subcutaneous tissues were infiltrated with local anesthetic solution. DICOM format image data is available electronically for review and comparison. FINDINGS: Using CT guidance the prescribed site was localized. An 18-gauge needle was advanced into the hypodense collection in the right psoas. Purulent material was aspirated. Therefore, the 035 [place] wire was advanced through the outer cannula and coiled in the collection. Tract was dilated to accommodate the 8 [place] locking cope loop. Drainage was performed using the prescribed catheter. The patient tolerated the procedure well and there were no complications. The patient tolerated the procedure well and there were no complications. The patient was sent to post anesthesia recovery in stable condition. CONCLUSION: 1. Uncomplicated CT guided drainage of right psoas abscess as above. Electronically signed by: Darrius Pascal MD 06/03/2018 1:50 PM EDT Assessment and Plan - Plan New fever Previous discharge held due to onset of fever, unexplained Possible pneumonia on chest x-ray, covered with current antibiotics CT of abdomen and pelvis shows complex cystic mass in the perinephric space, hematoma versus abscess Continue Levaquin and vancomycin Patient keeps having fevers, he blames this on blankets but that is not likely Consult infectious disease to assist with antibiotic selection Seen by infectious disease is currently on vancomycin and Levaquin CONSULT IR FOR BIOPSY/DRAIN Right iliopsoas/psoas fluid collection either abscess or hematoma SP RIGHT PSOAS DRAIN PLACEMENT ON 05-03 REMAINS ON VANCO IV MSSA Hypocalcemia Recurrent, possibly related to chronic liver disease Replace as needed, follow with daily lab work Abdominal pain/ Hematoma/ Anemia CT revealed a fluid collection in the right psoas area. Thought to be resolving hematoma. Consider infection. Repeat CT of abdomen and pelvis shows complex cystic mass in the perinephric space, hematoma versus abscess Surgery and IR were contacted by the ED and no invasive procedure was recommended at the time, INR 1.6 S/p transfusion of FFP, platelets and red cells. S/p EGD and colonoscopy 05/25 without acute pathology Pathology --gastritis on pathology Continue proton pump inhibitor Appreciate GI consult Appreciate heme/onc consult Weight loss/ Weakness/ Dyspnea on exertion/ DM MCKEE and weakness likely exacerbated by anemia. Weight loss may be exacerbated by diabetes, for which he has yet to start medications for. Hemoglobin A1c 7% CXR unremarkable. TSH within normal limits Hepatitis C INR is 1.6 naturally. Suggestive of cirrhosis. Patient quit drinking 10 weeks ago Consider coagulation abnormality in context of hematoma present and psoas Continue alcohol cessation GIVEN FFP AND VITAMIN K SO CAN HAVE PROCEDURE Nicotine abuse Patient smokes 4 cigarettes daily HYPOMAGNESIA WE WILL REPLACE ANEMIA TRANSFUSE IF HGB LESS THAN 7.0 DVT prophylaxis Ambulation, chemoprophylaxis held due to hematoma Code Status: FULL CODE Discussed Condition With: RN AND PT AND CM Discharge Planning: Once improved and not having fevers anymore and cleared by infectious disease
[2018-06-07] MEDS ORDERED: Vancomycin Consult Pharmacy OTHER PRN (15:00)
--- NOTE | 2018-06-07 15:20 | P.DIET ---
Nutritional Evaluation Type of nutrition evaluation: follow-up Nutrition consult regarding: Diet Evaluation (MDC for Malnutrition) Subjective Subjective Comments: Pt continues to eat relatively well. Had German brought in to him yesterday and he enjoyed that. Discussed w/ RN about procedure report in EMR. She states pt does not have a PEG that she knows of. Objective - Diagnosis Symptomatic Anemia, Thrombocytopenia, Hyponatremia - Objective % IBW: 93 (BOU=588#) Body Weight Used for Calculations: IBW (86.4kg) Energy Needs - Lower Range (kCal/kg): 25 Energy Needs - Upper Range (kCal/kg): 30 Lower Limit kCal/kg (kCals): 2,160 Upper Limit kCal/kg (kCals): 2,592 Lower Limit Protein Factor (Grams per Kg): 1.1 Upper Limit Protein Factor (Grams per Kg): 1.3 Lower Protein Needs (Protein): 95 Upper Protein Needs (Protein): 112 Dietitian Reviewed in Medical Record: Current diet, Curent medications, Intake & Output, Labs Diet Order: Regular Oral Diet Intake Amount: Excellent 90%+ Objective Comments: LBM recorded 06/05 s/p EGD and colonoscopy-> gastritis in antrum, internal/external hemorrhoids Feeding - Current PO Supplement Current Supplement: Ensure Enlive Current Supplement Flavor: Chocolate Current Frequency of Supplement: Three times a day Current kCals Provided by Supplement: 350 Current Protein Provided by Supplement: 20 Assessment Assessment: Pt remains on a Regular diet and is eating relatively well. Occasionally eats poorly, but this is r/t food preferences not w/ appetite concerns. He has people who have been providing him with food on some occasions. He seems to be at his baseline for appetite/PO intake based on what pt has told me. Continue current POC. Consult RD if needed.
--- NOTE | 2018-06-07 17:32 | P.PNONC ---
Subjective Interval history: Patient seen alongside Dr. Babin. Afebrile. Status post upper endoscopy yesterday. Objective Vital Signs/Intake & Output: Vital Signs 06/06/18 20:00 06/07/18 00:00 06/07/18 04:00 Temperature 98.6 F 99.1 F 98.6 F Pulse Rate 68 78 72 Respiratory Rate 16 14 15 Blood Pressure 109/53 L 104/58 L 126/60 Pulse Oximetry 98 99 99 06/07/18 08:00 06/07/18 12:00 06/07/18 16:00 Temperature 98.3 F 99.6 F 98.4 F Pulse Rate 69 75 87 Respiratory Rate 16 20 20 Blood Pressure 123/62 107/52 L 133/63 Pulse Oximetry 97 98 97 Intake & Output 06/06/18 06/07/18 06/07/18 18:59 06:59 18:59 Intake Total 1115 / 1115 412.5 / 412.5 Output Total 515 / 515 550 / 550 Balance 600 / 600 -137.5 / -137.5 Weight 80.4 kg Intake: IV 515 / 515 412.5 / 412.5 Levaquin 750 mg Premix Inj 150 150 / 150 ML @ 100 mls/hr IV.SIG Q24H CHARANJIT Rx#:[id number] Vancomycin Inj 1,250 MG In NS 262.5 / 262.5 Inj 250 ML @ 250 mls/hr IV.SIG Q18H CHARANJIT Rx#:[id number] Vancomycin Inj 1,500 MG In NS 515 / 515 Inj 500 ML @ 250 mls/hr IV.SIG Q24H CHARANJIT Rx#:[id number] Oral 600 / 600 Output: Urine 500 / 500 550 / 550 Wound Drainage right posterior Other: Date of Last Bowel Movement 06/05/18 # Bowel Movements 0 Result Diagrams: 06/09/18 14:15 06/09/18 06:30 Laboratory Results: Laboratory Results - last 24 hr 06/06/18 06/06/18 06/07/18 16:35 17:16 07:04 WBC RBC Hgb Hct MCV MCH MCHC RDW Plt Count MPV Prelim Diff (Auto) Neut % (Auto) Lymph % (Auto) [place] % (Auto) Eos % (Auto) Baso % (Auto) Neut # (Auto) Lymph # (Auto) [place] # (Auto) Eos # (Auto) Baso # (Auto) WBC Differential Diff Scan Differential Comment Platelet Estimate Platelet Morphology Ovalocytes PT 14.8 H INR 1.5 Fibrinogen 148 L Sodium Potassium Chloride Carbon Dioxide Anion Gap BUN Cancelled Creatinine Estimated GFR Random Glucose Calcium Prot Corrected Calcium Phosphorus Cancelled Magnesium Total Bilirubin AST ALT Alkaline Phosphatase C-Reactive Protein 2.30 H Total Protein Albumin 06/07/18 06/07/18 06/07/18 07:04 07:04 07:04 WBC 5.0 RBC 2.02 L Hgb 7.5 L Hct 21.6 L MCV 106.7 H MCH 37.3 H MCHC 35.0 RDW 18.3 H Plt Count 50 L MPV 9.1 Prelim Diff (Auto) Slide review pending Neut % (Auto) 68.1 Lymph % (Auto) 17.6 [place] % (Auto) 11.3 H Eos % (Auto) 2.4 Baso % (Auto) 0.6 Neut # (Auto) 3.4 Lymph # (Auto) 0.9 L [place] # (Auto) 0.6 Eos # (Auto) 0.1 Baso # (Auto) 0.0 WBC Differential . Diff Scan Auto diff confirmed Differential Comment . Platelet Estimate Low L Platelet Morphology Normal Ovalocytes 1+ H PT 16.2 H INR 1.6 Fibrinogen Sodium 136 Potassium 3.6 Chloride 101 Carbon Dioxide 26.9 Anion Gap 8 BUN 9 Creatinine 1.05 Estimated GFR 72 L Random Glucose 90 Calcium 7.0 L* Prot Corrected Calcium 7.3 L* Phosphorus 2.5 Magnesium 1.5 Total Bilirubin 1.5 H AST 36 ALT 14 Alkaline Phosphatase 75 C-Reactive Protein Total Protein 6.5 Albumin 1.2 L Culture Results: Microbiology 06/01/18 17:14 Aerobic Blood Culture - Final Blood - Peripheral No growth in 5 days Anaerobic Blood Culture - Final No growth in 5 days 06/01/18 17:05 Aerobic Blood Culture - Final Blood - Peripheral No growth in 5 days Anaerobic Blood Culture - Final No growth in 5 days 06/03/18 12:40 Acid Fast Bacilli Smear - Final Abscess - Other No acid fast bacilli seen 06/03/18 12:40 Gram Stain - Final Abscess - Other Wound Culture - Final Staphylococcus aureus Medications: Active Medications Generic Name Dose Route Start Last Admin Trade Name Freq PRN Reason Stop Dose Admin Artificial Tears 1 drop 05/29/18 10:00 06/07/18 13:47 Tears Naturale Opth Drops EACH EYE Not Given Q4H CHARANJIT Artificial Tears 1 drops 05/29/18 18:00 06/07/18 13:47 Genteal Severe Dry Eye Relief 0.3% Opth Gel EACH EYE Not Given Q4H CHARANJIT Levofloxacin/Dextrose 150 mls @ 100 mls/hr 05/28/18 00:00 06/07/18 02:17 Levaquin 750 Mg Premix Inj IV.SIG Infused Q24H CHARANJIT Infusion Vancomycin HCl 1,250 mg/ 262.5 mls @ 250 mls/hr 06/07/18 06:00 06/07/18 06:16 Sodium Chloride IV.SIG Infused Q18H CHARANJIT Infusion Ibuprofen 600 mg 05/27/18 21:56 05/30/18 22:18 Motrin PO 600 mg Q6H PRN Administration Fever >101 Ondansetron HCl 4 mg 05/23/18 17:58 05/28/18 09:41 Zofran Inj IV.PUSH 4 mg Q6H PRN Administration NAUSEA OR VOMITING Oxycodone HCl 5 mg 05/23/18 18:52 06/07/18 12:21 Roxicodone PO 5 mg Q6H PRN Administration pain 3-10 Pantoprazole Sodium 40 mg 05/24/18 21:00 06/07/18 09:15 Protonix PO 40 mg BID CHARANJIT Administration Senna/Docusate Sodium 1 tab 05/23/18 21:00 06/07/18 09:14 Lina-Colace PO 1 tab BID CHARANJIT Administration Sodium Chloride 2 ml 05/23/18 12:33 06/03/18 21:14 Ns Flush IV.FLUSH 2 ml PRN PRN Administration FLUSH AFTER USING IV ACCESS Sodium Chloride 10 ml 06/06/18 15:00 06/07/18 09:15 Ns Inj IRRIGATION 10 ml DAILY CHARANJIT Administration Objective Remarks: GENERAL: Older male patient, lying in bed, in no acute distress. SKIN: Warm and dry. +psoriasis plaques to BLE. HEAD: Normocephalic. EYES: No injection or drainage. NECK: Supple, trachea midline. CARDIOVASCULAR: Regular rate and rhythm without murmurs. RESPIRATORY: Posterior breath sounds clear, equal bilaterally. Nonlabored. GASTROINTESTINAL: Abdomen soft, flat, tender in all quadrants. Right flank drain with no drainage noted. No swelling, erythema at drain site, dressing intact. EXTREMITIES: No cyanosis, or edema. Chronic skin discoloration and psoriasis plaques to BLE. MUSCULOSKELETAL: Adequate muscle tone. NEUROLOGICAL: No obvious focal deficit. Awake, alert, and oriented x3. Assessment/Plan - Plan 62-year-old male admitted with right lower quadrant pain. He has history of alcoholic liver disease, liver cirrhosis, hepatitis C and diabetes. He was found to have extensive varicosities on his CT abdomen and pelvis which could be possible abscess or hematoma. The patient has been evaluated by GI and is s/ p EGD and colonoscopy. The patient was seen by hematology services earlier in this admission, he was scheduled for discharge home when he started having fevers. CT abdomen showed a complex fluid collection in the perinephric space on the right side measures 5.8 x 5.1 cm with septation and soft tissue components to it. The largest pocket of fluid collection measures almost 5.3 cm in size not significantly changed. Hematology was reconsulted for evaluation/ risk for aspirate of the complex fluid collection in the perinephric space, given his history of coagulopathy and thrombocytopenia. 1. Coagulopathy and thrombocytopenia, likely secondary to liver disease. S/P percutaneous drainage of abscess. Right flank drain remains in place. 2. Patient status post upper endoscopy yesterday. With PEG tube placement. Patient was noted to have severe gastritis with ulcerations-biopsies pending. He was also found to have duodenal ulcers, one was actively bleeding and had to be injected with epinephrine and cauterized. This could be a source of the patient's anemia. We will continue to monitor his CBC. 3. We will continue to monitor CBC and coags. Our goal is to keep fibrinogen greater than 150. 4. Continue to monitor for bleeding. Continue supportive care. - Attending Statement Patient seen with JAREK Mazariegos. We will give transfusional support as needed for bleeding.
[2018-06-08] MEDS: Vancomycin Inj 1,250 MG in Sodium Chlor 0.9% Inj 250 ML IV.SIG SCH ×2 (00:06→19:01)
[2018-06-08] MEDS: Artificial Tears Opth Drops 15 ML Bottle EACH EYE SCH ×5 (03:01→21:00)
[2018-06-08] MEDS: Hypromellose 0.3% Opth Gel 10 GM Bottle EACH EYE SCH ×6 (03:01→21:00)
[2018-06-08 07:10] LABS: Baso % (Auto) 0.9 % (0.0-2.0); Eos # (Auto) 0.1 th/mm3 (0.0-0.4); Eos % (Auto) 2.9 % (0.0-4.0); Hematocrit 22.2 % (39.0-51.0); Hemoglobin 7.7 gm/dL (13.0-17.0); Lymph # (Auto) 0.8 th/mm3 (1.0-4.8); Lymph % (Auto) 24.1 % (9.0-44.0); Mean Corpuscular HGB Conc 34.9 % (32.0-36.0); Mean Corpuscular Hemoglobin 37.3 pg (27.0-34.0); Mean Corpuscular Volume 106.9 fL (80.0-100.0); Mean Platelet Volume 8.7 fL (7.0-11.0); Mono # (Auto) 0.5 th/mm3 (0.0-0.9); Mono % (Auto) 15.5 % (0.0-8.0); Neut # (Auto) 1.9 th/mm3 (1.8-7.7); Neut % (Auto) 56.6 % (16.0-70.0); Platelet Count 46 th/mm3 (150-450); Red Blood Count 2.08 mil/mm3 (4.50-5.90); Red Cell Distribution Width 18.3 % (11.6-17.2); White Blood Count 3.4 th/mm3 (4.0-11.0)
[2018-06-08 07:31] LABS: Activated Partial Thrombo Time 37.5 sec (24.3-30.1); INR 1.7 Ratio; Prothrombin Time 16.9 sec (9.8-11.6)
[2018-06-08 07:40] LABS: D-Dimer 5.06 mg/L FEU (0.00-0.50)
[2018-06-08 07:59] LABS: Ovalocytes 1+; Platelet Morphology Normal (Normal)
[2018-06-08] MEDS: Senna/Docusate Sodium 8.6/50 MG Tablet PO SCH ×2 (09:04→20:48)
[2018-06-08] MEDS ORDERED: Sodium Chlor 0.9% Inj 250 ML IV.SIG SCH (10:00)
--- NOTE | 2018-06-08 10:06 | P.PNONC ---
Subjective Interval history: Patient seen alongside Dr. Reynolds. Patient lying in bed, in no acute distress. He is inquiring about taking Humira , acute medical problems will need to be addressed prior to this. Objective Vital Signs/Intake & Output: Vital Signs 06/07/18 12:00 06/07/18 16:00 06/07/18 20:00 Temperature 99.6 F 98.4 F 98.4 F Pulse Rate 75 87 90 Respiratory Rate 20 20 20 Blood Pressure 107/52 L 133/63 134/63 Pulse Oximetry 98 97 98 06/08/18 00:00 06/08/18 04:00 Temperature 98.6 F 98.1 F Pulse Rate 70 72 Respiratory Rate 17 19 Blood Pressure 110/63 109/61 Pulse Oximetry 97 95 Intake & Output 06/07/18 06/08/18 06/08/18 18:59 06:59 18:59 Intake Total 240 / 240 545 / 545 Output Total 0 / 0 Balance 240 / 240 545 / 545 Weight 80.1 kg Intake: IV 425 / 425 Levaquin 750 mg Premix Inj 150 150 / 150 ML @ 100 mls/hr IV.SIG Q24H CHARANJIT Rx#:[id number] Vancomycin Inj 1,250 MG In NS 275 / 275 Inj 250 ML @ 250 mls/hr IV.SIG Q18H CHARANJIT Rx#:[id number] Oral 240 / 240 120 / 120 Output: Wound Drainage 0 / 0 right posterior 0 / 0 Other: # Voids 3 2 # Bowel Movements 1 Result Diagrams: 06/09/18 14:15 06/09/18 06:30 Laboratory Results: Laboratory Results - last 24 hr 06/07/18 06/07/18 06/08/18 07:04 07:04 05:43 WBC RBC Hgb Hct MCV MCH MCHC RDW Plt Count MPV Prelim Diff (Auto) Neut % (Auto) Lymph % (Auto) [place] % (Auto) Eos % (Auto) Baso % (Auto) Neut # (Auto) Lymph # (Auto) [place] # (Auto) Eos # (Auto) Baso # (Auto) WBC Differential . Diff Scan Auto diff confirmed Differential Comment Platelet Estimate Low L Platelet Morphology Normal Ovalocytes 1+ H PT 16.9 H INR 1.7 APTT 37.5 H Fibrinogen 109 L D-Dimer Quant (PE/DVT) 5.06 H Sodium 136 Potassium 3.6 Chloride 101 Carbon Dioxide 26.9 Anion Gap 8 BUN 9 Creatinine 1.05 Estimated GFR 72 L Random Glucose 90 Calcium 7.0 L* Prot Corrected Calcium 7.3 L* Phosphorus 2.5 Magnesium 1.5 Total Bilirubin 1.5 H AST 36 ALT 14 Alkaline Phosphatase 75 Total Protein 6.5 Albumin 1.2 L 06/08/18 06/08/18 05:43 05:43 WBC 3.4 L RBC 2.08 L Hgb 7.7 L Hct 22.2 L MCV 106.9 H MCH 37.3 H MCHC 34.9 RDW 18.3 H Plt Count 46 L MPV 8.7 Prelim Diff (Auto) Slide review pending Neut % (Auto) 56.6 Lymph % (Auto) 24.1 [place] % (Auto) 15.5 H Eos % (Auto) 2.9 Baso % (Auto) 0.9 Neut # (Auto) 1.9 Lymph # (Auto) 0.8 L [place] # (Auto) 0.5 Eos # (Auto) 0.1 Baso # (Auto) 0.0 WBC Differential . Diff Scan Auto diff confirmed Differential Comment . Platelet Estimate Low L Platelet Morphology Normal Ovalocytes 1+ H PT INR APTT Fibrinogen D-Dimer Quant (PE/DVT) Sodium Potassium Chloride Carbon Dioxide Anion Gap BUN Creatinine 1.09 Estimated GFR 69 L Random Glucose Calcium Prot Corrected Calcium Phosphorus Magnesium Total Bilirubin AST ALT Alkaline Phosphatase Total Protein Albumin Culture Results: Microbiology 06/01/18 17:14 Aerobic Blood Culture - Final Blood - Peripheral No growth in 5 days Anaerobic Blood Culture - Final No growth in 5 days 06/01/18 17:05 Aerobic Blood Culture - Final Blood - Peripheral No growth in 5 days Anaerobic Blood Culture - Final No growth in 5 days 06/03/18 12:40 Acid Fast Bacilli Smear - Final Abscess - Other No acid fast bacilli seen 06/03/18 12:40 Gram Stain - Final Abscess - Other Wound Culture - Final Staphylococcus aureus Medications: Active Medications Generic Name Dose Route Start Last Admin Trade Name Freq PRN Reason Stop Dose Admin Artificial Tears 1 drop 05/29/18 10:00 06/08/18 06:27 Tears Naturale Opth Drops EACH EYE Not Given Q4H CHARANJIT Artificial Tears 1 drops 05/29/18 18:00 06/08/18 06:27 Genteal Severe Dry Eye Relief 0.3% Opth Gel EACH EYE Not Given Q4H CHARANJIT Levofloxacin/Dextrose 150 mls @ 100 mls/hr 05/28/18 00:00 06/08/18 01:37 Levaquin 750 Mg Premix Inj IV.SIG Infused Q24H CHARANJIT Infusion Vancomycin HCl 1,250 mg/ 262.5 mls @ 250 mls/hr 06/07/18 06:00 06/08/18 01:37 Sodium Chloride IV.SIG Infused Q18H CHARANJIT Infusion Ibuprofen 600 mg 05/27/18 21:56 05/30/18 22:18 Motrin PO 600 mg Q6H PRN Administration Fever >101 Ondansetron HCl 4 mg 05/23/18 17:58 05/28/18 09:41 Zofran Inj IV.PUSH 4 mg Q6H PRN Administration NAUSEA OR VOMITING Oxycodone HCl 5 mg 05/23/18 18:52 06/08/18 04:37 Roxicodone PO 5 mg Q6H PRN Administration pain 3-10 Pantoprazole Sodium 40 mg 05/24/18 21:00 06/08/18 09:05 Protonix PO Not Given BID CHARANJIT Senna/Docusate Sodium 1 tab 05/23/18 21:00 06/08/18 09:04 Lina-Colace PO Not Given BID CHARANJIT Sodium Chloride 2 ml 05/23/18 12:33 06/08/18 00:06 Ns Flush IV.FLUSH 2 ml PRN PRN Administration FLUSH AFTER USING IV ACCESS Sodium Chloride 10 ml 06/06/18 15:00 06/07/18 09:15 Ns Inj IRRIGATION 10 ml DAILY CHARANJIT Administration Objective Remarks: GENERAL: Older male patient, lying in bed, in no acute distress. SKIN: Pale, warm and dry. +psoriasis plaques to BLE. HEAD: Normocephalic. EYES: No injection or drainage. NECK: Supple, trachea midline. CARDIOVASCULAR: Regular rate and rhythm without murmurs. RESPIRATORY: Posterior breath sounds clear, equal bilaterally. Nonlabored. GASTROINTESTINAL: Abdomen soft, flat, tender in all quadrants. Right flank drain with minimal bright red sanguinous fluid. No swelling, erythema at drain site, dressing intact. EXTREMITIES: No cyanosis, or edema. Chronic skin discoloration and psoriasis plaques to BLE. MUSCULOSKELETAL: Adequate muscle tone. NEUROLOGICAL: No obvious focal deficit. Awake, alert, and oriented x3. Assessment/Plan - Plan 62-year-old male admitted with right lower quadrant pain. He has history of alcoholic liver disease, liver cirrhosis, hepatitis C and diabetes. He was found to have extensive varicosities on his CT abdomen and pelvis which could be possible abscess or hematoma. The patient has been evaluated by GI and is s/ p EGD and colonoscopy. The patient was seen by hematology services earlier in this admission, he was scheduled for discharge home when he started having fevers. CT abdomen showed a complex fluid collection in the perinephric space on the right side measures 5.8 x 5.1 cm with septation and soft tissue components to it. The largest pocket of fluid collection measures almost 5.3 cm in size not significantly changed. Hematology was reconsulted for evaluation/ risk for aspirate of the complex fluid collection in the perinephric space, given his history of coagulopathy and thrombocytopenia. 1. Coagulopathy and thrombocytopenia, likely secondary to liver disease and DIC. S/P percutaneous drainage of abscess. Right flank drain remains in place , draining some sanguinous fluid. EGD also noted some bleeding or ulcers that had to be cauterized. Hemoglobin today 7.7 platelet count is down to 46,000. PT 16.9, APTT 37.5, fibrinogen 109 and d-dimer 5.06. We will transfuse 2 units of FFP and 10 bags of cryoprecipitate. We will repeat CBC at 1600 today. 2. We will continue to monitor CBC and coags. Our goal is to keep fibrinogen greater than 150. 3. Continue to monitor for bleeding. Continue supportive care. - Attending Statement Patient seen with Debo TILLEY and ordered coagulation factor replacement for falling hemoglobin. Will repeat CBC and of the day.
--- NOTE | 2018-06-08 15:05 | P.PNIM ---
Subjective Interval history: Increased fatigue today. Abdominal pain today. Drop in hemoglobin and platelets. Physical Exam Vital signs: Vital Signs 06/07/18 16:00 06/07/18 20:00 06/08/18 00:00 Temperature 98.4 F 98.4 F 98.6 F Pulse Rate 87 90 70 Respiratory Rate 20 20 17 Blood Pressure 133/63 134/63 110/63 Pulse Oximetry 97 98 97 06/08/18 04:00 06/08/18 08:00 06/08/18 11:50 Temperature 98.1 F 98.2 F 98.4 F Pulse Rate 72 75 74 Respiratory Rate 19 20 16 Blood Pressure 109/61 120/58 L 113/61 Pulse Oximetry 95 98 96 06/08/18 12:05 06/08/18 12:15 Temperature 98.4 F 98.2 F Pulse Rate 74 Respiratory Rate 18 18 Blood Pressure 113/61 112/61 Pulse Oximetry 96 Intake & Output 06/07/18 06/08/18 06/08/18 18:59 06:59 18:59 Intake Total 240 / 240 545 / 545 0 / 0 Output Total 0 / 0 Balance 240 / 240 545 / 545 0 / 0 Weight 80.1 kg Intake: IV 425 / 425 Levaquin 750 mg Premix Inj 150 150 / 150 ML @ 100 mls/hr IV.SIG Q24H CHARANJIT Rx#:[id number] Vancomycin Inj 1,250 MG In NS 275 / 275 Inj 250 ML @ 250 mls/hr IV.SIG Q18H CHARANJIT Rx#:[id number] Oral 240 / 240 120 / 120 Intake (Blood Product) Amt 0 / 0 Pre-Pooled Cryo Thawed 10units 0 / 0 Unit [id number] Output: Wound Drainage 0 / 0 right posterior 0 / 0 Other: # Voids 3 2 # Bowel Movements 1 Narrative: GENERAL: NAD, A&Ox3 HEAD: Normocephalic. NECK: Supple, trachea midline. No lymphadenopathy. EYES: No scleral icterus. No injection or drainage. CARDIOVASCULAR: Regular rate and rhythm without murmurs, gallops, or rubs. RESPIRATORY: Breath sounds equal bilaterally. No accessory muscle use. GASTROINTESTINAL: Abdomen soft, non-tender, nondistended. MUSCULOSKELETAL: No cyanosis, or edema. Psoas muscle drain in place. SKIN: Warm and dry. NEURO: No focal neurological deficits. Results - Labs CBC & Chem 7: 06/08/18 05:43 06/08/18 05:43 Laboratory Results - last 24 hr 06/08/18 06/08/18 06/08/18 05:43 05:43 05:43 WBC 3.4 L RBC 2.08 L Hgb 7.7 L Hct 22.2 L MCV 106.9 H MCH 37.3 H MCHC 34.9 RDW 18.3 H Plt Count 46 L MPV 8.7 Prelim Diff (Auto) Slide review pending Neut % (Auto) 56.6 Lymph % (Auto) 24.1 [place] % (Auto) 15.5 H Eos % (Auto) 2.9 Baso % (Auto) 0.9 Neut # (Auto) 1.9 Lymph # (Auto) 0.8 L [place] # (Auto) 0.5 Eos # (Auto) 0.1 Baso # (Auto) 0.0 WBC Differential . Diff Scan Auto diff confirmed Differential Comment . Platelet Estimate Low L Platelet Morphology Normal Ovalocytes 1+ H PT 16.9 H INR 1.7 APTT 37.5 H Fibrinogen 109 L D-Dimer Quant (PE/DVT) 5.06 H Creatinine 1.09 Estimated GFR 69 L Blood Bank Comment 06/08/18 09:58 WBC RBC Hgb Hct MCV MCH MCHC RDW Plt Count MPV Prelim Diff (Auto) Neut % (Auto) Lymph % (Auto) [place] % (Auto) Eos % (Auto) Baso % (Auto) Neut # (Auto) Lymph # (Auto) [place] # (Auto) Eos # (Auto) Baso # (Auto) WBC Differential Diff Scan Differential Comment Platelet Estimate Platelet Morphology Ovalocytes PT INR APTT Fibrinogen D-Dimer Quant (PE/DVT) Creatinine Estimated GFR Blood Bank Comment - Procedures COLONOSCOPY PROCEDURE REPORT EXAM DATE: 05/25/2018 PATIENT NAME: Ricardo Ma MR #: [id number] BIRTHDATE: 1955 ENDOSCOPIST: Venice Mcgowan MD ORDER #: [id number] NATURAL RESOURCES MANAGER: Julieth Crews RN STATUS: inpatient INDICATIONS: The patient is a 62 yr old male here for a colonoscopy due to abdominal pain and iron deficiency anemia PROCEDURE PERFORMED: Colonoscopy, diagnostic MEDICATIONS: None and Per Anesthesia. PREP QUALITY: The [place] Bowel Prep Score was Right colon 3, Mid colon 2, and Left colon 2. Total = 7. PREP TYPE:Magnesium Citrate ESTIMATED BLOOD LOSS: None CONSENT: The patient understands the risks and benefits of the procedure and understands that these risks include, but are not limited to: sedation, allergic reaction, infection, perforation and/or bleeding. Alternative means of evaluation and treatment include, among others: physical exam, x-rays, and/or surgical intervention. The patient elects to proceed with this endoscopic procedure. medical equipment was checked for proper function. Hand hygiene and appropriate measures for infection prevention was taken. After the risks, benefits and alternatives of the procedure were thoroughly explained, Informed consent was verified, confirmed and timeout was successfully executed by the treatment team. A digital exam revealed external hemorrhoids The Pentax EC-3490Li endoscope was introduced through the anus and advanced to the cecum, which was identified by both the appendix and ileocecal valve. The instrument was then slowly withdrawn as the colon was fully examined. COLON FINDINGS: The colonic mucosa appeared normal. Retroflexed views revealed internal hemorrhoids and Retroflexed views revealed medium internal hemorrhoids The scope was then completely withdrawn from the patient and the procedure terminated. PROCEDURE WITHDRAWAL TIME:6minutes ADVERSE EVENTS: There were no complications. IMPRESSIONS: 1. The colonic mucosa appeared normal 2. Retroflexed views revealed internal hemorrhoids 3. Retroflexed views revealed medium internal hemorrhoids 4. Revealed external hemorrhoids RECOMMENDATIONS: 1. Benefiber 2 tsp daily 2. Continue surveillance 3. Yearly hemoccult RECALL: Return 5 years Colonoscopy Venice Mcgowan MD eSigned: Venice Mcgowan MD 05/25/2018 9:56 AM EGD PROCEDURE REPORT EXAM DATE: 05/25/2018 PATIENT NAME: Ricardo Ma MR #: [id number] BIRTHDATE: 1955 ATTENDING: Venice Mcgowan MD ORDER #: [id number] NATURAL RESOURCES MANAGER: Julieth Crews and Tiffani Palumbo STATUS: inpatient INDICATIONS: The patient is a 62 yr old male here for an EGD due to iron deficiency anemia and abdominal pain PROCEDURE PERFORMED: EGD w/ biopsy MEDICATIONS: None and Per Anesthesia. TOPICAL ANESTHETIC: CONSENT: The patient understands the risks and benefits of the procedure and understands that these risks include, but are not limited to: sedation, allergic reaction, infection, perforation and/or bleeding. Alternative means of evaluation and treatment include, among others: physical exam, x-rays, and/or surgical intervention. The patient elects to proceed with this endoscopic procedure. medical equipment was checked for proper function. Hand hygiene and appropriate measures for infection prevention was taken. After the risks, benefits and alternatives of the procedure were thoroughly explained, Informed consent was verified, confirmed and timeout was successfully executed by the treatment team. The patient was anesthetized with topical anesthesia and the EC-3490Li (Pedi C) endoscope was introduced through the mouth and advanced to the second portion of the duodenum. Retroflexed views revealed no abnormalities The gastroscope was then slowly withdrawn and removed. ESOPHAGUS: The mucosa of the esophagus appeared normal. STOMACH: There was moderate and ulcerative gastritis in the gastric antrum. A biopsy was performed using cold forceps. Sample sent for histology. ADVERSE EVENTS: There were no complications. IMPRESSIONS: 1. The esophagus appeared normal 2. There was gastritis in the gastric antrum; biopsy was performed 3. Retroflexed views revealed no abnormalities RECOMMENDATIONS: 1. Await biopsy results. Biopsy results will not be ready for 7-10 days. If you don't hear from us in two weeks, call our office for biopsy results. 2. Anti-reflux regimen 3. Continue PPI 4. Avoid NSAIDS PATIENT CONDITION: stable DISPOSITION: Inpatient REPEAT EXAM: Return 3 months EGD pending biopsy results Venice Mcgowan MD eSigned: Venice Mcgowan MD 05/25/2018 9:[address] abscess drainage Signed EXAM DATE: 06/03/2018 1:45 PM EDT AGE/SEX: 62 years / Male INDICATIONS: Right iliopsoas abscess. CLINICAL DATA: This is the patient's initial encounter. Patient reports that signs and symptoms have been present for 1 day and indicates a pain score of 0/ 10. MEDICAL/SURGICAL HISTORY: Cirrhosis. Diabetes. Hepatitis C. None. COMPARISON: No prior exams available for comparison. SEDATION TIME (min): 30 BIOPSY SITE: right iliopsoas abscess MEDICATION(S): 3.5mg midazolam (Versed) IV 175mcg fentanyl (Sublimaze) IV DEVICE(S): 8 Fr Skater FLUID: Total volume of 25 of purulent, red fluid was removed. Fluid was sent to lab for ordered studies.. . . PROCEDURE : CT guided drainage of the right iliopsoas abscess. Conscious sedation with continuous EKG and oximetry monitoring. The risks, benefits and alternatives to the procedure were explained and verbal and written consent was obtained. Using automated exposure control and adjustment of the mA and/or kV according to patient size, radiation dose was kept as low as reasonably achievable to obtain optimal diagnostic quality images. The site was prepped in sterile fashion. Full sterile technique was used, including cap, mask, sterile gloves and gown and a large sterile sheet. Hand hygiene and 2% chlorhexidine and/or betadine/alcohol prep was utilized per protocol for cutaneous antisepsis. The skin and subcutaneous tissues were infiltrated with local anesthetic solution. DICOM format image data is available electronically for review and comparison. FINDINGS: Using CT guidance the prescribed site was localized. An 18-gauge needle was advanced into the hypodense collection in the right psoas. Purulent material was aspirated. Therefore, the 035 Bentson wire was advanced through the outer cannula and coiled in the collection. Tract was dilated to accommodate the 8 Turkish locking cope loop. Drainage was performed using the prescribed catheter. The patient tolerated the procedure well and there were no complications. The patient tolerated the procedure well and there were no complications. The patient was sent to post anesthesia recovery in stable condition. CONCLUSION: 1. Uncomplicated CT guided drainage of right psoas abscess as above. Electronically signed by: Darrius Pascal MD 06/03/2018 1:50 PM EDT Assessment and Plan - Plan fever of unknown origin ID following Continue vancomycin for coverage of MSSA Iliopsoas/psoas fluid collection drain in place Continue Levaquin Hypocalcemia Monitor calcium levels Replace as needed Abdominal pain/gastritis Hematoma GI following Heme on following Continue PPI Anemia/thrombocytopenia weight loss Weakness Dyspnea on exertion Transfusion provided Follow hemoglobin Follow platelets Diabetes mellitus type 2 Follow blood sugars Insulin sliding scale Diabetic diet Hepatitis C INR is 1.6 naturally. Suggestive of cirrhosis. Patient quit drinking 10 weeks ago Nicotine abuse Patient smokes 4 cigarettes daily Patient counseled to quit HYPOMAGNESIA Monitor and replace as needed ANEMIA TRANSFUSE IF HGB LESS THAN 7.0 DVT prophylaxis Ambulation, chemoprophylaxis held due to hematoma and coagulopathy
--- NOTE | 2018-06-08 16:35 | CT ---
EXAM DATE: 06/08/2018 3:21 PM EDT AGE/SEX: 62 years / Male INDICATIONS: Evaluate size of retroperitoneal abscess CLINICAL DATA: This is the patient's initial encounter. Patient reports that signs and symptoms have been present for 1 day and indicates a pain score of 5/10. MEDICAL/SURGICAL HISTORY: Cirrhosis. Diabetes. Hepatitis C. None. ORAL CONTRAST: No oral contrast ingested. RADIATION DOSE: 8.36 CTDI (mGy) COMPARISON: [facility] [place], CT ABDOMEN & PELVIS W CONTRAST, 05/28/2018. . TECHNIQUE: Multiple contiguous axial images were obtained through the abdomen and pelvis following b olus infusion of 90 ml Omnipaque 350 (iohexol) nonionic water-soluble contrast as a cumulative dose for multiple exams. No oral contrast ingested. Using automated exposure control and adjustment of t he mA and/or kV according to patient size, radiation dose was kept as low as reasonably achievable to obtain optimal diagnostic quality images. DICOM format image data is available electronically for r eview and comparison. FINDINGS: Imaging through the lung bases demonstrates bilateral pleural effusions. The effusion on the left is new the right-sided effusion is slightly larger when compared to previous. The solid organs of the abdomen appear grossly intact. There is abdominal ascites. The graft the para spinous abscess which was noted on previous examination of 05/28/2018 is significantly smaller in size. There is still a small amount of decreased attenuation within the right so as. The patient's drainag e catheter appears in satisfactory position. There is ascites within the pelvis. No iliac or inguinal adenopathy is seen. The visualized bony structures are intact. CONCLUSION: 1. Near complete resolution of the patient's retroperitoneal abscess on the right. There is no signi ficant remaining fluid in the region of the catheter. The catheter will be removed. Electronically signed by: Tom Crespo MD 06/08/2018 4:33 PM EDT
[2018-06-08] MEDS ORDERED: Pharmacy Ordered Lab Info OTHER ONE (17:45)
[2018-06-08 18:29] LABS: Hematocrit 22.6 % (39.0-51.0); Hemoglobin 7.9 gm/dL (13.0-17.0); Mean Corpuscular Hemoglobin 37.1 pg (27.0-34.0); Mean Corpuscular Volume 106.1 fL (80.0-100.0); Mean Platelet Volume 9.7 fL (7.0-11.0); Platelet Count 64 th/mm3 (150-450); Red Blood Count 2.13 mil/mm3 (4.50-5.90); Red Cell Distribution Width 18.5 % (11.6-17.2); White Blood Count 3.4 th/mm3 (4.0-11.0)
[2018-06-08 19:03] LABS: Albumin 1.3 g/dL (3.4-5.0); Calcium 7.2 mg/dL (8.5-10.1); Carbon Dioxide 25.5 meq/L (21.0-32.0); Magnesium 1.4 mg/dL (1.5-2.5); Phosphorus 2.4 mg/dL (2.5-4.9); Potassium 3.4 meq/L (3.5-5.1); Total Protein 6.7 g/dL (6.4-8.2); Vancomycin,Trough 21.6 mcg/mL (5.0-10.0)
[2018-06-09] MEDS: Hypromellose 0.3% Opth Gel 10 GM Bottle EACH EYE SCH ×6 (02:37→21:25)
[2018-06-09] MEDS: Artificial Tears Opth Drops 15 ML Bottle EACH EYE SCH ×6 (02:37→21:25)
[2018-06-09 07:08] LABS: Activated Partial Thrombo Time 35.1 sec (24.3-30.1); INR 1.5 Ratio; Prothrombin Time 15.2 sec (9.8-11.6)
[2018-06-09 07:17] LABS: Baso % (Auto) 0.9 % (0.0-2.0); Eos # (Auto) 0.1 th/mm3 (0.0-0.4); Eos % (Auto) 1.8 % (0.0-4.0); Lymph # (Auto) 0.7 th/mm3 (1.0-4.8); Lymph % (Auto) 24.8 % (9.0-44.0); Mean Corpuscular HGB Conc 35.6 % (32.0-36.0); Mean Corpuscular Volume 104.1 fL (80.0-100.0); Mean Platelet Volume 8.6 fL (7.0-11.0); Mono # (Auto) 0.5 th/mm3 (0.0-0.9); Mono % (Auto) 17.6 % (0.0-8.0); Neut # (Auto) 1.6 th/mm3 (1.8-7.7); Neut % (Auto) 54.9 % (16.0-70.0); Platelet Count 41 th/mm3 (150-450); Red Blood Count 1.86 mil/mm3 (4.50-5.90); Red Cell Distribution Width 18.4 % (11.6-17.2)
[2018-06-09 07:29] LABS: Hematocrit 19.3 % (39.0-51.0); Hemoglobin 6.9 gm/dL (13.0-17.0)
[2018-06-09 07:48] LABS: Albumin 1.5 g/dL (3.4-5.0); Carbon Dioxide 24.5 meq/L (21.0-32.0); Potassium 3.3 meq/L (3.5-5.1); Total Protein 6.8 g/dL (6.4-8.2)
[2018-06-09] MEDS: Senna/Docusate Sodium 8.6/50 MG Tablet PO SCH ×2 (08:38→21:25)
[2018-06-09 08:40] LABS: Eosinophils 2 % (0-4); Lymphocytes 4 % (9-44); Monocytes 9 % (0-8); Tallied Nucleated RBC 1 (0-0)
[2018-06-09 08:41] LABS: Ovalocytes 1+; Platelet Morphology Normal (Normal)
[2018-06-09] MEDS ORDERED: Sodium Chlor 0.9% Inj 250 ML IV.SIG SCH ×2 (09:00→10:00)
--- NOTE | 2018-06-09 11:21 | P.PNIM ---
Subjective Interval history: Patient transfused yesterday with increase in hemoglobin and platelets. Today he has a downward trend in platelets and his hemoglobin is also trended down to 6.9. No evidence of bleeding with bowel movements. Physical Exam Vital signs: Vital Signs 06/08/18 11:50 06/08/18 12:00 06/08/18 12:05 Temperature 98.4 F 98.1 F 98.4 F Pulse Rate 74 70 74 Respiratory Rate 16 20 18 Blood Pressure 113/61 117/61 113/61 Pulse Oximetry 96 97 96 06/08/18 12:15 06/08/18 16:00 06/08/18 20:39 Temperature 98.2 F 99.0 F 98.9 F Pulse Rate 75 81 Respiratory Rate 18 20 18 Blood Pressure 112/61 127/61 112/60 Pulse Oximetry 99 96 06/08/18 20:59 06/08/18 23:18 06/08/18 23:24 Temperature 98.9 F 99.6 F 99.6 F Pulse Rate 80 81 81 Respiratory Rate 18 20 20 Blood Pressure 112/61 124/66 124/66 Pulse Oximetry 94 L 95 94 L 06/08/18 23:40 06/09/18 04:00 06/09/18 08:00 Temperature 99.6 F 98.9 F 98.8 F Pulse Rate 100 H 82 74 Respiratory Rate 16 19 20 Blood Pressure 119/69 126/67 119/60 Pulse Oximetry 95 93 L 96 06/09/18 11:10 06/09/18 11:12 Temperature 98.2 F 98.2 F Pulse Rate 71 70 Respiratory Rate 20 20 Blood Pressure 115/72 115/72 Pulse Oximetry 95 95 Intake & Output 06/08/18 06/09/18 06/09/18 18:59 06:59 18:59 Intake Total 1304 / 1304 1739.5 / 1739.5 0 / 0 Output Total 700 / 700 Balance 1304 / 1304 1039.5 / 1039.5 0 / 0 Weight 80.2 kg Intake: IV 662.5 / 662.5 Levaquin 750 mg Premix Inj 150 150 / 150 ML @ 100 mls/hr IV.SIG Q24H [facility] Rx#:[id number] NS Inj 250 ML @ 15 mls/hr IV. 250 / 250 SIG ONCE [facility] Rx#:[id number] Vancomycin Inj 1,250 MG In NS 262.5 / 262.5 Inj 250 ML @ 250 mls/hr IV.SIG Q18H [facility] Rx#:[id number] Oral 1080 / 1080 480 / 480 Intake (Blood Product) Amt 224 / 224 597 / 597 0 / 0 Plasma Thawed 5 Day Cp2d Unit 0 / 0 [id number] Plasma Thawed 5 Day Cp2d Unit 342 / 342 [id number] Plasma Thawed 5 Day Cp2d Unit 255 / 255 [id number] Pre-Pooled Cryo Thawed 10units 224 / 224 Unit [id number] Output: Urine 700 / 700 Other: # Voids 4 Date of Last Bowel Movement 06/07/18 # Bowel Movements 0 Narrative: GENERAL: NAD, A&Ox3 HEAD: Normocephalic. NECK: Supple, trachea midline. No lymphadenopathy. EYES: No scleral icterus. No injection or drainage. CARDIOVASCULAR: Regular rate and rhythm without murmurs, gallops, or rubs. RESPIRATORY: Breath sounds equal bilaterally. No accessory muscle use. GASTROINTESTINAL: Abdomen soft, non-tender, nondistended. MUSCULOSKELETAL: No cyanosis, or edema. Psoas muscle drain in place. SKIN: Warm and dry. NEURO: No focal neurological deficits. Results - Labs CBC & Chem 7: 06/09/18 06:30 06/09/18 06:30 Laboratory Results - last 24 hr 06/08/18 06/08/18 06/08/18 09:58 18:19 18:19 WBC 3.4 L RBC 2.13 L Hgb 7.9 L Hct 22.6 L MCV 106.1 H MCH 37.1 H MCHC 35.0 RDW 18.5 H Plt Count 64 L D MPV 9.7 Prelim Diff (Auto) Neut % (Auto) Lymph % (Auto) [place] % (Auto) Eos % (Auto) Baso % (Auto) Neut # (Auto) Lymph # (Auto) [place] # (Auto) Eos # (Auto) Baso # (Auto) WBC Differential Seg Neuts % (Manual) Band Neuts % (Manual) Lymphocytes % (Manual) Monocytes % (Manual) Eosinophils % (Manual) Basophils % (Manual) Abs Neuts (Manual) Nucleated RBCs/100 WBC Differential Comment Platelet Estimate Platelet Morphology Ovalocytes PT INR APTT Fibrinogen Sodium 135 L Potassium 3.4 L Chloride 101 Carbon Dioxide 25.5 Anion Gap 9 BUN 9 Creatinine 1.22 Estimated GFR 60 L Random Glucose 116 H Calcium 7.2 L* Prot Corrected Calcium 7.4 L* Phosphorus 2.4 L Magnesium 1.4 L Total Bilirubin 1.2 H AST 32 ALT 13 Alkaline Phosphatase 73 Total Protein 6.7 Albumin 1.3 L Vancomycin Trough 21.6 H Blood Bank Comment 06/09/18 06/09/18 06/09/18 06:30 06:30 06:30 WBC 3.0 L RBC 1.86 L Hgb 6.9 L* Hct 19.3 L* MCV 104.1 H MCH 37.0 H MCHC 35.6 RDW 18.4 H Plt Count 41 L D MPV 8.6 Prelim Diff (Auto) Slide review pending Neut % (Auto) 54.9 Lymph % (Auto) 24.8 Rice % (Auto) 17.6 H Eos % (Auto) 1.8 Baso % (Auto) 0.9 Neut # (Auto) 1.6 L Lymph # (Auto) 0.7 L Rice # (Auto) 0.5 Eos # (Auto) 0.1 Baso # (Auto) 0.0 WBC Differential Manual diff final Seg Neuts % (Manual) 80 H Band Neuts % (Manual) 4 Lymphocytes % (Manual) 4 L Monocytes % (Manual) 9 H Eosinophils % (Manual) 2 Basophils % (Manual) 1 Abs Neuts (Manual) 2.5 Nucleated RBCs/100 WBC 1 H Differential Comment . Platelet Estimate Low L Platelet Morphology Normal Ovalocytes 1+ H PT 15.2 H INR 1.5 APTT 35.1 H Fibrinogen 143 L Sodium 137 Potassium 3.3 L Chloride 102 Carbon Dioxide 24.5 Anion Gap 11 BUN 9 Creatinine 1.26 Estimated GFR 58 L Random Glucose 124 H Calcium 7.0 L* Prot Corrected Calcium 7.2 L* Phosphorus Magnesium Total Bilirubin 1.2 H AST 35 ALT 14 Alkaline Phosphatase 78 Total Protein 6.8 Albumin 1.5 L Vancomycin Trough Blood Bank Comment 06/09/18 09:52 WBC RBC Hgb Hct MCV MCH MCHC RDW Plt Count MPV Prelim Diff (Auto) Neut % (Auto) Lymph % (Auto) Rice % (Auto) Eos % (Auto) Baso % (Auto) Neut # (Auto) Lymph # (Auto) Rice # (Auto) Eos # (Auto) Baso # (Auto) WBC Differential Seg Neuts % (Manual) Band Neuts % (Manual) Lymphocytes % (Manual) Monocytes % (Manual) Eosinophils % (Manual) Basophils % (Manual) Abs Neuts (Manual) Nucleated RBCs/100 WBC Differential Comment Platelet Estimate Platelet Morphology Ovalocytes PT INR APTT Fibrinogen Sodium Potassium Chloride Carbon Dioxide Anion Gap BUN Creatinine Estimated GFR Random Glucose Calcium Prot Corrected Calcium Phosphorus Magnesium Total Bilirubin AST ALT Alkaline Phosphatase Total Protein Albumin Vancomycin Trough Blood Bank Comment - Imaging Impressions Abdomen/Pelvis CT 06/08/18 00:00 CONCLUSION: 1. Near complete resolution of the patient's retroperitoneal abscess on the right. There is no significant remaining fluid in the region of the catheter. The catheter will be removed. - Procedures COLONOSCOPY PROCEDURE REPORT EXAM DATE: 05/25/2018 PATIENT NAME: Ricardo Ma MR #: [id number] BIRTHDATE: 1955 ENDOSCOPIST: Venice Mcgowan MD ORDER #: [id number] BIAS MACHINE OPERATOR: Julieth Crews RN STATUS: inpatient INDICATIONS: The patient is a 62 yr old male here for a colonoscopy due to abdominal pain and iron deficiency anemia PROCEDURE PERFORMED: Colonoscopy, diagnostic MEDICATIONS: None and Per Anesthesia. PREP QUALITY: The Henderson Bowel Prep Score was Right colon 3, Mid colon 2, and Left colon 2. Total = 7. PREP TYPE:Magnesium Citrate ESTIMATED BLOOD LOSS: None CONSENT: The patient understands the risks and benefits of the procedure and understands that these risks include, but are not limited to: sedation, allergic reaction, infection, perforation and/or bleeding. Alternative means of evaluation and treatment include, among others: physical exam, x-rays, and/or surgical intervention. The patient elects to proceed with this endoscopic procedure. medical equipment was checked for proper function. Hand hygiene and appropriate measures for infection prevention was taken. After the risks, benefits and alternatives of the procedure were thoroughly explained, Informed consent was verified, confirmed and timeout was successfully executed by the treatment team. A digital exam revealed external hemorrhoids The Pentax EC-[id number] endoscope was introduced through the anus and advanced to the cecum, which was identified by both the appendix and ileocecal valve. The instrument was then slowly withdrawn as the colon was fully examined. COLON FINDINGS: The colonic mucosa appeared normal. Retroflexed views revealed internal hemorrhoids and Retroflexed views revealed medium internal hemorrhoids The scope was then completely withdrawn from the patient and the procedure terminated. PROCEDURE WITHDRAWAL TIME:6minutes ADVERSE EVENTS: There were no complications. IMPRESSIONS: 1. The colonic mucosa appeared normal 2. Retroflexed views revealed internal hemorrhoids 3. Retroflexed views revealed medium internal hemorrhoids 4. Revealed external hemorrhoids RECOMMENDATIONS: 1. Benefiber 2 tsp daily 2. Continue surveillance 3. Yearly hemoccult RECALL: Return 5 years Colonoscopy Venice Mcgowan MD eSigned: Venice Mcgowan MD 05/25/2018 9:56 AM EGD PROCEDURE REPORT EXAM DATE: 05/25/2018 PATIENT NAME: Ricardo Ma MR #: [id number] BIRTHDATE: 1955 ATTENDING: Venice Mcgowan MD ORDER #: [id number] BIAS MACHINE OPERATOR: Julieth Crews and Tiffani Palumbo STATUS: inpatient INDICATIONS: The patient is a 62 yr old male here for an EGD due to iron deficiency anemia and abdominal pain PROCEDURE PERFORMED: EGD w/ biopsy MEDICATIONS: None and Per Anesthesia. TOPICAL ANESTHETIC: CONSENT: The patient understands the risks and benefits of the procedure and understands that these risks include, but are not limited to: sedation, allergic reaction, infection, perforation and/or bleeding. Alternative means of evaluation and treatment include, among others: physical exam, x-rays, and/or surgical intervention. The patient elects to proceed with this endoscopic procedure. medical equipment was checked for proper function. Hand hygiene and appropriate measures for infection prevention was taken. After the risks, benefits and alternatives of the procedure were thoroughly explained, Informed consent was verified, confirmed and timeout was successfully executed by the treatment team. The patient was anesthetized with topical anesthesia and the EC-3490Li (Pedi C) endoscope was introduced through the mouth and advanced to the second portion of the duodenum. Retroflexed views revealed no abnormalities The gastroscope was then slowly withdrawn and removed. ESOPHAGUS: The mucosa of the esophagus appeared normal. STOMACH: There was moderate and ulcerative gastritis in the gastric antrum. A biopsy was performed using cold forceps. Sample sent for histology. ADVERSE EVENTS: There were no complications. IMPRESSIONS: 1. The esophagus appeared normal 2. There was gastritis in the gastric antrum; biopsy was performed 3. Retroflexed views revealed no abnormalities RECOMMENDATIONS: 1. Await biopsy results. Biopsy results will not be ready for 7-10 days. If you don't hear from us in two weeks, call our office for biopsy results. 2. Anti-reflux regimen 3. Continue PPI 4. Avoid NSAIDS PATIENT CONDITION: stable DISPOSITION: Inpatient REPEAT EXAM: Return 3 months EGD pending biopsy results Venice Mcgowan MD eSigned: Venice Mcgowan MD 05/25/2018 9:[address] abscess drainage Signed EXAM DATE: 06/03/2018 1:45 PM EDT AGE/SEX: 62 years / Male INDICATIONS: Right iliopsoas abscess. CLINICAL DATA: This is the patient's initial encounter. Patient reports that signs and symptoms have been present for 1 day and indicates a pain score of 0/ 10. MEDICAL/SURGICAL HISTORY: Cirrhosis. Diabetes. Hepatitis C. None. COMPARISON: No prior exams available for comparison. SEDATION TIME (min): 30 BIOPSY SITE: right iliopsoas abscess MEDICATION(S): 3.5mg midazolam (Versed) IV 175mcg fentanyl (Sublimaze) IV DEVICE(S): 8 Fr Skater FLUID: Total volume of 25 of purulent, red fluid was removed. Fluid was sent to lab for ordered studies.. . . PROCEDURE : CT guided drainage of the right iliopsoas abscess. Conscious sedation with continuous EKG and oximetry monitoring. The risks, benefits and alternatives to the procedure were explained and verbal and written consent was obtained. Using automated exposure control and adjustment of the mA and/or kV according to patient size, radiation dose was kept as low as reasonably achievable to obtain optimal diagnostic quality images. The site was prepped in sterile fashion. Full sterile technique was used, including cap, mask, sterile gloves and gown and a large sterile sheet. Hand hygiene and 2% chlorhexidine and/or betadine/alcohol prep was utilized per protocol for cutaneous antisepsis. The skin and subcutaneous tissues were infiltrated with local anesthetic solution. DICOM format image data is available electronically for review and comparison. FINDINGS: Using CT guidance the prescribed site was localized. An 18-gauge needle was advanced into the hypodense collection in the right psoas. Purulent material was aspirated. Therefore, the 035 Bentson wire was advanced through the outer cannula and coiled in the collection. Tract was dilated to accommodate the 8 Dominican locking cope loop. Drainage was performed using the prescribed catheter. The patient tolerated the procedure well and there were no complications. The patient tolerated the procedure well and there were no complications. The patient was sent to post anesthesia recovery in stable condition. CONCLUSION: 1. Uncomplicated CT guided drainage of right psoas abscess as above. Electronically signed by: Darrius Pascal MD 06/03/2018 1:50 PM EDT Assessment and Plan - Plan 62-year-old male admitted secondary to symptomatic anemia with thrombocytopenia and fever. Transfuse 2 units packed red blood cells today. Continue to monitor hemoglobin. Continue to monitor platelets. Further transfusions as needed. Evaluate stool for Hemoccult blood. Check an autoimmune screen and check a reticulocyte count to determine cell production versus destruction problems. fever of unknown origin ID following Continue vancomycin for coverage of MSSA Iliopsoas/psoas fluid collection drain in place Continue Levaquin Hypocalcemia Monitor calcium levels Replace as needed Abdominal pain/gastritis Hematoma GI following Heme on following Continue PPI Anemia/thrombocytopenia weight loss Weakness Dyspnea on exertion 2 units transfusion of packed red blood cells provided on 06/09/2018 1 unit transfusion of packed red blood cells provided on 06/08/2018 Follow hemoglobin Follow platelets Diabetes mellitus type 2 Follow blood sugars Insulin sliding scale Diabetic diet Hepatitis C INR is 1.6 naturally. Suggestive of cirrhosis. Patient quit drinking 10 weeks ago Nicotine abuse Patient smokes 4 cigarettes daily Patient counseled to quit HYPOMAGNESIA Monitor and replace as needed ANEMIA TRANSFUSE IF HGB LESS THAN 7.0 DVT prophylaxis Ambulation, chemoprophylaxis held due to hematoma and coagulopathy
[2018-06-09 14:23] LABS: Hematocrit 22.3 % (39.0-51.0); Hemoglobin 7.8 gm/dL (13.0-17.0); Mean Corpuscular HGB Conc 34.8 % (32.0-36.0); Mean Corpuscular Hemoglobin 37.2 pg (27.0-34.0); Mean Corpuscular Volume 106.9 fL (80.0-100.0); Mean Platelet Volume 8.2 fL (7.0-11.0); Platelet Count 43 th/mm3 (150-450); Red Blood Count 2.09 mil/mm3 (4.50-5.90); Red Cell Distribution Width 18.6 % (11.6-17.2)
--- NOTE | 2018-06-09 14:47 | P.PNONC ---
Subjective Interval history: Afebrile. Patient seen alongside Dr. Reynolds. Patient lying in bed, in no acute distress. Status post removal of retroperitoneal abscess drain yesterday. Denies bleeding. No external bleeding at previous drain site. Abdomen tender to palpation. Objective Vital Signs/Intake & Output: Vital Signs 06/08/18 16:00 06/08/18 20:39 06/08/18 20:59 Temperature 99.0 F 98.9 F 98.9 F Pulse Rate 75 81 80 Respiratory Rate 20 18 18 Blood Pressure 127/61 112/60 112/61 Pulse Oximetry 99 96 94 L 06/08/18 23:18 06/08/18 23:24 06/08/18 23:40 Temperature 99.6 F 99.6 F 99.6 F Pulse Rate 81 81 100 H Respiratory Rate 20 20 16 Blood Pressure 124/66 124/66 119/69 Pulse Oximetry 95 94 L 95 06/09/18 04:00 06/09/18 08:00 06/09/18 11:10 Temperature 98.9 F 98.8 F 98.2 F Pulse Rate 82 74 71 Respiratory Rate 19 20 20 Blood Pressure 126/67 119/60 115/72 Pulse Oximetry 93 L 96 95 06/09/18 11:12 06/09/18 11:51 06/09/18 12:00 Temperature 98.2 F 98.4 F Pulse Rate 70 68 94 H Respiratory Rate 20 20 Blood Pressure 115/72 122/78 Pulse Oximetry 95 95 Intake & Output 06/08/18 06/09/18 06/09/18 18:59 06:59 18:59 Intake Total 1304 / 1304 1739.5 / 1739.5 0 / 0 Output Total 700 / 700 Balance 1304 / 1304 1039.5 / 1039.5 0 / 0 Weight 80.2 kg Intake: IV 662.5 / 662.5 Levaquin 750 mg Premix Inj 150 150 / 150 ML @ 100 mls/hr IV.SIG Q24H [facility] Rx#:[id number] NS Inj 250 ML @ 15 mls/hr IV. 250 / 250 SIG ONCE [facility] Rx#:[id number] Vancomycin Inj 1,250 MG In NS 262.5 / 262.5 Inj 250 ML @ 250 mls/hr IV.SIG Q18H [facility] Rx#:[id number] Oral 1080 / 1080 480 / 480 Intake (Blood Product) Amt 224 / 224 597 / 597 0 / 0 Plasma Thawed 5 Day Cp2d Unit 0 / 0 [id number] Plasma Thawed 5 Day Cp2d Unit 342 / 342 [id number] Plasma Thawed 5 Day Cp2d Unit 255 / 255 [id number] Pre-Pooled Cryo Thawed 10units 224 / 224 Unit [id number] Output: Urine 700 / 700 Other: # Voids 4 Date of Last Bowel Movement 06/07/18 # Bowel Movements 0 Result Diagrams: 06/09/18 06:30 06/09/18 06:30 Laboratory Results: Laboratory Results - last 24 hr 06/08/18 06/08/18 06/08/18 09:58 18:19 18:19 WBC 3.4 L RBC 2.13 L Hgb 7.9 L Hct 22.6 L MCV 106.1 H MCH 37.1 H MCHC 35.0 RDW 18.5 H Plt Count 64 L D MPV 9.7 Prelim Diff (Auto) Neut % (Auto) Lymph % (Auto) [place] % (Auto) Eos % (Auto) Baso % (Auto) Neut # (Auto) Lymph # (Auto) [place] # (Auto) Eos # (Auto) Baso # (Auto) WBC Differential Seg Neuts % (Manual) Band Neuts % (Manual) Lymphocytes % (Manual) Monocytes % (Manual) Eosinophils % (Manual) Basophils % (Manual) Abs Neuts (Manual) Nucleated RBCs/100 WBC Differential Comment Platelet Estimate Platelet Morphology Ovalocytes PT INR APTT Fibrinogen Sodium 135 L Potassium 3.4 L Chloride 101 Carbon Dioxide 25.5 Anion Gap 9 BUN 9 Creatinine 1.22 Estimated GFR 60 L Random Glucose 116 H Calcium 7.2 L* Prot Corrected Calcium 7.4 L* Phosphorus 2.4 L Magnesium 1.4 L Total Bilirubin 1.2 H AST 32 ALT 13 Alkaline Phosphatase 73 Total Protein 6.7 Albumin 1.3 L Vancomycin Trough 21.6 H MTS Gel Crossmatch Blood Bank Comment 06/09/18 06/09/18 06/09/18 06:30 06:30 06:30 WBC 3.0 L RBC 1.86 L Hgb 6.9 L* Hct 19.3 L* MCV 104.1 H MCH 37.0 H MCHC 35.6 RDW 18.4 H Plt Count 41 L D MPV 8.6 Prelim Diff (Auto) Slide review pending Neut % (Auto) 54.9 Lymph % (Auto) 24.8 [place] % (Auto) 17.6 H Eos % (Auto) 1.8 Baso % (Auto) 0.9 Neut # (Auto) 1.6 L Lymph # (Auto) 0.7 L [place] # (Auto) 0.5 Eos # (Auto) 0.1 Baso # (Auto) 0.0 WBC Differential Manual diff final Seg Neuts % (Manual) 80 H Band Neuts % (Manual) 4 Lymphocytes % (Manual) 4 L Monocytes % (Manual) 9 H Eosinophils % (Manual) 2 Basophils % (Manual) 1 Abs Neuts (Manual) 2.5 Nucleated RBCs/100 WBC 1 H Differential Comment . Platelet Estimate Low L Platelet Morphology Normal Ovalocytes 1+ H PT 15.2 H INR 1.5 APTT 35.1 H Fibrinogen 143 L Sodium 137 Potassium 3.3 L Chloride 102 Carbon Dioxide 24.5 Anion Gap 11 BUN 9 Creatinine 1.26 Estimated GFR 58 L Random Glucose 124 H Calcium 7.0 L* Prot Corrected Calcium 7.2 L* Phosphorus Magnesium Total Bilirubin 1.2 H AST 35 ALT 14 Alkaline Phosphatase 78 Total Protein 6.8 Albumin 1.5 L Vancomycin Trough MTS Gel Crossmatch Blood Bank Comment 06/09/18 06/09/18 09:52 14:15 WBC RBC Hgb Hct MCV MCH MCHC RDW Plt Count MPV Prelim Diff (Auto) Neut % (Auto) Lymph % (Auto) [place] % (Auto) Eos % (Auto) Baso % (Auto) Neut # (Auto) Lymph # (Auto) [place] # (Auto) Eos # (Auto) Baso # (Auto) WBC Differential Seg Neuts % (Manual) Band Neuts % (Manual) Lymphocytes % (Manual) Monocytes % (Manual) Eosinophils % (Manual) Basophils % (Manual) Abs Neuts (Manual) Nucleated RBCs/100 WBC Differential Comment Platelet Estimate Platelet Morphology Ovalocytes PT INR APTT Fibrinogen Sodium Potassium Chloride Carbon Dioxide Anion Gap BUN Creatinine Estimated GFR Random Glucose Calcium Prot Corrected Calcium Phosphorus Magnesium Total Bilirubin AST ALT Alkaline Phosphatase Total Protein Albumin Vancomycin Trough MTS Gel Crossmatch See Detail Blood Bank Comment Culture Results: Microbiology 06/01/18 17:14 Aerobic Blood Culture - Final Blood - Peripheral No growth in 5 days Anaerobic Blood Culture - Final No growth in 5 days 06/01/18 17:05 Aerobic Blood Culture - Final Blood - Peripheral No growth in 5 days Anaerobic Blood Culture - Final No growth in 5 days Imaging Studies: Impressions Abdomen/Pelvis CT 06/08/18 00:00 CONCLUSION: 1. Near complete resolution of the patient's retroperitoneal abscess on the right. There is no significant remaining fluid in the region of the catheter. The catheter will be removed. Medications: Active Medications Generic Name Dose Route Start Last Admin Trade Name Freq PRN Reason Stop Dose Admin Artificial Tears 1 drop 05/29/18 10:00 06/09/18 12:34 Tears Naturale Opth Drops EACH EYE Not Given Q4H [facility] Artificial Tears 1 drops 05/29/18 18:00 06/09/18 11:36 Genteal Severe Dry Eye Relief 0.3% Opth Gel EACH EYE Not Given Q4H [facility] Levofloxacin/Dextrose 150 mls @ 100 mls/hr 05/28/18 00:00 06/09/18 03:25 Levaquin 750 Mg Premix Inj IV.SIG Infused Q24H [facility] Infusion Sodium Chloride 250 mls @ 15 mls/hr 06/09/18 09:00 06/09/18 11:29 Ns Inj IV.SIG 06/10/18 01:39 15 mls/hr ONCE [facility] Administration Ibuprofen 600 mg 05/27/18 21:56 05/30/18 22:18 Motrin PO 600 mg Q6H PRN Administration Fever >101 Ondansetron HCl 4 mg 05/23/18 17:58 05/28/18 09:41 Zofran Inj IV.PUSH 4 mg Q6H PRN Administration NAUSEA OR VOMITING Oxycodone HCl 5 mg 05/23/18 18:52 06/08/18 04:37 Roxicodone PO 5 mg Q6H PRN Administration pain 3-10 Pantoprazole Sodium 40 mg 05/24/18 21:00 06/09/18 08:38 Protonix PO 40 mg BID [facility] Administration Senna/Docusate Sodium 1 tab 05/23/18 21:00 06/09/18 08:38 Lina-Colace PO Not Given BID [facility] Sodium Chloride 2 ml 05/23/18 12:33 06/08/18 00:06 Ns Flush IV.FLUSH 2 ml PRN PRN Administration FLUSH AFTER USING IV ACCESS Sodium Chloride 10 ml 06/06/18 15:00 09/13/18 08:37 Ns Inj IRRIGATION Not Given DAILY [facility] Objective Remarks: GENERAL: Older male patient, lying in bed, in no acute distress. SKIN: Pale, warm and dry. +psoriasis plaques to BLE. HEAD: Normocephalic. EYES: No injection or drainage. NECK: Supple, trachea midline. CARDIOVASCULAR: +S1/S2 without murmurs. RESPIRATORY: Anterior breath sounds clear, equal bilaterally. Nonlabored. GASTROINTESTINAL: Abdomen tender, +guarding. No swelling, erythema or bleeding at previous placed drain site. EXTREMITIES: No cyanosis, or edema. Chronic skin discoloration and psoriasis plaques to BLE. MUSCULOSKELETAL: Adequate muscle tone. NEUROLOGICAL: No obvious focal deficit. Awake, alert, and oriented x3. Assessment/Plan - Plan 62-year-old male admitted with right lower quadrant pain. He has history of alcoholic liver disease, liver cirrhosis, hepatitis C and diabetes. He was found to have extensive varicosities on his CT abdomen and pelvis which could be possible abscess or hematoma. The patient has been evaluated by GI and is s/ p EGD and colonoscopy. The patient was seen by hematology services earlier in this admission, he was scheduled for discharge home when he started having fevers. CT abdomen showed a complex fluid collection in the perinephric space on the right side measures 5.8 x 5.1 cm with septation and soft tissue components to it. The largest pocket of fluid collection measures almost 5.3 cm in size not significantly changed. Hematology was reconsulted for evaluation/ risk for aspirate of the complex fluid collection in the perinephric space, given his history of coagulopathy and thrombocytopenia. 1. Coagulopathy and thrombocytopenia, likely secondary to liver disease and DIC. S/P percutaneous drainage of abscess. Right flank drain was removed yesterday. CBC this a.m. is concerning for bleeding. Hemoglobin down to 6.9 from 7.9, platelet count 41K down from 64K. There is no obvious bleeding noted. Patient denies any bleeding. Abdomen remains tender and patient is guarding. 2 units of FFP and cryoprecipitate were ordered earlier in the day, attending also ordered 2 units of PRBCs. Patient's GFR is 58 and Procrit was also ordered this a.m. We have ordered a repeat stat CBC, if less than 6.[address] abdomen with IV contrast to rule out any bleeding. Otherwise we will monitor closely for bleeding. CT abdomen/pelvis yesterday showed near complete resolution of the patient's retroperitoneal abscess on the right. 2. We will continue to monitor CBC and coags. Our goal is to keep fibrinogen greater than 150, hgb >7.5 and platelets >50k. 3. Continue to monitor for bleeding. Continue supportive care.
[2018-06-09] MEDS ORDERED: Acetaminophen 325 MG Tablet PO ONE (18:45)
[2018-06-09] MEDS ORDERED: Pharmacy Ordered Lab Info OTHER ONE (19:45)
[2018-06-09 20:00] LABS: Hematocrit 22.4 % (39.0-51.0); Hemoglobin 7.7 gm/dL (13.0-17.0); Mean Corpuscular HGB Conc 34.6 % (32.0-36.0); Mean Corpuscular Hemoglobin 36.8 pg (27.0-34.0); Mean Corpuscular Volume 106.5 fL (80.0-100.0); Mean Platelet Volume 8.7 fL (7.0-11.0); Platelet Count 45 th/mm3 (150-450); Red Cell Distribution Width 18.7 % (11.6-17.2); White Blood Count 3.1 th/mm3 (4.0-11.0)
[2018-06-09] MEDS: Vancomycin Inj 1,250 MG in Sodium Chlor 0.9% Inj 250 ML IV.SIG SCH (21:43)
[2018-06-10] MEDS: Hypromellose 0.3% Opth Gel 10 GM Bottle EACH EYE SCH ×5 (01:31→19:21)
[2018-06-10] MEDS: Artificial Tears Opth Drops 15 ML Bottle EACH EYE SCH ×5 (01:31→19:21)
[2018-06-10 06:24] LABS: Baso % (Auto) 1.3 % (0.0-2.0); Eos # (Auto) 0.1 th/mm3 (0.0-0.4); Hematocrit 31.8 % (39.0-51.0); Lymph # (Auto) 0.6 th/mm3 (1.0-4.8); Lymph % (Auto) 18.1 % (9.0-44.0); Mean Corpuscular HGB Conc 34.6 % (32.0-36.0); Mean Corpuscular Volume 101.2 fL (80.0-100.0); Mean Platelet Volume 8.5 fL (7.0-11.0); Mono # (Auto) 0.4 th/mm3 (0.0-0.9); Mono % (Auto) 12.5 % (0.0-8.0); Neut # (Auto) 2.2 th/mm3 (1.8-7.7); Neut % (Auto) 65.1 % (16.0-70.0); Platelet Count 50 th/mm3 (150-450); Red Blood Count 3.15 mil/mm3 (4.50-5.90); Red Cell Distribution Width 21.1 % (11.6-17.2); White Blood Count 3.4 th/mm3 (4.0-11.0)
[2018-06-10 06:27] LABS: Reticulocyte Percent 2.1 % (0.4-3.0)
[2018-06-10 06:34] LABS: Alanine Aminotransferase 18 U/L (12-78); Albumin 1.8 g/dL (3.4-5.0); Anion Gap 8 meq/L (5-15); Aspartate Aminotransferase 39 U/L (15-37); Blood Urea Nitrogen 8 mg/dL (7-18); Calcium 7.6 mg/dL (8.5-10.1); Carbon Dioxide 27.4 meq/L (21.0-32.0); Chloride 103 meq/L (98-107); Glomerular Filtration Rate 55 mL/min (>89); Glucose,Random 89 mg/dL (74-106); Potassium 3.7 meq/L (3.5-5.1); Sodium 138 meq/L (136-145)
[2018-06-10 06:37] LABS: Alkaline Phosphatase 84 U/L (45-117); C-Reactive Protein 1.32 mg/dL (0.00-0.30); Total Protein 7.9 g/dL (6.4-8.2)
[2018-06-10 06:51] LABS: Erythrocyte Sedimentation Rate 97 mm/hr (0-20)
[2018-06-10 07:36] LABS: Eosinophils 3 % (0-4); Lymphocytes 8 % (9-44); Monocytes 2 % (0-8); Tallied Nucleated RBC 1 (0-0); Toxic Granulation 1+
[2018-06-10 07:37] LABS: Platelet Morphology Normal (Normal)
[2018-06-10] MEDS: Senna/Docusate Sodium 8.6/50 MG Tablet PO SCH ×2 (09:38→20:29)
--- NOTE | 2018-06-10 10:40 | P.PNIM ---
Subjective Interval history: Hemoglobin improved this morning. This is status post transfusion and patient is also on Neupogen. Patient has no new complaints. Fibrinogen and platelets remain at the borderline of goal. Physical Exam Vital signs: Vital Signs 06/09/18 11:10 06/09/18 11:12 06/09/18 11:51 Temperature 98.2 F 98.2 F 98.4 F Pulse Rate 71 70 68 Respiratory Rate 20 20 20 Blood Pressure 115/72 115/72 122/78 Pulse Oximetry 95 95 95 06/09/18 12:00 06/09/18 14:38 06/09/18 15:15 Temperature 98.7 F 98.1 F Pulse Rate 94 H 70 69 Respiratory Rate 20 16 Blood Pressure 114/71 122/76 Pulse Oximetry 97 06/09/18 16:00 06/09/18 18:03 06/09/18 20:00 Temperature 98.6 F 100.2 F H 98.5 F Pulse Rate 72 74 63 Respiratory Rate 20 20 18 Blood Pressure 118/78 140/83 118/61 Pulse Oximetry 96 94 L 94 L 06/10/18 01:05 06/10/18 01:33 06/10/18 03:40 Temperature 97.8 F 97.8 F 98.9 F Pulse Rate 64 61 65 Respiratory Rate 20 18 20 Blood Pressure 112/64 134/75 126/75 Pulse Oximetry 98 95 06/10/18 03:55 06/10/18 04:00 06/10/18 08:00 Temperature 98.9 F 99.1 F Pulse Rate 65 67 74 Respiratory Rate 18 20 Blood Pressure 136/75 136/75 Pulse Oximetry 98 94 L Intake & Output 06/09/18 06/10/18 06/10/18 18:59 06:59 18:59 Intake Total 812 / 812 1778.5 / 1778.5 Output Total 800 / 800 Balance 1778.5 / 1778.5 Weight 81.1 kg Intake: IV 662.5 / 662.5 Levaquin 750 mg Premix Inj 150 150 / 150 ML @ 100 mls/hr IV.SIG Q24H CHARANJIT Rx#:[id number] NS Inj 250 ML @ 15 mls/hr IV. 250 / 250 SIG ONCE CHARANJIT Rx#:[id number] Vancomycin Inj 1,250 MG In NS 262.5 / 262.5 Inj 250 ML @ 250 mls/hr IV.SIG Q24H CHARANJIT Rx#:[id number] Oral 480 / 480 Intake (Blood Product) Amt 332 / 332 1116 / 1116 Plasma Thawed 5 Day Cp2d Unit 0 / 0 316 / 316 [id number] Plasma Thawed 5 Day Cp2d Unit 332 / 332 [id number] Pre-Pooled Cryo Thawed 10units 0 / 0 Unit [id number] Rbc As-3 Leukoreduced Unit 400 / 400 [id number] Rbc As-3 Leukoreduced Unit 400 / 400 [id number] Output: Urine 800 / 800 Narrative: GENERAL: NAD, A&Ox3 HEAD: Normocephalic. NECK: Supple, trachea midline. No lymphadenopathy. EYES: No scleral icterus. No injection or drainage. CARDIOVASCULAR: Regular rate and rhythm without murmurs, gallops, or rubs. RESPIRATORY: Breath sounds equal bilaterally. No accessory muscle use. GASTROINTESTINAL: Abdomen soft, non-tender, nondistended. MUSCULOSKELETAL: No cyanosis, or edema. Psoas muscle drain in place. SKIN: Warm and dry. NEURO: No focal neurological deficits. Results - Labs CBC & Chem 7: 06/10/18 06:09 06/10/18 06:09 Laboratory Results - last 24 hr 06/09/18 06/09/18 06/09/18 09:52 14:15 14:15 WBC RBC Hgb Hct MCV MCH MCHC RDW Plt Count MPV Prelim Diff (Auto) Neut % (Auto) Lymph % (Auto) [place] % (Auto) Eos % (Auto) Baso % (Auto) Neut # (Auto) Lymph # (Auto) [place] # (Auto) Eos # (Auto) Baso # (Auto) WBC Differential Seg Neuts % (Manual) Band Neuts % (Manual) Lymphocytes % (Manual) Monocytes % (Manual) Eosinophils % (Manual) Basophils % (Manual) Abs Neuts (Manual) Nucleated RBCs/100 WBC Differential Comment Toxic Granulation Platelet Estimate Platelet Morphology ESR Retic Count Absolute Retic Sodium Potassium Chloride Carbon Dioxide Anion Gap BUN 9 Creatinine 1.23 Estimated GFR 60 L Random Glucose Calcium Total Bilirubin AST ALT Alkaline Phosphatase C-Reactive Protein Total Protein Albumin Vancomycin Trough Rheumatoid Factor Scrn Rheumatoid Factor Titer Blood Type B Positive Antibody Screen Negative MTS Gel Crossmatch See Detail Blood Bank Comment Bld Prod Order Comment 06/09/18 06/09/18 06/09/18 14:15 19:03 21:20 WBC 3.0 L 3.1 L RBC 2.09 L 2.10 L Hgb 7.8 L 7.7 L Hct 22.3 L 22.4 L MCV 106.9 H 106.5 H MCH 37.2 H 36.8 H MCHC 34.8 34.6 RDW 18.6 H 18.7 H Plt Count 43 L 45 L MPV 8.2 8.7 Prelim Diff (Auto) Neut % (Auto) Lymph % (Auto) [place] % (Auto) Eos % (Auto) Baso % (Auto) Neut # (Auto) Lymph # (Auto) [place] # (Auto) Eos # (Auto) Baso # (Auto) WBC Differential Seg Neuts % (Manual) Band Neuts % (Manual) Lymphocytes % (Manual) Monocytes % (Manual) Eosinophils % (Manual) Basophils % (Manual) Abs Neuts (Manual) Nucleated RBCs/100 WBC Differential Comment Toxic Granulation Platelet Estimate Platelet Morphology ESR Retic Count Absolute Retic Sodium Potassium Chloride Carbon Dioxide Anion Gap BUN Creatinine Estimated GFR Random Glucose Calcium Total Bilirubin AST ALT Alkaline Phosphatase C-Reactive Protein Total Protein Albumin Vancomycin Trough 10.8 H Rheumatoid Factor Scrn Rheumatoid Factor Titer Blood Type Antibody Screen MTS Gel Crossmatch Blood Bank Comment Bld Prod Order Comment 06/10/18 06/10/18 06/10/18 06:09 06:09 06:09 WBC 3.4 L RBC 3.15 L Hgb 11.0 L D Hct 31.8 L MCV 101.2 H D MCH 35.0 H MCHC 34.6 RDW 21.1 H Plt Count 50 L MPV 8.5 Prelim Diff (Auto) Slide review pending Neut % (Auto) 65.1 Lymph % (Auto) 18.1 [place] % (Auto) 12.5 H Eos % (Auto) 3.0 Baso % (Auto) 1.3 Neut # (Auto) 2.2 Lymph # (Auto) 0.6 L [place] # (Auto) 0.4 Eos # (Auto) 0.1 Baso # (Auto) 0.0 WBC Differential Manual diff final Seg Neuts % (Manual) 78 H Band Neuts % (Manual) 8 H Lymphocytes % (Manual) 8 L Monocytes % (Manual) 2 Eosinophils % (Manual) 3 Basophils % (Manual) 1 Abs Neuts (Manual) 2.9 Nucleated RBCs/100 WBC 1 H Differential Comment . Toxic Granulation 1+ H Platelet Estimate Low L Platelet Morphology Normal ESR 97 H Retic Count 2.1 Absolute Retic 65.6 Sodium 138 Potassium 3.7 Chloride 103 Carbon Dioxide 27.4 Anion Gap 8 BUN 8 Creatinine 1.32 H Estimated GFR 55 L Random Glucose 89 Calcium 7.6 L Total Bilirubin 2.4 H AST 39 H ALT 18 Alkaline Phosphatase 84 C-Reactive Protein 1.32 H Total Protein 7.9 D Albumin 1.8 L Vancomycin Trough Rheumatoid Factor Scrn Negative Rheumatoid Factor Titer Not Reportable Blood Type Antibody Screen MTS Gel Crossmatch Blood Bank Comment Bld Prod Order Comment - Procedures COLONOSCOPY PROCEDURE REPORT EXAM DATE: 05/25/2018 PATIENT NAME: Ricardo Ma MR #: [id number] BIRTHDATE: 1955 ENDOSCOPIST: Venice Mcgowan MD ORDER #: [id number] RECONSTRUCTIVE DENTIST: Julieth Crews RN STATUS: inpatient INDICATIONS: The patient is a 62 yr old male here for a colonoscopy due to abdominal pain and iron deficiency anemia PROCEDURE PERFORMED: Colonoscopy, diagnostic MEDICATIONS: None and Per Anesthesia. PREP QUALITY: The [place] Bowel Prep Score was Right colon 3, Mid colon 2, and Left colon 2. Total = 7. PREP TYPE:Magnesium Citrate ESTIMATED BLOOD LOSS: None CONSENT: The patient understands the risks and benefits of the procedure and understands that these risks include, but are not limited to: sedation, allergic reaction, infection, perforation and/or bleeding. Alternative means of evaluation and treatment include, among others: physical exam, x-rays, and/or surgical intervention. The patient elects to proceed with this endoscopic procedure. medical equipment was checked for proper function. Hand hygiene and appropriate measures for infection prevention was taken. After the risks, benefits and alternatives of the procedure were thoroughly explained, Informed consent was verified, confirmed and timeout was successfully executed by the treatment team. A digital exam revealed external hemorrhoids The Pentax EC-[id number] endoscope was introduced through the anus and advanced to the cecum, which was identified by both the appendix and ileocecal valve. The instrument was then slowly withdrawn as the colon was fully examined. COLON FINDINGS: The colonic mucosa appeared normal. Retroflexed views revealed internal hemorrhoids and Retroflexed views revealed medium internal hemorrhoids The scope was then completely withdrawn from the patient and the procedure terminated. PROCEDURE WITHDRAWAL TIME:6minutes ADVERSE EVENTS: There were no complications. IMPRESSIONS: 1. The colonic mucosa appeared normal 2. Retroflexed views revealed internal hemorrhoids 3. Retroflexed views revealed medium internal hemorrhoids 4. Revealed external hemorrhoids RECOMMENDATIONS: 1. Benefiber 2 tsp daily 2. Continue surveillance 3. Yearly hemoccult RECALL: Return 5 years Colonoscopy Venice Mcgowan MD eSigned: Venice Mcgowan MD 05/25/2018 9:56 AM EGD PROCEDURE REPORT EXAM DATE: 05/25/2018 PATIENT NAME: Ricardo Ma MR #: [id number] BIRTHDATE: 1955 ATTENDING: Venice Mcgowan MD ORDER #: [id number] RECONSTRUCTIVE DENTIST: Julieth Crews and Tiffani Palumbo STATUS: inpatient INDICATIONS: The patient is a 62 yr old male here for an EGD due to iron deficiency anemia and abdominal pain PROCEDURE PERFORMED: EGD w/ biopsy MEDICATIONS: None and Per Anesthesia. TOPICAL ANESTHETIC: CONSENT: The patient understands the risks and benefits of the procedure and understands that these risks include, but are not limited to: sedation, allergic reaction, infection, perforation and/or bleeding. Alternative means of evaluation and treatment include, among others: physical exam, x-rays, and/or surgical intervention. The patient elects to proceed with this endoscopic procedure. medical equipment was checked for proper function. Hand hygiene and appropriate measures for infection prevention was taken. After the risks, benefits and alternatives of the procedure were thoroughly explained, Informed consent was verified, confirmed and timeout was successfully executed by the treatment team. The patient was anesthetized with topical anesthesia and the EC-3490Li (Pedi C) endoscope was introduced through the mouth and advanced to the second portion of the duodenum. Retroflexed views revealed no abnormalities The gastroscope was then slowly withdrawn and removed. ESOPHAGUS: The mucosa of the esophagus appeared normal. STOMACH: There was moderate and ulcerative gastritis in the gastric antrum. A biopsy was performed using cold forceps. Sample sent for histology. ADVERSE EVENTS: There were no complications. IMPRESSIONS: 1. The esophagus appeared normal 2. There was gastritis in the gastric antrum; biopsy was performed 3. Retroflexed views revealed no abnormalities RECOMMENDATIONS: 1. Await biopsy results. Biopsy results will not be ready for 7-10 days. If you don't hear from us in two weeks, call our office for biopsy results. 2. Anti-reflux regimen 3. Continue PPI 4. Avoid NSAIDS PATIENT CONDITION: stable DISPOSITION: Inpatient REPEAT EXAM: Return 3 months EGD pending biopsy results Venice Mcgowan MD eSigned: Venice Mcgowan MD 05/25/2018 9:[address] abscess drainage Signed EXAM DATE: 06/03/2018 1:45 PM EDT AGE/SEX: 62 years / Male INDICATIONS: Right iliopsoas abscess. CLINICAL DATA: This is the patient's initial encounter. Patient reports that signs and symptoms have been present for 1 day and indicates a pain score of 0/ 10. MEDICAL/SURGICAL HISTORY: Cirrhosis. Diabetes. Hepatitis C. None. COMPARISON: No prior exams available for comparison. SEDATION TIME (min): 30 BIOPSY SITE: right iliopsoas abscess MEDICATION(S): 3.5mg midazolam (Versed) IV 175mcg fentanyl (Sublimaze) IV DEVICE(S): 8 Fr Skater FLUID: Total volume of 25 of purulent, red fluid was removed. Fluid was sent to lab for ordered studies.. . . PROCEDURE : CT guided drainage of the right iliopsoas abscess. Conscious sedation with continuous EKG and oximetry monitoring. The risks, benefits and alternatives to the procedure were explained and verbal and written consent was obtained. Using automated exposure control and adjustment of the mA and/or kV according to patient size, radiation dose was kept as low as reasonably achievable to obtain optimal diagnostic quality images. The site was prepped in sterile fashion. Full sterile technique was used, including cap, mask, sterile gloves and gown and a large sterile sheet. Hand hygiene and 2% chlorhexidine and/or betadine/alcohol prep was utilized per protocol for cutaneous antisepsis. The skin and subcutaneous tissues were infiltrated with local anesthetic solution. DICOM format image data is available electronically for review and comparison. FINDINGS: Using CT guidance the prescribed site was localized. An 18-gauge needle was advanced into the hypodense collection in the right psoas. Purulent material was aspirated. Therefore, the 035 Bentson wire was advanced through the outer cannula and coiled in the collection. Tract was dilated to accommodate the 8 [place] locking cope loop. Drainage was performed using the prescribed catheter. The patient tolerated the procedure well and there were no complications. The patient tolerated the procedure well and there were no complications. The patient was sent to post anesthesia recovery in stable condition. CONCLUSION: 1. Uncomplicated CT guided drainage of right psoas abscess as above. Electronically signed by: Darrius Pascal MD 06/03/2018 1:50 PM EDT Assessment and Plan - Plan 62-year-old male admitted secondary to symptomatic anemia with thrombocytopenia and fever. Improvement in counts of hemoglobin and platelets today. Continue monitoring hemoglobin, platelets, and fibrinogen. Transfuse as needed. Stool studies pending. fever of unknown origin ID following Continue vancomycin for coverage of MSSA Iliopsoas/psoas fluid collection drain in place Continue Levaquin Hypocalcemia Monitor calcium levels Replace as needed Abdominal pain/gastritis Hematoma GI following Heme on following Continue PPI Anemia/thrombocytopenia weight loss Weakness Dyspnea on exertion 2 units transfusion of packed red blood cells provided on 06/09/2018 1 unit transfusion of packed red blood cells provided on 06/08/2018 Follow hemoglobin Follow platelets Diabetes mellitus type 2 Follow blood sugars Insulin sliding scale Diabetic diet Hepatitis C INR is 1.6 naturally. Suggestive of cirrhosis. Patient quit drinking 10 weeks ago Nicotine abuse Patient smokes 4 cigarettes daily Patient counseled to quit HYPOMAGNESIA Monitor and replace as needed ANEMIA TRANSFUSE IF HGB LESS THAN 7.0 DVT prophylaxis Ambulation, chemoprophylaxis held due to hematoma and coagulopathy
--- NOTE | 2018-06-10 13:31 | P.PNONC ---
Subjective Interval history: T max 99.3 overnight Pt resting in bed; reports he has not had a good BM except for one time since he got here No bleeding Abdominal pain controlled Objective Vital Signs/Intake & Output: Vital Signs 06/09/18 14:38 06/09/18 15:15 06/09/18 16:00 Temperature 98.7 F 98.1 F 98.6 F Pulse Rate 70 69 72 Respiratory Rate 20 16 20 Blood Pressure 114/71 122/76 118/78 Pulse Oximetry 97 96 06/09/18 18:03 06/09/18 20:00 06/10/18 01:05 Temperature 100.2 F H 98.5 F 97.8 F Pulse Rate 74 63 64 Respiratory Rate 20 18 20 Blood Pressure 140/83 118/61 112/64 Pulse Oximetry 94 L 94 L 06/10/18 01:33 06/10/18 03:40 06/10/18 03:55 Temperature 97.8 F 98.9 F 98.9 F Pulse Rate 61 65 65 Respiratory Rate 18 20 18 Blood Pressure 134/75 126/75 136/75 Pulse Oximetry 98 95 98 06/10/18 04:00 06/10/18 08:00 06/10/18 12:00 Temperature 99.1 F 99.3 F Pulse Rate 67 74 74 Respiratory Rate 20 20 Blood Pressure 136/75 120/59 L Pulse Oximetry 94 L 97 Intake & Output 06/09/18 06/10/18 06/10/18 18:59 06:59 18:59 Intake Total 812 / 812 1778.5 / 1778.5 Output Total 800 / 800 Balance 1778.5 / 1778.5 Weight 178 lb 12.718 oz Intake: IV 662.5 / 662.5 Levaquin 750 mg Premix Inj 150 150 / 150 ML @ 100 mls/hr IV.SIG Q24H CHARANJIT Rx#:[id number] NS Inj 250 ML @ 15 mls/hr IV. 250 / 250 SIG ONCE CHARANJIT Rx#:[id number] Vancomycin Inj 1,250 MG In NS 262.5 / 262.5 Inj 250 ML @ 250 mls/hr IV.SIG Q24H CHARANJIT Rx#:[id number] Oral 480 / 480 Intake (Blood Product) Amt 332 / 332 1116 / 1116 Plasma Thawed 5 Day Cp2d Unit 0 / 0 316 / 316 [id number] Plasma Thawed 5 Day Cp2d Unit 332 / 332 [id number] Pre-Pooled Cryo Thawed 10units 0 / 0 Unit [id number] Rbc As-3 Leukoreduced Unit 400 / 400 [id number] Rbc As-3 Leukoreduced Unit 400 / 400 [id number] Output: Urine 800 / 800 Result Diagrams: 06/10/18 06:09 06/10/18 06:09 Laboratory Results: Laboratory Results - last 24 hr 06/09/18 06/09/18 06/09/18 09:52 14:15 14:15 WBC RBC Hgb Hct MCV MCH MCHC RDW Plt Count MPV Prelim Diff (Auto) Neut % (Auto) Lymph % (Auto) [place] % (Auto) Eos % (Auto) Baso % (Auto) Neut # (Auto) Lymph # (Auto) [place] # (Auto) Eos # (Auto) Baso # (Auto) WBC Differential Seg Neuts % (Manual) Band Neuts % (Manual) Lymphocytes % (Manual) Monocytes % (Manual) Eosinophils % (Manual) Basophils % (Manual) Abs Neuts (Manual) Nucleated RBCs/100 WBC Differential Comment Toxic Granulation Platelet Estimate Platelet Morphology ESR Retic Count Absolute Retic Sodium Potassium Chloride Carbon Dioxide Anion Gap BUN 9 Creatinine 1.23 Estimated GFR 60 L Random Glucose Calcium Total Bilirubin AST ALT Alkaline Phosphatase C-Reactive Protein Total Protein Albumin Vancomycin Trough Rheumatoid Factor Scrn Rheumatoid Factor Titer GLORIA Screen Blood Type B Positive Antibody Screen Negative MTS Gel Crossmatch See Detail Blood Bank Comment Bld Prod Order Comment 06/09/18 06/09/18 06/09/18 14:15 19:03 21:20 WBC 3.0 L 3.1 L RBC 2.09 L 2.10 L Hgb 7.8 L 7.7 L Hct 22.3 L 22.4 L MCV 106.9 H 106.5 H MCH 37.2 H 36.8 H MCHC 34.8 34.6 RDW 18.6 H 18.7 H Plt Count 43 L 45 L MPV 8.2 8.7 Prelim Diff (Auto) Neut % (Auto) Lymph % (Auto) [place] % (Auto) Eos % (Auto) Baso % (Auto) Neut # (Auto) Lymph # (Auto) [place] # (Auto) Eos # (Auto) Baso # (Auto) WBC Differential Seg Neuts % (Manual) Band Neuts % (Manual) Lymphocytes % (Manual) Monocytes % (Manual) Eosinophils % (Manual) Basophils % (Manual) Abs Neuts (Manual) Nucleated RBCs/100 WBC Differential Comment Toxic Granulation Platelet Estimate Platelet Morphology ESR Retic Count Absolute Retic Sodium Potassium Chloride Carbon Dioxide Anion Gap BUN Creatinine Estimated GFR Random Glucose Calcium Total Bilirubin AST ALT Alkaline Phosphatase C-Reactive Protein Total Protein Albumin Vancomycin Trough 10.8 H Rheumatoid Factor Scrn Rheumatoid Factor Titer GLORIA Screen Blood Type Antibody Screen [employer] Blood Bank Comment Bld Prod Order Comment 06/10/18 06/10/18 06/10/18 06:09 06:09 06:09 WBC RBC Hgb Hct MCV MCH MCHC RDW Plt Count MPV Prelim Diff (Auto) Neut % (Auto) Lymph % (Auto) [place] % (Auto) Eos % (Auto) Baso % (Auto) Neut # (Auto) Lymph # (Auto) [place] # (Auto) Eos # (Auto) Baso # (Auto) WBC Differential Seg Neuts % (Manual) Band Neuts % (Manual) Lymphocytes % (Manual) Monocytes % (Manual) Eosinophils % (Manual) Basophils % (Manual) Abs Neuts (Manual) Nucleated RBCs/100 WBC Differential Comment Toxic Granulation Platelet Estimate Platelet Morphology ESR 97 H Retic Count 2.1 Absolute Retic 65.6 Sodium 138 Potassium 3.7 Chloride 103 Carbon Dioxide 27.4 Anion Gap 8 BUN 8 Creatinine 1.32 H Estimated GFR 55 L Random Glucose 89 Calcium 7.6 L Total Bilirubin 2.4 H AST 39 H ALT 18 Alkaline Phosphatase 84 C-Reactive Protein 1.32 H Total Protein 7.9 D Albumin 1.8 L Vancomycin Trough Rheumatoid Factor Scrn Negative Rheumatoid Factor Titer Not Reportable GLORIA Screen Neg Blood Type Antibody Screen [facility] [employer] Blood Bank Comment Bld Prod Order Comment 06/10/18 06:09 WBC 3.4 L RBC 3.15 L Hgb 11.0 L D Hct 31.8 L MCV 101.2 H D MCH 35.0 H MCHC 34.6 RDW 21.1 H Plt Count 50 L MPV 8.5 Prelim Diff (Auto) Slide review pending Neut % (Auto) 65.1 Lymph % (Auto) 18.1 [place] % (Auto) 12.5 H Eos % (Auto) 3.0 Baso % (Auto) 1.3 Neut # (Auto) 2.2 Lymph # (Auto) 0.6 L [place] # (Auto) 0.4 Eos # (Auto) 0.1 Baso # (Auto) 0.0 WBC Differential Manual diff final Seg Neuts % (Manual) 78 H Band Neuts % (Manual) 8 H Lymphocytes % (Manual) 8 L Monocytes % (Manual) 2 Eosinophils % (Manual) 3 Basophils % (Manual) 1 Abs Neuts (Manual) 2.9 Nucleated RBCs/100 WBC 1 H Differential Comment . Toxic Granulation 1+ H Platelet Estimate Low L Platelet Morphology Normal ESR Retic Count Absolute Retic Sodium Potassium Chloride Carbon Dioxide Anion Gap BUN Creatinine Estimated GFR Random Glucose Calcium Total Bilirubin AST ALT Alkaline Phosphatase C-Reactive Protein Total Protein Albumin Vancomycin Trough Rheumatoid Factor Scrn Rheumatoid Factor Titer GLORIA Screen Blood Type Antibody Screen MTS Gel Crossmatch Blood Bank Comment Bld Prod Order Comment Medications: Active Medications Generic Name Dose Route Start Last Admin Trade Name Freq PRN Reason Stop Dose Admin Artificial Tears 1 drop 05/29/18 10:00 06/10/18 12:49 Tears Naturale Opth Drops EACH EYE Not Given Q4H CHARANJIT Artificial Tears 1 drops 05/29/18 18:00 06/10/18 12:48 Genteal Severe Dry Eye Relief 0.3% Opth Gel EACH EYE Not Given Q4H CHARANJIT Levofloxacin/Dextrose 150 mls @ 100 mls/hr 05/28/18 00:00 06/10/18 00:33 Levaquin 750 Mg Premix Inj IV.SIG Infused Q24H CHARANJIT Infusion Vancomycin HCl 1,250 mg/ 262.5 mls @ 250 mls/hr 06/09/18 20:00 06/09/18 22:55 Sodium Chloride IV.SIG Infused Q24H CHARANJIT Infusion Ibuprofen 600 mg 05/27/18 21:56 05/30/18 22:18 Motrin PO 600 mg Q6H PRN Administration Fever >101 Ondansetron HCl 4 mg 05/23/18 17:58 05/28/18 09:41 Zofran Inj IV.PUSH 4 mg Q6H PRN Administration NAUSEA OR VOMITING Oxycodone HCl 5 mg 05/23/18 18:52 06/09/18 16:22 Roxicodone PO 5 mg Q6H PRN Administration pain 3-10 Pantoprazole Sodium 40 mg 05/24/18 21:00 06/10/18 09:39 Protonix PO Not Given BID [facility] Senna/Docusate Sodium 1 tab 05/23/18 21:00 06/10/18 09:38 Lina-Colace PO Not Given BID [facility] Sodium Chloride 2 ml 05/23/18 12:33 06/10/18 09:44 Ns Flush IV.FLUSH 2 ml PRN PRN Administration FLUSH AFTER USING IV ACCESS Sodium Chloride 10 ml 06/06/18 15:00 06/09/18 08:37 Ns Inj IRRIGATION Not Given DAILY [facility] Objective Remarks: GENERAL: Older male patient, lying in bed, in no acute distress. SKIN: Warm and dry. +psoriasis plaques to BLE. HEAD: Normocephalic. EYES: No injection or drainage. NECK: Supple, trachea midline. CARDIOVASCULAR: +S1/S2 without murmurs. RESPIRATORY: Anterior breath sounds clear, equal bilaterally. Nonlabored. GASTROINTESTINAL: Abdomen tender, +guarding. No swelling, erythema or bleeding at previous placed drain site. EXTREMITIES: No cyanosis, or edema. Chronic skin discoloration and psoriasis plaques to BLE. MUSCULOSKELETAL: Adequate muscle tone. NEUROLOGICAL: No obvious focal deficit. Awake, alert, and oriented x3. Assessment/Plan - Plan 62-year-old male admitted with right lower quadrant pain. He has history of alcoholic liver disease, liver cirrhosis, hepatitis C and diabetes. He was found to have extensive varicosities on his CT abdomen and pelvis which could be possible abscess or hematoma. The patient has been evaluated by GI and is s/ p EGD and colonoscopy. The patient was seen by hematology services earlier in this admission, he was scheduled for discharge home when he started having fevers. CT abdomen showed a complex fluid collection in the perinephric space on the right side measures 5.8 x 5.1 cm with septation and soft tissue components to it. The largest pocket of fluid collection measures almost 5.3 cm in size not significantly changed. Hematology was reconsulted for evaluation/ risk for aspirate of the complex fluid collection in the perinephric space, given his history of coagulopathy and thrombocytopenia. 1. Thrombocytopenia stable with platelet count 50k today. Hgb much improved after pt received 2 units PRBC's overnight. Continue to monitor for bleeding. 2. We will continue to monitor CBC and coags. Our goal is to keep fibrinogen greater than 150. Recheck coags in a.m. 3. I will add on lactulose as patient reports he has not had a bowel movement in several days. - Attending Statement Pt examined. No evidence of bleeding. Abdomen is much softer and non-tender. Will check labs in AM and escalation engineer MD to see pt in AM.
[2018-06-10] MEDS ORDERED: Pharmacy Ordered Lab Info OTHER ONE (19:45)
[2018-06-11] MEDS: Vancomycin Inj 1,250 MG in Sodium Chlor 0.9% Inj 250 ML IV.SIG SCH ×2 (00:56→20:45)
[2018-06-11] MEDS: Hypromellose 0.3% Opth Gel 10 GM Bottle EACH EYE SCH ×6 (00:56→17:26)
[2018-06-11] MEDS: Artificial Tears Opth Drops 15 ML Bottle EACH EYE SCH ×6 (00:57→17:27)
[2018-06-11 07:11] LABS: Hematocrit 30.8 % (39.0-51.0); Hemoglobin 10.9 gm/dL (13.0-17.0); Mean Corpuscular HGB Conc 35.3 % (32.0-36.0); Mean Corpuscular Hemoglobin 35.6 pg (27.0-34.0); Mean Corpuscular Volume 100.7 fL (80.0-100.0); Mean Platelet Volume 9.2 fL (7.0-11.0); Platelet Count 42 th/mm3 (150-450); Red Blood Count 3.06 mil/mm3 (4.50-5.90); Red Cell Distribution Width 21.2 % (11.6-17.2); White Blood Count 3.5 th/mm3 (4.0-11.0)
[2018-06-11 07:24] LABS: Activated Partial Thrombo Time 40.1 sec (24.3-30.1); INR 1.6 Ratio; Prothrombin Time 16.1 sec (9.8-11.6)
[2018-06-11 07:34] LABS: D-Dimer 10.42 mg/L FEU (0.00-0.50)
[2018-06-11 07:35] LABS: Albumin 1.6 g/dL (3.4-5.0); Calcium 7.3 mg/dL (8.5-10.1); Carbon Dioxide 24.7 meq/L (21.0-32.0); Potassium 3.3 meq/L (3.5-5.1)
[2018-06-11 07:36] LABS: Total Protein 7.6 g/dL (6.4-8.2)
[2018-06-11] MEDS: Senna/Docusate Sodium 8.6/50 MG Tablet PO SCH ×2 (08:59→20:39)
[2018-06-11 10:11] LABS: Eosinophils 3 % (0-4); Lymphocytes 31 % (9-44); Monocytes 6 % (0-8)
[2018-06-11 10:14] LABS: Ovalocytes 1+; Platelet Morphology Normal (Normal); Toxic Granulation 1+
--- NOTE | 2018-06-11 10:30 | P.PNONC ---
Subjective Interval history: Afebrile. Patient denies any bleeding. Denies abdominal pain. Reports feeling well today. Objective Vital Signs/Intake & Output: Vital Signs 06/10/18 12:00 06/10/18 16:00 06/10/18 20:00 Temperature 99.3 F 98.8 F 98.6 F Pulse Rate 74 78 79 Respiratory Rate 20 20 18 Blood Pressure 120/59 L 129/72 128/70 Pulse Oximetry 97 95 95 06/11/18 00:00 06/11/18 04:00 06/11/18 08:00 Temperature 98.6 F 99.1 F 99.1 F Pulse Rate 67 65 59 L Respiratory Rate 16 16 18 Blood Pressure 135/68 115/65 114/59 L Pulse Oximetry 94 L 95 98 Intake & Output 06/10/18 06/11/18 06/11/18 18:59 06:59 18:59 Intake Total 480 / 480 652.5 / 652.5 Output Total 1200 / 1200 600 / 600 Balance -720 / -720 52.5 / 52.5 Weight 79.5 kg Intake: IV 412.5 / 412.5 Levaquin 750 mg Premix Inj 150 150 / 150 ML @ 100 mls/hr IV.SIG Q24H CHARANJIT Rx#:[id number] Vancomycin Inj 1,250 MG In NS 262.5 / 262.5 Inj 250 ML @ 250 mls/hr IV.SIG Q24H CHARANJIT Rx#:[id number] Oral 480 / 480 240 / 240 Output: Urine 1200 / 1200 600 / 600 Other: Date of Last Bowel Movement 06/10/18 06/10/18 # Bowel Movements 1 0 Result Diagrams: 06/11/18 05:14 06/11/18 05:14 Laboratory Results: Laboratory Results - last 24 hr 06/10/18 06/11/18 06/11/18 06:09 00:00 05:14 WBC 3.5 L RBC 3.06 L Hgb 10.9 L Hct 30.8 L MCV 100.7 H MCH 35.6 H MCHC 35.3 RDW 21.2 H Plt Count 42 L MPV 9.2 Prelim Diff (Auto) Manual diff required WBC Differential Manual diff final Seg Neuts % (Manual) 58 Band Neuts % (Manual) 2 Lymphocytes % (Manual) 31 Monocytes % (Manual) 6 Eosinophils % (Manual) 3 Abs Neuts (Manual) 2.1 Differential Comment . Toxic Granulation 1+ H Platelet Estimate Low L Platelet Morphology Normal Ovalocytes 1+ H PT INR APTT Fibrinogen D-Dimer Quant (PE/DVT) Sodium Potassium Chloride Carbon Dioxide Anion Gap BUN Creatinine Estimated GFR Random Glucose Calcium Prot Corrected Calcium Total Bilirubin AST ALT Alkaline Phosphatase Total Protein Albumin Vancomycin Trough 12.7 H GLORIA Screen Neg 06/11/18 06/11/18 06/11/18 05:14 05:14 05:14 WBC RBC Hgb Hct MCV MCH MCHC RDW Plt Count MPV Prelim Diff (Auto) WBC Differential Seg Neuts % (Manual) Band Neuts % (Manual) Lymphocytes % (Manual) Monocytes % (Manual) Eosinophils % (Manual) Abs Neuts (Manual) Differential Comment Toxic Granulation Platelet Estimate Platelet Morphology Ovalocytes PT 16.1 H INR 1.6 APTT 40.1 H Fibrinogen 173 L D-Dimer Quant (PE/DVT) 10.42 H Sodium 134 L Potassium 3.3 L Chloride 100 Carbon Dioxide 24.7 Anion Gap 9 BUN 9 Creatinine 1.20 Estimated GFR 62 L Random Glucose 65 L Calcium 7.3 L* Prot Corrected Calcium 7.1 L* Total Bilirubin 2.2 H AST 41 H ALT 15 Alkaline Phosphatase 83 Total Protein 7.6 Albumin 1.6 L Vancomycin Trough GLORIA Screen Culture Results: Microbiology 06/10/18 17:15 Stool Occult Blood (WILLY) - Final Stool Hemoccult negative 06/03/18 12:40 Fungal Smear - Final Abscess - Other No fungal elements seen Fungal Culture - Preliminary No growth in 1 week 06/03/18 12:40 Acid Fast Bacilli Smear - Final Abscess - Other No acid fast bacilli seen Mycobacterial Culture - Preliminary No growth in 1 week Medications: Active Medications Generic Name Dose Route Start Last Admin Trade Name Freq PRN Reason Stop Dose Admin Artificial Tears 1 drop 05/29/18 10:00 06/11/18 09:00 Tears Naturale Opth Drops EACH EYE Not Given Q4H CHARANJIT Artificial Tears 1 drops 05/29/18 18:00 06/11/18 09:00 Genteal Severe Dry Eye Relief 0.3% Opth Gel EACH EYE Not Given Q4H CHARANJIT Levofloxacin/Dextrose 150 mls @ 100 mls/hr 05/28/18 00:00 06/11/18 05:45 Levaquin 750 Mg Premix Inj IV.SIG Infused Q24H CHARANJIT Infusion Vancomycin HCl 1,250 mg/ 262.5 mls @ 250 mls/hr 06/09/18 20:00 06/11/18 05:45 Sodium Chloride IV.SIG Infused Q24H CHARANJIT Infusion Ibuprofen 600 mg 05/27/18 21:56 05/30/18 22:18 Motrin PO 600 mg Q6H PRN Administration Fever >101 Lactulose 30 ml 06/10/18 13:31 06/10/18 14:06 Lactulose Liq PO 30 ml BID PRN Administration Severe constipation Ondansetron HCl 4 mg 05/23/18 17:58 05/28/18 09:41 Zofran Inj IV.PUSH 4 mg Q6H PRN Administration NAUSEA OR VOMITING Oxycodone HCl 5 mg 05/23/18 18:52 06/10/18 14:59 Roxicodone PO 5 mg Q6H PRN Administration pain 3-10 Pantoprazole Sodium 40 mg 05/24/18 21:00 06/11/18 08:58 Protonix PO 40 mg BID CHARANJIT Administration Senna/Docusate Sodium 1 tab 05/23/18 21:00 06/11/18 08:59 Lina-Colace PO 1 tab BID CHARANJIT Administration Sodium Chloride 2 ml 05/23/18 12:33 06/10/18 09:44 Ns Flush IV.FLUSH 2 ml PRN PRN Administration FLUSH AFTER USING IV ACCESS Sodium Chloride 10 ml 06/06/18 15:00 06/11/18 09:00 Ns Inj IRRIGATION Not Given DAILY [facility] Objective Remarks: GENERAL: Older male patient, lying in bed, in no acute distress. SKIN: Pale, warm and dry. +psoriasis plaques to BLE. HEAD: Normocephalic. EYES: No injection or drainage. NECK: Supple, trachea midline. CARDIOVASCULAR: +S1/S2 without murmurs. RESPIRATORY: Anterior breath sounds clear, equal bilaterally. Nonlabored. GASTROINTESTINAL: Abdomen non-soft, tender, no distention. Previous site of abscess drain, posterior right no bleeding, discharge or erythema noted. EXTREMITIES: No cyanosis, or edema. Chronic skin discoloration and psoriasis plaques to BLE. MUSCULOSKELETAL: Adequate muscle tone. NEUROLOGICAL: No obvious focal deficit. Awake, alert, and oriented x3. Assessment/Plan - Plan 62-year-old male admitted with right lower quadrant pain. He has history of alcoholic liver disease, liver cirrhosis, hepatitis C and diabetes. He was found to have extensive varicosities on his CT abdomen and pelvis which could be possible abscess or hematoma. The patient has been evaluated by GI and is s/ p EGD and colonoscopy. The patient was seen by hematology services earlier in this admission, he was scheduled for discharge home when he started having fevers. CT abdomen showed a complex fluid collection in the perinephric space on the right side measures 5.8 x 5.1 cm with septation and soft tissue components to it. The largest pocket of fluid collection measures almost 5.3 cm in size not significantly changed. Hematology was reconsulted for evaluation/ risk for aspirate of the complex fluid collection in the perinephric space, given his history of coagulopathy and thrombocytopenia. 1. Thrombocytopenia, stable with platelet count 42k today. Hgb improved, currently 10.9. Continue to monitor for bleeding. 2. We will continue to monitor CBC and coags. 3. Fibrinogen, 173 today. Plan is to keep fibrinogen greater than 150. Recheck coags in a.m. 3. Continue lactulose for constipation, as needed.
--- NOTE | 2018-06-11 11:44 | P.PNIM ---
Subjective Interval history: Patient feels slightly better today. Hemoglobin is 10.9 which is a 0.1 downward trend. His platelets are 42 which have trended down 8 points. Fibrinogen this morning is 173 which is an upward trend from 143. Physical Exam Vital signs: Vital Signs 06/10/18 12:00 06/10/18 16:00 06/10/18 20:00 Temperature 99.3 F 98.8 F 98.6 F Pulse Rate 74 78 79 Respiratory Rate 20 20 18 Blood Pressure 120/59 L 129/72 128/70 Pulse Oximetry 97 95 95 06/11/18 00:00 06/11/18 04:00 06/11/18 08:00 Temperature 98.6 F 99.1 F 99.1 F Pulse Rate 67 65 59 L Respiratory Rate 16 16 18 Blood Pressure 135/68 115/65 114/59 L Pulse Oximetry 94 L 95 98 Intake & Output 06/10/18 06/11/18 06/11/18 18:59 06:59 18:59 Intake Total 480 / 480 652.5 / 652.5 Output Total 1200 / 1200 600 / 600 Balance -720 / -720 52.5 / 52.5 Weight 79.5 kg Intake: IV 412.5 / 412.5 Levaquin 750 mg Premix Inj 150 150 / 150 ML @ 100 mls/hr IV.SIG Q24H CHARANJIT Rx#:[id number] Vancomycin Inj 1,250 MG In NS 262.5 / 262.5 Inj 250 ML @ 250 mls/hr IV.SIG Q24H CHARANJIT Rx#:[id number] Oral 480 / 480 240 / 240 Output: Urine 1200 / 1200 600 / 600 Other: Date of Last Bowel Movement 06/10/18 06/10/18 # Bowel Movements 1 0 Narrative: GENERAL: NAD, A&Ox3 HEAD: Normocephalic. NECK: Supple, trachea midline. No lymphadenopathy. EYES: No scleral icterus. No injection or drainage. CARDIOVASCULAR: Regular rate and rhythm without murmurs, gallops, or rubs. RESPIRATORY: Breath sounds equal bilaterally. No accessory muscle use. GASTROINTESTINAL: Abdomen soft, non-tender, nondistended. MUSCULOSKELETAL: No cyanosis, or edema. Psoas muscle drain in place. SKIN: Warm and dry. NEURO: No focal neurological deficits. Results - Labs CBC & Chem 7: 06/11/18 05:14 06/11/18 05:14 Laboratory Results - last 24 hr 06/10/18 06/11/18 06/11/18 06:09 00:00 05:14 WBC 3.5 L RBC 3.06 L Hgb 10.9 L Hct 30.8 L MCV 100.7 H MCH 35.6 H MCHC 35.3 RDW 21.2 H Plt Count 42 L MPV 9.2 Prelim Diff (Auto) Manual diff required WBC Differential Manual diff final Seg Neuts % (Manual) 58 Band Neuts % (Manual) 2 Lymphocytes % (Manual) 31 Monocytes % (Manual) 6 Eosinophils % (Manual) 3 Abs Neuts (Manual) 2.1 Differential Comment . Toxic Granulation 1+ H Platelet Estimate Low L Platelet Morphology Normal Ovalocytes 1+ H PT INR APTT Fibrinogen D-Dimer Quant (PE/DVT) Sodium Potassium Chloride Carbon Dioxide Anion Gap BUN Creatinine Estimated GFR Random Glucose Calcium Prot Corrected Calcium Total Bilirubin AST ALT Alkaline Phosphatase Total Protein Albumin Vancomycin Trough 12.7 H GLORIA Screen Neg 06/11/18 06/11/18 06/11/18 05:14 05:14 05:14 WBC RBC Hgb Hct MCV MCH MCHC RDW Plt Count MPV Prelim Diff (Auto) WBC Differential Seg Neuts % (Manual) Band Neuts % (Manual) Lymphocytes % (Manual) Monocytes % (Manual) Eosinophils % (Manual) Abs Neuts (Manual) Differential Comment Toxic Granulation Platelet Estimate Platelet Morphology Ovalocytes PT 16.1 H INR 1.6 APTT 40.1 H Fibrinogen 173 L D-Dimer Quant (PE/DVT) 10.42 H Sodium 134 L Potassium 3.3 L Chloride 100 Carbon Dioxide 24.7 Anion Gap 9 BUN 9 Creatinine 1.20 Estimated GFR 62 L Random Glucose 65 L Calcium 7.3 L* Prot Corrected Calcium 7.1 L* Total Bilirubin 2.2 H AST 41 H ALT 15 Alkaline Phosphatase 83 Total Protein 7.6 Albumin 1.6 L Vancomycin Trough GLORIA Screen Microbiology 06/10/18 17:15 Stool Stool Occult Blood (WILLY) - Final Hemoccult negative 06/03/18 12:40 Abscess - Other Fungal Smear - Final No fungal elements seen 06/03/18 12:40 Abscess - Other Fungal Culture - Preliminary No growth in 1 week 06/03/18 12:40 Abscess - Other Acid Fast Bacilli Smear - Final No acid fast bacilli seen 09/07/18 12:40 Abscess - Other Mycobacterial Culture - Preliminary No growth in 1 week - Procedures COLONOSCOPY PROCEDURE REPORT EXAM DATE: 05/25/2018 PATIENT NAME: Ricardo Ma MR #: [id number] BIRTHDATE: 1955 ENDOSCOPIST: Venice Mcgowan MD ORDER #: [id number] CAFETERIA SERVER: Julieth Crews RN STATUS: inpatient INDICATIONS: The patient is a 62 yr old male here for a colonoscopy due to abdominal pain and iron deficiency anemia PROCEDURE PERFORMED: Colonoscopy, diagnostic MEDICATIONS: None and Per Anesthesia. PREP QUALITY: The [place] Bowel Prep Score was Right colon 3, Mid colon 2, and Left colon 2. Total = 7. PREP TYPE:Magnesium Citrate ESTIMATED BLOOD LOSS: None CONSENT: The patient understands the risks and benefits of the procedure and understands that these risks include, but are not limited to: sedation, allergic reaction, infection, perforation and/or bleeding. Alternative means of evaluation and treatment include, among others: physical exam, x-rays, and/or surgical intervention. The patient elects to proceed with this endoscopic procedure. medical equipment was checked for proper function. Hand hygiene and appropriate measures for infection prevention was taken. After the risks, benefits and alternatives of the procedure were thoroughly explained, Informed consent was verified, confirmed and timeout was successfully executed by the treatment team. A digital exam revealed external hemorrhoids The Pentax EC-3490Li endoscope was introduced through the anus and advanced to the cecum, which was identified by both the appendix and ileocecal valve. The instrument was then slowly withdrawn as the colon was fully examined. COLON FINDINGS: The colonic mucosa appeared normal. Retroflexed views revealed internal hemorrhoids and Retroflexed views revealed medium internal hemorrhoids The scope was then completely withdrawn from the patient and the procedure terminated. PROCEDURE WITHDRAWAL TIME:6minutes ADVERSE EVENTS: There were no complications. IMPRESSIONS: 1. The colonic mucosa appeared normal 2. Retroflexed views revealed internal hemorrhoids 3. Retroflexed views revealed medium internal hemorrhoids 4. Revealed external hemorrhoids RECOMMENDATIONS: 1. Benefiber 2 tsp daily 2. Continue surveillance 3. Yearly hemoccult RECALL: Return 5 years Colonoscopy Venice Mcgowan MD eSigned: Venice Mcgowan MD 05/25/2018 9:56 AM EGD PROCEDURE REPORT EXAM DATE: 05/25/2018 PATIENT NAME: Ricardo Ma MR #: [id number] BIRTHDATE: 1955 ATTENDING: Venice Mcgowan MD ORDER #: [id number] CAFETERIA SERVER: Julieth Crews and Tiffani Palumbo STATUS: inpatient INDICATIONS: The patient is a 62 yr old male here for an EGD due to iron deficiency anemia and abdominal pain PROCEDURE PERFORMED: EGD w/ biopsy MEDICATIONS: None and Per Anesthesia. TOPICAL ANESTHETIC: CONSENT: The patient understands the risks and benefits of the procedure and understands that these risks include, but are not limited to: sedation, allergic reaction, infection, perforation and/or bleeding. Alternative means of evaluation and treatment include, among others: physical exam, x-rays, and/or surgical intervention. The patient elects to proceed with this endoscopic procedure. medical equipment was checked for proper function. Hand hygiene and appropriate measures for infection prevention was taken. After the risks, benefits and alternatives of the procedure were thoroughly explained, Informed consent was verified, confirmed and timeout was successfully executed by the treatment team. The patient was anesthetized with topical anesthesia and the EC-3490Li (Pedi C) endoscope was introduced through the mouth and advanced to the second portion of the duodenum. Retroflexed views revealed no abnormalities The gastroscope was then slowly withdrawn and removed. ESOPHAGUS: The mucosa of the esophagus appeared normal. STOMACH: There was moderate and ulcerative gastritis in the gastric antrum. A biopsy was performed using cold forceps. Sample sent for histology. ADVERSE EVENTS: There were no complications. IMPRESSIONS: 1. The esophagus appeared normal 2. There was gastritis in the gastric antrum; biopsy was performed 3. Retroflexed views revealed no abnormalities RECOMMENDATIONS: 1. Await biopsy results. Biopsy results will not be ready for 7-10 days. If you don't hear from us in two weeks, call our office for biopsy results. 2. Anti-reflux regimen 3. Continue PPI 4. Avoid NSAIDS PATIENT CONDITION: stable DISPOSITION: Inpatient REPEAT EXAM: Return 3 months EGD pending biopsy results Venice Mcgowan MD eSigned: Venice Mcgowan MD 05/25/2018 9:[address] abscess drainage Signed EXAM DATE: 06/03/2018 1:45 PM EDT AGE/SEX: 62 years / Male INDICATIONS: Right iliopsoas abscess. CLINICAL DATA: This is the patient's initial encounter. Patient reports that signs and symptoms have been present for 1 day and indicates a pain score of 0/ 10. MEDICAL/SURGICAL HISTORY: Cirrhosis. Diabetes. Hepatitis C. None. COMPARISON: No prior exams available for comparison. SEDATION TIME (min): 30 BIOPSY SITE: right iliopsoas abscess MEDICATION(S): 3.5mg midazolam (Versed) IV 175mcg fentanyl (Sublimaze) IV DEVICE(S): 8 Fr Skater FLUID: Total volume of 25 of purulent, red fluid was removed. Fluid was sent to lab for ordered studies.. . . PROCEDURE : CT guided drainage of the right iliopsoas abscess. Conscious sedation with continuous EKG and oximetry monitoring. The risks, benefits and alternatives to the procedure were explained and verbal and written consent was obtained. Using automated exposure control and adjustment of the mA and/or kV according to patient size, radiation dose was kept as low as reasonably achievable to obtain optimal diagnostic quality images. The site was prepped in sterile fashion. Full sterile technique was used, including cap, mask, sterile gloves and gown and a large sterile sheet. Hand hygiene and 2% chlorhexidine and/or betadine/alcohol prep was utilized per protocol for cutaneous antisepsis. The skin and subcutaneous tissues were infiltrated with local anesthetic solution. DICOM format image data is available electronically for review and comparison. FINDINGS: Using CT guidance the prescribed site was localized. An 18-gauge needle was advanced into the hypodense collection in the right psoas. Purulent material was aspirated. Therefore, the 035 Bentson wire was advanced through the outer cannula and coiled in the collection. Tract was dilated to accommodate the 8 Citizen [place] locking cope loop. Drainage was performed using the prescribed catheter. The patient tolerated the procedure well and there were no complications. The patient tolerated the procedure well and there were no complications. The patient was sent to post anesthesia recovery in stable condition. CONCLUSION: 1. Uncomplicated CT guided drainage of right psoas abscess as above. Electronically signed by: Darrius Pascal MD 06/03/2018 1:50 PM EDT Assessment and Plan - Plan 62-year-old male admitted secondary to symptomatic anemia with thrombocytopenia and fever. Patient complains of poor appetite. Megace started as an appetite stimulant. Hemoglobin, platelets, and fibrinogen show some stability compared to prior. fever of unknown origin ID following Continue vancomycin for coverage of MSSA Iliopsoas/psoas fluid collection drain in place Continue Levaquin Hypocalcemia Monitor calcium levels Replace as needed Abdominal pain/gastritis Hematoma GI following Heme on following Continue PPI Anemia/thrombocytopenia weight loss Weakness Dyspnea on exertion 2 units transfusion of packed red blood cells provided on 06/09/2018 1 unit transfusion of packed red blood cells provided on 06/08/2018 Follow hemoglobin Follow platelets Diabetes mellitus type 2 Follow blood sugars Insulin sliding scale Diabetic diet Hepatitis C INR is 1.6 naturally. Suggestive of cirrhosis. Patient quit drinking 10 weeks ago Nicotine abuse Patient smokes 4 cigarettes daily Patient counseled to quit HYPOMAGNESIA Monitor and replace as needed ANEMIA TRANSFUSE IF HGB LESS THAN 7.0 DVT prophylaxis Ambulation, chemoprophylaxis held due to hematoma and coagulopathy
[2018-06-11] MEDS: Megestrol Acetate Liq 400 MG/10 ML UDC PO SCH (13:39)
[2018-06-11] MEDS ORDERED: Pharmacy Ordered Lab Info OTHER ONE ×2 (19:45)
[2018-06-12] MEDS: Hypromellose 0.3% Opth Gel 10 GM Bottle EACH EYE SCH ×6 (00:16→21:33)
[2018-06-12] MEDS: Artificial Tears Opth Drops 15 ML Bottle EACH EYE SCH ×6 (00:16→21:34)
[2018-06-12] MEDS: Ibuprofen 600 MG Tablet PO PRN (05:18)
[2018-06-12 07:41] LABS: Hematocrit 27.4 % (39.0-51.0); Hemoglobin 9.6 gm/dL (13.0-17.0); Mean Corpuscular Hemoglobin 35.3 pg (27.0-34.0); Mean Corpuscular Volume 100.8 fL (80.0-100.0); Mean Platelet Volume 9.3 fL (7.0-11.0); Platelet Count 36 th/mm3 (150-450); Red Blood Count 2.72 mil/mm3 (4.50-5.90); Red Cell Distribution Width 20.5 % (11.6-17.2); White Blood Count 3.4 th/mm3 (4.0-11.0)
[2018-06-12 07:53] LABS: INR 1.8 Ratio; Prothrombin Time 17.8 sec (9.8-11.6)
[2018-06-12 08:10] LABS: Albumin 1.4 g/dL (3.4-5.0); Calcium 6.9 mg/dL (8.5-10.1); Carbon Dioxide 21.5 meq/L (21.0-32.0); Total Protein 6.9 g/dL (6.4-8.2)
[2018-06-12 08:37] LABS: Eosinophils 1 % (0-4); Lymphocytes 18 % (9-44); Metamyelocytes 1 % (0-1); Monocytes 12 % (0-8); Myelocytes 1 % (0-0); Ovalocytes 1+; Promyelocyte 1 % (0-0); Toxic Granulation 1+
[2018-06-12 08:38] LABS: Platelet Morphology Normal (Normal)
[2018-06-12] MEDS: Megestrol Acetate Liq 400 MG/10 ML UDC PO SCH (10:32)
[2018-06-12] MEDS: Senna/Docusate Sodium 8.6/50 MG Tablet PO SCH ×2 (10:34→21:35)
--- NOTE | 2018-06-12 11:51 | P.PNIM ---
Subjective Interval history: Fever present overnight, likely physiologic. No infection suspected, patient is feeling well today. He does have a downward trend in hemoglobin, platelets, and fibrinogen. No critical level today. Physical Exam Vital signs: Vital Signs 06/11/18 12:00 06/11/18 16:00 06/11/18 20:00 Temperature 98.9 F 101.5 F H 101.7 F H Pulse Rate 70 79 75 Respiratory Rate 20 18 18 Blood Pressure 145/74 H 152/75 H 126/61 Pulse Oximetry 98 95 96 06/12/18 00:00 06/12/18 04:00 06/12/18 08:00 Temperature 98 F 101.6 F H 97.7 F Pulse Rate 72 74 65 Respiratory Rate 18 18 20 Blood Pressure 118/60 133/62 115/64 Pulse Oximetry 96 94 L 95 Intake & Output 06/11/18 06/12/18 06/12/18 18:59 06:59 18:59 Intake Total 720 / 720 1132.5 / 1132.5 Output Total 600 / 600 Balance 720 / 720 532.5 / 532.5 Weight 79.5 kg Intake: IV 412.5 / 412.5 Levaquin 750 mg Premix Inj 150 150 / 150 ML @ 100 mls/hr IV.SIG Q24H [facility] Rx#:[id number] Vancomycin Inj 1,250 MG In NS 262.5 / 262.5 Inj 250 ML @ 250 mls/hr IV.SIG Q24H [facility] Rx#:[id number] Oral 720 / 720 720 / 720 Output: Urine 600 / 600 Wound Drainage 0 / 0 right posterior 0 / 0 Other: # Voids 4 3 Date of Last Bowel Movement 06/11/18 06/11/18 # Bowel Movements 0 Narrative: GENERAL: NAD, A&Ox3 HEAD: Normocephalic. NECK: Supple, trachea midline. No lymphadenopathy. EYES: No scleral icterus. No injection or drainage. CARDIOVASCULAR: Regular rate and rhythm without murmurs, gallops, or rubs. RESPIRATORY: Breath sounds equal bilaterally. No accessory muscle use. GASTROINTESTINAL: Abdomen soft, non-tender, nondistended. MUSCULOSKELETAL: No cyanosis, or edema. Psoas muscle drain in place. SKIN: Warm and dry. NEURO: No focal neurological deficits. Results - Labs CBC & Chem 7: 06/12/18 06:20 06/12/18 06:20 Laboratory Results - last 24 hr 06/11/18 06/12/18 06/12/18 20:45 06:20 06:20 WBC 3.4 L RBC 2.72 L Hgb 9.6 L Hct 27.4 L MCV 100.8 H MCH 35.3 H MCHC 35.0 RDW 20.5 H Plt Count 36 L MPV 9.3 Prelim Diff (Auto) Manual diff required WBC Differential Manual diff final Seg Neuts % (Manual) 64 Band Neuts % (Manual) 2 Lymphocytes % (Manual) 18 Monocytes % (Manual) 12 H Eosinophils % (Manual) 1 Metamyelocytes % (Man) 1 Myelocytes % (Man) 1 H Promyelocytes % (Man) 1 H Abs Neuts (Manual) 2.3 Differential Comment . Toxic Granulation 1+ H Platelet Estimate Low L Platelet Morphology Normal Ovalocytes 1+ H PT 17.8 H INR 1.8 Fibrinogen 126 L Sodium Potassium Chloride Carbon Dioxide Anion Gap BUN Creatinine Estimated GFR Random Glucose Calcium Prot Corrected Calcium Total Bilirubin AST ALT Alkaline Phosphatase Total Protein Albumin Vancomycin Trough 13.9 H 06/12/18 06:20 WBC RBC Hgb Hct MCV MCH MCHC RDW Plt Count MPV Prelim Diff (Auto) WBC Differential Seg Neuts % (Manual) Band Neuts % (Manual) Lymphocytes % (Manual) Monocytes % (Manual) Eosinophils % (Manual) Metamyelocytes % (Man) Myelocytes % (Man) Promyelocytes % (Man) Abs Neuts (Manual) Differential Comment Toxic Granulation Platelet Estimate Platelet Morphology Ovalocytes PT INR Fibrinogen Sodium 132 L Potassium 3.0 L Chloride 102 Carbon Dioxide 21.5 Anion Gap 9 BUN 10 Creatinine 1.22 Estimated GFR 60 L Random Glucose 107 H Calcium 6.9 L* Prot Corrected Calcium 7.0 L* Total Bilirubin 1.6 H AST 44 H ALT 14 Alkaline Phosphatase 78 Total Protein 6.9 D Albumin 1.4 L Vancomycin Trough - Procedures COLONOSCOPY PROCEDURE REPORT EXAM DATE: 05/25/2018 PATIENT NAME: Ricardo Ma MR #: [id number] BIRTHDATE: 1955 ENDOSCOPIST: Venice Mcgowan MD ORDER #: [id number] SALES STRATEGY MANAGER: Julieth Crews RN STATUS: inpatient INDICATIONS: The patient is a 62 yr old male here for a colonoscopy due to abdominal pain and iron deficiency anemia PROCEDURE PERFORMED: Colonoscopy, diagnostic MEDICATIONS: None and Per Anesthesia. PREP QUALITY: The [place] Bowel Prep Score was Right colon 3, Mid colon 2, and Left colon 2. Total = 7. PREP TYPE:Magnesium Citrate ESTIMATED BLOOD LOSS: None CONSENT: The patient understands the risks and benefits of the procedure and understands that these risks include, but are not limited to: sedation, allergic reaction, infection, perforation and/or bleeding. Alternative means of evaluation and treatment include, among others: physical exam, x-rays, and/or surgical intervention. The patient elects to proceed with this endoscopic procedure. medical equipment was checked for proper function. Hand hygiene and appropriate measures for infection prevention was taken. After the risks, benefits and alternatives of the procedure were thoroughly explained, Informed consent was verified, confirmed and timeout was successfully executed by the treatment team. A digital exam revealed external hemorrhoids The Pentax EC-3490Li endoscope was introduced through the anus and advanced to the cecum, which was identified by both the appendix and ileocecal valve. The instrument was then slowly withdrawn as the colon was fully examined. COLON FINDINGS: The colonic mucosa appeared normal. Retroflexed views revealed internal hemorrhoids and Retroflexed views revealed medium internal hemorrhoids The scope was then completely withdrawn from the patient and the procedure terminated. PROCEDURE WITHDRAWAL TIME:6minutes ADVERSE EVENTS: There were no complications. IMPRESSIONS: 1. The colonic mucosa appeared normal 2. Retroflexed views revealed internal hemorrhoids 3. Retroflexed views revealed medium internal hemorrhoids 4. Revealed external hemorrhoids RECOMMENDATIONS: 1. Benefiber 2 tsp daily 2. Continue surveillance 3. Yearly hemoccult RECALL: Return 5 years Colonoscopy Venice Mcgowan MD eSigned: Venice Mcgowan MD 05/25/2018 9:56 AM EGD PROCEDURE REPORT EXAM DATE: 05/25/2018 PATIENT NAME: Ricardo Ma MR #: [id number] BIRTHDATE: 1955 ATTENDING: Venice Mcgowan MD ORDER #: [id number] SALES STRATEGY MANAGER: Alma Crews, Tiffani STATUS: inpatient INDICATIONS: The patient is a 62 yr old male here for an EGD due to iron deficiency anemia and abdominal pain PROCEDURE PERFORMED: EGD w/ biopsy MEDICATIONS: None and Per Anesthesia. TOPICAL ANESTHETIC: CONSENT: The patient understands the risks and benefits of the procedure and understands that these risks include, but are not limited to: sedation, allergic reaction, infection, perforation and/or bleeding. Alternative means of evaluation and treatment include, among others: physical exam, x-rays, and/or surgical intervention. The patient elects to proceed with this endoscopic procedure. medical equipment was checked for proper function. Hand hygiene and appropriate measures for infection prevention was taken. After the risks, benefits and alternatives of the procedure were thoroughly explained, Informed consent was verified, confirmed and timeout was successfully executed by the treatment team. The patient was anesthetized with topical anesthesia and the EC-3490Li (Pedi C) endoscope was introduced through the mouth and advanced to the second portion of the duodenum. Retroflexed views revealed no abnormalities The gastroscope was then slowly withdrawn and removed. ESOPHAGUS: The mucosa of the esophagus appeared normal. STOMACH: There was moderate and ulcerative gastritis in the gastric antrum. A biopsy was performed using cold forceps. Sample sent for histology. ADVERSE EVENTS: There were no complications. IMPRESSIONS: 1. The esophagus appeared normal 2. There was gastritis in the gastric antrum; biopsy was performed 3. Retroflexed views revealed no abnormalities RECOMMENDATIONS: 1. Await biopsy results. Biopsy results will not be ready for 7-10 days. If you don't hear from us in two weeks, call our office for biopsy results. 2. Anti-reflux regimen 3. Continue PPI 4. Avoid NSAIDS PATIENT CONDITION: stable DISPOSITION: Inpatient REPEAT EXAM: Return 3 months EGD pending biopsy results Venice Mcgowan MD eSigned: Venice Mcgowan MD 05/25/2018 9:[address] abscess drainage Signed EXAM DATE: 06/03/2018 1:45 PM EDT AGE/SEX: 62 years / Male INDICATIONS: Right iliopsoas abscess. CLINICAL DATA: This is the patient's initial encounter. Patient reports that signs and symptoms have been present for 1 day and indicates a pain score of 0/ 10. MEDICAL/SURGICAL HISTORY: Cirrhosis. Diabetes. Hepatitis C. None. COMPARISON: No prior exams available for comparison. SEDATION TIME (min): 30 BIOPSY SITE: right iliopsoas abscess MEDICATION(S): 3.5mg midazolam (Versed) IV 175mcg fentanyl (Sublimaze) IV DEVICE(S): 8 Fr Skater FLUID: Total volume of 25 of purulent, red fluid was removed. Fluid was sent to lab for ordered studies.. . . PROCEDURE : CT guided drainage of the right iliopsoas abscess. Conscious sedation with continuous EKG and oximetry monitoring. The risks, benefits and alternatives to the procedure were explained and verbal and written consent was obtained. Using automated exposure control and adjustment of the mA and/or kV according to patient size, radiation dose was kept as low as reasonably achievable to obtain optimal diagnostic quality images. The site was prepped in sterile fashion. Full sterile technique was used, including cap, mask, sterile gloves and gown and a large sterile sheet. Hand hygiene and 2% chlorhexidine and/or betadine/alcohol prep was utilized per protocol for cutaneous antisepsis. The skin and subcutaneous tissues were infiltrated with local anesthetic solution. DICOM format image data is available electronically for review and comparison. FINDINGS: Using CT guidance the prescribed site was localized. An 18-gauge needle was advanced into the hypodense collection in the right psoas. Purulent material was aspirated. Therefore, the 035 Bentson wire was advanced through the outer cannula and coiled in the collection. Tract was dilated to accommodate the 8 [place] locking cope loop. Drainage was performed using the prescribed catheter. The patient tolerated the procedure well and there were no complications. The patient tolerated the procedure well and there were no complications. The patient was sent to post anesthesia recovery in stable condition. CONCLUSION: 1. Uncomplicated CT guided drainage of right psoas abscess as above. Electronically signed by: Darrius Pascal MD 06/03/2018 1:50 PM EDT Assessment and Plan - Plan 62-year-old male admitted secondary to symptomatic anemia with thrombocytopenia and fever. Appetite has improved on Megace. Fever present overnight.. Hemoglobin, platelets, and fibrinogen show a slight downward trend. Continue to monitor. Consider transfusion based on further trend. fever of unknown origin ID following Continue vancomycin for coverage of MSSA Iliopsoas/psoas fluid collection drain in place Continue Levaquin Hypocalcemia Monitor calcium levels Replace as needed Abdominal pain/gastritis Hematoma GI following Heme on following Continue PPI Anemia/thrombocytopenia weight loss Weakness Dyspnea on exertion 2 units transfusion of packed red blood cells provided on 06/09/2018 1 unit transfusion of packed red blood cells provided on 06/08/2018 Follow hemoglobin Follow platelets Diabetes mellitus type 2 Follow blood sugars Insulin sliding scale Diabetic diet Hepatitis C INR is 1.6 naturally. Suggestive of cirrhosis. Patient quit drinking 10 weeks ago Nicotine abuse Patient smokes 4 cigarettes daily Patient counseled to quit HYPOMAGNESIA Monitor and replace as needed ANEMIA TRANSFUSE IF HGB LESS THAN 7.0 DVT prophylaxis Ambulation, chemoprophylaxis held due to hematoma and coagulopathy
[2018-06-12] MEDS: Vancomycin Inj 1,250 MG in Sodium Chlor 0.9% Inj 250 ML IV.SIG SCH (21:35)
[2018-06-13] MEDS: Artificial Tears Opth Drops 15 ML Bottle EACH EYE SCH ×6 (01:29→23:57)
[2018-06-13] MEDS: Hypromellose 0.3% Opth Gel 10 GM Bottle EACH EYE SCH ×6 (01:29→23:56)
[2018-06-13 08:04] LABS: Hematocrit 31.3 % (39.0-51.0); Mean Corpuscular HGB Conc 35.2 % (32.0-36.0); Mean Corpuscular Hemoglobin 35.6 pg (27.0-34.0); Mean Platelet Volume 9.2 fL (7.0-11.0); Platelet Count 36 th/mm3 (150-450); Red Cell Distribution Width 20.3 % (11.6-17.2); White Blood Count 3.9 th/mm3 (4.0-11.0)
[2018-06-13 08:27] LABS: Albumin 1.5 g/dL (3.4-5.0); Calcium 7.1 mg/dL (8.5-10.1); Carbon Dioxide 20.4 meq/L (21.0-32.0); Magnesium 1.2 mg/dL (1.5-2.5); Potassium 3.4 meq/L (3.5-5.1); Total Protein 7.2 g/dL (6.4-8.2)
[2018-06-13] MEDS: Senna/Docusate Sodium 8.6/50 MG Tablet PO SCH ×2 (09:34→20:46)
[2018-06-13] MEDS: Megestrol Acetate Liq 400 MG/10 ML UDC PO SCH (09:36)
[2018-06-13 10:57] LABS: Eosinophils 3 % (0-4); Lymphocytes 9 % (9-44); Monocytes 10 % (0-8)
[2018-06-13 11:09] LABS: Platelet Morphology Normal (Normal)
--- NOTE | 2018-06-13 14:08 | P.PNID ---
Subjective Remarks: Patient is a 62-year-old male, brought into the hospital for further evaluation of generalized weakness, shortness of breath, poor appetite, weight loss, and abdominal pain. Patient is not a very good historian. Looks like he was hospitalized several times in [facility]. In 1 of his hospitalization he was apparently found to have some kind of a retroperitoneal mass, and a biopsy was done. Patient could not tell me when the biopsy was done but that was when the right-sided abdominal pain started. The pain would radiate to the back, and it could also radiate down to his right medial thigh. He was also having other problems then which was felt to be related to his hepatitis C. On this admission he was found to have anemia. He had an upper and lower endoscopy. The procedure showed some gastritis and there was no active bleeding. Since around May 28 he started having intermittent fevers. He has had blood cultures done and they were negative. He had a urinalysis which showed some pyuria, and the culture grew staph aureus methicillin sensitive. He has had CT of the abdomen and pelvis and they are showing a complex fluid collection in the right perinephric space, psoas muscle area. He continues to have the right lower quadrant pain. Denies any urinary complaints. He has not had any congestion or any cough. No nausea or vomiting. His WBC is normal. His had problem with thrombocytopenia which was felt to be related to his liver disease. Chest x-ray does not show any acute disease. Infectious disease consultation has been requested to evaluate the patient with fevers. He is currently on Levaquin and vancomycin. There is mention of anaphylaxis with penicillin. Patient stated he got very swollen and couldn't breathe Notes reviewed Reviewed records from [facility] - imaging studies showed a retroperitoneal mass; biopsy no malignancy. Had UC also with MSSA Having fevers again in the last 3 days Had drainage of the psoas fluid collection which also grew MSSA BC negative Last CT A/P 06/08 resolution of fluid collection C/O low back pain No resp symptoms Voiding ok No diarrhea No N/V No rash or itching Antibiotics: Vancomycin Levaquin Lines: PIV Past Medical History: Cirrhosis Degenerative joint disease Diabetes Hep C w/o coma, chronic Psoriasis Retroperitoneal mass (?) Allergies/Adverse Reactions: Allergies penicillin G Allergy (Severe, Verified 08/27/18 21:01) Anaphylaxis Objective Vital Signs 06/12/18 16:00 06/12/18 20:00 06/13/18 00:00 Temperature 97.7 F 97.9 F 98.6 F Pulse Rate 63 69 90 Respiratory Rate 18 20 20 Blood Pressure 134/75 135/76 151/90 H Pulse Oximetry 95 98 97 06/13/18 04:00 06/13/18 08:00 06/13/18 10:30 Temperature 100.9 F H 99.6 F Pulse Rate 76 90 Respiratory Rate 18 20 20 Blood Pressure 124/68 108/56 L Pulse Oximetry 95 92 L 06/13/18 12:00 Temperature 98.2 F Pulse Rate 84 Respiratory Rate 15 Blood Pressure 118/69 Pulse Oximetry 98 Intake & Output 06/12/18 06/13/18 06/13/18 18:59 06:59 18:59 Intake Total 1292.5 / 1292.5 Output Total 0 / 0 Balance 1292.5 / 1292.5 Weight 79.5 kg Intake: IV 412.5 / 412.5 Levaquin 750 mg Premix Inj 150 150 / 150 ML @ 100 mls/hr IV.SIG Q24H [facility] Rx#:[id number] Vancomycin Inj 1,250 MG In NS 262.5 / 262.5 Inj 250 ML @ 250 mls/hr IV.SIG Q24H [facility] Rx#:[id number] Oral 480 / 480 Anesthesia Amount 400 / 400 Output: Wound Drainage 0 / 0 right posterior 0 / 0 Other: # Voids 3 Date of Last Bowel Movement 06/11/18 06/11/18 06/11/18 # Bowel Movements 0 06/10/18 17:15 Stool Stool Occult Blood ([facility]) - Final Hemoccult negative 06/03/18 12:40 Abscess - Other Fungal Smear - Final No fungal elements seen 06/03/18 12:40 Abscess - Other Fungal Culture - Preliminary No growth in 1 week 06/03/18 12:40 Abscess - Other Acid Fast Bacilli Smear - Final No acid fast bacilli seen 06/03/18 12:40 Abscess - Other Mycobacterial Culture - Preliminary No growth in 1 week Lab - Hematology Results 06/12/18 06/13/18 06:20 07:15 WBC 3.4 L 3.9 L RBC 2.72 L 3.10 L Hgb 9.6 L 11.0 L Hct 27.4 L 31.3 L MCV 100.8 H 101.0 H MCH 35.3 H 35.6 H MCHC 35.0 35.2 RDW 20.5 H 20.3 H Plt Count 36 L 36 L MPV 9.3 9.2 Prelim Diff (Auto) Manual diff required Manual diff required WBC Differential Manual diff final Manual diff final Seg Neuts % (Manual) 64 74 H Band Neuts % (Manual) 2 4 Lymphocytes % (Manual) 18 9 Monocytes % (Manual) 12 H 10 H Eosinophils % (Manual) 1 3 Metamyelocytes % (Man) 1 Myelocytes % (Man) 1 H Promyelocytes % (Man) 1 H Abs Neuts (Manual) 2.3 3.0 Differential Comment . . Toxic Granulation 1+ H Platelet Estimate Low L Low L Platelet Morphology Normal Normal Ovalocytes 1+ H Lab - Chemistry Results 06/12/18 06/13/18 06/13/18 06:20 07:15 07:30 Sodium 132 L 135 L Potassium 3.0 L 3.4 L Chloride 102 104 Carbon Dioxide 21.5 20.4 L Anion Gap 9 11 BUN 10 10 Creatinine 1.22 1.12 Estimated GFR 60 L 67 L Random Glucose 107 H 81 Calcium 6.9 L* 7.1 L* Prot Corrected Calcium 7.0 L* 7.1 L* Phosphorus 2.0 L Magnesium 1.2 L Total Bilirubin 1.6 H 1.8 H AST 44 H 47 H ALT 14 16 Alkaline Phosphatase 78 110 Ammonia 45 H Total Protein 6.9 D 7.2 Albumin 1.4 L 1.5 L Imaging: ITS Impressions Chest X-Ray 05/27/18 00:00 CONCLUSION: Linear atelectasis or consolidation at the medial right lower lung. Abscess Drainage CT 06/03/18 00:00 CONCLUSION: 1. Uncomplicated CT guided drainage of right psoas abscess as above. Abdomen/Pelvis CT 06/08/18 00:00 CONCLUSION: 1. Near complete resolution of the patient's retroperitoneal abscess on the right. There is no significant remaining fluid in the region of the catheter. The catheter will be removed. Physical Exam: GENERAL: Patient is a thin, well-developed male, awake and alert, not in respiratory distress. SKIN: Cool and dry. Has scattered psoriasis rash in BUE and BLE. No other rash HEAD: Atraumatic. Normocephalic. No temporal wasting, or tenderness. EYES: [place] conjunctiva. No petechia or hemorrhage. Has mild scleral icterus. No injection or drainage. EARS, NOSE AND THROAT: Nose without bleeding or purulent nasal discharge. No sinus tenderness. Mucous membranes pink and moist. No oral lesions noted. No exudate. No oral thrush. NECK: Trachea midline. Supple and not tender, no meningeal signs CARDIOVASCULAR: Regular rate and rhythm. No murmurs, rubs or gallops heard RESPIRATORY: Clear to auscultation. Breath sounds equal bilaterally. No rales , wheezing or rhonchi ABDOMEN: Soft, flat, nondistended, with RLQ tenderness. Bowel sounds present and normoactive. No guarding. No rebound. No organomegaly. BACK: No spine tenderness EXTREMITIES: No clubbing, cyanosis, or edema. No joint effusion, has good ROM. No calf tenderness. NEUROLOGICAL: Non-focal PSYCHIATRIC: Normal affect, calm and cooperative. LINE: No evidence of infection Assessment and Plan - Plan Impression Infective discitis based on clinical suspicion Suspect Infective Endocarditis. MSSA retroperitoneal abscess s.p IR drainage. Also prior drainage at [place]. Records not available. Hepatitis C, liver cirrhosis Thrombocytopenia related to his liver disease, hypersplenism Recurrent fevers Recommendation Continue current Abx: Vanco IV(target trough 15-20) and levaquin per plan. Reports anaphylaxis to penicillin. Discussed penicillin desensitization as an option as it is drug of choice. He says he was told penicillin would kill him. Last PCN when he had strep throat as a child. Explained plan to the patient: continue Vanco IV 2D ECHO - no obvious vegetation seen Repeat 2 BC UA and C/S MRI lumbar spine to evaluate back pain Explained plan to the patient
--- NOTE | 2018-06-13 14:24 | P.PNONC ---
Subjective Interval history: T-max 100.9F. Patient sitting in chair. He states his back started hurting from lying in bed. He reports he is feeling well. He denies any bleeding from any source. He denies any further abdominal pain. Objective Vital Signs/Intake & Output: Vital Signs 06/12/18 16:00 06/12/18 20:00 06/13/18 00:00 Temperature 97.7 F 97.9 F 98.6 F Pulse Rate 63 69 90 Respiratory Rate 18 20 20 Blood Pressure 134/75 135/76 151/90 H Pulse Oximetry 95 98 97 06/13/18 04:00 06/13/18 08:00 06/13/18 10:30 Temperature 100.9 F H 99.6 F Pulse Rate 76 90 Respiratory Rate 18 20 20 Blood Pressure 124/68 108/56 L Pulse Oximetry 95 92 L 06/13/18 12:00 Temperature 98.2 F Pulse Rate 84 Respiratory Rate 15 Blood Pressure 118/69 Pulse Oximetry 98 Intake & Output 06/12/18 06/13/18 06/13/18 18:59 06:59 18:59 Intake Total 1292.5 / 1292.5 Output Total 0 / 0 Balance 1292.5 / 1292.5 Weight 79.5 kg Intake: IV 412.5 / 412.5 Levaquin 750 mg Premix Inj 150 150 / 150 ML @ 100 mls/hr IV.SIG Q24H CHARANJIT Rx#:[id number] Vancomycin Inj 1,250 MG In NS 262.5 / 262.5 Inj 250 ML @ 250 mls/hr IV.SIG Q24H CHARANJIT Rx#:[id number] Oral 480 / 480 Anesthesia Amount 400 / 400 Output: Wound Drainage 0 / 0 right posterior 0 / 0 Other: # Voids 3 Date of Last Bowel Movement 06/11/18 06/11/18 06/11/18 # Bowel Movements 0 Result Diagrams: 06/13/18 07:15 06/13/18 07:15 Laboratory Results: Laboratory Results - last 24 hr 06/13/18 06/13/18 06/13/18 07:15 07:15 07:15 WBC 3.9 L RBC 3.10 L Hgb 11.0 L Hct 31.3 L MCV 101.0 H MCH 35.6 H MCHC 35.2 RDW 20.3 H Plt Count 36 L MPV 9.2 Prelim Diff (Auto) Manual diff required WBC Differential Manual diff final Seg Neuts % (Manual) 74 H Band Neuts % (Manual) 4 Lymphocytes % (Manual) 9 Monocytes % (Manual) 10 H Eosinophils % (Manual) 3 Abs Neuts (Manual) 3.0 Differential Comment . Platelet Estimate Low L Platelet Morphology Normal Fibrinogen 116 L Sodium 135 L Potassium 3.4 L Chloride 104 Carbon Dioxide 20.4 L Anion Gap 11 BUN 10 Creatinine 1.12 Estimated GFR 67 L Random Glucose 81 Calcium 7.1 L* Prot Corrected Calcium 7.1 L* Phosphorus 2.0 L Magnesium 1.2 L Total Bilirubin 1.8 H AST 47 H ALT 16 Alkaline Phosphatase 110 Ammonia Total Protein 7.2 Albumin 1.5 L 06/13/18 07:30 WBC RBC Hgb Hct MCV MCH MCHC RDW Plt Count MPV Prelim Diff (Auto) WBC Differential Seg Neuts % (Manual) Band Neuts % (Manual) Lymphocytes % (Manual) Monocytes % (Manual) Eosinophils % (Manual) Abs Neuts (Manual) Differential Comment Platelet Estimate Platelet Morphology Fibrinogen Sodium Potassium Chloride Carbon Dioxide Anion Gap BUN Creatinine Estimated GFR Random Glucose Calcium Prot Corrected Calcium Phosphorus Magnesium Total Bilirubin AST ALT Alkaline Phosphatase Ammonia 45 H Total Protein Albumin Culture Results: Microbiology 06/10/18 17:15 Stool Occult Blood ([facility]) - Final Stool Hemoccult negative 06/03/18 12:40 Fungal Smear - Final Abscess - Other No fungal elements seen Fungal Culture - Preliminary No growth in 1 week 06/03/18 12:40 Acid Fast Bacilli Smear - Final Abscess - Other No acid fast bacilli seen Mycobacterial Culture - Preliminary No growth in 1 week Medications: Active Medications Generic Name Dose Route Start Last Admin Trade Name Freq PRN Reason Stop Dose Admin Artificial Tears 1 drop 05/29/18 10:00 06/13/18 09:42 Tears Naturale Opth Drops EACH EYE Not Given Q4H CHARANJIT Artificial Tears 1 drops 05/29/18 18:00 06/13/18 09:42 Genteal Severe Dry Eye Relief 0.3% Opth Gel EACH EYE Not Given Q4H CHARANJIT Levofloxacin/Dextrose 150 mls @ 100 mls/hr 05/28/18 00:00 06/13/18 01:34 Levaquin 750 Mg Premix Inj IV.SIG Infused Q24H CHARANJIT Infusion Vancomycin HCl 1,250 mg/ 262.5 mls @ 250 mls/hr 06/09/18 20:00 06/12/18 22:45 Sodium Chloride IV.SIG Infused Q24H CHARANJIT Infusion Ibuprofen 600 mg 05/27/18 21:56 06/12/18 05:18 Motrin PO 600 mg Q6H PRN Administration Fever >101 Lactulose 30 ml 06/10/18 13:31 06/10/18 14:06 Lactulose Liq PO 30 ml BID PRN Administration Severe constipation Megestrol Acetate 400 mg 06/11/18 12:30 06/13/18 09:36 Megace Liq PO 400 mg DAILY CHARANJIT Administration Ondansetron HCl 4 mg 05/23/18 17:58 05/28/18 09:41 Zofran Inj IV.PUSH 4 mg Q6H PRN Administration NAUSEA OR VOMITING Oxycodone HCl 5 mg 05/23/18 18:52 06/13/18 09:32 Roxicodone PO 5 mg Q6H PRN Administration pain 3-10 Pantoprazole Sodium 40 mg 05/24/18 21:00 06/13/18 09:34 Protonix PO 40 mg BID CHARANJIT Administration Senna/Docusate Sodium 1 tab 05/23/18 21:00 06/13/18 09:34 Lina-Colace PO Not Given BID CHARANJIT Sodium Chloride 2 ml 05/23/18 12:33 06/10/18 09:44 Ns Flush IV.FLUSH 2 ml PRN PRN Administration FLUSH AFTER USING IV ACCESS Sodium Chloride 10 ml 06/06/18 15:00 06/13/18 09:41 Ns Inj IRRIGATION Not Given DAILY CHARANJIT Objective Remarks: GENERAL: Older male patient, sitting in chair, in no acute distress. SKIN: Pale, warm and dry. +psoriasis plaques to BLE. HEAD: Normocephalic. EYES: No injection or drainage. NECK: Supple, trachea midline. CARDIOVASCULAR: Regular rate and rhythm without murmurs. RESPIRATORY: Anterior breath sounds clear, equal bilaterally. Nonlabored. GASTROINTESTINAL: Abdomen non-soft, tender, no distention. EXTREMITIES: No cyanosis, or edema. Chronic skin discoloration and psoriasis plaques to BLE. MUSCULOSKELETAL: Adequate muscle tone. NEUROLOGICAL: No obvious focal deficit. Awake, alert, and oriented x3. Assessment/Plan - Plan 62-year-old male admitted with right lower quadrant pain. He has history of alcoholic liver disease, liver cirrhosis, hepatitis C and diabetes. He was found to have extensive varicosities on his CT abdomen and pelvis which could be possible abscess or hematoma. The patient has been evaluated by GI and is s/ p EGD and colonoscopy. The patient was seen by hematology services earlier in this admission, he was scheduled for discharge home when he started having fevers. CT abdomen showed a complex fluid collection in the perinephric space on the right side measures 5.8 x 5.1 cm with septation and soft tissue components to it. The largest pocket of fluid collection measures almost 5.3 cm in size not significantly changed. Hematology was reconsulted for evaluation/ risk for aspirate of the complex fluid collection in the perinephric space, given his history of coagulopathy and thrombocytopenia. Plan: 1. Thrombocytopenia, platelet count 36k today. Subjectively denies any bleeding. No bleeding noted on exam. Continue to monitor for bleeding. 2. Anemia, hemoglobin has continued to improve, it is 11 today. 3. Fibrinogen, continues to decrease, 116 today, goal to keep fibrinogen >150. Will transfuse cryo today. 4. Continue supportive care.
[2018-06-13] MEDS ORDERED: Sodium Chlor 0.9% Inj 250 ML IV.SIG SCH (15:00)
--- NOTE | 2018-06-13 15:23 | P.PNIM ---
Subjective Interval history: Hemoglobin has an upward trend from 9.6-11.0. Stability of platelets are seen with 36 today and yesterday. Fibrinogen has a slight downward trend from 126- 116. Fever is present again last night. Physical Exam Vital signs: Vital Signs 06/12/18 16:00 06/12/18 20:00 06/13/18 00:00 Temperature 97.7 F 97.9 F 98.6 F Pulse Rate 63 69 90 Respiratory Rate 18 20 20 Blood Pressure 134/75 135/76 151/90 H Pulse Oximetry 95 98 97 06/13/18 04:00 06/13/18 08:00 06/13/18 10:30 Temperature 100.9 F H 99.6 F Pulse Rate 76 90 Respiratory Rate 18 20 20 Blood Pressure 124/68 108/56 L Pulse Oximetry 95 92 L 06/13/18 12:00 Temperature 98.2 F Pulse Rate 84 Respiratory Rate 15 Blood Pressure 118/69 Pulse Oximetry 98 Intake & Output 06/12/18 06/13/18 06/13/18 18:59 06:59 18:59 Intake Total 1292.5 / 1292.5 Output Total 0 / 0 Balance 1292.5 / 1292.5 Weight 79.5 kg Intake: IV 412.5 / 412.5 Levaquin 750 mg Premix Inj 150 150 / 150 ML @ 100 mls/hr IV.SIG Q24H CHARANJIT Rx#:[id number] Vancomycin Inj 1,250 MG In NS 262.5 / 262.5 Inj 250 ML @ 250 mls/hr IV.SIG Q24H CHARANJIT Rx#:[id number] Oral 480 / 480 Anesthesia Amount 400 / 400 Output: Wound Drainage 0 / 0 right posterior 0 / 0 Other: # Voids 3 Date of Last Bowel Movement 06/11/18 06/11/18 06/11/18 # Bowel Movements 0 Narrative: GENERAL: NAD, A&Ox3 HEAD: Normocephalic. NECK: Supple, trachea midline. No lymphadenopathy. EYES: No scleral icterus. No injection or drainage. CARDIOVASCULAR: Regular rate and rhythm without murmurs, gallops, or rubs. RESPIRATORY: Breath sounds equal bilaterally. No accessory muscle use. GASTROINTESTINAL: Abdomen soft, non-tender, nondistended. MUSCULOSKELETAL: No cyanosis, or edema. Psoas muscle drain in place. SKIN: Warm and dry. NEURO: No focal neurological deficits. Results - Labs CBC & Chem 7: 06/13/18 07:15 06/13/18 07:15 Laboratory Results - last 24 hr 06/13/18 06/13/18 06/13/18 07:15 07:15 07:15 WBC 3.9 L RBC 3.10 L Hgb 11.0 L Hct 31.3 L MCV 101.0 H MCH 35.6 H MCHC 35.2 RDW 20.3 H Plt Count 36 L MPV 9.2 Prelim Diff (Auto) Manual diff required WBC Differential Manual diff final Seg Neuts % (Manual) 74 H Band Neuts % (Manual) 4 Lymphocytes % (Manual) 9 Monocytes % (Manual) 10 H Eosinophils % (Manual) 3 Abs Neuts (Manual) 3.0 Differential Comment . Platelet Estimate Low L Platelet Morphology Normal Fibrinogen 116 L Sodium 135 L Potassium 3.4 L Chloride 104 Carbon Dioxide 20.4 L Anion Gap 11 BUN 10 Creatinine 1.12 Estimated GFR 67 L Random Glucose 81 Calcium 7.1 L* Prot Corrected Calcium 7.1 L* Phosphorus 2.0 L Magnesium 1.2 L Total Bilirubin 1.8 H AST 47 H ALT 16 Alkaline Phosphatase 110 Ammonia Total Protein 7.2 Albumin 1.5 L 06/13/18 07:30 WBC RBC Hgb Hct MCV MCH MCHC RDW Plt Count MPV Prelim Diff (Auto) WBC Differential Seg Neuts % (Manual) Band Neuts % (Manual) Lymphocytes % (Manual) Monocytes % (Manual) Eosinophils % (Manual) Abs Neuts (Manual) Differential Comment Platelet Estimate Platelet Morphology Fibrinogen Sodium Potassium Chloride Carbon Dioxide Anion Gap BUN Creatinine Estimated GFR Random Glucose Calcium Prot Corrected Calcium Phosphorus Magnesium Total Bilirubin AST ALT Alkaline Phosphatase Ammonia 45 H Total Protein Albumin - Procedures COLONOSCOPY PROCEDURE REPORT EXAM DATE: 05/25/2018 PATIENT NAME: Ricardo Ma MR #: [id number] BIRTHDATE: 1955 ENDOSCOPIST: Venice Mcgowan MD ORDER #: [id number] ASSISTANT PROFESSOR OF NURSING: Julieth Crews RN STATUS: inpatient INDICATIONS: The patient is a 62 yr old male here for a colonoscopy due to abdominal pain and iron deficiency anemia PROCEDURE PERFORMED: Colonoscopy, diagnostic MEDICATIONS: None and Per Anesthesia. PREP QUALITY: The [place] Bowel Prep Score was Right colon 3, Mid colon 2, and Left colon 2. Total = 7. PREP TYPE:Magnesium Citrate ESTIMATED BLOOD LOSS: None CONSENT: The patient understands the risks and benefits of the procedure and understands that these risks include, but are not limited to: sedation, allergic reaction, infection, perforation and/or bleeding. Alternative means of evaluation and treatment include, among others: physical exam, x-rays, and/or surgical intervention. The patient elects to proceed with this endoscopic procedure. medical equipment was checked for proper function. Hand hygiene and appropriate measures for infection prevention was taken. After the risks, benefits and alternatives of the procedure were thoroughly explained, Informed consent was verified, confirmed and timeout was successfully executed by the treatment team. A digital exam revealed external hemorrhoids The Pentax EC-3490Li endoscope was introduced through the anus and advanced to the cecum, which was identified by both the appendix and ileocecal valve. The instrument was then slowly withdrawn as the colon was fully examined. COLON FINDINGS: The colonic mucosa appeared normal. Retroflexed views revealed internal hemorrhoids and Retroflexed views revealed medium internal hemorrhoids The scope was then completely withdrawn from the patient and the procedure terminated. PROCEDURE WITHDRAWAL TIME:6minutes ADVERSE EVENTS: There were no complications. IMPRESSIONS: 1. The colonic mucosa appeared normal 2. Retroflexed views revealed internal hemorrhoids 3. Retroflexed views revealed medium internal hemorrhoids 4. Revealed external hemorrhoids RECOMMENDATIONS: 1. Benefiber 2 tsp daily 2. Continue surveillance 3. Yearly hemoccult RECALL: Return 5 years Colonoscopy Venice Mcgowan MD eSigned: Venice Mcgowan MD 05/25/2018 9:56 AM EGD PROCEDURE REPORT EXAM DATE: 05/25/2018 PATIENT NAME: Ricardo Ma MR #: [id number] BIRTHDATE: 1955 ATTENDING: Venice Mcgowan MD ORDER #: [id number] ASSISTANT PROFESSOR OF NURSING: Julieth Crews and Tiffani Palumbo STATUS: inpatient INDICATIONS: The patient is a 62 yr old male here for an EGD due to iron deficiency anemia and abdominal pain PROCEDURE PERFORMED: EGD w/ biopsy MEDICATIONS: None and Per Anesthesia. TOPICAL ANESTHETIC: CONSENT: The patient understands the risks and benefits of the procedure and understands that these risks include, but are not limited to: sedation, allergic reaction, infection, perforation and/or bleeding. Alternative means of evaluation and treatment include, among others: physical exam, x-rays, and/or surgical intervention. The patient elects to proceed with this endoscopic procedure. medical equipment was checked for proper function. Hand hygiene and appropriate measures for infection prevention was taken. After the risks, benefits and alternatives of the procedure were thoroughly explained, Informed consent was verified, confirmed and timeout was successfully executed by the treatment team. The patient was anesthetized with topical anesthesia and the EC-3490Li (Pedi C) endoscope was introduced through the mouth and advanced to the second portion of the duodenum. Retroflexed views revealed no abnormalities The gastroscope was then slowly withdrawn and removed. ESOPHAGUS: The mucosa of the esophagus appeared normal. STOMACH: There was moderate and ulcerative gastritis in the gastric antrum. A biopsy was performed using cold forceps. Sample sent for histology. ADVERSE EVENTS: There were no complications. IMPRESSIONS: 1. The esophagus appeared normal 2. There was gastritis in the gastric antrum; biopsy was performed 3. Retroflexed views revealed no abnormalities RECOMMENDATIONS: 1. Await biopsy results. Biopsy results will not be ready for 7-10 days. If you don't hear from us in two weeks, call our office for biopsy results. 2. Anti-reflux regimen 3. Continue PPI 4. Avoid NSAIDS PATIENT CONDITION: stable DISPOSITION: Inpatient REPEAT EXAM: Return 3 months EGD pending biopsy results Venice Mcgowan MD eSigned: Venice Mcgowan MD 05/25/2018 9:[address] abscess drainage Signed EXAM DATE: 06/03/2018 1:45 PM EDT AGE/SEX: 62 years / Male INDICATIONS: Right iliopsoas abscess. CLINICAL DATA: This is the patient's initial encounter. Patient reports that signs and symptoms have been present for 1 day and indicates a pain score of 0/ 10. MEDICAL/SURGICAL HISTORY: Cirrhosis. Diabetes. Hepatitis C. None. COMPARISON: No prior exams available for comparison. SEDATION TIME (min): 30 BIOPSY SITE: right iliopsoas abscess MEDICATION(S): 3.5mg midazolam (Versed) IV 175mcg fentanyl (Sublimaze) IV DEVICE(S): 8 Fr Skater FLUID: Total volume of 25 of purulent, red fluid was removed. Fluid was sent to lab for ordered studies.. . . PROCEDURE : CT guided drainage of the right iliopsoas abscess. Conscious sedation with continuous EKG and oximetry monitoring. The risks, benefits and alternatives to the procedure were explained and verbal and written consent was obtained. Using automated exposure control and adjustment of the mA and/or kV according to patient size, radiation dose was kept as low as reasonably achievable to obtain optimal diagnostic quality images. The site was prepped in sterile fashion. Full sterile technique was used, including cap, mask, sterile gloves and gown and a large sterile sheet. Hand hygiene and 2% chlorhexidine and/or betadine/alcohol prep was utilized per protocol for cutaneous antisepsis. The skin and subcutaneous tissues were infiltrated with local anesthetic solution. DICOM format image data is available electronically for review and comparison. FINDINGS: Using CT guidance the prescribed site was localized. An 18-gauge needle was advanced into the hypodense collection in the right psoas. Purulent material was aspirated. Therefore, the 035 Bentson wire was advanced through the outer cannula and coiled in the collection. Tract was dilated to accommodate the 8 Arabic locking cope loop. Drainage was performed using the prescribed catheter. The patient tolerated the procedure well and there were no complications. The patient tolerated the procedure well and there were no complications. The patient was sent to post anesthesia recovery in stable condition. CONCLUSION: 1. Uncomplicated CT guided drainage of right psoas abscess as above. Electronically signed by: Darrius Pascal MD 06/03/2018 1:50 PM EDT Assessment and Plan - Plan 62-year-old male admitted secondary to symptomatic anemia with thrombocytopenia and fever. Continue to monitor hemoglobin, platelets, and fibrinogen for stability. Appetite has improved on Megace. Fever present overnight. Patient may still need transfusions if he has a significant drop in hemoglobin, platelets, or fibrinogen. fever of unknown origin ID following Continue vancomycin for coverage of MSSA Iliopsoas/psoas fluid collection drain in place Continue Levaquin Hypocalcemia Monitor calcium levels Replace as needed Abdominal pain/gastritis Hematoma GI following Heme on following Continue PPI Anemia/thrombocytopenia weight loss Weakness Dyspnea on exertion 2 units transfusion of packed red blood cells provided on 06/09/2018 1 unit transfusion of packed red blood cells provided on 06/08/2018 Follow hemoglobin Follow platelets Diabetes mellitus type 2 Follow blood sugars Insulin sliding scale Diabetic diet Hepatitis C INR is 1.6 naturally. Suggestive of cirrhosis. Patient quit drinking 10 weeks ago Nicotine abuse Patient smokes 4 cigarettes daily Patient counseled to quit HYPOMAGNESIA Monitor and replace as needed ANEMIA TRANSFUSE IF HGB LESS THAN 7.0 DVT prophylaxis Ambulation, chemoprophylaxis held due to hematoma and coagulopathy Discharge planning If stability is seen for hemoglobin platelets, and fibrinogen discharge could be considered.
--- NOTE | 2018-06-13 18:04 | MR ---
EXAM DATE: 06/13/2018 5:36 PM EDT AGE/SEX: 62 years / Male INDICATIONS: Pain. CLINICAL DATA: This is the patient's initial encounter. Patient reports that signs and symptoms have been present for 2 weeks and indicates a pain score of 7/10. MEDICAL/SURGICAL HISTORY: Diabetes mellitus type II. Hepatitis C. None. [place] [facility] [place]EL[place]AST[place]/08/2018. . TECHNIQUE: Multiplanar, multisequence MRI examination of the lumbar spine was performed without and with 7 ml Gadavist (gadobutrol) contrast as a single exam dose. FINDINGS: The most caudal-appearing lumbar vertebra is numbered as L5. Vertebra: Diffusely heterogeneous signal. No spondylolisthesis. Conus: Normal level and configuration. Post Contrast: No abnormal areas of contrast enhancement are seen. Partially imaged 3.9 x 1.3 cm right paraspinal fluid collection, consistent with patient's known absc ess. Multilevel bilateral lumbar facet arthrosis, most pronounced at the L5-S1 level. T12-L1: The thecal sac has a normal diameter. No evidence of disc bulge or protrusion. The neural foramina are patent bilaterally. L1-L2: The thecal sac has a normal diameter. No evidence of disc bulge or protrusion. The neural foramina are patent bilaterally. L2-L3: The thecal sac has a normal diameter. No evidence of disc bulge or protrusion. The neural foramina are patent bilaterally. L3-L4: There is a broad-based disc bulge abutting the thecal sac. Mild ligamentous hypertrophy. No associated central canal stenosis or neural foraminal narrowing. L4-L5: There is a broad-based disc bulge abutting and mildly effacing the thecal sac. Mild ligament ous hypertrophy. No significant central canal stenosis or neural foraminal narrowing. L5-S1: There is a broad-based disc bulge and mild ligament hypertrophy. The thecal sac is preserved . There is mild-moderate bilateral neural foraminal narrowing related to bilateral facet arthrosis. CONCLUSION: 1. Degenerative changes of the lower lumbar spine, as detailed above. 2. Partially imaged 2.9 x 1.3 cm right paraspinal fluid collection, consistent with patient's known abscess. Electronically signed by: Lindsay Villarreal MD 06/13/2018 6:03 PM EDT
[2018-06-13] MEDS ORDERED: Gadobutrol PF 7.5 MMOL/7.5 ML Vial (for RAD) IV.SIG ONE (18:29)
[2018-06-13] MEDS ORDERED: Pharmacy Ordered Lab Info OTHER ONE (19:45)
[2018-06-13 20:22] LABS: Bacteria,Urine Rare /hpf; Bilirubin,Urine Negative (Negative); Clarity,Urine Clear (Clear); Color,Urine Yellow (Yellw/Straw); Glucose,Urine (UA) Negative (Negative); Leukocyte Esterase,Urine Negative (Negative); Nitrite,Urine Negative (Negative); Specific Gravity,Urine 1.013 (1.002-1.035); Squamous Epithelial Cell,Urine <1 /hpf (0-5); Urobilinogen,Urine 4 or Greater mg/dL (Less than 2)
[2018-06-13] MEDS: Vancomycin Inj 1,250 MG in Sodium Chlor 0.9% Inj 250 ML IV.SIG SCH (20:42)
[2018-06-14] MEDS: Hypromellose 0.3% Opth Gel 10 GM Bottle EACH EYE SCH ×6 (02:06→21:34)
[2018-06-14] MEDS: Artificial Tears Opth Drops 15 ML Bottle EACH EYE SCH ×6 (02:06→21:34)
[2018-06-14 08:11] LABS: Hematocrit 33.6 % (39.0-51.0); Hemoglobin 11.7 gm/dL (13.0-17.0); Mean Corpuscular HGB Conc 34.9 % (32.0-36.0); Mean Corpuscular Hemoglobin 35.5 pg (27.0-34.0); Mean Corpuscular Volume 101.8 fL (80.0-100.0); Mean Platelet Volume 9.1 fL (7.0-11.0); Platelet Count 39 th/mm3 (150-450); White Blood Count 3.7 th/mm3 (4.0-11.0)
[2018-06-14] MEDS: Megestrol Acetate Liq 400 MG/10 ML UDC PO SCH (08:18)
[2018-06-14] MEDS: Senna/Docusate Sodium 8.6/50 MG Tablet PO SCH ×2 (08:19→21:33)
[2018-06-14 08:58] LABS: Albumin 1.8 g/dL (3.4-5.0); Calcium 7.3 mg/dL (8.5-10.1); Potassium 3.5 meq/L (3.5-5.1); Total Protein 8.3 g/dL (6.4-8.2)
[2018-06-14 09:09] LABS: Eosinophils 3 % (0-4); Lymphocytes 26 % (9-44); Monocytes 13 % (0-8)
[2018-06-14 09:10] LABS: Platelet Morphology Normal (Normal)
--- NOTE | 2018-06-14 13:48 | P.PNIM ---
Subjective Interval history: Patient does not have any current complaints, he feels sleepy and does not want to be bothered currently. Physical Exam Vital signs: Vital Signs 06/13/18 16:00 06/13/18 18:30 06/13/18 18:52 Temperature 99 F 98.7 F 98.5 F Pulse Rate 65 67 61 Respiratory Rate 17 20 20 Blood Pressure 123/68 127/71 125/69 Pulse Oximetry 96 99 06/13/18 20:15 06/14/18 00:00 06/14/18 04:00 Temperature 98.1 F 98.2 F 98.7 F Pulse Rate 71 62 69 Respiratory Rate 18 18 18 Blood Pressure 118/62 132/71 132/69 Pulse Oximetry 100 18 L 98 06/14/18 08:00 06/14/18 12:00 Temperature 98.3 F 98.5 F Pulse Rate 67 81 Respiratory Rate 18 18 Blood Pressure 139/77 123/57 L Pulse Oximetry 98 97 Intake & Output 06/13/18 06/14/18 06/14/18 18:59 06:59 18:59 Intake Total 1360 / 1360 622.5 / 622.5 250 / 250 Output Total 600 / 600 300 / 300 Balance 760 / 760 322.5 / 322.5 250 / 250 Weight 79.8 kg Intake: IV 412.5 / 412.5 250 / 250 Levaquin 750 mg Premix Inj 150 150 / 150 ML @ 100 mls/hr IV.SIG Q24H CHARANJIT Rx#:[id number] NS Inj 250 ML @ 15 mls/hr IV. 250 / 250 SIG ONCE CHARANJIT Rx#:[id number] Vancomycin Inj 1,250 MG In NS 262.5 / 262.5 Inj 250 ML @ 250 mls/hr IV.SIG Q24H CHARANJIT Rx#:[id number] Oral 960 / 960 Anesthesia Amount 400 / 400 Other 0 / 0 Intake (Blood Product) Amt 0 / 0 210 / 210 Pre-Pooled Cryo Thawed 10units 0 / 0 210 / 210 Unit [id number] Output: Urine 600 / 600 300 / 300 Wound Drainage 0 / 0 right posterior 0 / 0 Other: Other Intake Source Pre-Pooled Cryo Thawed 10units Saline Solution Unit [id number] # Voids 6 Date of Last Bowel Movement 06/11/18 06/11/18 # Bowel Movements 0 Narrative: General patient in no acute distress HEENT extraocular movements are intact, clear oropharyngeal mucosa, no JVD Cardiovascular S1-S2 audible, no murmurs rubs or gallops Respiratory clear to auscultation bilaterally Abdomen soft, nontender, nondistended, normal bowel sounds Extremities no edema 2+ distal pulses in bilateral upper and lower extremities Neuro no neuro deficits Results - Labs CBC & Chem 7: 06/14/18 07:12 06/14/18 07:12 Laboratory Results - last 24 hr 06/09/18 06/13/18 06/13/18 14:15 16:51 18:00 WBC RBC Hgb Hct MCV MCH MCHC RDW Plt Count MPV Prelim Diff (Auto) WBC Differential Seg Neuts % (Manual) Band Neuts % (Manual) Lymphocytes % (Manual) Monocytes % (Manual) Eosinophils % (Manual) Abs Neuts (Manual) Differential Comment Platelet Estimate Platelet Morphology Fibrinogen Sodium Potassium Chloride Carbon Dioxide Anion Gap BUN Creatinine Estimated GFR Random Glucose Calcium Prot Corrected Calcium Total Bilirubin AST ALT Alkaline Phosphatase Total Protein Albumin Urine Color Yellow Urine Clarity Clear Urine pH 7.0 Ur Specific [place] 1.013 Urine Protein Negative Urine Glucose (UA) Negative Urine Ketones Negative Urine Occult Blood Negative Urine Nitrate Negative Urine Bilirubin Negative Urine Urobilinogen 4 or greater Ur Leukocyte Esterase Negative Urine RBC 1 Urine WBC 2 Ur Squamous Epith Cells <1 Urine Bacteria Rare H Micro UA Comment Culture not ind Ur Microscopic Review Not Reportable Urine Culture Comments Culture not ind Vancomycin Trough MTS Gel Crossmatch See Detail Blood Bank Comment 06/13/18 06/14/18 06/14/18 20:40 07:12 07:12 WBC 3.7 L RBC 3.30 L Hgb 11.7 L Hct 33.6 L MCV 101.8 H MCH 35.5 H MCHC 34.9 RDW 21.0 H Plt Count 39 L MPV 9.1 Prelim Diff (Auto) Manual diff required WBC Differential Manual diff final Seg Neuts % (Manual) 55 Band Neuts % (Manual) 3 Lymphocytes % (Manual) 26 Monocytes % (Manual) 13 H Eosinophils % (Manual) 3 Abs Neuts (Manual) 2.1 Differential Comment . Platelet Estimate Low L Platelet Morphology Normal Fibrinogen 166 L Sodium Potassium Chloride Carbon Dioxide Anion Gap BUN Creatinine Estimated GFR Random Glucose Calcium Prot Corrected Calcium Total Bilirubin AST ALT Alkaline Phosphatase Total Protein Albumin Urine Color Urine Clarity Urine pH Ur Specific [place] Urine Protein Urine Glucose (UA) Urine Ketones Urine Occult Blood Urine Nitrate Urine Bilirubin Urine Urobilinogen Ur Leukocyte Esterase Urine RBC Urine WBC Ur Squamous Epith Cells Urine Bacteria Micro UA Comment Ur Microscopic Review Urine Culture Comments Vancomycin Trough 10.4 H MTS Gel Crossmatch Blood Bank Comment 06/14/18 07:12 WBC RBC Hgb Hct MCV MCH MCHC RDW Plt Count MPV Prelim Diff (Auto) WBC Differential Seg Neuts % (Manual) Band Neuts % (Manual) Lymphocytes % (Manual) Monocytes % (Manual) Eosinophils % (Manual) Abs Neuts (Manual) Differential Comment Platelet Estimate Platelet Morphology Fibrinogen Sodium 134 L Potassium 3.5 Chloride 101 Carbon Dioxide 24.0 Anion Gap 9 BUN 10 Creatinine 1.15 Estimated GFR 65 L Random Glucose 106 Calcium 7.3 L* Prot Corrected Calcium Total Bilirubin 1.8 H AST 40 H ALT 18 Alkaline Phosphatase 97 Total Protein 8.3 H D Albumin 1.8 L Urine Color Urine Clarity Urine pH Ur Specific [place] Urine Protein Urine Glucose (UA) Urine Ketones Urine Occult Blood Urine Nitrate Urine Bilirubin Urine Urobilinogen Ur Leukocyte Esterase Urine RBC Urine WBC Ur Squamous Epith Cells Urine Bacteria Micro UA Comment Ur Microscopic Review Urine Culture Comments Vancomycin Trough MTS Gel Crossmatch Blood Bank Comment Microbiology 06/13/18 16:56 Blood - Peripheral Aerobic Blood Culture - Preliminary No growth in 1 day 06/13/18 16:56 Blood - Peripheral Anaerobic Blood Culture - Preliminary No growth in 1 day 06/13/18 16:51 Blood - Peripheral Aerobic Blood Culture - Preliminary No growth in 1 day 06/13/18 16:51 Blood - Peripheral Anaerobic Blood Culture - Preliminary No growth in 1 day - Imaging Impressions Lumbar Spine MRI 06/13/18 00:00 CONCLUSION: 1. Degenerative changes of the lower lumbar spine, as detailed above. 2. Partially imaged 2.9 x 1.3 cm right paraspinal fluid collection, consistent with patient's known abscess. - Procedures COLONOSCOPY PROCEDURE REPORT EXAM DATE: 05/25/2018 PATIENT NAME: Ricardo Ma MR #: [id number] BIRTHDATE: 1955 ENDOSCOPIST: Venice Mcgowan MD ORDER #: [id number] LARGE SHEETFED PRESS OPERATOR: Julieth Crews RN STATUS: inpatient INDICATIONS: The patient is a 62 yr old male here for a colonoscopy due to abdominal pain and iron deficiency anemia PROCEDURE PERFORMED: Colonoscopy, diagnostic MEDICATIONS: None and Per Anesthesia. PREP QUALITY: The Bruni Bowel Prep Score was Right colon 3, Mid colon 2, and Left colon 2. Total = 7. PREP TYPE:Magnesium Citrate ESTIMATED BLOOD LOSS: None CONSENT: The patient understands the risks and benefits of the procedure and understands that these risks include, but are not limited to: sedation, allergic reaction, infection, perforation and/or bleeding. Alternative means of evaluation and treatment include, among others: physical exam, x-rays, and/or surgical intervention. The patient elects to proceed with this endoscopic procedure. medical equipment was checked for proper function. Hand hygiene and appropriate measures for infection prevention was taken. After the risks, benefits and alternatives of the procedure were thoroughly explained, Informed consent was verified, confirmed and timeout was successfully executed by the treatment team. A digital exam revealed external hemorrhoids The Pentax EC-3490Li endoscope was introduced through the anus and advanced to the cecum, which was identified by both the appendix and ileocecal valve. The instrument was then slowly withdrawn as the colon was fully examined. COLON FINDINGS: The colonic mucosa appeared normal. Retroflexed views revealed internal hemorrhoids and Retroflexed views revealed medium internal hemorrhoids The scope was then completely withdrawn from the patient and the procedure terminated. PROCEDURE WITHDRAWAL TIME:6minutes ADVERSE EVENTS: There were no complications. IMPRESSIONS: 1. The colonic mucosa appeared normal 2. Retroflexed views revealed internal hemorrhoids 3. Retroflexed views revealed medium internal hemorrhoids 4. Revealed external hemorrhoids RECOMMENDATIONS: 1. Benefiber 2 tsp daily 2. Continue surveillance 3. Yearly hemoccult RECALL: Return 5 years Colonoscopy Venice Mcgowan MD eSigned: Venice Mcgowan MD 05/25/2018 9:56 AM EGD PROCEDURE REPORT EXAM DATE: 05/25/2018 PATIENT NAME: Ricardo Ma MR #: [id number] BIRTHDATE: 1955 ATTENDING: Venice Mcgowan MD ORDER #: [id number] LARGE SHEETFED PRESS OPERATOR: Julieth Crews and Tiffani Palumbo STATUS: inpatient INDICATIONS: The patient is a 62 yr old male here for an EGD due to iron deficiency anemia and abdominal pain PROCEDURE PERFORMED: EGD w/ biopsy MEDICATIONS: None and Per Anesthesia. TOPICAL ANESTHETIC: CONSENT: The patient understands the risks and benefits of the procedure and understands that these risks include, but are not limited to: sedation, allergic reaction, infection, perforation and/or bleeding. Alternative means of evaluation and treatment include, among others: physical exam, x-rays, and/or surgical intervention. The patient elects to proceed with this endoscopic procedure. medical equipment was checked for proper function. Hand hygiene and appropriate measures for infection prevention was taken. After the risks, benefits and alternatives of the procedure were thoroughly explained, Informed consent was verified, confirmed and timeout was successfully executed by the treatment team. The patient was anesthetized with topical anesthesia and the EC-3490Li (Pedi C) endoscope was introduced through the mouth and advanced to the second portion of the duodenum. Retroflexed views revealed no abnormalities The gastroscope was then slowly withdrawn and removed. ESOPHAGUS: The mucosa of the esophagus appeared normal. STOMACH: There was moderate and ulcerative gastritis in the gastric antrum. A biopsy was performed using cold forceps. Sample sent for histology. ADVERSE EVENTS: There were no complications. IMPRESSIONS: 1. The esophagus appeared normal 2. There was gastritis in the gastric antrum; biopsy was performed 3. Retroflexed views revealed no abnormalities RECOMMENDATIONS: 1. Await biopsy results. Biopsy results will not be ready for 7-10 days. If you don't hear from us in two weeks, call our office for biopsy results. 2. Anti-reflux regimen 3. Continue PPI 4. Avoid NSAIDS PATIENT CONDITION: stable DISPOSITION: Inpatient REPEAT EXAM: Return 3 months EGD pending biopsy results Venice Mcgowan MD eSigned: Venice Mcgowan MD 05/25/2018 9:[address] abscess drainage Signed EXAM DATE: 06/03/2018 1:45 PM EDT AGE/SEX: 62 years / Male INDICATIONS: Right iliopsoas abscess. CLINICAL DATA: This is the patient's initial encounter. Patient reports that signs and symptoms have been present for 1 day and indicates a pain score of 0/ 10. MEDICAL/SURGICAL HISTORY: Cirrhosis. Diabetes. Hepatitis C. None. COMPARISON: No prior exams available for comparison. SEDATION TIME (min): 30 BIOPSY SITE: right iliopsoas abscess MEDICATION(S): 3.5mg midazolam (Versed) IV 175mcg fentanyl (Sublimaze) IV DEVICE(S): 8 Fr Skater FLUID: Total volume of 25 of purulent, red fluid was removed. Fluid was sent to lab for ordered studies.. . . PROCEDURE : CT guided drainage of the right iliopsoas abscess. Conscious sedation with continuous EKG and oximetry monitoring. The risks, benefits and alternatives to the procedure were explained and verbal and written consent was obtained. Using automated exposure control and adjustment of the mA and/or kV according to patient size, radiation dose was kept as low as reasonably achievable to obtain optimal diagnostic quality images. The site was prepped in sterile fashion. Full sterile technique was used, including cap, mask, sterile gloves and gown and a large sterile sheet. Hand hygiene and 2% chlorhexidine and/or betadine/alcohol prep was utilized per protocol for cutaneous antisepsis. The skin and subcutaneous tissues were infiltrated with local anesthetic solution. DICOM format image data is available electronically for review and comparison. FINDINGS: Using CT guidance the prescribed site was localized. An 18-gauge needle was advanced into the hypodense collection in the right psoas. Purulent material was aspirated. Therefore, the 035 Bentson wire was advanced through the outer cannula and coiled in the collection. Tract was dilated to accommodate the 8 Italian locking cope loop. Drainage was performed using the prescribed catheter. The patient tolerated the procedure well and there were no complications. The patient tolerated the procedure well and there were no complications. The patient was sent to post anesthesia recovery in stable condition. CONCLUSION: 1. Uncomplicated CT guided drainage of right psoas abscess as above. Electronically signed by: Darrius Pascal MD 06/03/2018 1:50 PM EDT Assessment and Plan - Plan This patient is a 62-year-old male with a history of IV drug use and hepatitis C cirrhosis. The patient was seen at [facility] in the past and was found to have a retroperitoneal mass or fluid collection. Apparently the patient did undergo biopsy however results of the biopsy are currently not available and the patient is a very poor historian. He admits to previous IV drug use. He presented to our facility with complaints of fatigue and abdominal pain with radiation to the back. 1. Sepsis secondary to right psoas abscess status post CT-guided drainage. 2. Pancytopenia likely secondary to hep C cirrhosis. The patient is currently on IV antibiotics and has been afebrile for over 48 hours. 2D echocardiogram was done which did not show any findings suggestive of vegetations. Blood cultures are negative. The patient is status post CT- guided drainage of the right psoas abscess. Continue IV vancomycin and Levaquin as per ID recommendations. Infectious diseases, following the patient will follow up with infectious disease and further recommendations on duration of IV antibiotics. The patient also has pancytopenia likely secondary to hep C cirrhosis. Heme oncology is also following the patient will follow up with the recommendations. His platelet count today is 39 there is no findings suggestive of bleeding at this point. 3. Hypocalcemia Corrected calcium is within normal limits. The patient has a low albumin level of 1.8. A dietary consult has been placed for malnutrition. 4. Diabetes mellitus type 2 Continue low-dose insulin sliding scale. This regimen will be adjusted as needed. 5. Electrolyte abnormalities The patient had a low magnesium level a couple of days ago a repeat mag level be ordered. Electrodes will be replaced as needed.
--- NOTE | 2018-06-14 14:21 | P.PNONC ---
Subjective Interval history: Afebrile. Patient denies any bleeding. He would like more information in regards to discharge planning and when he will be able to go home. Reports increased appetite with appetite stimulant. Objective Vital Signs/Intake & Output: Vital Signs 06/13/18 16:00 06/13/18 18:30 06/13/18 18:52 Temperature 99 F 98.7 F 98.5 F Pulse Rate 65 67 61 Respiratory Rate 17 20 20 Blood Pressure 123/68 127/71 125/69 Pulse Oximetry 96 99 06/13/18 20:15 06/14/18 00:00 06/14/18 04:00 Temperature 98.1 F 98.2 F 98.7 F Pulse Rate 71 62 69 Respiratory Rate 18 18 18 Blood Pressure 118/62 132/71 132/69 Pulse Oximetry 100 18 L 98 06/14/18 08:00 06/14/18 12:00 Temperature 98.3 F 98.5 F Pulse Rate 67 81 Respiratory Rate 18 18 Blood Pressure 139/77 123/57 L Pulse Oximetry 98 97 Intake & Output 06/13/18 06/14/18 06/14/18 18:59 06:59 18:59 Intake Total 1360 / 1360 622.5 / 622.5 250 / 250 Output Total 600 / 600 300 / 300 Balance 760 / 760 322.5 / 322.5 250 / 250 Weight 79.8 kg Intake: IV 412.5 / 412.5 250 / 250 Levaquin 750 mg Premix Inj 150 150 / 150 ML @ 100 mls/hr IV.SIG Q24H CHARANJIT Rx#:[id number] NS Inj 250 ML @ 15 mls/hr IV. 250 / 250 SIG ONCE CHARANJIT Rx#:[id number] Vancomycin Inj 1,250 MG In NS 262.5 / 262.5 Inj 250 ML @ 250 mls/hr IV.SIG Q24H CHARANJIT Rx#:[id number] Oral 960 / 960 Anesthesia Amount 400 / 400 Other 0 / 0 Intake (Blood Product) Amt 0 / 0 210 / 210 Pre-Pooled Cryo Thawed 10units 0 / 0 210 / 210 Unit [id number] Output: Urine 600 / 600 300 / 300 Wound Drainage 0 / 0 right posterior 0 / 0 Other: Other Intake Source Pre-Pooled Cryo Thawed 10units Saline Solution Unit [id number] # Voids 6 Date of Last Bowel Movement 06/11/18 06/11/18 # Bowel Movements 0 Result Diagrams: 06/14/18 07:12 06/14/18 07:12 Laboratory Results: Laboratory Results - last 24 hr 06/09/18 06/13/18 06/13/18 14:15 16:51 18:00 WBC RBC Hgb Hct MCV MCH MCHC RDW Plt Count MPV Prelim Diff (Auto) WBC Differential Seg Neuts % (Manual) Band Neuts % (Manual) Lymphocytes % (Manual) Monocytes % (Manual) Eosinophils % (Manual) Abs Neuts (Manual) Differential Comment Platelet Estimate Platelet Morphology Fibrinogen Sodium Potassium Chloride Carbon Dioxide Anion Gap BUN Creatinine Estimated GFR Random Glucose Calcium Prot Corrected Calcium Total Bilirubin AST ALT Alkaline Phosphatase Total Protein Albumin Urine Color Yellow Urine Clarity Clear Urine pH 7.0 Ur Specific [place] 1.013 Urine Protein Negative Urine Glucose (UA) Negative Urine Ketones Negative Urine Occult Blood Negative Urine Nitrate Negative Urine Bilirubin Negative Urine Urobilinogen 4 or greater Ur Leukocyte Esterase Negative Urine RBC 1 Urine WBC 2 Ur Squamous Epith Cells <1 Urine Bacteria Rare H Micro UA Comment Culture not ind Ur Microscopic Review Not Reportable Urine Culture Comments Culture not ind Vancomycin Trough MTS Gel Crossmatch See Detail Blood Bank Comment 06/13/18 06/14/18 06/14/18 20:40 07:12 07:12 WBC 3.7 L RBC 3.30 L Hgb 11.7 L Hct 33.6 L MCV 101.8 H MCH 35.5 H MCHC 34.9 RDW 21.0 H Plt Count 39 L MPV 9.1 Prelim Diff (Auto) Manual diff required WBC Differential Manual diff final Seg Neuts % (Manual) 55 Band Neuts % (Manual) 3 Lymphocytes % (Manual) 26 Monocytes % (Manual) 13 H Eosinophils % (Manual) 3 Abs Neuts (Manual) 2.1 Differential Comment . Platelet Estimate Low L Platelet Morphology Normal Fibrinogen 166 L Sodium Potassium Chloride Carbon Dioxide Anion Gap BUN Creatinine Estimated GFR Random Glucose Calcium Prot Corrected Calcium Total Bilirubin AST ALT Alkaline Phosphatase Total Protein Albumin Urine Color Urine Clarity Urine pH Ur Specific [place] Urine Protein Urine Glucose (UA) Urine Ketones Urine Occult Blood Urine Nitrate Urine Bilirubin Urine Urobilinogen Ur Leukocyte Esterase Urine RBC Urine WBC Ur Squamous Epith Cells Urine Bacteria Micro UA Comment Ur Microscopic Review Urine Culture Comments Vancomycin Trough 10.4 H MTS Gel Crossmatch Blood Bank Comment 06/14/18 07:12 WBC RBC Hgb Hct MCV MCH MCHC RDW Plt Count MPV Prelim Diff (Auto) WBC Differential Seg Neuts % (Manual) Band Neuts % (Manual) Lymphocytes % (Manual) Monocytes % (Manual) Eosinophils % (Manual) Abs Neuts (Manual) Differential Comment Platelet Estimate Platelet Morphology Fibrinogen Sodium 134 L Potassium 3.5 Chloride 101 Carbon Dioxide 24.0 Anion Gap 9 BUN 10 Creatinine 1.15 Estimated GFR 65 L Random Glucose 106 Calcium 7.3 L* Prot Corrected Calcium Total Bilirubin 1.8 H AST 40 H ALT 18 Alkaline Phosphatase 97 Total Protein 8.3 H D Albumin 1.8 L Urine Color Urine Clarity Urine pH Ur Specific [place] Urine Protein Urine Glucose (UA) Urine Ketones Urine Occult Blood Urine Nitrate Urine Bilirubin Urine Urobilinogen Ur Leukocyte Esterase Urine RBC Urine WBC Ur Squamous Epith Cells Urine Bacteria Micro UA Comment Ur Microscopic Review Urine Culture Comments Vancomycin Trough MTS Gel Crossmatch Blood Bank Comment Culture Results: Microbiology 06/13/18 16:56 Aerobic Blood Culture - Preliminary Blood - Peripheral No growth in 1 day Anaerobic Blood Culture - Preliminary No growth in 1 day 06/13/18 16:51 Aerobic Blood Culture - Preliminary Blood - Peripheral No growth in 1 day Anaerobic Blood Culture - Preliminary No growth in 1 day Imaging Studies: Impressions Lumbar Spine MRI 06/13/18 00:00 CONCLUSION: 1. Degenerative changes of the lower lumbar spine, as detailed above. 2. Partially imaged 2.9 x 1.3 cm right paraspinal fluid collection, consistent with patient's known abscess. Medications: Active Medications Generic Name Dose Route Start Last Admin Trade Name Freq PRN Reason Stop Dose Admin Artificial Tears 1 drop 05/29/18 10:00 06/14/18 11:43 Tears Naturale Opth Drops EACH EYE Not Given Q4H CHARANJIT Artificial Tears 1 drops 05/29/18 18:00 06/14/18 11:43 Genteal Severe Dry Eye Relief 0.3% Opth Gel EACH EYE Not Given Q4H CHARANJIT Levofloxacin/Dextrose 150 mls @ 100 mls/hr 05/28/18 00:00 06/14/18 02:07 Levaquin 750 Mg Premix Inj IV.SIG Infused Q24H CHARANJIT Infusion Ibuprofen 600 mg 05/27/18 21:56 06/12/18 05:18 Motrin PO 600 mg Q6H PRN Administration Fever >101 Lactulose 30 ml 06/10/18 13:31 06/10/18 14:06 Lactulose Liq PO 30 ml BID PRN Administration Severe constipation Megestrol Acetate 400 mg 06/11/18 12:30 06/14/18 08:18 Megace Liq PO 400 mg DAILY CHARANJIT Administration Ondansetron HCl 4 mg 05/23/18 17:58 05/28/18 09:41 Zofran Inj IV.PUSH 4 mg Q6H PRN Administration NAUSEA OR VOMITING Oxycodone HCl 5 mg 05/23/18 18:52 06/14/18 11:41 Roxicodone PO 5 mg Q6H PRN Administration pain 3-10 Pantoprazole Sodium 40 mg 05/24/18 21:00 06/14/18 08:25 Protonix PO Not Given BID CHARANJIT Senna/Docusate Sodium 1 tab 05/23/18 21:00 06/14/18 08:19 Lina-Colace PO Not Given BID CHARANJIT Sodium Chloride 2 ml 05/23/18 12:33 06/10/18 09:44 Ns Flush IV.FLUSH 2 ml PRN PRN Administration FLUSH AFTER USING IV ACCESS Sodium Chloride 10 ml 06/06/18 15:00 06/14/18 08:18 Ns Inj IRRIGATION Not Given DAILY CHARANJIT Objective Remarks: GENERAL: Older male patient, lying in bed, in no acute distress. SKIN: Pale, warm and dry. +psoriasis plaques to BLE. HEAD: Normocephalic. EYES: No injection or drainage. NECK: Supple, trachea midline. CARDIOVASCULAR: Regular rate and rhythm without murmurs. RESPIRATORY: Anterior breath sounds clear, equal bilaterally. Non-labored. GASTROINTESTINAL: Abdomen non-soft, tender, no distention. EXTREMITIES: No cyanosis, or edema. Chronic skin discoloration and psoriasis plaques to BLE. MUSCULOSKELETAL: Adequate muscle tone. NEUROLOGICAL: No obvious focal deficit. Awake, alert, and oriented x3. Assessment/Plan - Plan 62-year-old male admitted with right lower quadrant pain. He has history of alcoholic liver disease, liver cirrhosis, hepatitis C and diabetes. He was found to have extensive varicosities on his CT abdomen and pelvis which could be possible abscess or hematoma. The patient has been evaluated by GI and is s/ p EGD and colonoscopy. The patient was seen by hematology services earlier in this admission, he was scheduled for discharge home when he started having fevers. CT abdomen showed a complex fluid collection in the perinephric space on the right side measures 5.8 x 5.1 cm with septation and soft tissue components to it. The largest pocket of fluid collection measures almost 5.3 cm in size not significantly changed. Hematology was reconsulted for evaluation/ risk for aspirate of the complex fluid collection in the perinephric space, given his history of coagulopathy and thrombocytopenia. Plan: 1. Thrombocytopenia, platelet count increased slightly today to 39k. Subjectively denies any bleeding. No bleeding noted on exam. Continue to monitor for bleeding. 2. Anemia, hemoglobin continues to improve 11.7 today. 3. Fibrinogen, 166 today, status post cryo yesterday. This will likely decrease given patient's history of liver disease. As long as there is no active bleeding we will hold any additional cryoprecipitate infusions. 4. Continue supportive care.
[2018-06-14] MEDS: Vancomycin Inj 1,250 MG in Sodium Chlor 0.9% Inj 250 ML IV.SIG SCH (16:07)
[2018-06-14] MEDS: Ibuprofen 600 MG Tablet PO PRN (19:27)
[2018-06-15] MEDS: Artificial Tears Opth Drops 15 ML Bottle EACH EYE SCH ×5 (02:00→22:51)
[2018-06-15] MEDS: Hypromellose 0.3% Opth Gel 10 GM Bottle EACH EYE SCH ×6 (02:00→22:51)
[2018-06-15] MEDS ORDERED: Pharmacy Ordered Lab Info OTHER ONE (08:45)
[2018-06-15] MEDS: Megestrol Acetate Liq 400 MG/10 ML UDC PO SCH (09:00)
[2018-06-15] MEDS: Senna/Docusate Sodium 8.6/50 MG Tablet PO SCH ×2 (09:03→20:21)
[2018-06-15] MEDS: Vancomycin Inj 1,250 MG in Sodium Chlor 0.9% Inj 250 ML IV.SIG SCH (09:46)
--- NOTE | 2018-06-15 11:30 | P.DIET ---
Nutritional Evaluation Type of nutrition evaluation: follow-up Nutrition [place] [facility] [facility], low albumin) Screening comments: Please note: Alb/prealb are acute-phase proteins and reflect severity of the inflammation response rather than poor nutritional status. They are no longer considered indicators of malnutrition, nor do they respond to feeding interventions. Subjective Subjective Comments: PO intake for 06/14: B-75%, L-50%, D-50%. Pt sometimes has food brought to him ( other than hospital food). Objective - Diagnosis Symptomatic Anemia, Thrombocytopenia, Hyponatremia - Objective % IBW: 93 (DIB=940#) Body Weight Used for Calculations: IBW (86.4kg) Energy Needs - Lower Range (kCal/kg): 25 Energy Needs - Upper Range (kCal/kg): 30 Lower Limit kCal/kg (kCals): 2,160 Upper Limit kCal/kg (kCals): 2,592 Lower Limit Protein Factor (Grams per Kg): 1.1 Upper Limit Protein Factor (Grams per Kg): 1.3 Lower Protein Needs (Protein): 95 Upper Protein Needs (Protein): 112 Dietitian Reviewed in Medical Record: Current diet, Curent medications, Intake & Output, Labs Diet Order: Regular Oral Diet Intake Amount: Excellent 90%+ Objective Comments: Meds; Megace s/p EGD and colonoscopy-> gastritis in antrum, internal/external hemorrhoids Feeding - Current PO Supplement Current Supplement: Ensure Enlive Current Supplement Flavor: Chocolate Current Frequency of Supplement: Three times a day Current kCals Provided by Supplement: 350 Current Protein Provided by Supplement: 20 Assessment Assessment: Pt presents with a BMI of 21.3 and shows a weight gain since admission. His po intake is fair to good. He has started on Megace for appetite stimulation and has Ensure Enlive ordered. Noted low albumin of 1.8 is probably related to liver disease and chronic illness rather that nutritional status. Recommendations: 1. Continue current POC. 2. Pt has been provided w/ oral education regarding nutritional intake.
--- NOTE | 2018-06-15 13:59 | P.PNID ---
Subjective Remarks: Patient is a 62-year-old male, brought into the hospital for further evaluation of generalized weakness, shortness of breath, poor appetite, weight loss, and abdominal pain. Patient is not a very good historian. Looks like he was hospitalized several times in [facility]. In 1 of his hospitalization he was apparently found to have some kind of a retroperitoneal mass, and a biopsy was done. Patient could not tell me when the biopsy was done but that was when the right-sided abdominal pain started. The pain would radiate to the back, and it could also radiate down to his right medial thigh. He was also having other problems then which was felt to be related to his hepatitis C. On this admission he was found to have anemia. He had an upper and lower endoscopy. The procedure showed some gastritis and there was no active bleeding. Since around May 28 he started having intermittent fevers. He has had blood cultures done and they were negative. He had a urinalysis which showed some pyuria, and the culture grew staph aureus methicillin sensitive. He has had CT of the abdomen and pelvis and they are showing a complex fluid collection in the right perinephric space, psoas muscle area. He continues to have the right lower quadrant pain. Denies any urinary complaints. He has not had any congestion or any cough. No nausea or vomiting. His WBC is normal. His had problem with thrombocytopenia which was felt to be related to his liver disease. Chest x-ray does not show any acute disease. Infectious disease consultation has been requested to evaluate the patient with fevers. He is currently on Levaquin and vancomycin. There is mention of anaphylaxis with penicillin. Patient stated he got very swollen and couldn't breathe Notes reviewed No new complaints, back pain same Had fever to 102+ last night Eating well No pain No N/V No diarrhea Voiding ok MRI T spine ok Reviewed records from [facility] - imaging studies showed a retroperitoneal mass; biopsy no malignancy. Had UC also with MSSA Last CT A/P 06/08 resolution of fluid collection No rash or itching Antibiotics: Vancomycin Levaquin Lines: PIV Past Medical History: Cirrhosis Degenerative joint disease Diabetes Hep C w/o coma, chronic Psoriasis Retroperitoneal mass (?) Allergies/Adverse Reactions: Allergies penicillin G Allergy (Severe, Verified 05/23/18 21:01) Anaphylaxis Objective Vital Signs 06/14/18 16:00 06/14/18 19:33 06/14/18 21:36 Temperature 98.7 F 102.5 F H 99.0 F Pulse Rate 80 84 Respiratory Rate 16 16 Blood Pressure 140/71 169/79 H Pulse Oximetry 06/14/18 23:38 06/15/18 04:00 06/15/18 08:00 Temperature 98.4 F 97.8 F 98 F Pulse Rate 69 66 63 Respiratory Rate 18 18 18 Blood Pressure 126/71 137/66 105/64 Pulse Oximetry 96 97 97 06/15/18 12:00 Temperature 97.7 F Pulse Rate 65 Respiratory Rate 18 Blood Pressure 116/67 Pulse Oximetry 99 Intake & Output 06/14/18 06/15/18 06/15/18 18:59 06:59 18:59 Intake Total 512.5 / 512.5 630 / 630 Output Total 750 / 750 Balance 512.5 / 512.5 -120 / -120 Weight 75.4 kg Intake: IV 512.5 / 512.5 150 / 150 Levaquin 750 mg Premix Inj 150 150 / 150 ML @ 100 mls/hr IV.SIG Q24H CHARANJIT Rx#:[id number] NS Inj 250 ML @ 15 mls/hr IV. 250 / 250 SIG ONCE CHARANJIT Rx#:[id number] Vancomycin Inj 1,250 MG In NS 262.5 / 262.5 Inj 250 ML @ 250 mls/hr IV.SIG Q18H CHARANJIT Rx#:[id number] Oral 480 / 480 Output: Urine 750 / 750 Other: Date of Last Bowel Movement 06/13/18 06/13/18 06/13/18 16:56 Blood - Peripheral Aerobic Blood Culture - Preliminary No growth in 2 days 06/13/18 16:56 Blood - Peripheral Anaerobic Blood Culture - Preliminary No growth in 2 days 06/13/18 16:51 Blood - Peripheral Aerobic Blood Culture - Preliminary No growth in 2 days 06/13/18 16:51 Blood - Peripheral Anaerobic Blood Culture - Preliminary No growth in 2 days Lab - Hematology Results 06/14/18 07:12 WBC 3.7 L RBC 3.30 L Hgb 11.7 L Hct 33.6 L MCV 101.8 H MCH 35.5 H MCHC 34.9 RDW 21.0 H Plt Count 39 L MPV 9.1 Prelim Diff (Auto) Manual diff required WBC Differential Manual diff final Seg Neuts % (Manual) 55 Band Neuts % (Manual) 3 Lymphocytes % (Manual) 26 Monocytes % (Manual) 13 H Eosinophils % (Manual) 3 Abs Neuts (Manual) 2.1 Differential Comment . Platelet Estimate Low L Platelet Morphology Normal Lab - Chemistry Results 06/14/18 06/14/18 07:12 14:21 Sodium 134 L Potassium 3.5 Chloride 101 Carbon Dioxide 24.0 Anion Gap 9 BUN 10 Creatinine 1.15 Estimated GFR 65 L Random Glucose 106 Calcium 7.3 L* Prot Corrected Calcium Magnesium 1.3 L Total Bilirubin 1.8 H AST 40 H ALT 18 Alkaline Phosphatase 97 Total Protein 8.3 H D Albumin 1.8 L Imaging: ITS Impressions Chest X-Ray 05/27/18 00:00 CONCLUSION: Linear atelectasis or consolidation at the medial right lower lung. Abscess Drainage CT 06/03/18 00:00 CONCLUSION: 1. Uncomplicated CT guided drainage of right psoas abscess as above. Abdomen/Pelvis CT 06/08/18 00:00 CONCLUSION: 1. Near complete resolution of the patient's retroperitoneal abscess on the right. There is no significant remaining fluid in the region of the catheter. The catheter will be removed. Lumbar Spine MRI 06/13/18 00:00 CONCLUSION: 1. Degenerative changes of the lower lumbar spine, as detailed above. 2. Partially imaged 2.9 x 1.3 cm right paraspinal fluid collection, consistent with patient's known abscess. Physical Exam: GENERAL: Patient is a thin, well-developed male, awake and alert, not in respiratory distress. SKIN: Cool and dry. Has scattered psoriasis rash in BUE and BLE. No other rash HEAD: Atraumatic. Normocephalic. No temporal wasting, or tenderness. EYES: [place] conjunctiva. No petechia or hemorrhage. Has mild scleral icterus. No injection or drainage. EARS, NOSE AND THROAT: Nose without bleeding or purulent nasal discharge. No sinus tenderness. Mucous membranes pink and moist. No oral lesions noted. No exudate. No oral thrush. NECK: Trachea midline. Supple and not tender, no meningeal signs CARDIOVASCULAR: Regular rate and rhythm. No murmurs, rubs or gallops heard RESPIRATORY: Clear to auscultation. Breath sounds equal bilaterally. No rales , wheezing or rhonchi ABDOMEN: Soft, flat, nondistended, with RLQ tenderness. Bowel sounds present and normoactive. No guarding. No rebound. No organomegaly. BACK: No spine tenderness EXTREMITIES: No clubbing, cyanosis, or edema. No joint effusion, has good ROM. No calf tenderness. NEUROLOGICAL: Non-focal PSYCHIATRIC: Normal affect, calm and cooperative. LINE: No evidence of infection Assessment and Plan - Plan Impression Infective discitis based on clinical suspicion Suspect Infective Endocarditis. MSSA retroperitoneal abscess s.p IR drainage. Also prior drainage at [place]. Records not available. Hepatitis C, liver cirrhosis Thrombocytopenia related to his liver disease, hypersplenism Recurrent fevers Recommendation Continue current Abx: Vanco IV(target trough 15-20) Stop Levaquin Patient has refused desensitization to cephalosporins. Reports anaphylaxis to penicillin. Discussed penicillin desensitization as an option as it is drug of choice. He says he was told penicillin would kill him. Last PCN when he had strep throat as a child. Repeat CT A/P Explained plan to the patient
--- NOTE | 2018-06-15 14:52 | P.PNONC ---
Subjective Interval history: T-max 102.5F. Patient sitting in chair upon approach. In no acute distress. Patient states he was great until 5 minutes ago when he was told that he is going down for another test. He is afraid that this will delay his discharge home. Continues to complain of back pain, requesting a pain pill. Objective Vital Signs/Intake & Output: Vital Signs 06/14/18 16:00 06/14/18 19:33 06/14/18 21:36 Temperature 98.7 F 102.5 F H 99.0 F Pulse Rate 80 84 Respiratory Rate 16 16 Blood Pressure 140/71 169/79 H Pulse Oximetry 06/14/18 23:38 06/15/18 04:00 06/15/18 08:00 Temperature 98.4 F 97.8 F 98 F Pulse Rate 69 66 63 Respiratory Rate 18 18 18 Blood Pressure 126/71 137/66 105/64 Pulse Oximetry 96 97 97 06/15/18 12:00 Temperature 97.7 F Pulse Rate 65 Respiratory Rate 18 Blood Pressure 116/67 Pulse Oximetry 99 Intake & Output 06/14/18 06/15/18 06/15/18 18:59 06:59 18:59 Intake Total 512.5 / 512.5 630 / 630 Output Total 750 / 750 Balance 512.5 / 512.5 -120 / -120 Weight 75.4 kg Intake: IV 512.5 / 512.5 150 / 150 Levaquin 750 mg Premix Inj 150 150 / 150 ML @ 100 mls/hr IV.SIG Q24H CHARANJIT Rx#:[id number] NS Inj 250 ML @ 15 mls/hr IV. 250 / 250 SIG ONCE CHARANJIT Rx#:[id number] Vancomycin Inj 1,250 MG In NS 262.5 / 262.5 Inj 250 ML @ 250 mls/hr IV.SIG Q18H CHARANJIT Rx#:[id number] Oral 480 / 480 Output: Urine 750 / 750 Other: Date of Last Bowel Movement 06/13/18 06/13/18 Result Diagrams: 06/16/18 07:42 06/14/18 07:12 Laboratory Results: Laboratory Results - last 24 hr 06/14/18 06/15/18 14:21 09:22 Magnesium 1.3 L Vancomycin Trough 15.4 H Culture Results: Microbiology 06/13/18 16:56 Aerobic Blood Culture - Preliminary Blood - Peripheral No growth in 2 days Anaerobic Blood Culture - Preliminary No growth in 2 days 06/13/18 16:51 Aerobic Blood Culture - Preliminary Blood - Peripheral No growth in 2 days Anaerobic Blood Culture - Preliminary No growth in 2 days Medications: Active Medications Generic Name Dose Route Start Last Admin Trade Name Freq PRN Reason Stop Dose Admin Artificial Tears 1 drop 05/29/18 10:00 06/15/18 07:14 Tears Naturale Opth Drops EACH EYE Not Given Q4H CHARANJIT Artificial Tears 1 drops 05/29/18 18:00 06/15/18 09:48 Genteal Severe Dry Eye Relief 0.3% Opth Gel EACH EYE 1 drops Q4H CHARANJIT Administration Vancomycin HCl 1,250 mg/ 262.5 mls @ 250 mls/hr 06/14/18 15:00 06/15/18 09:46 Sodium Chloride IV.SIG 250 mls/hr Q18H CHARANJIT Administration Ibuprofen 600 mg 05/27/18 21:56 06/14/18 19:27 Motrin PO 600 mg Q6H PRN Administration Fever >101 Lactulose 30 ml 06/10/18 13:31 06/10/18 14:06 Lactulose Liq PO 30 ml BID PRN Administration Severe constipation Megestrol Acetate 400 mg 06/11/18 12:30 06/15/18 09:00 Megace Liq PO 400 mg DAILY CHARANJIT Administration Ondansetron HCl 4 mg 05/23/18 17:58 05/28/18 09:41 Zofran Inj IV.PUSH 4 mg Q6H PRN Administration NAUSEA OR VOMITING Oxycodone HCl 5 mg 05/23/18 18:52 06/15/18 07:19 Roxicodone PO 5 mg Q6H PRN Administration pain 3-10 Pantoprazole Sodium 40 mg 05/24/18 21:00 06/15/18 09:00 Protonix PO 40 mg BID CHARANJIT Administration Senna/Docusate Sodium 1 tab 05/23/18 21:00 06/15/18 09:03 Lina-Colace PO 1 tab BID CHARANJIT Administration Sodium Chloride 2 ml 05/23/18 12:33 06/14/18 23:35 Ns Flush IV.FLUSH 2 ml PRN PRN Administration FLUSH AFTER USING IV ACCESS Sodium Chloride 10 ml 06/06/18 15:00 06/14/18 08:18 Ns Inj IRRIGATION Not Given DAILY CHARANJIT Objective Remarks: GENERAL: Older male patient, sitting in chair, in no acute distress. SKIN: Pale, warm and dry. +psoriasis plaques to BLE. HEAD: Normocephalic. EYES: No injection or drainage. NECK: Supple, trachea midline. CARDIOVASCULAR: Regular rate and rhythm without murmurs. RESPIRATORY: Anterior breath sounds clear, equal bilaterally. Non-labored. GASTROINTESTINAL: Abdomen non-soft, tender, no distention. EXTREMITIES: No cyanosis, or edema. Chronic skin discoloration and psoriasis plaques to BLE. MUSCULOSKELETAL: Adequate muscle tone. NEUROLOGICAL: No obvious focal deficit. Awake, alert, and oriented x3. Assessment/Plan - Plan 62-year-old male admitted with right lower quadrant pain. He has history of alcoholic liver disease, liver cirrhosis, hepatitis C and diabetes. He was found to have extensive varicosities on his CT abdomen and pelvis which could be possible abscess or hematoma. The patient has been evaluated by GI and is s/ p EGD and colonoscopy. The patient was seen by hematology services earlier in this admission, he was scheduled for discharge home when he started having fevers. CT abdomen showed a complex fluid collection in the perinephric space on the right side measures 5.8 x 5.1 cm with septation and soft tissue components to it. The largest pocket of fluid collection measures almost 5.3 cm in size not significantly changed. Hematology was reconsulted for evaluation/ risk for aspirate of the complex fluid collection in the perinephric space, given his history of coagulopathy and thrombocytopenia. Plan: 1. Thrombocytopenia, platelet count increased slightly to 39k, yesterday. No CBC noted today. Subjectively denies any bleeding. No bleeding noted on exam. Continue to monitor for bleeding. 2. Anemia, hemoglobin stable at 11.7 yesterday. 3. Fibrinogen, 166 yesterday, status post cryo on 06/13/2018. This will likely decrease given patient's history of liver disease. As long as there is no active bleeding we will hold any additional cryoprecipitate infusions. 4. We will repeat CBC tomorrow. - Attending Statement Pt seen and examined. Pt requested fibrinogen and d-dimer testing to be held until AM. Will follow up.
[2018-06-15] MEDS ORDERED: Diatrizoate Meglum/Diatrizoate Sod Liq 9 ML UDC PO SCH (15:30)
--- NOTE | 2018-06-15 16:20 | P.PNIM ---
Subjective Interval history: Patient does not have any current complaints today. He states that he wants to go home. Physical Exam Vital signs: Vital Signs 06/14/18 19:33 06/14/18 21:36 06/14/18 23:38 Temperature 102.5 F H 99.0 F 98.4 F Pulse Rate 84 69 Respiratory Rate 16 18 Blood Pressure 169/79 H 126/71 Pulse Oximetry 96 06/15/18 04:00 06/15/18 08:00 06/15/18 12:00 Temperature 97.8 F 98 F 97.7 F Pulse Rate 66 63 65 Respiratory Rate 18 18 18 Blood Pressure 137/66 105/64 116/67 Pulse Oximetry 97 97 99 06/15/18 16:13 Temperature 98.2 F Pulse Rate 74 Respiratory Rate 16 Blood Pressure 138/83 Pulse Oximetry Intake & Output 06/14/18 06/15/18 06/15/18 18:59 06:59 18:59 Intake Total 512.5 / 512.5 630 / 630 Output Total 750 / 750 Balance 512.5 / 512.5 -120 / -120 Weight 75.4 kg Intake: IV 512.5 / 512.5 150 / 150 Levaquin 750 mg Premix Inj 150 150 / 150 ML @ 100 mls/hr IV.SIG Q24H CHARANJIT Rx#:[id number] NS Inj 250 ML @ 15 mls/hr IV. 250 / 250 SIG ONCE CHARANJIT Rx#:[id number] Vancomycin Inj 1,250 MG In NS 262.5 / 262.5 Inj 250 ML @ 250 mls/hr IV.SIG Q18H CHARANJIT Rx#:[id number] Oral 480 / 480 Output: Urine 750 / 750 Other: Date of Last Bowel Movement 06/13/18 06/13/18 Narrative: General patient in no acute distress HEENT extraocular movements are intact, clear oropharyngeal mucosa, no JVD Cardiovascular S1-S2 audible, no murmurs rubs or gallops Respiratory clear to auscultation bilaterally Abdomen soft, nontender, nondistended, normal bowel sounds Extremities no edema 2+ distal pulses in bilateral upper and lower extremities Neuro no neuro deficits Results - Labs CBC & Chem 7: 06/14/18 07:12 06/14/18 07:12 Laboratory Results - last 24 hr 06/15/18 09:22 Vancomycin Trough 15.4 H Microbiology 06/13/18 16:56 Blood - Peripheral Aerobic Blood Culture - Preliminary No growth in 2 days 06/13/18 16:56 Blood - Peripheral Anaerobic Blood Culture - Preliminary No growth in 2 days 06/13/18 16:51 Blood - Peripheral Aerobic Blood Culture - Preliminary No growth in 2 days 06/13/18 16:51 Blood - Peripheral Anaerobic Blood Culture - Preliminary No growth in 2 days - Procedures COLONOSCOPY PROCEDURE REPORT EXAM DATE: 05/25/2018 PATIENT NAME: Ricardo Ma MR #: [id number] BIRTHDATE: 1955 ENDOSCOPIST: Venice Mcgowan MD ORDER #: [id number] CODING COMPLIANCE SPECIALIST: Julieth Crews RN STATUS: inpatient INDICATIONS: The patient is a 62 yr old male here for a colonoscopy due to abdominal pain and iron deficiency anemia PROCEDURE PERFORMED: Colonoscopy, diagnostic MEDICATIONS: None and Per Anesthesia. PREP QUALITY: The Aneta Bowel Prep Score was Right colon 3, Mid colon 2, and Left colon 2. Total = 7. PREP TYPE:Magnesium Citrate ESTIMATED BLOOD LOSS: None CONSENT: The patient understands the risks and benefits of the procedure and understands that these risks include, but are not limited to: sedation, allergic reaction, infection, perforation and/or bleeding. Alternative means of evaluation and treatment include, among others: physical exam, x-rays, and/or surgical intervention. The patient elects to proceed with this endoscopic procedure. medical equipment was checked for proper function. Hand hygiene and appropriate measures for infection prevention was taken. After the risks, benefits and alternatives of the procedure were thoroughly explained, Informed consent was verified, confirmed and timeout was successfully executed by the treatment team. A digital exam revealed external hemorrhoids The Pentax EC-3490Li endoscope was introduced through the anus and advanced to the cecum, which was identified by both the appendix and ileocecal valve. The instrument was then slowly withdrawn as the colon was fully examined. COLON FINDINGS: The colonic mucosa appeared normal. Retroflexed views revealed internal hemorrhoids and Retroflexed views revealed medium internal hemorrhoids The scope was then completely withdrawn from the patient and the procedure terminated. PROCEDURE WITHDRAWAL TIME:6minutes ADVERSE EVENTS: There were no complications. IMPRESSIONS: 1. The colonic mucosa appeared normal 2. Retroflexed views revealed internal hemorrhoids 3. Retroflexed views revealed medium internal hemorrhoids 4. Revealed external hemorrhoids RECOMMENDATIONS: 1. Benefiber 2 tsp daily 2. Continue surveillance 3. Yearly hemoccult RECALL: Return 5 years Colonoscopy Venice Mcgowan MD eSigned: Venice Mcgowan MD 05/25/2018 9:56 AM EGD PROCEDURE REPORT EXAM DATE: 05/25/2018 PATIENT NAME: Ricardo Ma MR #: [id number] BIRTHDATE: 1955 ATTENDING: Venice Mcgowan MD ORDER #: [id number] CODING COMPLIANCE SPECIALIST: Julieth Crews and Tiffani Palumbo STATUS: inpatient INDICATIONS: The patient is a 62 yr old male here for an EGD due to iron deficiency anemia and abdominal pain PROCEDURE PERFORMED: EGD w/ biopsy MEDICATIONS: None and Per Anesthesia. TOPICAL ANESTHETIC: CONSENT: The patient understands the risks and benefits of the procedure and understands that these risks include, but are not limited to: sedation, allergic reaction, infection, perforation and/or bleeding. Alternative means of evaluation and treatment include, among others: physical exam, x-rays, and/or surgical intervention. The patient elects to proceed with this endoscopic procedure. medical equipment was checked for proper function. Hand hygiene and appropriate measures for infection prevention was taken. After the risks, benefits and alternatives of the procedure were thoroughly explained, Informed consent was verified, confirmed and timeout was successfully executed by the treatment team. The patient was anesthetized with topical anesthesia and the EC-3490Li (Pedi C) endoscope was introduced through the mouth and advanced to the second portion of the duodenum. Retroflexed views revealed no abnormalities The gastroscope was then slowly withdrawn and removed. ESOPHAGUS: The mucosa of the esophagus appeared normal. STOMACH: There was moderate and ulcerative gastritis in the gastric antrum. A biopsy was performed using cold forceps. Sample sent for histology. ADVERSE EVENTS: There were no complications. IMPRESSIONS: 1. The esophagus appeared normal 2. There was gastritis in the gastric antrum; biopsy was performed 3. Retroflexed views revealed no abnormalities RECOMMENDATIONS: 1. Await biopsy results. Biopsy results will not be ready for 7-10 days. If you don't hear from us in two weeks, call our office for biopsy results. 2. Anti-reflux regimen 3. Continue PPI 4. Avoid NSAIDS PATIENT CONDITION: stable DISPOSITION: Inpatient REPEAT EXAM: Return 3 months EGD pending biopsy results Venice Mcgowan MD eSigned: Venice Mcgowan MD 05/25/2018 9:[address] abscess drainage Signed EXAM DATE: 06/03/2018 1:45 PM EDT AGE/SEX: 62 years / Male INDICATIONS: Right iliopsoas abscess. CLINICAL DATA: This is the patient's initial encounter. Patient reports that signs and symptoms have been present for 1 day and indicates a pain score of 0/ 10. MEDICAL/SURGICAL HISTORY: Cirrhosis. Diabetes. Hepatitis C. None. COMPARISON: No prior exams available for comparison. SEDATION TIME (min): 30 BIOPSY SITE: right iliopsoas abscess MEDICATION(S): 3.5mg midazolam (Versed) IV 175mcg fentanyl (Sublimaze) IV DEVICE(S): 8 Fr Skater FLUID: Total volume of 25 of purulent, red fluid was removed. Fluid was sent to lab for ordered studies.. . . PROCEDURE : CT guided drainage of the right iliopsoas abscess. Conscious sedation with continuous EKG and oximetry monitoring. The risks, benefits and alternatives to the procedure were explained and verbal and written consent was obtained. Using automated exposure control and adjustment of the mA and/or kV according to patient size, radiation dose was kept as low as reasonably achievable to obtain optimal diagnostic quality images. The site was prepped in sterile fashion. Full sterile technique was used, including cap, mask, sterile gloves and gown and a large sterile sheet. Hand hygiene and 2% chlorhexidine and/or betadine/alcohol prep was utilized per protocol for cutaneous antisepsis. The skin and subcutaneous tissues were infiltrated with local anesthetic solution. DICOM format image data is available electronically for review and comparison. FINDINGS: Using CT guidance the prescribed site was localized. An 18-gauge needle was advanced into the hypodense collection in the right psoas. Purulent material was aspirated. Therefore, the 035 Bentson wire was advanced through the outer cannula and coiled in the collection. Tract was dilated to accommodate the 8 [place] locking cope loop. Drainage was performed using the prescribed catheter. The patient tolerated the procedure well and there were no complications. The patient tolerated the procedure well and there were no complications. The patient was sent to post anesthesia recovery in stable condition. CONCLUSION: 1. Uncomplicated CT guided drainage of right psoas abscess as above. Electronically signed by: Darrius Pascal MD 06/03/2018 1:50 PM EDT Assessment and Plan - Plan This patient is a 62-year-old male with a history of IV drug use and hepatitis C cirrhosis. The patient was seen at [facility] in the past and was found to have a retroperitoneal mass or fluid collection. Apparently the patient did undergo biopsy however results of the biopsy are currently not available and the patient is a very poor historian. He admits to previous IV drug use. He presented to our facility with complaints of fatigue and abdominal pain with radiation to the back. 1. Sepsis secondary to right psoas abscess status post CT-guided drainage, and suspected discitis, and suspected endocarditis. 2. Pancytopenia likely secondary to hep C cirrhosis. The patient is currently on IV antibiotics and powell had a fever of 102 yesterday.. 2D echocardiogram was done which did not show any findings suggestive of vegetations. Blood cultures are negative. The patient is status post CT-guided drainage of the right psoas abscess. Continue IV vancomycin and Levaquin was stopped yesterday as per ID recommendations. Infectious diseases, following the patient will follow up with infectious disease and further recommendations on duration of IV antibiotics. The patient also has pancytopenia likely secondary to hep C cirrhosis. Heme oncology is also following the patient will follow up with the recommendations. His platelet count today is 39 there is no findings suggestive of bleeding at this point. 3. Diabetes mellitus type 2 Continue low-dose insulin sliding scale. This regimen will be adjusted as needed.
[2018-06-15] MEDS: Ibuprofen 600 MG Tablet PO PRN (17:33)
--- NOTE | 2018-06-16 00:10 | CT ---
EXAM DATE: 06/15/2018 11:48 PM EDT AGE/SEX: 62 years / Male INDICATIONS: Abdomen pain. CLINICAL DATA: This is the patient's initial encounter. Patient reports that signs and symptoms have been present for 1 day and indicates a pain score of 5/10. MEDICAL/SURGICAL HISTORY: Cirrhosis. Hepatitis C. retroperitoneal mass None. ORAL CONTRAST: Prescribed oral contrast ingested. RADIATION DOSE: 6.45 CTDI (mGy) COMPARISON: [facility] [place] ABDOMEN & PELVIS W CONTRAST, 06/08/2018. . TECHNIQUE: Multiple contiguous axial images were obtained through the abdomen and pelvis following b olus infusion of 75 ml Omnipaque 350 (iohexol) nonionic water-soluble contrast as a single exam dos e. Prescribed oral contrast ingested. Using automated exposure control and adjustment of the mA and/ or kV according to patient size, radiation dose was kept as low as reasonably achievable to obtain op timal diagnostic quality images. DICOM format image data is available electronically for review and comparison. FINDINGS: Lower Lungs: There has been improvement in aeration in the lung bases with near complete clearance of atelectasis or infiltrate on the left. Mild residual airspace opacity in the posterior and lateral r ight lung base. Small persistent effusions, improved, right greater than left. Liver: Markedly cirrhotic liver appearance again noted. No definite discrete mass. No biliary ductal dilatation. Anasarca and moderate ascites. Spleen: Mildly enlarged. Prominent left upper quadrant varices. Spontaneous spleno renal shunt. Pancreas: Unremarkable without mass or calcification. Kidneys: Normal in size and shape. No evidence of mass or hydronephrosis. Adrenal Glands: Unremarkable. Aorta: The aorta and proximal iliac vessels are grossly unremarkable without aneurysmal dilation. Bowel/Mesentery: The bowel loops are grossly unremarkable. The cecum and sigmoid colon have a normal configuration. Abdominal Wall: Intact. Retroperitoneum: No evidence of adenopathy in the retrocrural, para-aortic, or deep pelvic regions. Bladder: Contours are smooth. Reproductive Organs: No abnormal masses or calcifications seen. Inguinal: The inguinal region is unremarkable without evidence of adenopathy. Bony Structures: Unremarkable. CONCLUSION: 1. Improved aeration in the lung bases. 2. Otherwise no significant change with cirrhosis and stigmata of portal hypertension as described. Electronically signed by: Milton Lopez MD 06/16/2018 12:09 AM EDT
[2018-06-16] MEDS: Artificial Tears Opth Drops 15 ML Bottle EACH EYE SCH ×6 (01:31→22:26)
[2018-06-16] MEDS: Hypromellose 0.3% Opth Gel 10 GM Bottle EACH EYE SCH ×6 (01:31→22:26)
[2018-06-16] MEDS: Vancomycin Inj 1,250 MG in Sodium Chlor 0.9% Inj 250 ML IV.SIG SCH ×2 (03:09→20:35)
[2018-06-16 07:04] LABS: Activated Partial Thrombo Time 41.6 sec (24.3-30.1); INR 1.7 Ratio; Prothrombin Time 16.9 sec (9.8-11.6)
[2018-06-16 08:11] LABS: Hemoglobin 10.4 gm/dL (13.0-17.0); Mean Corpuscular HGB Conc 34.7 % (32.0-36.0); Mean Corpuscular Hemoglobin 35.4 pg (27.0-34.0); Mean Platelet Volume 8.5 fL (7.0-11.0); Platelet Count 26 th/mm3 (150-450); Red Blood Count 2.94 mil/mm3 (4.50-5.90); Red Cell Distribution Width 20.9 % (11.6-17.2); White Blood Count 2.7 th/mm3 (4.0-11.0)
[2018-06-16] MEDS: Senna/Docusate Sodium 8.6/50 MG Tablet PO SCH ×2 (08:20→20:36)
[2018-06-16] MEDS: Megestrol Acetate Liq 400 MG/10 ML UDC PO SCH (08:20)
--- NOTE | 2018-06-16 08:56 | P.PNIM ---
Subjective Interval history: Patient appears to be comfortable. He does not have any complaints. He is tolerating a p.o. diet. He denies noticing any bleeding or dark colored stools. Physical Exam Vital signs: Vital Signs 06/15/18 12:00 06/15/18 16:13 06/15/18 19:19 Temperature 97.7 F 98.2 F 102.3 F H Pulse Rate 65 74 106 H Respiratory Rate 18 16 18 Blood Pressure 116/67 138/83 148/77 H Pulse Oximetry 99 06/15/18 20:00 06/15/18 21:35 06/16/18 00:00 Temperature 99.1 F 98.1 F Pulse Rate 93 H 74 Respiratory Rate 19 20 20 Blood Pressure 113/58 L 112/61 Pulse Oximetry 97 99 06/16/18 04:00 06/16/18 07:15 06/16/18 07:25 Temperature 98.3 F 98.4 F Pulse Rate 65 66 Respiratory Rate 20 18 Blood Pressure 133/72 139/74 Pulse Oximetry 97 98 98 06/16/18 07:56 Temperature 98.4 F Pulse Rate 66 Respiratory Rate 20 Blood Pressure 139/74 Pulse Oximetry 97 Intake & Output 06/15/18 06/16/18 06/16/18 18:59 06:59 18:59 Intake Total 742.5 / 742.5 742.5 / 742.5 Balance 742.5 / 742.5 742.5 / 742.5 Weight 75.4 kg Intake: IV 262.5 / 262.5 262.5 / 262.5 Vancomycin Inj 1,250 MG In NS 262.5 / 262.5 262.5 / 262.5 Inj 250 ML @ 250 mls/hr IV.SIG Q18H [facility] Rx#:[id number] Oral 480 / 480 480 / 480 Other: # Voids 2 3 Date of Last Bowel Movement 06/13/18 Narrative: General patient in no acute distress HEENT extraocular movements are intact, clear oropharyngeal mucosa, no JVD Cardiovascular S1-S2 audible, no murmurs rubs or gallops Respiratory clear to auscultation bilaterally Abdomen soft, nontender, nondistended, normal bowel sounds Extremities no edema 2+ distal pulses in bilateral upper and lower extremities Neuro no neuro deficits Results - Labs CBC & Chem 7: 06/16/18 07:42 06/14/18 07:12 Laboratory Results - last 24 hr 06/15/18 06/16/18 06/16/18 09:22 06:29 07:42 WBC 2.7 L RBC 2.94 L Hgb 10.4 L Hct 30.0 L MCV 102.0 H MCH 35.4 H MCHC 34.7 RDW 20.9 H Plt Count 26 L D MPV 8.5 Prelim Diff (Auto) Manual diff required Differential Comment . PT 16.9 H INR 1.7 APTT 41.6 H Fibrinogen 106 L Vancomycin Trough 15.4 H Microbiology 06/13/18 16:56 Blood - Peripheral Aerobic Blood Culture - Preliminary No growth in 2 days 06/13/18 16:56 Blood - Peripheral Anaerobic Blood Culture - Preliminary No growth in 2 days 06/13/18 16:51 Blood - Peripheral Aerobic Blood Culture - Preliminary No growth in 2 days 06/13/18 16:51 Blood - Peripheral Anaerobic Blood Culture - Preliminary No growth in 2 days - Imaging Impressions Abdomen/Pelvis CT 06/15/18 00:00 CONCLUSION: 1. Improved aeration in the lung bases. 2. Otherwise no significant change with cirrhosis and stigmata of portal hypertension as described. - Procedures COLONOSCOPY PROCEDURE REPORT EXAM DATE: 05/25/2018 PATIENT NAME: Ricardo Ma MR #: [id number] BIRTHDATE: 1955 ENDOSCOPIST: Venice Mcgowan MD ORDER #: [id number] MOTORBOAT MECHANIC INBOARD: Julieth Crews RN STATUS: inpatient INDICATIONS: The patient is a 62 yr old male here for a colonoscopy due to abdominal pain and iron deficiency anemia PROCEDURE PERFORMED: Colonoscopy, diagnostic MEDICATIONS: None and Per Anesthesia. PREP QUALITY: The [place] Bowel Prep Score was Right colon 3, Mid colon 2, and Left colon 2. Total = 7. PREP TYPE:Magnesium Citrate ESTIMATED BLOOD LOSS: None CONSENT: The patient understands the risks and benefits of the procedure and understands that these risks include, but are not limited to: sedation, allergic reaction, infection, perforation and/or bleeding. Alternative means of evaluation and treatment include, among others: physical exam, x-rays, and/or surgical intervention. The patient elects to proceed with this endoscopic procedure. medical equipment was checked for proper function. Hand hygiene and appropriate measures for infection prevention was taken. After the risks, benefits and alternatives of the procedure were thoroughly explained, Informed consent was verified, confirmed and timeout was successfully executed by the treatment team. A digital exam revealed external hemorrhoids The Pentax EC-3490Li endoscope was introduced through the anus and advanced to the cecum, which was identified by both the appendix and ileocecal valve. The instrument was then slowly withdrawn as the colon was fully examined. COLON FINDINGS: The colonic mucosa appeared normal. Retroflexed views revealed internal hemorrhoids and Retroflexed views revealed medium internal hemorrhoids The scope was then completely withdrawn from the patient and the procedure terminated. PROCEDURE WITHDRAWAL TIME:6minutes ADVERSE EVENTS: There were no complications. IMPRESSIONS: 1. The colonic mucosa appeared normal 2. Retroflexed views revealed internal hemorrhoids 3. Retroflexed views revealed medium internal hemorrhoids 4. Revealed external hemorrhoids RECOMMENDATIONS: 1. Benefiber 2 tsp daily 2. Continue surveillance 3. Yearly hemoccult RECALL: Return 5 years Colonoscopy Venice Mcgowan MD eSigned: Venice Mcgowan MD 05/25/2018 9:56 AM EGD PROCEDURE REPORT EXAM DATE: 05/25/2018 PATIENT NAME: Ricardo Ma MR #: [id number] BIRTHDATE: 1955 ATTENDING: Venice Mcgowan MD ORDER #: [id number] MOTORBOAT MECHANIC INBOARD: Julieth Crews and Tiffani Palumbo STATUS: inpatient INDICATIONS: The patient is a 62 yr old male here for an EGD due to iron deficiency anemia and abdominal pain PROCEDURE PERFORMED: EGD w/ biopsy MEDICATIONS: None and Per Anesthesia. TOPICAL ANESTHETIC: CONSENT: The patient understands the risks and benefits of the procedure and understands that these risks include, but are not limited to: sedation, allergic reaction, infection, perforation and/or bleeding. Alternative means of evaluation and treatment include, among others: physical exam, x-rays, and/or surgical intervention. The patient elects to proceed with this endoscopic procedure. medical equipment was checked for proper function. Hand hygiene and appropriate measures for infection prevention was taken. After the risks, benefits and alternatives of the procedure were thoroughly explained, Informed consent was verified, confirmed and timeout was successfully executed by the treatment team. The patient was anesthetized with topical anesthesia and the EC-3490Li (Pedi C) endoscope was introduced through the mouth and advanced to the second portion of the duodenum. Retroflexed views revealed no abnormalities The gastroscope was then slowly withdrawn and removed. ESOPHAGUS: The mucosa of the esophagus appeared normal. STOMACH: There was moderate and ulcerative gastritis in the gastric antrum. A biopsy was performed using cold forceps. Sample sent for histology. ADVERSE EVENTS: There were no complications. IMPRESSIONS: 1. The esophagus appeared normal 2. There was gastritis in the gastric antrum; biopsy was performed 3. Retroflexed views revealed no abnormalities RECOMMENDATIONS: 1. Await biopsy results. Biopsy results will not be ready for 7-10 days. If you don't hear from us in two weeks, call our office for biopsy results. 2. Anti-reflux regimen 3. Continue PPI 4. Avoid NSAIDS PATIENT CONDITION: stable DISPOSITION: Inpatient REPEAT EXAM: Return 3 months EGD pending biopsy results Venice Mcgowan MD eSigned: Venice Mcgowan MD 05/25/2018 9:[address] abscess drainage Signed EXAM DATE: 06/03/2018 1:45 PM EDT AGE/SEX: 62 years / Male INDICATIONS: Right iliopsoas abscess. CLINICAL DATA: This is the patient's initial encounter. Patient reports that signs and symptoms have been present for 1 day and indicates a pain score of 0/ 10. MEDICAL/SURGICAL HISTORY: Cirrhosis. Diabetes. Hepatitis C. None. COMPARISON: No prior exams available for comparison. SEDATION TIME (min): 30 BIOPSY SITE: right iliopsoas abscess MEDICATION(S): 3.5mg midazolam (Versed) IV 175mcg fentanyl (Sublimaze) IV DEVICE(S): 8 Fr Skater FLUID: Total volume of 25 of purulent, red fluid was removed. Fluid was sent to lab for ordered studies.. . . PROCEDURE : CT guided drainage of the right iliopsoas abscess. Conscious sedation with continuous EKG and oximetry monitoring. The risks, benefits and alternatives to the procedure were explained and verbal and written consent was obtained. Using automated exposure control and adjustment of the mA and/or kV according to patient size, radiation dose was kept as low as reasonably achievable to obtain optimal diagnostic quality images. The site was prepped in sterile fashion. Full sterile technique was used, including cap, mask, sterile gloves and gown and a large sterile sheet. Hand hygiene and 2% chlorhexidine and/or betadine/alcohol prep was utilized per protocol for cutaneous antisepsis. The skin and subcutaneous tissues were infiltrated with local anesthetic solution. DICOM format image data is available electronically for review and comparison. FINDINGS: Using CT guidance the prescribed site was localized. An 18-gauge needle was advanced into the hypodense collection in the right psoas. Purulent material was aspirated. Therefore, the 035 Bentson wire was advanced through the outer cannula and coiled in the collection. Tract was dilated to accommodate the 8 [place] locking cope loop. Drainage was performed using the prescribed catheter. The patient tolerated the procedure well and there were no complications. The patient tolerated the procedure well and there were no complications. The patient was sent to post anesthesia recovery in stable condition. CONCLUSION: 1. Uncomplicated CT guided drainage of right psoas abscess as above. Electronically signed by: Darrius Pascal MD 06/03/2018 1:50 PM EDT Assessment and Plan - Plan This patient is a 62-year-old male with a history of IV drug use and hepatitis C cirrhosis with complications of pancytopenia with severe thrombocytopenia. The patient was seen at [facility] in the past and was found to have a retroperitoneal mass or fluid collection. Apparently the patient did undergo biopsy however results of the biopsy are currently not available and the patient is a very poor historian. He admits to previous IV drug use. He presented to our facility with complaints of fatigue and abdominal pain with radiation to the back. 1. Sepsis secondary to right psoas abscess status post CT-guided drainage, and suspected discitis, and suspected endocarditis. 2. Pancytopenia likely secondary to hep C cirrhosis. The patient has remained afebrile over the past 24 hours. 2D echocardiogram was done which did not show any findings suggestive of vegetations. Blood cultures are negative. The patient is status post CT-guided drainage of the right psoas abscess. Continue IV vancomycin. Infectious diseases, following the patient will follow up with infectious disease and further recommendations on duration of IV antibiotics. The patient also has pancytopenia likely secondary to hep C cirrhosis. Heme oncology is also following the patient will follow up with the recommendations. His platelet count today is 26 which has decreased from 39 yesterday. There is no findings suggestive of bleeding at this point. I will follow up with heme oncology today for further recommendations. 3. Diabetes mellitus type 2 Continue low-dose insulin sliding scale. This regimen will be adjusted as needed. No pharmacotherapy for DVT prophylaxis as the patient has severe thrombocytopenia and is at high risk for bleeding.
[2018-06-16 08:58] LABS: Blast Cells 1 % (0-0); Eosinophils 10 % (0-4); Lymphocytes 24 % (9-44); Monocytes 9 % (0-8); Tallied Nucleated RBC 1 (0-0)
[2018-06-16 08:59] LABS: Acanthocytes Occ; Ovalocytes 1+; Platelet Morphology Normal (Normal); Tear Drop Cells 1+
[2018-06-16] MEDS ORDERED: Acetaminophen 325 MG Tablet PO PRN (09:27)
--- NOTE | 2018-06-16 10:09 | P.PNONC ---
Subjective Interval history: T-max 102.3F on 06/14/2018 at 1900. No fever since. Pancytopenia noted on today's lab draw. Patient reports a bloody nose yesterday evening, stating it lasted for approximately 2-3 minutes, resolved with tissue being placed in nare. This occurred after he sneezed. He adamantly denies any other bleeding. Denies blood in urine, stool. Denies vomiting. Denies abdominal pain. Objective Vital Signs/Intake & Output: Vital Signs 06/15/18 12:00 06/15/18 16:13 06/15/18 19:19 Temperature 97.7 F 98.2 F 102.3 F H Pulse Rate 65 74 106 H Respiratory Rate 18 16 18 Blood Pressure 116/67 138/83 148/77 H Pulse Oximetry 99 06/15/18 20:00 06/15/18 21:35 06/16/18 00:00 Temperature 99.1 F 98.1 F Pulse Rate 93 H 74 Respiratory Rate 19 20 20 Blood Pressure 113/58 L 112/61 Pulse Oximetry 97 99 06/16/18 04:00 06/16/18 07:15 06/16/18 07:25 Temperature 98.3 F 98.4 F Pulse Rate 65 66 Respiratory Rate 20 18 Blood Pressure 133/72 139/74 Pulse Oximetry 97 98 98 06/16/18 07:56 06/16/18 08:00 Temperature 98.4 F Pulse Rate 66 Respiratory Rate 20 16 Blood Pressure 139/74 Pulse Oximetry 97 Intake & Output 06/15/18 06/16/18 06/16/18 18:59 06:59 18:59 Intake Total 742.5 / 742.5 742.5 / 742.5 Balance 742.5 / 742.5 742.5 / 742.5 Weight 75.4 kg Intake: IV 262.5 / 262.5 262.5 / 262.5 Vancomycin Inj 1,250 MG In NS 262.5 / 262.5 262.5 / 262.5 Inj 250 ML @ 250 mls/hr IV.SIG Q18H [facility] Rx#:[id number] Oral 480 / 480 480 / 480 Other: # Voids 2 3 Date of Last Bowel Movement 06/13/18 Result Diagrams: 06/16/18 07:42 06/14/18 07:12 Laboratory Results: Laboratory Results - last 24 hr 06/15/18 06/16/18 06/16/18 09:22 06:29 07:42 WBC 2.7 L RBC 2.94 L Hgb 10.4 L Hct 30.0 L MCV 102.0 H MCH 35.4 H MCHC 34.7 RDW 20.9 H Plt Count 26 L D MPV 8.5 Prelim Diff (Auto) Manual diff required WBC Differential Manual diff final Seg Neuts % (Manual) 49 Band Neuts % (Manual) 7 H Lymphocytes % (Manual) 24 Monocytes % (Manual) 9 H Eosinophils % (Manual) 10 H Blast Cells % (Manual) 1 H Abs Neuts (Manual) 1.5 L Nucleated RBCs/100 WBC 1 H Differential Comment . Platelet Estimate Low L Platelet Morphology Normal Tear Drop Cells 1+ H Ovalocytes 1+ H Acanthocytes (Spur) Occ H Keratocytes Occ H PT 16.9 H INR 1.7 APTT 41.6 H Fibrinogen 106 L Vancomycin Trough 15.4 H Culture Results: Microbiology 06/13/18 16:56 Aerobic Blood Culture - Preliminary Blood - Peripheral No growth in 2 days Anaerobic Blood Culture - Preliminary No growth in 2 days 06/13/18 16:51 Aerobic Blood Culture - Preliminary Blood - Peripheral No growth in 2 days Anaerobic Blood Culture - Preliminary No growth in 2 days Imaging Studies: Impressions Abdomen/Pelvis CT 06/15/18 00:00 CONCLUSION: 1. Improved aeration in the lung bases. 2. Otherwise no significant change with cirrhosis and stigmata of portal hypertension as described. Medications: Active Medications Generic Name Dose Route Start Last Admin Trade Name Freq PRN Reason Stop Dose Admin Artificial Tears 1 drop 05/29/18 10:00 06/16/18 05:17 Tears Naturale Opth Drops EACH EYE Not Given Q4H [facility] Artificial Tears 1 drops 05/29/18 18:00 06/16/18 05:17 Genteal Severe Dry Eye Relief 0.3% Opth Gel EACH EYE Not Given Q4H [facility] Vancomycin HCl 1,250 mg/ 262.5 mls @ 250 mls/hr 06/14/18 15:00 06/16/18 04:12 Sodium Chloride IV.SIG Infused Q18H [facility] Infusion Lactulose 30 ml 06/10/18 13:31 06/10/18 14:06 Lactulose Liq PO 30 ml BID PRN Administration Severe constipation Megestrol Acetate 400 mg 06/11/18 12:30 06/16/18 08:20 Megace Liq PO 400 mg DAILY [facility] Administration Ondansetron HCl 4 mg 05/23/18 17:58 05/28/18 09:41 Zofran Inj IV.PUSH 4 mg Q6H PRN Administration NAUSEA OR VOMITING Oxycodone HCl 5 mg 05/23/18 18:52 06/16/18 06:14 Roxicodone PO 5 mg Q6H PRN Administration pain 3-10 Pantoprazole Sodium 40 mg 05/24/18 21:00 06/16/18 08:20 Protonix PO 40 mg BID [facility] Administration Senna/Docusate Sodium 1 tab 05/23/18 21:00 06/16/18 08:20 Lina-Colace PO 1 tab BID [facility] Administration Sodium Chloride 2 ml 05/23/18 12:33 06/14/18 23:35 Ns Flush IV.FLUSH 2 ml PRN PRN Administration FLUSH AFTER USING IV ACCESS Sodium Chloride 10 ml 06/06/18 15:00 06/16/18 08:23 Ns Inj IRRIGATION Not Given DAILY [facility] Objective Remarks: GENERAL: Older male patient, lying in bed, in no acute distress. SKIN: Pale, warm and dry. +psoriasis plaques to BLE. HEAD: Normocephalic. EYES: No injection or drainage. NECK: Supple, trachea midline. CARDIOVASCULAR: +S1/S2 without murmurs. RESPIRATORY: Anterior breath sounds clear, equal bilaterally. Non-labored. GASTROINTESTINAL: Abdomen non-soft, tender, no distention. EXTREMITIES: No cyanosis, or edema. Chronic skin discoloration and psoriasis plaques to BLE. MUSCULOSKELETAL: Adequate muscle tone. NEUROLOGICAL: No obvious focal deficit. Awake, alert, and oriented x3. Assessment/Plan - Plan 62-year-old male admitted with right lower quadrant pain. He has history of alcoholic liver disease, liver cirrhosis, hepatitis C and diabetes. He was found to have extensive varicosities on his CT abdomen and pelvis which could be possible abscess or hematoma. The patient has been evaluated by GI and is s/ p EGD and colonoscopy. The patient was seen by hematology services earlier in this admission, he was scheduled for discharge home when he started having fevers. CT abdomen showed a complex fluid collection in the perinephric space on the right side measures 5.8 x 5.1 cm with septation and soft tissue components to it. The largest pocket of fluid collection measures almost 5.3 cm in size not significantly changed. Hematology was reconsulted for evaluation/ risk for aspirate of the complex fluid collection in the perinephric space, given his history of coagulopathy and thrombocytopenia. Plan: 1. Pancytopenia, WBC trended down to 2.7, hemoglobin trended to 10.4, platelet count decreased to 26K. Patient reported 1 bloody nose yesterday that lasted 2- 3 minutes. Adamantly denies any other bleeding. Pancytopenia likely secondary to liver disease and infection. We will continue to monitor closely. 2. Coagulopathy, likely secondary to liver disease & DIC. Fibrinogen down trended to 106, PT 16.9, INR 1.7 and APTT 41.6.Plan to transfuse if platelets less than 20k or active bleeding. 3. Continue to monitor for active bleeding. Patient educated to notify the nurse if he has any further bloody noses, or notices any other bleeding. 4. We will repeat CBC tomorrow. 5. Fevers, currently being treated for psoas abscess. Wound culture positive for Staphylococcus aureus, currently on vancomycin. Avoid NSAIDs, as recommended by GI after EGD and due to patient's low platelet count. Tylenol as needed for fever greater than 101. - Attending Statement Pt without evidence of DIC. Decreasing platelets secondary to Vancomycin in addition to baseline thromobytopenia secondary to cirrhosis and splenomegaly. Will follow up and may recommend D/c of Vanco if possible.
--- NOTE | 2018-06-16 14:39 | P.PNID ---
Subjective Remarks: Patient is a 62-year-old male, brought into the hospital for further evaluation of generalized weakness, shortness of breath, poor appetite, weight loss, and abdominal pain. Patient is not a very good historian. Looks like he was hospitalized several times in [facility]. In 1 of his hospitalization he was apparently found to have some kind of a retroperitoneal mass, and a biopsy was done. Patient could not tell me when the biopsy was done but that was when the right-sided abdominal pain started. The pain would radiate to the back, and it could also radiate down to his right medial thigh. He was also having other problems then which was felt to be related to his hepatitis C. On this admission he was found to have anemia. He had an upper and lower endoscopy. The procedure showed some gastritis and there was no active bleeding. Since around May 28 he started having intermittent fevers. He has had blood cultures done and they were negative. He had a urinalysis which showed some pyuria, and the culture grew staph aureus methicillin sensitive. He has had CT of the abdomen and pelvis and they are showing a complex fluid collection in the right perinephric space, psoas muscle area. He continues to have the right lower quadrant pain. Denies any urinary complaints. He has not had any congestion or any cough. No nausea or vomiting. His WBC is normal. His had problem with thrombocytopenia which was felt to be related to his liver disease. Chest x-ray does not show any acute disease. Infectious disease consultation has been requested to evaluate the patient with fevers. He is currently on Levaquin and vancomycin. There is mention of anaphylaxis with penicillin. Patient stated he got very swollen and couldn't breathe Notes reviewed No new complaints Temps better Repeat CT A/P - discussed with radiology, there is a small fluid collection 3 x 1.5 cm right where he had the drain Eating well No pain No N/V No diarrhea Voiding ok MRI T spine ok Reviewed records from [facility] - imaging studies showed a retroperitoneal mass; biopsy no malignancy. Had UC also with MSSA Last CT A/P 06/08 resolution of fluid collection No rash or itching Antibiotics: Vancomycin Lines: PIV Past Medical History: Cirrhosis Degenerative joint disease Diabetes Hep C w/o coma, chronic Psoriasis Retroperitoneal mass (?) Allergies/Adverse Reactions: Allergies penicillin G Allergy (Severe, Verified 05/23/18 21:01) Anaphylaxis Objective Vital Signs 06/15/18 16:13 06/15/18 19:19 06/15/18 20:00 Temperature 98.2 F 102.3 F H 99.1 F Pulse Rate 74 106 H 93 H Respiratory Rate 16 18 19 Blood Pressure 138/83 148/77 H 113/58 L Pulse Oximetry 97 06/15/18 21:35 06/16/18 00:00 06/16/18 04:00 Temperature 98.1 F 98.3 F Pulse Rate 74 65 Respiratory Rate 20 20 20 Blood Pressure 112/61 133/72 Pulse Oximetry 99 97 06/16/18 07:15 06/16/18 07:25 06/16/18 07:56 Temperature 98.4 F 98.4 F Pulse Rate 66 66 Respiratory Rate 18 20 Blood Pressure 139/74 139/74 Pulse Oximetry 98 98 97 06/16/18 08:00 06/16/18 12:00 Temperature 98.2 F Pulse Rate 73 Respiratory Rate 16 21 Blood Pressure 130/73 Pulse Oximetry 99 Intake & Output 06/15/18 06/16/18 06/16/18 18:59 06:59 18:59 Intake Total 742.5 / 742.5 742.5 / 742.5 Balance 742.5 / 742.5 742.5 / 742.5 Weight 75.4 kg Intake: IV 262.5 / 262.5 262.5 / 262.5 Vancomycin Inj 1,250 MG In NS 262.5 / 262.5 262.5 / 262.5 Inj 250 ML @ 250 mls/hr IV.SIG Q18H [facility] Rx#:[id number] Oral 480 / 480 480 / 480 Other: # Voids 2 3 Date of Last Bowel Movement 06/13/18 06/13/18 16:56 Blood - Peripheral Aerobic Blood Culture - Preliminary No growth in 3 days 06/13/18 16:56 Blood - Peripheral Anaerobic Blood Culture - Preliminary No growth in 3 days 06/13/18 16:51 Blood - Peripheral Aerobic Blood Culture - Preliminary No growth in 3 days 06/13/18 16:51 Blood - Peripheral Anaerobic Blood Culture - Preliminary No growth in 3 days Lab - Hematology Results 06/16/18 07:42 WBC 2.7 L RBC 2.94 L Hgb 10.4 L Hct 30.0 L MCV 102.0 H MCH 35.4 H MCHC 34.7 RDW 20.9 H Plt Count 26 L D MPV 8.5 Prelim Diff (Auto) Manual diff required WBC Differential Manual diff final Seg Neuts % (Manual) 49 Band Neuts % (Manual) 7 H Lymphocytes % (Manual) 24 Monocytes % (Manual) 9 H Eosinophils % (Manual) 10 H Blast Cells % (Manual) 1 H Abs Neuts (Manual) 1.5 L Nucleated RBCs/100 WBC 1 H Differential Comment . Platelet Estimate Low L Platelet Morphology Normal Tear Drop Cells 1+ H Ovalocytes 1+ H Acanthocytes (Spur) Occ H Keratocytes Occ H Lab - Chemistry Results 06/14/18 14:21 Magnesium 1.3 L Imaging: ITS Impressions Chest X-Ray 05/27/18 00:00 CONCLUSION: Linear atelectasis or consolidation at the medial right lower lung. Abscess Drainage CT 06/03/18 00:00 CONCLUSION: 1. Uncomplicated CT guided drainage of right psoas abscess as above. Lumbar Spine MRI 06/13/18 00:00 CONCLUSION: 1. Degenerative changes of the lower lumbar spine, as detailed above. 2. Partially imaged 2.9 x 1.3 cm right paraspinal fluid collection, consistent with patient's known abscess. Abdomen/Pelvis CT 06/15/18 00:00 CONCLUSION: 1. Improved aeration in the lung bases. 2. Otherwise no significant change with cirrhosis and stigmata of portal hypertension as described. Physical Exam: GENERAL: Patient is a thin, well-developed male, awake and alert, not in respiratory distress. SKIN: Cool and dry. Has scattered psoriasis rash in BUE and BLE. No other rash HEAD: Atraumatic. Normocephalic. No temporal wasting, or tenderness. EYES: Cornucopia conjunctiva. No petechia or hemorrhage. Has mild scleral icterus. No injection or drainage. EARS, NOSE AND THROAT: Nose without bleeding or purulent nasal discharge. No sinus tenderness. Mucous membranes pink and moist. No oral lesions noted. NECK: Trachea midline. Supple and not tender, no meningeal signs CARDIOVASCULAR: Regular rate and rhythm. No murmurs, rubs or gallops heard RESPIRATORY: Clear to auscultation. Breath sounds equal bilaterally. No rales , wheezing or rhonchi ABDOMEN: Soft, flat, nondistended, not tender. Bowel sounds present and normoactive. No guarding. No rebound. No organomegaly. BACK: No spine tenderness EXTREMITIES: No clubbing, cyanosis, or edema. No joint effusion, has good ROM. No calf tenderness. NEUROLOGICAL: Non-focal PSYCHIATRIC: Normal affect, calm and cooperative. LINE: No evidence of infection Assessment and Plan - Plan Impression Infective discitis based on clinical suspicion Suspect Infective Endocarditis. MSSA retroperitoneal abscess s.p IR drainage. Also prior drainage at [facility]. Records not available. 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 Reports anaphylaxis to penicillin. Discussed penicillin desensitization as an option as it is drug of choice. He says he was told penicillin would kill him. Last PCN when he had strep throat as a child. If no further fever, PICC tomorrow and arrange for completion of Abx on D/C - at least 6 weeks IV Abx; anticipated end date Jul 08 Will need repeat imaging studies in 3 weeks to reevaluate the fluid collection size and monitor resolution
[2018-06-16 23:56] VITALS: RESP 18
[2018-06-17] MEDS: Hypromellose 0.3% Opth Gel 10 GM Bottle EACH EYE SCH ×2 (01:10→05:05)
[2018-06-17] MEDS: Artificial Tears Opth Drops 15 ML Bottle EACH EYE SCH ×2 (01:10→05:05)
[2018-06-17 07:16] VITALS: BP 138/70; PULSE 83; TEMP 99.7; O2SAT 94
[2018-06-17 07:26] LABS: Baso % (Auto) 0.6 % (0.0-2.0); Eos # (Auto) 0.2 th/mm3 (0.0-0.4); Eos % (Auto) 5.2 % (0.0-4.0); Hematocrit 28.6 % (39.0-51.0); Hemoglobin 10.2 gm/dL (13.0-17.0); Lymph # (Auto) 1.3 th/mm3 (1.0-4.8); Lymph % (Auto) 30.3 % (9.0-44.0); Mean Corpuscular HGB Conc 35.5 % (32.0-36.0); Mean Corpuscular Hemoglobin 35.8 pg (27.0-34.0); Mean Platelet Volume 9.9 fL (7.0-11.0); Mono # (Auto) 0.9 th/mm3 (0.0-0.9); Mono % (Auto) 21.6 % (0.0-8.0); Neut # (Auto) 1.8 th/mm3 (1.8-7.7); Neut % (Auto) 42.3 % (16.0-70.0); Platelet Count 30 th/mm3 (150-450); Red Blood Count 2.84 mil/mm3 (4.50-5.90); Red Cell Distribution Width 21.3 % (11.6-17.2); White Blood Count 4.2 th/mm3 (4.0-11.0)
[2018-06-17 07:43] LABS: Activated Partial Thrombo Time 38.1 sec (24.3-30.1)
[2018-06-17 07:58] LABS: Albumin 1.6 g/dL (3.4-5.0); Calcium 7.2 mg/dL (8.5-10.1); Carbon Dioxide 24.5 meq/L (21.0-32.0); Magnesium 1.4 mg/dL (1.5-2.5); Potassium 3.6 meq/L (3.5-5.1); Total Protein 7.2 g/dL (6.4-8.2)
[2018-06-17] MEDS: Megestrol Acetate Liq 400 MG/10 ML UDC PO SCH (08:27)
[2018-06-17] MEDS: Senna/Docusate Sodium 8.6/50 MG Tablet PO SCH (08:27)
[2018-06-17 09:52] LABS: Eosinophils 1 % (0-4); Lymphocytes 20 % (9-44); Monocytes 13 % (0-8); Ovalocytes 1+; Platelet Morphology Normal (Normal)
[2018-06-17 09:53] LABS: Acanthocytes Occ
--- NOTE | 2018-06-17 17:49 | P.PNIM ---
Subjective Interval history: The patient is not in any acute distress. He is lying down comfortably. The patient states that he wants to go home. He is ambulating around the unit. Physical Exam Vital signs: Vital Signs 06/16/18 20:00 06/16/18 20:15 06/16/18 23:55 Temperature 99.4 F 99.7 F H Pulse Rate 83 82 Respiratory Rate 18 14 18 Blood Pressure 131/67 140/73 Pulse Oximetry 96 96 06/17/18 04:00 06/17/18 07:15 Temperature 100.8 F H 99.7 F H Pulse Rate 127 H 83 Respiratory Rate 18 18 Blood Pressure 136/93 H 138/70 Pulse Oximetry 95 94 L Intake & Output 06/16/18 06/17/18 06/17/18 18:59 06:59 18:59 Intake Total 960 / 960 755 / 755 Output Total 200 / 200 Balance 960 / 960 555 / 555 Weight 75.5 kg Intake: IV 275 / 275 Vancomycin Inj 1,250 MG In NS 275 / 275 Inj 250 ML @ 250 mls/hr IV.SIG Q18H [facility] Rx#:[id number] Oral 960 / 960 480 / 480 Output: Urine 200 / 200 Other: # Voids 4 2 # Bowel Movements 0 Narrative: General patient in no acute distress HEENT extraocular movements are intact, clear oropharyngeal mucosa, no JVD Cardiovascular S1-S2 audible, no murmurs rubs or gallops Respiratory clear to auscultation bilaterally Abdomen soft, nontender, nondistended, normal bowel sounds Extremities no edema 2+ distal pulses in bilateral upper and lower extremities Neuro no neuro deficits Results - Labs CBC & Chem 7: 06/17/18 06:34 06/17/18 06:34 Laboratory Results - last 24 hr 06/17/18 06/17/18 06/17/18 06:34 06:34 06:34 WBC 4.2 D RBC 2.84 L Hgb 10.2 L Hct 28.6 L MCV 101.0 H MCH 35.8 H MCHC 35.5 RDW 21.3 H Plt Count 30 L MPV 9.9 Prelim Diff (Auto) Slide review pending Neut % (Auto) 42.3 Lymph % (Auto) 30.3 [place] % (Auto) 21.6 H Eos % (Auto) 5.2 H Baso % (Auto) 0.6 Neut # (Auto) 1.8 Lymph # (Auto) 1.3 [place] # (Auto) 0.9 Eos # (Auto) 0.2 Baso # (Auto) 0.0 WBC Differential Manual diff final Seg Neuts % (Manual) 56 Band Neuts % (Manual) 10 H Lymphocytes % (Manual) 20 Monocytes % (Manual) 13 H Eosinophils % (Manual) 1 Abs Neuts (Manual) 2.8 Differential Comment . Platelet Estimate Low L Platelet Morphology Normal Ovalocytes 1+ H Acanthocytes (Spur) Occ H APTT 38.1 H Fibrinogen 106 L Sodium 133 L Potassium 3.6 Chloride 101 Carbon Dioxide 24.5 Anion Gap 8 BUN 9 Creatinine 1.16 Estimated GFR 64 L Random Glucose 129 H Calcium 7.2 L* Prot Corrected Calcium 7.2 L* Magnesium 1.4 L Total Bilirubin 1.5 H AST 40 H ALT 17 Alkaline Phosphatase 156 H Total Protein 7.2 D Albumin 1.6 L Microbiology 06/03/18 12:40 Abscess - Other Fungal Smear - Final No fungal elements seen 06/03/18 12:40 Abscess - Other Fungal Culture - Preliminary No growth in 2 weeks 06/03/18 12:40 Abscess - Other Acid Fast Bacilli Smear - Final No acid fast bacilli seen 06/03/18 12:40 Abscess - Other Mycobacterial Culture - Preliminary No growth in 2 weeks 06/13/18 16:56 Blood - Peripheral Aerobic Blood Culture - Preliminary No growth in 4 days 06/13/18 16:56 Blood - Peripheral Anaerobic Blood Culture - Preliminary No growth in 4 days 06/13/18 16:51 Blood - Peripheral Aerobic Blood Culture - Preliminary No growth in 4 days 06/13/18 16:51 Blood - Peripheral Anaerobic Blood Culture - Preliminary No growth in 4 days - Procedures COLONOSCOPY PROCEDURE REPORT EXAM DATE: 05/25/2018 PATIENT NAME: Ricardo Ma MR #: [id number] BIRTHDATE: 1955 ENDOSCOPIST: Venice Mcgowan MD ORDER #: [id number] PRIVATE EQUITY ASSOCIATE: Julieth Crews RN STATUS: inpatient INDICATIONS: The patient is a 62 yr old male here for a colonoscopy due to abdominal pain and iron deficiency anemia PROCEDURE PERFORMED: Colonoscopy, diagnostic MEDICATIONS: None and Per Anesthesia. PREP QUALITY: The Beth[place] Bowel Prep Score was Right colon 3, Mid colon 2, and Left colon 2. Total = 7. PREP TYPE:Magnesium Citrate ESTIMATED BLOOD LOSS: None CONSENT: The patient understands the risks and benefits of the procedure and understands that these risks include, but are not limited to: sedation, allergic reaction, infection, perforation and/or bleeding. Alternative means of evaluation and treatment include, among others: physical exam, x-rays, and/or surgical intervention. The patient elects to proceed with this endoscopic procedure. medical equipment was checked for proper function. Hand hygiene and appropriate measures for infection prevention was taken. After the risks, benefits and alternatives of the procedure were thoroughly explained, Informed consent was verified, confirmed and timeout was successfully executed by the treatment team. A digital exam revealed external hemorrhoids The Pentax EC-3490Li endoscope was introduced through the anus and advanced to the cecum, which was identified by both the appendix and ileocecal valve. The instrument was then slowly withdrawn as the colon was fully examined. COLON FINDINGS: The colonic mucosa appeared normal. Retroflexed views revealed internal hemorrhoids and Retroflexed views revealed medium internal hemorrhoids The scope was then completely withdrawn from the patient and the procedure terminated. PROCEDURE WITHDRAWAL TIME:6minutes ADVERSE EVENTS: There were no complications. IMPRESSIONS: 1. The colonic mucosa appeared normal 2. Retroflexed views revealed internal hemorrhoids 3. Retroflexed views revealed medium internal hemorrhoids 4. Revealed external hemorrhoids RECOMMENDATIONS: 1. Benefiber 2 tsp daily 2. Continue surveillance 3. Yearly hemoccult RECALL: Return 5 years Colonoscopy Venice Mcgowan MD eSigned: Venice Mcgowan MD 05/25/2018 9:56 AM EGD PROCEDURE REPORT EXAM DATE: 05/25/2018 PATIENT NAME: Ricardo Ma MR #: [id number] BIRTHDATE: 1955 ATTENDING: Venice Mcgowan MD ORDER #: [id number] PRIVATE EQUITY ASSOCIATE: Julieth Crews and Tiffani Palumbo STATUS: inpatient INDICATIONS: The patient is a 62 yr old male here for an EGD due to iron deficiency anemia and abdominal pain PROCEDURE PERFORMED: EGD w/ biopsy MEDICATIONS: None and Per Anesthesia. TOPICAL ANESTHETIC: CONSENT: The patient understands the risks and benefits of the procedure and understands that these risks include, but are not limited to: sedation, allergic reaction, infection, perforation and/or bleeding. Alternative means of evaluation and treatment include, among others: physical exam, x-rays, and/or surgical intervention. The patient elects to proceed with this endoscopic procedure. medical equipment was checked for proper function. Hand hygiene and appropriate measures for infection prevention was taken. After the risks, benefits and alternatives of the procedure were thoroughly explained, Informed consent was verified, confirmed and timeout was successfully executed by the treatment team. The patient was anesthetized with topical anesthesia and the EC-3490Li (Pedi C) endoscope was introduced through the mouth and advanced to the second portion of the duodenum. Retroflexed views revealed no abnormalities The gastroscope was then slowly withdrawn and removed. ESOPHAGUS: The mucosa of the esophagus appeared normal. STOMACH: There was moderate and ulcerative gastritis in the gastric antrum. A biopsy was performed using cold forceps. Sample sent for histology. ADVERSE EVENTS: There were no complications. IMPRESSIONS: 1. The esophagus appeared normal 2. There was gastritis in the gastric antrum; biopsy was performed 3. Retroflexed views revealed no abnormalities RECOMMENDATIONS: 1. Await biopsy results. Biopsy results will not be ready for 7-10 days. If you don't hear from us in two weeks, call our office for biopsy results. 2. Anti-reflux regimen 3. Continue PPI 4. Avoid NSAIDS PATIENT CONDITION: stable DISPOSITION: Inpatient REPEAT EXAM: Return 3 months EGD pending biopsy results Venice Mcgowan MD eSigned: Venice Mcgowan MD 05/25/2018 9:[address] abscess drainage Signed EXAM DATE: 06/03/2018 1:45 PM EDT AGE/SEX: 62 years / Male INDICATIONS: Right iliopsoas abscess. CLINICAL DATA: This is the patient's initial encounter. Patient reports that signs and symptoms have been present for 1 day and indicates a pain score of 0/ 10. MEDICAL/SURGICAL HISTORY: Cirrhosis. Diabetes. Hepatitis C. None. COMPARISON: No prior exams available for comparison. SEDATION TIME (min): 30 BIOPSY SITE: right iliopsoas abscess MEDICATION(S): 3.5mg midazolam (Versed) IV 175mcg fentanyl (Sublimaze) IV DEVICE(S): 8 Fr Skater FLUID: Total volume of 25 of purulent, red fluid was removed. Fluid was sent to lab for ordered studies.. . . PROCEDURE : CT guided drainage of the right iliopsoas abscess. Conscious sedation with continuous EKG and oximetry monitoring. The risks, benefits and alternatives to the procedure were explained and verbal and written consent was obtained. Using automated exposure control and adjustment of the mA and/or kV according to patient size, radiation dose was kept as low as reasonably achievable to obtain optimal diagnostic quality images. The site was prepped in sterile fashion. Full sterile technique was used, including cap, mask, sterile gloves and gown and a large sterile sheet. Hand hygiene and 2% chlorhexidine and/or betadine/alcohol prep was utilized per protocol for cutaneous antisepsis. The skin and subcutaneous tissues were infiltrated with local anesthetic solution. DICOM format image data is available electronically for review and comparison. FINDINGS: Using CT guidance the prescribed site was localized. An 18-gauge needle was advanced into the hypodense collection in the right psoas. Purulent material was aspirated. Therefore, the 035 Bentson wire was advanced through the outer cannula and coiled in the collection. Tract was dilated to accommodate the 8 Persian locking cope loop. Drainage was performed using the prescribed catheter. The patient tolerated the procedure well and there were no complications. The patient tolerated the procedure well and there were no complications. The patient was sent to post anesthesia recovery in stable condition. CONCLUSION: 1. Uncomplicated CT guided drainage of right psoas abscess as above. Electronically signed by: Darrius Pascal MD 06/03/2018 1:50 PM EDT Assessment and Plan - Plan This patient is a 62-year-old male with a history of IV drug use and hepatitis C cirrhosis with complications of pancytopenia with severe thrombocytopenia. The patient was seen at [facility] in the past and was found to have a retroperitoneal mass or fluid collection. Apparently the patient did undergo biopsy however results of the biopsy are currently not available and the patient is a very poor historian. He admits to previous IV drug use. He presented to our facility with complaints of fatigue and abdominal pain with radiation to the back. 1. Sepsis secondary to right psoas abscess status post CT-guided drainage, and suspected discitis, and suspected endocarditis. 2. Pancytopenia likely secondary to hep C cirrhosis. The patient has remained afebrile over the past 24 hours. 2D echocardiogram was done which did not show any findings suggestive of vegetations. Blood cultures are negative. The patient is status post CT-guided drainage of the right psoas abscess. Continue IV vancomycin. Infectious diseases, following the patient will follow up with infectious disease and further recommendations on duration of IV antibiotics. The patient also has pancytopenia likely secondary to hep C cirrhosis. There are no signs of bleeding. Heme oncology is following the patient. 3. Diabetes mellitus type 2 Continue low-dose insulin sliding scale. This regimen will be adjusted as needed. No pharmacotherapy for DVT prophylaxis as the patient has severe thrombocytopenia and is at high risk for bleeding.
[2018-06-18] MEDS ORDERED: Pharmacy Ordered Lab Info OTHER ONE (08:45)
--- NOTE | 2018-07-11 09:19 | P.AMA ---
AMA Note AMA Statement: Patient Ricardo Ma has decided to leave the hospital against medical advice. This patient has the capacity to refuse care and understands the risks of leaving, including permanent disability and/or , and has had an opportunity to ask questions about his/her condition. The patient has been informed that he/she may return for care at any time, and follow up has been arranged/advised. The patient left AGAINST MEDICAL ADVICE on June 17, 2018. Discharge Disposition: Against Medical Advice Patient Condition on Discharge: Stable
--- NOTE | 2018-07-11 09:27 | P.DS ---
Date of admission: 05/23/18 17:44 Primary care physician: UNKNOWN Brief History from admission: The patient is a 62-year-old male with a past medical history of hepatitis C and diabetes who is presenting to the hospital with abdominal pain, weakness and shortness of breath. The patient states that his girlfriend made him come to the hospital because she was concerned about his medical condition. He was found to have a retroperitoneal abscess and with admitted and started on iv antibiotic treatment. DS: Medications - Discharge Medications Prescriptions: pantoprazole 40 mg PO BID #60 tab DS: Summary Hospital Course: This patient is a 62-year-old male with a history of IV drug use and hepatitis C cirrhosis with complications of pancytopenia with severe thrombocytopenia. The patient was seen at [facility] in the past and was found to have a retroperitoneal mass or fluid collection. Apparently the patient did undergo biopsy however results of the biopsy are currently not available and the patient is a very poor historian. He admits to previous IV drug use. He presented to our facility with complaints of fatigue and abdominal pain with radiation to the back. 1. Sepsis secondary to right psoas abscess status post CT-guided drainage, and suspected discitis, and suspected endocarditis. 2. Pancytopenia likely secondary to hep C cirrhosis. The patient has remained afebrile over the past 24 hours. 2D echocardiogram was done which did not show any findings suggestive of vegetations. Blood cultures are negative. The patient is status post CT-guided drainage of the right psoas abscess. Continue IV vancomycin. Infectious diseases, following the patient will follow up with infectious disease and further recommendations on duration of IV antibiotics. The patient also has pancytopenia likely secondary to hep C cirrhosis. There are no signs of bleeding. Heme oncology is following the patient. 3. Diabetes mellitus type 2 Patient was being treated for DM2 with a low dose insulin sliding scale. Patient left against medical advice. He is alert and oriented x 3. He understands the risks of leaving without being treated. - Time Spent with Patient Total time spent providing and/or coordinating discharge services: Less than 30 minutes - Quality: VTE Deep Vein Thrombosis/Pulmonary Embolism Present on Admission: No Exam Narrative: General patient in no acute distress HEENT extraocular movements are intact, clear oropharyngeal mucosa, no JVD Cardiovascular S1-S2 audible, no murmurs rubs or gallops Respiratory clear to auscultation bilaterally Abdomen soft, nontender, nondistended, normal bowel sounds Extremities no edema 2+ distal pulses in bilateral upper and lower extremities Neuro no neuro deficits Results Procedures completed during hospitalization: COLONOSCOPY PROCEDURE REPORT EXAM DATE: 05/25/2018 PATIENT NAME: Ricardo Ma MR #: [id number] BIRTHDATE: 1955 ENDOSCOPIST: Venice Mcgowan MD ORDER #: [id number] PREDATORY ANIMAL HUNTER: Julieth Crews RN STATUS: inpatient INDICATIONS: The patient is a 62 yr old male here for a colonoscopy due to abdominal pain and iron deficiency anemia PROCEDURE PERFORMED: Colonoscopy, diagnostic MEDICATIONS: None and Per Anesthesia. PREP QUALITY: The Neon Bowel Prep Score was Right colon 3, Mid colon 2, and Left colon 2. Total = 7. PREP TYPE:Magnesium Citrate ESTIMATED BLOOD LOSS: None CONSENT: The patient understands the risks and benefits of the procedure and understands that these risks include, but are not limited to: sedation, allergic reaction, infection, perforation and/or bleeding. Alternative means of evaluation and treatment include, among others: physical exam, x-rays, and/or surgical intervention. The patient elects to proceed with this endoscopic procedure. medical equipment was checked for proper function. Hand hygiene and appropriate measures for infection prevention was taken. After the risks, benefits and alternatives of the procedure were thoroughly explained, Informed consent was verified, confirmed and timeout was successfully executed by the treatment team. A digital exam revealed external hemorrhoids The Pentax EC-3490Li endoscope was introduced through the anus and advanced to the cecum, which was identified by both the appendix and ileocecal valve. The instrument was then slowly withdrawn as the colon was fully examined. COLON FINDINGS: The colonic mucosa appeared normal. Retroflexed views revealed internal hemorrhoids and Retroflexed views revealed medium internal hemorrhoids The scope was then completely withdrawn from the patient and the procedure terminated. PROCEDURE WITHDRAWAL TIME:6minutes ADVERSE EVENTS: There were no complications. IMPRESSIONS: 1. The colonic mucosa appeared normal 2. Retroflexed views revealed internal hemorrhoids 3. Retroflexed views revealed medium internal hemorrhoids 4. Revealed external hemorrhoids RECOMMENDATIONS: 1. Benefiber 2 tsp daily 2. Continue surveillance 3. Yearly hemoccult RECALL: Return 5 years Colonoscopy Venice Mcgowan MD eSigned: Venice Mcgowan MD 05/25/2018 9:56 AM EGD PROCEDURE REPORT EXAM DATE: 05/25/2018 PATIENT NAME: Ricardo Ma MR #: [id number] BIRTHDATE: 1955 ATTENDING: Venice Mcgowan MD ORDER #: [id number] PREDATORY ANIMAL HUNTER: Julieth Crews and Tiffani Palumbo STATUS: inpatient INDICATIONS: The patient is a 62 yr old male here for an EGD due to iron deficiency anemia and abdominal pain PROCEDURE PERFORMED: EGD w/ biopsy MEDICATIONS: None and Per Anesthesia. TOPICAL ANESTHETIC: CONSENT: The patient understands the risks and benefits of the procedure and understands that these risks include, but are not limited to: sedation, allergic reaction, infection, perforation and/or bleeding. Alternative means of evaluation and treatment include, among others: physical exam, x-rays, and/or surgical intervention. The patient elects to proceed with this endoscopic procedure. medical equipment was checked for proper function. Hand hygiene and appropriate measures for infection prevention was taken. After the risks, benefits and alternatives of the procedure were thoroughly explained, Informed consent was verified, confirmed and timeout was successfully executed by the treatment team. The patient was anesthetized with topical anesthesia and the EC-3490Li (Pedi C) endoscope was introduced through the mouth and advanced to the second portion of the duodenum. Retroflexed views revealed no abnormalities The gastroscope was then slowly withdrawn and removed. ESOPHAGUS: The mucosa of the esophagus appeared normal. STOMACH: There was moderate and ulcerative gastritis in the gastric antrum. A biopsy was performed using cold forceps. Sample sent for histology. ADVERSE EVENTS: There were no complications. IMPRESSIONS: 1. The esophagus appeared normal 2. There was gastritis in the gastric antrum; biopsy was performed 3. Retroflexed views revealed no abnormalities RECOMMENDATIONS: 1. Await biopsy results. Biopsy results will not be ready for 7-10 days. If you don't hear from us in two weeks, call our office for biopsy results. 2. Anti-reflux regimen 3. Continue PPI 4. Avoid NSAIDS PATIENT CONDITION: stable DISPOSITION: Inpatient REPEAT EXAM: Return 3 months EGD pending biopsy results Venice Mcgowan MD eSigned: Venice Mcgowan MD 05/25/2018 9:[address] abscess drainage Signed EXAM DATE: 06/03/2018 1:45 PM EDT AGE/SEX: 62 years / Male INDICATIONS: Right iliopsoas abscess. CLINICAL DATA: This is the patient's initial encounter. Patient reports that signs and symptoms have been present for 1 day and indicates a pain score of 0/ 10. MEDICAL/SURGICAL HISTORY: Cirrhosis. Diabetes. Hepatitis C. None. COMPARISON: No prior exams available for comparison. SEDATION TIME (min): 30 BIOPSY SITE: right iliopsoas abscess MEDICATION(S): 3.5mg midazolam (Versed) IV 175mcg fentanyl (Sublimaze) IV DEVICE(S): 8 Fr Skater FLUID: Total volume of 25 of purulent, red fluid was removed. Fluid was sent to lab for ordered studies.. . . PROCEDURE : CT guided drainage of the right iliopsoas abscess. Conscious sedation with continuous EKG and oximetry monitoring. The risks, benefits and alternatives to the procedure were explained and verbal and written consent was obtained. Using automated exposure control and adjustment of the mA and/or kV according to patient size, radiation dose was kept as low as reasonably achievable to obtain optimal diagnostic quality images. The site was prepped in sterile fashion. Full sterile technique was used, including cap, mask, sterile gloves and gown and a large sterile sheet. Hand hygiene and 2% chlorhexidine and/or betadine/alcohol prep was utilized per protocol for cutaneous antisepsis. The skin and subcutaneous tissues were infiltrated with local anesthetic solution. DICOM format image data is available electronically for review and comparison. FINDINGS: Using CT guidance the prescribed site was localized. An 18-gauge needle was advanced into the hypodense collection in the right psoas. Purulent material was aspirated. Therefore, the 035 Bentson wire was advanced through the outer cannula and coiled in the collection. Tract was dilated to accommodate the 8 Romanian locking cope loop. Drainage was performed using the prescribed catheter. The patient tolerated the procedure well and there were no complications. The patient tolerated the procedure well and there were no complications. The patient was sent to post anesthesia recovery in stable condition. CONCLUSION: 1. Uncomplicated CT guided drainage of right psoas abscess as above. Electronically signed by: Darrius Pascal MD 06/03/2018 1:50 PM EDT Completed studies during hospitalization: Pending at discharge 05/25/18 16:52 Surgical [PTH] Routine Labs on day of discharge: Preliminary micro results at discharge 06/03/18 12:40 Mycobacterial Culture - Preliminary Abscess - Other No growth in 5 weeks - Impressions ITS Impressions Chest X-Ray 05/27/18 00:00 CONCLUSION: Linear atelectasis or consolidation at the medial right lower lung. Abscess Drainage CT 06/03/18 00:00 CONCLUSION: 1. Uncomplicated CT guided drainage of right psoas abscess as above. Lumbar Spine MRI 06/13/18 00:00 CONCLUSION: 1. Degenerative changes of the lower lumbar spine, as detailed above. 2. Partially imaged 2.9 x 1.3 cm right paraspinal fluid collection, consistent with patient's known abscess. Abdomen/Pelvis CT 06/15/18 00:00 CONCLUSION: 1. Improved aeration in the lung bases. 2. Otherwise no significant change with cirrhosis and stigmata of portal hypertension as described. Discharge Plan - Discharge Disposition Patient Disposition: Against Medical Advice - Discharge Condition Condition: Stable - Discharge Order Discharge Orders: Oncology Clear for Discharge (Routine); Ordered 05/27/18 Ordered By: Tawanna Layton - Physicians Team Primary Care Provider: UNKNOWN, Attending Provider: Zoraida Price Other Providers: Venice Mcgowan MD ; [employer] ; Mendy Guadarrama MD ; Martinez Reynolds MD
== END 2018-06-17 09:58 | disposition left against medical advice (07) ==
LOC: NEPC 11:43 → NEDA 17:44 → N04 21:20
PROVIDERS: ADMIT Hospitalist; ATTEND Hospitalist
PROC: PANENDO (2018-05-25 09:17)
PROC: COLONOS (2018-05-25 09:17)

== ENCOUNTER 2018-06-24 12:03 | Inpatient (IN) ==
[2018-06-24] MEDS ORDERED: Acetaminophen 325 MG Tablet PO ONE (12:20)
[2018-06-24] MEDS ORDERED: Vancomycin Inj 1 GM/200 ML PIGGYBACK IV.SIG ONE (12:20)
--- NOTE | 2018-06-24 12:28 | ED ---
HPI General Chief Complaint: Fever Stated Complaint: fever Time Seen by Provider: 06/24/18 12:04 Source: patient Mode of arrival: EMS Limitations: no limitations History of Present Illness HPI Narrative: The patient is a 62-year-old male who presents to the emergency department for fever. The patient was recently hospitalized for a prolonged period for fever thought to be secondary to discitis, suspected infective endocarditis, and a retroperitoneal abscess. The patient was seen by infectious disease and was on vancomycin. He declined desensitization of cephalosporins with an allergy to penicillin and it was recommended that the patient have a PICC line placed and received antibiotics for a prolonged period of time through beginning to mid June. However, the patient states he got tired of the "needles "and signed out AGAINST MEDICAL ADVICE 1 week ago Wednesday. The patient now notes returning fevers, as high as 101 prior to arrival per EMS. He also complains of continuing body aches, fatigue, and malaise. The patient does history of hepatitis C and previous history of IV drug abuse, denies any recent IV drug abuse. The patient is requesting hospitalization and IV antibiotics so he can clear the infection and possibly receive treatment for hepatitis C. MD complaint: fever, malaise and weakness Onset (ago): week(s) Temperature Source: oral Context: recent antibiotic use Associated symptoms: chills, myalgias and weight loss Relieving factors: nothing Exacerbating factors: nothing Treatments prior to arrival fever: none Related Data Previous Rx's Medication Instructions Recorded oxycodone 5 mg PO Q8H PRN #21 tab 05/27/18 pantoprazole 40 mg PO BID #60 tab 05/27/18 Allergies Allergy/AdvReac Type Severity Reaction Status Date / Time penicillin G Allergy Severe Anaphylaxis Verified 05/23/18 21:01 Review of Systems ROS: all other systems reviewed are negative [facility] Family History Family History Other Bone cancer Social History Social History Substance History: Past History Second Hand Smoke Exposure: No Smoking Status: Former smoker Tobacco Type: Cigarettes How Often Do You Have a Drink Containing Alcohol: Never Recent Travel in [place] within the Last 8 Weeks: No Recent Out of Country Travel within the Last 8 Weeks: No Immunization History Tetanus Immunization: Unsure Hx Influenza Vaccine This Season: Yes Exam Narrative Exam Narrative: GENERAL: Awake, alert, 62-year-old male appears his stated age and is in no acute respiratory distress. SKIN: Focused skin assessment warm/dry. HEAD: Atraumatic. Normocephalic. EYES: Pupils equal and round. Mild icterus noted. ENT: No nasal bleeding or discharge. Mucous membranes pink and moist. NECK: Trachea midline. No JVD. CARDIOVASCULAR: Regular rate and rhythm. No murmur appreciated. RESPIRATORY: No accessory muscle use. Clear to auscultation. Breath sounds equal bilaterally. GASTROINTESTINAL: Abdomen soft, non-tender, nondistended. MUSCULOSKELETAL: No obvious deformities. No clubbing. No cyanosis. No edema. NEUROLOGICAL: Awake and alert. No obvious cranial nerve deficits. Motor grossly within normal limits. Normal speech. PSYCHIATRIC: Appropriate mood and affect; insight and judgment normal. Course Initial Documented Vital Signs Temperature 99 F 06/24/18 12:08 Pulse Rate 80 06/24/18 12:08 Respiratory Rate 18 06/24/18 12:08 Blood Pressure 150/79 H 06/24/18 12:08 Pulse Oximetry 98 06/24/18 12:08 Last Documented Vital Signs Temperature 99 F 06/24/18 12:08 Pulse Rate 71 06/24/18 14:33 Respiratory Rate 15 06/24/18 14:33 Blood Pressure 134/74 06/24/18 14:33 Pulse Oximetry 97 06/24/18 14:33 Medical Decision Making MDM Narrative Medical decision making narrative: IV was established, labs are drawn and sent, and the patient was placed on cardiac telemetry monitoring and continuous pulse oximetry monitoring. I did review the EMR, I did review infectious diseases notes in regards to possible discitis and suspected infective endocarditis. The patient was receiving vancomycin, therefore, was dose of vancomycin 1 g intravenously in the emergency department. Blood cultures were sent to lab prior to vancomycin. The patient will be admitted to the medical service, may need reevaluation by infectious disease for his ongoing infection and fevers. The patient's white count is unremarkable. Calcium is low, however, albumin is also low, protein corrected calcium level was 7.0. The patient has suspected discitis and infective endocarditis with a paraspinal abscess that was drained on previous visit, will need continuing IV antibiotics. Patient will be admitted until infectious disease can determine length of treatment, patient may need PICC line and outpatient antibiotics. The patient was initially admitted to [facility], however, has been out of the hospital for over 1 week. Therefore, the on-call medical service was paged for admission. Medical Screen Exam Complete: Yes Emergency Medical Condition: Yes Differential Diagnosis Differential Diagnosis: Differential diagnosis includes discitis, osteomyelitis , infective endocarditis, fever of unknown origin, hepatitis C, noncompliance, depressive disorder, mood disorder, personality disorder. Lab Data Result diagrams: 06/24/18 12:30 06/24/18 12:30 Lab Results 06/24/18 06/24/18 06/24/18 Range/Units 12:30 12:30 12:41 WBC 5.7 (4.0-11.0) th/mm3 RBC 2.52 L (4.50-5.90) mil/mm3 Hgb 9.2 L (13.0-17.0) gm/dL Hct 26.9 L (39.0-51.0) % MCV 106.6 H (80.0-100.0) fL MCH 36.4 H (27.0-34.0) pg MCHC 34.2 (32.0-36.0) % RDW 21.8 H (11.6-17.2) % Plt Count 41 L D (150-450) th/mm3 MPV 10.0 (7.0-11.0) fL Prelim Diff (Auto) Slide review pending Neut % (Auto) 67.1 (16.0-70.0) % Lymph % (Auto) 14.2 (9.0-44.0) % [place] % (Auto) 15.0 H (0.0-8.0) % Eos % (Auto) 2.8 (0.0-4.0) % Baso % (Auto) 0.9 (0.0-2.0) % Neut # (Auto) 3.8 (1.8-7.7) th/mm3 Lymph # (Auto) 0.8 L (1.0-4.8) th/mm3 [place] # (Auto) 0.9 (0.0-0.9) th/mm3 Eos # (Auto) 0.2 (0.0-0.4) th/mm3 Baso # (Auto) 0.0 (0.0-0.2) th/mm3 WBC Differential . Diff Scan Auto diff confirmed Differential Comment . Toxic Granulation 1+ H (None) Platelet Estimate Low L (Normal) Platelet Morphology Normal (Normal) Tear Drop Cells 1+ H (None) Ovalocytes 1+ H (None) Acanthocytes (Spur) Occ H (None) Sodium 133 L (136-145) meq/L Potassium 3.8 (3.5-5.1) meq/L Chloride 101 (98-107) meq/L Carbon Dioxide 24.2 (21.0-32.0) meq/L Anion Gap 8 (5-15) meq/L BUN 15 (7-18) mg/dL Creatinine 1.22 (0.60-1.30) mg/dL Estimated GFR 60 L (>89) mL/min Random Glucose 151 H (74-106) mg/dL Lactic Acid 1.6 (0.4-2.0) mmol/L Calcium 7.4 L* (8.5-10.1) mg/dL Prot Corrected Calcium 7.0 L* (8.5-10.1) mg/dL Total Bilirubin 3.1 H (0.2-1.0) mg/dL AST 31 (15-37) U/L ALT 15 (12-78) U/L Alkaline Phosphatase 95 (45-117) U/L Total Protein 8.1 (6.4-8.2) g/dL Albumin 1.8 L (3.4-5.0) g/dL Discharge Plan Discharge Disposition Patient Disposition: 30 Still Patient Discharge Condition Condition: Stable Discharge Details Diagnosis: Discitis, Abscess, retroperitoneal Physicians Team ED Provider: Bar Rodrigues Primary Care Provider: UNKNOWN, Rxs /Orders / Referrals /Forms Prescriptions: No Action pantoprazole 40 mg Tablet,Delayed Release (Dr/Ec) 40 mg PO BID Qty: 60 RF: 0 oxycodone 5 mg Tablet 5 mg PO Q8H PRN (Reason: Acute Pain) Qty: 21 RF: 0 Referrals: UNKNOWN, [Primary Care Provider] - See Instructions Status ED Status: Admitted Patient
[2018-06-24] MEDS ORDERED: Sod Chloride 0.9% Inj 1,000 ML IV.SIG SCH (12:30)
[2018-06-24 12:52] LABS: Baso % (Auto) 0.9 % (0.0-2.0); Eos # (Auto) 0.2 th/mm3 (0.0-0.4); Eos % (Auto) 2.8 % (0.0-4.0); Hematocrit 26.9 % (39.0-51.0); Hemoglobin 9.2 gm/dL (13.0-17.0); Lymph # (Auto) 0.8 th/mm3 (1.0-4.8); Lymph % (Auto) 14.2 % (9.0-44.0); Mean Corpuscular HGB Conc 34.2 % (32.0-36.0); Mean Corpuscular Hemoglobin 36.4 pg (27.0-34.0); Mean Corpuscular Volume 106.6 fL (80.0-100.0); Mono # (Auto) 0.9 th/mm3 (0.0-0.9); Neut # (Auto) 3.8 th/mm3 (1.8-7.7); Neut % (Auto) 67.1 % (16.0-70.0); Platelet Count 41 th/mm3 (150-450); Red Blood Count 2.52 mil/mm3 (4.50-5.90); Red Cell Distribution Width 21.8 % (11.6-17.2); White Blood Count 5.7 th/mm3 (4.0-11.0)
[2018-06-24] MEDS ORDERED: Vancomycin Inj 1,000 MG in Sodium Chlor 0.9% Inj 250 ML IV.SIG ONE (13:00)
[2018-06-24 13:09] LABS: Albumin 1.8 g/dL (3.4-5.0); Calcium 7.4 mg/dL (8.5-10.1); Carbon Dioxide 24.2 meq/L (21.0-32.0); Potassium 3.8 meq/L (3.5-5.1); Total Protein 8.1 g/dL (6.4-8.2)
[2018-06-24 13:24] LABS: Acanthocytes Occ; Ovalocytes 1+; Platelet Morphology Normal (Normal); Tear Drop Cells 1+; Toxic Granulation 1+
[2018-06-24] MEDS ORDERED: Bisacodyl 10 MG Supp RECTAL PRN (14:38)
[2018-06-24] MEDS ORDERED: Acetaminophen 325 MG Tablet PO PRN (14:38)
[2018-06-24] MEDS ORDERED: Vancomycin Consult Pharmacy OTHER PRN (14:45)
[2018-06-24] MEDS ORDERED: Vancomycin Inj 1 GM/200 ML PIGGYBACK IV.SIG SCH (15:00)
--- NOTE | 2018-06-24 15:23 | P.HP ---
History of Present Illness Primary Care Physician: UNKNOWN Chief Complaint: fever, left AMA 1 week ago History of Present Illness: The patient is a 62-year-old male who presents to the emergency department for fever. The patient was recently hospitalized for a prolonged period for fever thought to be secondary to discitis, suspected infective endocarditis, and a retroperitoneal abscess. The patient was seen by infectious disease and was on vancomycin. He declined desensitization of cephalosporins with an allergy to penicillin and it was recommended that the patient have a PICC line placed and received antibiotics for a prolonged period of time through beginning to mid June. However, the patient states he got tired of the "needles "and signed out AGAINST MEDICAL ADVICE 1 week ago Wednesday. The patient now notes returning fevers, as high as 101 prior to arrival per EMS. He also complains of continuing body aches, fatigue, and malaise. The patient does history of hepatitis C and previous history of IV drug abuse, denies any recent IV drug abuse. The patient is requesting hospitalization and IV antibiotics so he can clear the infection and possibly receive treatment for hepatitis C. Review of Systems All other systems reviewed negative except as stated in HPI PMFSH - History History Provided By: Patient - Medical History Medical History: Medical History (Last Reviewed 06/24/18 @ 15:21 by Yue Velasquez MD) Cirrhosis Degenerative joint disease Diabetes Hep C w/o coma, chronic Psoriasis Retroperitoneal mass - Surgical History Surgical History: Surgical History (Last Updated 06/24/18 @ 15:22 by Yue Velasquez MD) No history of previous surgery - Family History Family History: Family History (Last Updated 06/24/18 @ 15:22 by Yue Velasquez MD) Father Bone cancer - Tobacco History Second Hand Smoke Exposure: No Tobacco Use In Past 30 Days: No Smoking Status: Former smoker Tobacco Type: Cigarettes - Alcohol History How Often Do You Have a Drink Containing Alcohol: Never - Substance Use History Substance History: Past History - Travel History Recent Travel in the [place] Within the Last 8 Weeks: No Recent Travel Out of the Country Within the Last 8 Weeks: No - Immunization History Tetanus Immunization: Unsure Hx Influenza Vaccine This Season: Yes Medications and Allergies Active Medications: Active Medications Acetaminophen (Tylenol) 650 mg PO Q4H PRN PRN Reason: Temp > 100.4 Al Hydroxide/Mg Hydroxide (Milk Of [place] Liq) 30 ml PO Q12H PRN PRN Reason: Mild Constipation Bisacodyl (Dulcolax Supp) 10 mg RECTAL DAILY PRN PRN Reason: SEVERE CONSITIPATION Sodium Chloride (Ns Inj) 1,000 mls @ 0 mls/hr IV.SIG .Q0M [facility] Last Infusion: 06/24/18 13:33 Dose: Infused Sodium Chloride (Ns Inj) 1,000 mls @ 100 mls/hr IV.CONT .Q10H [facility] Vancomycin/Sodium Chloride (Vancomycin Inj) 1 gm in 200 mls @ 200 mls/hr IV.SIG Q12H [facility] Lactulose (Lactulose Liq) 30 ml PO DAILY PRN PRN Reason: SEVERE CONSITIPATION Ondansetron HCl (Zofran Inj) 4 mg IV.PUSH Q6H PRN PRN Reason: NAUSEA OR VOMITING Pharmacy Profile Note (Vancomycin Consult Pharmacy) 1 each OTHER UNSCH PRN PRN Reason: Pharmacy to dose Senna/Docusate Sodium (Lina-Colace) 1 tab PO BID [facility] Sennosides (Senokot) 17.2 mg PO Q12H PRN PRN Reason: Moderate Constipation Allergies Allergy/AdvReac Type Severity Reaction Status Date / Time penicillin G Allergy Severe Anaphylaxis Verified 05/23/18 21:01 Exam Vital signs: Vital Signs 06/24/18 12:08 06/24/18 14:33 Temperature 99 F Pulse Rate 80 71 Respiratory Rate 18 15 Blood Pressure 150/79 H 134/74 Pulse Oximetry 98 97 Intake & Output 06/23/18 06/24/18 06/24/18 18:59 06:59 18:59 Intake Total 1250 / 1250 Balance 1250 / 1250 Weight 63.503 kg Intake: IV 1250 / 1250 NS Inj 1,000 ML @ Wide Open IV. 1000 / 1000 SIG .Q0M [facility] Rx#:[id number] Vancomycin Inj 1,000 MG In NS 250 / 250 Inj 250 ML @ 200 mls/hr IV.SIG ONCE ONE Rx#:[id number] Narrative: GENERAL: 62-year-old male appears his stated age and is in no acute respiratory distress. SKIN: Warm and dry. HEAD: Atraumatic. Normocephalic. EYES: Pupils equal and round. No scleral icterus. No injection or drainage. ENT: No nasal bleeding or discharge. Mucous membranes pink and moist. NECK: Trachea midline. No JVD. CARDIOVASCULAR: Regular rate and rhythm. RESPIRATORY: No accessory muscle use. Clear to auscultation. Breath sounds equal bilaterally. GASTROINTESTINAL: Abdomen soft, non-tender, nondistended. Hepatic and splenic margins not palpable. MUSCULOSKELETAL: Extremities without clubbing, cyanosis, or edema. No obvious deformities. NEUROLOGICAL: Awake and alert. No obvious cranial nerve deficits. Motor grossly within normal limits. Five out of 5 muscle strength in the arms and legs. Normal speech. PSYCHIATRIC: Appropriate mood and affect; insight and judgment normal. Results - Labs CBC & Chem 7: 06/24/18 12:30 06/24/18 12:30 Labs: Laboratory Results - last 24 hr 06/24/18 06/24/18 06/24/18 12:30 12:30 12:41 WBC 5.7 RBC 2.52 L Hgb 9.2 L Hct 26.9 L MCV 106.6 H MCH 36.4 H MCHC 34.2 RDW 21.8 H Plt Count 41 L D MPV 10.0 Prelim Diff (Auto) Slide review pending Neut % (Auto) 67.1 Lymph % (Auto) 14.2 [place] % (Auto) 15.0 H Eos % (Auto) 2.8 Baso % (Auto) 0.9 Neut # (Auto) 3.8 Lymph # (Auto) 0.8 L [place] # (Auto) 0.9 Eos # (Auto) 0.2 Baso # (Auto) 0.0 WBC Differential . Diff Scan Auto diff confirmed Differential Comment . Toxic Granulation 1+ H Platelet Estimate Low L Platelet Morphology Normal Tear Drop Cells 1+ H Ovalocytes 1+ H Acanthocytes (Spur) Occ H Sodium 133 L Potassium 3.8 Chloride 101 Carbon Dioxide 24.2 Anion Gap 8 BUN 15 Creatinine 1.22 Estimated GFR 60 L Random Glucose 151 H Lactic Acid 1.6 Calcium 7.4 L* Prot Corrected Calcium 7.0 L* Total Bilirubin 3.1 H AST 31 ALT 15 Alkaline Phosphatase 95 Total Protein 8.1 Albumin 1.8 L Caprini VTE Risk Assessment Caprini VTE Risk Assessment: Moderate/High Risk (score >= 2) Caprini Risk Assessment Model: Point Value = 1 Point Value = 2 Point Value = 3 Point Value = 5 Age 41-60 Minor surgery BMI > 25 kg/m2 Swollen legs Varicose veins or History of unexplained or recurrent spontaneous Oral contraceptives or hormone replacement Sepsis (< 1 month) Serious lung disease, including pneumonia (< 1 month) Abnormal pulmonary function Acute myocardial infarction Congestive heart failure (< 1 month) History of inflammatory bowel disease Medical patient at bed rest Age 61-74 Arthroscopic surgery Major open surgery (> 45 min) Laparoscopic surgery (> 45 min) Malignancy Confined to bed (> 72 hours) Immobilizing plaster cast Central venous access Age >= 75 History of VTE Family history of VTE Factor V Leiden Prothrombin [id number] Lupus anticoagulant Anticardiolipin antibodies Elevated serum homocysteine Heparin-induced thrombocytopenia Other congenital or acquired thrombophilia Stroke (< 1 month) Elective arthroplasty Hip, pelvis, or leg fracture Acute spinal cord injury (< 1 month) Prophylaxis Regimen: Total Risk Factor Score Risk Level Prophylaxis Regimen 0-1 Low Early ambulation 2 Moderate Order ONE of the following: *Sequential Compression Device (SCD) *Heparin 5000 units SQ BID 3-4 Higher Order ONE of the following medications: *Heparin 5000 units SQ TID *Enoxaparin/Lovenox 40 mg SQ daily (WT < 150 kg, CrCl > 30 mL/min) *Enoxaparin/Lovenox 30 mg SQ daily (WT < 150 kg, CrCl > 10-29 mL/min) *Enoxaparin/Lovenox 30 mg SQ BID (WT < 150 kg, CrCl > 30 mL/min) AND/OR *Sequential Compression Device (SCD) 5 or more Highest Order ONE of the following medications: *Heparin 5000 units SQ TID (Preferred with Epidurals) *Enoxaparin/Lovenox 40 mg SQ daily (WT < 150 kg, CrCl > 30 mL/min) *Enoxaparin/Lovenox 30 mg SQ daily (WT < 150 kg, CrCl > 10-29 mL/min) *Enoxaparin/Lovenox 30 mg SQ BID (WT < 150 kg, CrCl > 30 mL/min) AND *Sequential Compression Device (SCD) Assessment and Plan - Plan Per infectious diseases previous notes possible discitis and suspected infective endocarditis. Diskitis/ poss endocarditis Imaging last admission reviewed. Notes last admission reviewed Patient left AMA a week prior and he returned to ED 06/24/18 for further evaluation Check blood cultures Restart patient regimen with vancomycin IV abx Consult ID specialist for further evaluation Might need PICC line Anemia/ Thrombocytopenia Stable , no signs of bleeding Likely s/t underlying liver disease. -follow CBC. Consider hem onc eval if need HCV -follow LFTs. - alcohol cessation. DVT ppx scd/teds Discussed Condition With: pt, nurse, ED physician
[2018-06-24] MEDS: Sod Chloride 0.9% Inj 1,000 ML IV.CONT SCH (17:36)
[2018-06-24 19:03] LABS: INR 1.6 Ratio; Prothrombin Time 16.6 sec (9.8-11.6)
--- NOTE | 2018-06-24 19:45 | ECG ---
Date Performed: 06/24/2018 Time Performed: 15:11:17 PTAGE: 62 years EKG: Sinus rhythm NORMAL ECG No significant change from prior electrocardiogram. PREVIOUS TRACING : 05/23/2018 15.04 DOCTOR: Phoenix Blackman Interpretating Date/Time 06/24/2018 19:44:14
[2018-06-24] MEDS: Senna/Docusate Sodium 8.6/50 MG Tablet PO SCH (22:25)
[2018-06-25] MEDS: Sod Chloride 0.9% Inj 1,000 ML IV.CONT SCH (02:55)
[2018-06-25 04:46] LABS: Baso % (Auto) 1.4 % (0.0-2.0); Eos # (Auto) 0.2 th/mm3 (0.0-0.4); Eos % (Auto) 4.6 % (0.0-4.0); Hematocrit 26.6 % (39.0-51.0); Hemoglobin 9.4 gm/dL (13.0-17.0); Lymph # (Auto) 0.4 th/mm3 (1.0-4.8); Lymph % (Auto) 9.7 % (9.0-44.0); Mean Corpuscular HGB Conc 35.1 % (32.0-36.0); Mean Corpuscular Hemoglobin 37.2 pg (27.0-34.0); Mean Corpuscular Volume 105.9 fL (80.0-100.0); Mean Platelet Volume 10.1 fL (7.0-11.0); Mono # (Auto) 0.5 th/mm3 (0.0-0.9); Mono % (Auto) 12.8 % (0.0-8.0); Neut # (Auto) 2.6 th/mm3 (1.8-7.7); Neut % (Auto) 71.5 % (16.0-70.0); Platelet Count 34 th/mm3 (150-450); Red Blood Count 2.51 mil/mm3 (4.50-5.90); Red Cell Distribution Width 21.9 % (11.6-17.2); White Blood Count 3.7 th/mm3 (4.0-11.0)
[2018-06-25 05:12] LABS: Calcium 7.3 mg/dL (8.5-10.1); Carbon Dioxide 22.5 meq/L (21.0-32.0); Potassium 3.8 meq/L (3.5-5.1)
[2018-06-25 05:33] LABS: Total Protein 7.1 g/dL (6.4-8.2)
[2018-06-25 05:56] LABS: Lymphocytes 3 % (9-44); Monocytes 14 % (0-8)
[2018-06-25 06:15] LABS: Ovalocytes 1+; Tear Drop Cells 1+
[2018-06-25] MEDS: Vancomycin Inj 1,000 MG in Sodium Chlor 0.9% Inj 250 ML IV.SIG SCH ×3 (06:32→17:02)
[2018-06-25] MEDS: Senna/Docusate Sodium 8.6/50 MG Tablet PO SCH ×2 (08:29→22:44)
--- NOTE | 2018-06-25 12:21 | P.PN ---
Subjective Interval history: Follow-up recurrent fevers/questionable infective endocarditis/Diskitis June 25, 2018-patient seen and examined, T-max 100.8 at 20:30 AM however currently afebrile. Denies any chest pain or shortness of breath Physical Exam Vital signs: Vital Signs 06/24/18 14:33 06/24/18 16:00 06/24/18 20:00 Temperature 98.4 F 100.8 F H Pulse Rate 71 86 101 H Respiratory Rate 15 20 Blood Pressure 134/74 136/81 173/76 H Pulse Oximetry 97 98 99 06/24/18 20:30 06/25/18 00:00 06/25/18 08:00 Temperature 100.8 F H 98.4 F 97.7 F Pulse Rate 101 H 82 64 Respiratory Rate 19 20 16 Blood Pressure 133/66 126/56 L 135/67 Pulse Oximetry 100 97 100 06/25/18 12:00 Temperature 98.1 F Pulse Rate 73 Respiratory Rate 16 Blood Pressure 142/67 H Pulse Oximetry 100 Intake & Output 06/24/18 06/25/18 06/25/18 18:59 06:59 18:59 Intake Total 1730 / 1730 1360 / 1360 250 / 250 Balance 1730 / 1730 1360 / 1360 250 / 250 Weight 63.503 kg 63.5 kg Intake: IV 1250 / 1250 1000 / 1000 250 / 250 NS Inj 1,000 ML @ 100 mls/hr IV 1000 / 1000 .CONT .Q10H [facility] Rx#:[id number] NS Inj 1,000 ML @ Wide Open IV. 1000 / 1000 SIG .Q0M [facility] Rx#:[id number] Vancomycin Inj 1,000 MG In NS 250 / 250 250 / 250 Inj 250 ML @ 250 mls/hr IV.SIG Q18H [facility] Rx#:[id number] Oral 480 / 480 360 / 360 Other: # Voids 2 # Bowel Movements 1 Narrative: GENERAL: in no acute respiratory distress. SKIN: Warm and dry. HEAD: Atraumatic. Normocephalic. EYES: Pupils equal and round. No scleral icterus. No injection or drainage. ENT: No nasal bleeding or discharge. Mucous membranes pink and moist. NECK: Trachea midline. No JVD. CARDIOVASCULAR: Regular rate and rhythm. RESPIRATORY: No accessory muscle use. Clear to auscultation. Breath sounds equal bilaterally. GASTROINTESTINAL: Abdomen soft, non-tender, nondistended. Hepatic and splenic margins not palpable. MUSCULOSKELETAL: Extremities without clubbing, cyanosis, or edema. No obvious deformities. NEUROLOGICAL: Awake and alert. No obvious cranial nerve deficits. Motor grossly within normal limits. Five out of 5 muscle strength in the arms and legs. Normal speech. PSYCHIATRIC: Appropriate mood and affect; insight and judgment normal. Results - Labs CBC & Chem 7: 06/25/18 03:40 06/25/18 03:40 Laboratory Results - last 24 hr 06/24/18 06/24/18 06/24/18 12:30 12:30 12:41 WBC 5.7 RBC 2.52 L Hgb 9.2 L Hct 26.9 L MCV 106.6 H MCH 36.4 H MCHC 34.2 RDW 21.8 H Plt Count 41 L D MPV 10.0 Prelim Diff (Auto) Slide review pending Neut % (Auto) 67.1 Lymph % (Auto) 14.2 [place] % (Auto) 15.0 H Eos % (Auto) 2.8 Baso % (Auto) 0.9 Neut # (Auto) 3.8 Lymph # (Auto) 0.8 L [place] # (Auto) 0.9 Eos # (Auto) 0.2 Baso # (Auto) 0.0 WBC Differential . Diff Scan Auto diff confirmed Seg Neuts % (Manual) Band Neuts % (Manual) Lymphocytes % (Manual) Monocytes % (Manual) Basophils % (Manual) Abs Neuts (Manual) Differential Comment . Toxic Granulation 1+ H Platelet Estimate Low L Platelet Morphology Normal Tear Drop Cells 1+ H Ovalocytes 1+ H Acanthocytes (Spur) Occ H PT INR Sodium 133 L Potassium 3.8 Chloride 101 Carbon Dioxide 24.2 Anion Gap 8 BUN 15 Creatinine 1.22 Estimated GFR 60 L POC Glucose Random Glucose 151 H Lactic Acid 1.6 Calcium 7.4 L* Prot Corrected Calcium 7.0 L* Total Bilirubin 3.1 H AST 31 ALT 15 Alkaline Phosphatase 95 Total Protein 8.1 Albumin 1.8 L 06/24/18 06/25/18 06/25/18 18:20 03:40 03:40 WBC 3.7 L RBC 2.51 L Hgb 9.4 L Hct 26.6 L MCV 105.9 H MCH 37.2 H MCHC 35.1 RDW 21.9 H Plt Count 34 L MPV 10.1 Prelim Diff (Auto) Slide review pending Neut % (Auto) 71.5 H Lymph % (Auto) 9.7 [place] % (Auto) 12.8 H Eos % (Auto) 4.6 H Baso % (Auto) 1.4 Neut # (Auto) 2.6 Lymph # (Auto) 0.4 L [place] # (Auto) 0.5 Eos # (Auto) 0.2 Baso # (Auto) 0.0 WBC Differential Manual diff final Diff Scan Seg Neuts % (Manual) 74 H Band Neuts % (Manual) 8 H Lymphocytes % (Manual) 3 L Monocytes % (Manual) 14 H Basophils % (Manual) 1 Abs Neuts (Manual) 3.0 Differential Comment . Toxic Granulation Platelet Estimate Low L Platelet Morphology Enlarged H Tear Drop Cells 1+ H Ovalocytes 1+ H Acanthocytes (Spur) PT 16.6 H INR 1.6 Sodium 136 Potassium 3.8 Chloride 104 Carbon Dioxide 22.5 Anion Gap 10 BUN 17 Creatinine 1.13 Estimated GFR 66 L POC Glucose Random Glucose 172 H Lactic Acid Calcium 7.3 L* Prot Corrected Calcium 7.3 L* Total Bilirubin AST ALT Alkaline Phosphatase Total Protein 7.1 D Albumin 06/25/18 07:56 WBC RBC Hgb Hct MCV MCH MCHC RDW Plt Count MPV Prelim Diff (Auto) Neut % (Auto) Lymph % (Auto) [place] % (Auto) Eos % (Auto) Baso % (Auto) Neut # (Auto) Lymph # (Auto) [place] # (Auto) Eos # (Auto) Baso # (Auto) WBC Differential Diff Scan Seg Neuts % (Manual) Band Neuts % (Manual) Lymphocytes % (Manual) Monocytes % (Manual) Basophils % (Manual) Abs Neuts (Manual) Differential Comment Toxic Granulation Platelet Estimate Platelet Morphology Tear Drop Cells Ovalocytes Acanthocytes (Spur) PT INR Sodium Potassium Chloride Carbon Dioxide Anion Gap BUN Creatinine Estimated GFR POC Glucose 143 H Random Glucose Lactic Acid Calcium Prot Corrected Calcium Total Bilirubin AST ALT Alkaline Phosphatase Total Protein Albumin Microbiology 06/24/18 12:41 Blood - Peripheral Aerobic Blood Culture - Preliminary No growth in 1 day 06/24/18 12:41 Blood - Peripheral Anaerobic Blood Culture - Preliminary No growth in 1 day 06/24/18 12:30 Blood - Peripheral Aerobic Blood Culture - Preliminary No growth in 1 day 06/24/18 12:30 Blood - Peripheral Anaerobic Blood Culture - Preliminary No growth in 1 day Assessment and Plan - Plan 62 years old man with Infective discitis Suspect Infective Endocarditis. 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
--- NOTE | 2018-06-25 17:07 | MB ---
cc: Joshua Broderick MD DATE: 06/25/2018 REQUESTING PHYSICIAN: Dr. Velasquez REASON: Diskitis. The patient left [facility] 1 week ago and returned to the emergency department for continued treatment. HISTORY OF PRESENT ILLNESS: This is a 62-year-old white male who has been treated for diskitis. The patient was followed by infectious disease during the hospitalization. He had culture from a psoas abscess which grew out Staphylococcus aureus. He was also being treated for diskitis, and it appears that he had aspirate of a psoas fluid collection which grew MRSA. Per the medical record, the patient appears to have been hospitalized several times in [place] prior to presenting to [facility]. The patient was also felt to have infective endocarditis. The patient left the hospital against medical advice 5 days ago on 06/17/2018. He presented to the emergency department yesterday because of fever. It is reported that his temperature was as high as 101 degrees. Besides, states that he has no complaints. He was started back on the IV antibiotics, which he is currently receiving and that includes vancomycin. PAST MEDICAL HISTORY: Cirrhosis of the liver, diabetes mellitus, psoriasis, degenerative joint disease, retroperitoneal mass, psoas abscess. ALLERGIES: PENICILLIN. MEDICATIONS: 1. Vancomycin. 2. Lina-Colace. 3. Tylenol. 4. Lactulose. SOCIAL HISTORY: The patient is a former smoker. No alcohol reported. Past history of illicit drug use. FAMILY HISTORY: Noncontributory. REVIEW OF SYSTEMS: Negative on 10-point review. PHYSICAL EXAMINATION: GENERAL: He is a slender male who is in no acute distress. He is awake and alert. He looks chronically ill. VITAL SIGNS: Temperature 98.1, pressure 142/67, respirations 16, heart rate 73. HEENT: Head is atraumatic. Extraocular movements grossly intact. Pupils reactive to light without icterus. No conjunctival erythema. Oropharynx moist. Mucosa without lesions. NECK: Supple. No adenopathy. No swelling. LUNGS: Clear to auscultation. HEART: Regular S1, S2. No murmurs, rubs, or gallops. ABDOMEN: Bowel sounds present. Soft, no tenderness appreciated. RECTAL: Not performed. EXTREMITIES: No clubbing. No cyanosis or edema. SKIN: No rash. NEUROLOGIC: No gross focal findings. PSYCHIATRIC: The patient is calm and cooperative. LABORATORY DATA: WBC 3.7, platelets 44, hemoglobin 9.4. Creatinine 1.13, estimated GFR of 66. IMPRESSION: 1. The patient with known psoas abscess due to methicillin-sensitive Staphylococcus aureus, who left the hospital against medical advice while being treated with antibiotics. 2. Suspected diskitis of the lumbar spine and suspected endocarditis. 3. PENICILLIN ALLERGY. RECOMMENDATIONS: 1. Continue the vancomycin. 2. Monitor the clinical status and clinical response. 3. Follow repeat blood cultures, which have been obtained. Thank you for this consultation. I will follow the patient over the weekend and sign him out to Dr. Guadarrama, who will resume care since he was caring for him prior to his leaving the hospital. Joshua Broderick MD FFD/rm , 03:17 PM , 03:28 PM
[2018-06-26] MEDS: Vancomycin Inj 1,000 MG in Sodium Chlor 0.9% Inj 250 ML IV.SIG SCH ×2 (05:55→17:37)
[2018-06-26 06:06] LABS: Hematocrit 26.8 % (39.0-51.0); Hemoglobin 9.3 gm/dL (13.0-17.0); Mean Corpuscular HGB Conc 34.7 % (32.0-36.0); Mean Corpuscular Hemoglobin 36.7 pg (27.0-34.0); Mean Corpuscular Volume 105.7 fL (80.0-100.0); Mean Platelet Volume 9.8 fL (7.0-11.0); Platelet Count 27 th/mm3 (150-450); Red Blood Count 2.54 mil/mm3 (4.50-5.90); Red Cell Distribution Width 21.7 % (11.6-17.2); White Blood Count 3.2 th/mm3 (4.0-11.0)
[2018-06-26 06:28] LABS: Albumin 1.5 g/dL (3.4-5.0); Calcium 7.2 mg/dL (8.5-10.1); Carbon Dioxide 21.8 meq/L (21.0-32.0); Potassium 3.7 meq/L (3.5-5.1); Total Protein 7.1 g/dL (6.4-8.2)
[2018-06-26 07:18] LABS: Eosinophils 3 % (0-4); Lymphocytes 17 % (9-44); Monocytes 11 % (0-8)
[2018-06-26 07:19] LABS: Burr Cells 1+; Ovalocytes 1+; Platelet Morphology Normal (Normal)
[2018-06-26] MEDS: Senna/Docusate Sodium 8.6/50 MG Tablet PO SCH (08:07)
--- NOTE | 2018-06-26 09:55 | P.PN ---
Subjective Interval history: Follow-up recurrent fevers/questionable infective endocarditis/Diskitis June 25, 2018-patient seen and examined, T-max 100.8 at 20:30 AM however currently afebrile. Denies any chest pain or shortness of breath June 26, 2018-patient seen and examined, currently afebrile and no acute event overnight. Physical Exam Vital signs: Vital Signs 06/25/18 12:00 06/25/18 16:00 06/25/18 20:00 Temperature 98.1 F 98.2 F 98.9 F Pulse Rate 73 76 87 Respiratory Rate 16 16 18 Blood Pressure 142/67 H 149/68 H 151/85 H Pulse Oximetry 100 100 99 06/26/18 00:00 06/26/18 04:00 06/26/18 08:00 Temperature 99.4 F 98.8 F 97.9 F Pulse Rate 81 80 75 Respiratory Rate 18 18 14 Blood Pressure 131/71 123/58 L 144/81 H Pulse Oximetry 97 98 100 Intake & Output 06/25/18 06/26/18 06/26/18 18:59 06:59 18:59 Intake Total 2700 / 2700 240 / 240 250 / 250 Output Total 400 / 400 Balance 2700 / 2700 -160 / -160 250 / 250 Weight 66.6 kg Intake: IV 1500 / 1500 250 / 250 NS Inj 1,000 ML @ 100 mls/hr IV 1000 / 1000 .CONT .Q10H [facility] Rx#:[id number] Vancomycin Inj 1,000 MG In NS 500 / 500 250 / 250 Inj 250 ML @ 250 mls/hr IV.SIG Q12H [facility] Rx#:[id number] Oral 1200 / 1200 240 / 240 Output: Urine 400 / 400 Other: # Voids 3 1 Narrative: GENERAL: in no acute respiratory distress. SKIN: Warm and dry. HEAD: Atraumatic. Normocephalic. EYES: Pupils equal and round. No scleral icterus. No injection or drainage. ENT: No nasal bleeding or discharge. Mucous membranes pink and moist. NECK: Trachea midline. No JVD. CARDIOVASCULAR: Regular rate and rhythm. RESPIRATORY: No accessory muscle use. Clear to auscultation. Breath sounds equal bilaterally. GASTROINTESTINAL: Abdomen soft, non-tender, nondistended. Hepatic and splenic margins not palpable. MUSCULOSKELETAL: Extremities without clubbing, cyanosis, or edema. No obvious deformities. NEUROLOGICAL: Awake and alert. No obvious cranial nerve deficits. Motor grossly within normal limits. Five out of 5 muscle strength in the arms and legs. Normal speech. PSYCHIATRIC: Appropriate mood and affect; insight and judgment normal. Results - Labs CBC & Chem 7: 06/26/18 05:24 06/26/18 05:24 Laboratory Results - last 24 hr 06/26/18 06/26/18 05:24 05:24 WBC 3.2 L RBC 2.54 L Hgb 9.3 L Hct 26.8 L MCV 105.7 H MCH 36.7 H MCHC 34.7 RDW 21.7 H Plt Count 27 L MPV 9.8 Prelim Diff (Auto) Manual diff required WBC Differential Manual diff final Seg Neuts % (Manual) 66 Band Neuts % (Manual) 2 Lymphocytes % (Manual) 17 Monocytes % (Manual) 11 H Eosinophils % (Manual) 3 Basophils % (Manual) 1 Abs Neuts (Manual) 2.2 Differential Comment . Platelet Estimate Low L Platelet Morphology Normal Ovalocytes 1+ H [place] Cells 1+ H Sodium 134 L Potassium 3.7 Chloride 104 Carbon Dioxide 21.8 Anion Gap 8 BUN 15 Creatinine 1.00 Estimated GFR 76 L Random Glucose 170 H Calcium 7.2 L* Prot Corrected Calcium 7.2 L* Total Bilirubin 1.5 H AST 34 ALT 14 Alkaline Phosphatase 138 H Total Protein 7.1 Albumin 1.5 L Microbiology 06/24/18 12:41 Blood - Peripheral Aerobic Blood Culture - Preliminary No growth in 1 day 06/24/18 12:41 Blood - Peripheral Anaerobic Blood Culture - Preliminary No growth in 1 day 06/24/18 12:30 Blood - Peripheral Aerobic Blood Culture - Preliminary No growth in 1 day 06/24/18 12:30 Blood - Peripheral Anaerobic Blood Culture - Preliminary No growth in 1 day Assessment and Plan - Plan 62 years old man with Infective discitis Suspect Infective Endocarditis. 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
[2018-06-26] MEDS ORDERED: Calcium Gluconate Inj 1 GM in Sodium Chlor 0.9% Inj 100 ML IV.SIG ONE (09:56)
[2018-06-26] MEDS ORDERED: Pharmacy Ordered Lab Info OTHER ONE (17:45)
[2018-06-27] MEDS: Vancomycin Inj 1,000 MG in Sodium Chlor 0.9% Inj 250 ML IV.SIG SCH ×2 (05:20→17:11)
--- NOTE | 2018-06-27 09:43 | P.PN ---
Subjective Interval history: Follow-up recurrent fevers/questionable infective endocarditis/Diskitis June 25, 2018-patient seen and examined, T-max 100.8 at 20:30 AM however currently afebrile. Denies any chest pain or shortness of breath June 26, 2018-patient seen and examined, currently afebrile and no acute event overnight. June 27, 2018-patient seen and examined, afebrile times 3 days. Denies any chest pain or shortness of breath. No acute event overnight. Physical Exam Vital signs: Vital Signs 06/26/18 12:00 06/26/18 16:00 06/26/18 20:00 Temperature 98.2 F 98.1 F 98.5 F Pulse Rate 75 72 70 Respiratory Rate 18 16 20 Blood Pressure 150/82 H 159/85 H 154/77 H Pulse Oximetry 100 100 98 06/27/18 00:00 06/27/18 04:00 06/27/18 08:00 Temperature 98.5 F 99.1 F 98.1 F Pulse Rate 78 74 74 Respiratory Rate 20 20 14 Blood Pressure 160/86 H 155/84 H 149/73 H Pulse Oximetry 98 97 99 Intake & Output 06/26/18 06/27/18 06/27/18 18:59 06:59 18:59 Intake Total 1570 / 1570 250 / 250 Output Total 750 / 750 Balance 820 / 820 250 / 250 Weight 66.6 kg Intake: IV 610 / 610 250 / 250 Calcium Gluconate Inj 1 GM In 110 / 110 NS Inj 100 ML @ 110 mls/hr IV. SIG ONCE ONE Rx#:[id number] Vancomycin Inj 1,000 MG In NS 500 / 500 250 / 250 Inj 250 ML @ 250 mls/hr IV.SIG Q12H [facility] Rx#:[id number] Oral 960 / 960 Output: Urine 750 / 750 Other: # Voids 6 # Bowel Movements 1 1 Narrative: GENERAL: in no acute respiratory distress. SKIN: Warm and dry. HEAD: Atraumatic. Normocephalic. EYES: Pupils equal and round. No scleral icterus. No injection or drainage. ENT: No nasal bleeding or discharge. Mucous membranes pink and moist. NECK: Trachea midline. No JVD. CARDIOVASCULAR: Regular rate and rhythm. RESPIRATORY: No accessory muscle use. Clear to auscultation. Breath sounds equal bilaterally. GASTROINTESTINAL: Abdomen soft, non-tender, nondistended. Hepatic and splenic margins not palpable. MUSCULOSKELETAL: Extremities without clubbing, cyanosis, or edema. No obvious deformities. NEUROLOGICAL: Awake and alert. No obvious cranial nerve deficits. Motor grossly within normal limits. Five out of 5 muscle strength in the arms and legs. Normal speech. PSYCHIATRIC: Appropriate mood and affect; insight and judgment normal. Results - Labs CBC & Chem 7: 06/26/18 05:24 06/26/18 05:24 Laboratory Results - last 24 hr 06/26/18 16:15 Vancomycin Trough 16.5 H Microbiology 06/24/18 12:41 Blood - Peripheral Aerobic Blood Culture - Preliminary No growth in 2 days 06/24/18 12:41 Blood - Peripheral Anaerobic Blood Culture - Preliminary No growth in 2 days 06/24/18 12:30 Blood - Peripheral Aerobic Blood Culture - Preliminary No growth in 2 days 06/24/18 12:30 Blood - Peripheral Anaerobic Blood Culture - Preliminary No growth in 2 days - Procedures none Assessment and Plan - Plan 62 years old man with Infective discitis Suspect Infective Endocarditis. 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
[2018-06-28] MEDS: Vancomycin Inj 1,000 MG in Sodium Chlor 0.9% Inj 250 ML IV.SIG SCH ×2 (05:29→17:09)
[2018-06-28 05:52] LABS: Glomerular Filtration Rate Greater Than 89 mL/min (>89)
--- NOTE | 2018-06-28 09:59 | P.PN ---
Subjective Interval history: Follow-up recurrent fevers/questionable infective endocarditis/Diskitis June 25, 2018-patient seen and examined, T-max 100.8 at 20:30 AM however currently afebrile. Denies any chest pain or shortness of breath June 26, 2018-patient seen and examined, currently afebrile and no acute event overnight. June 27, 2018-patient seen and examined, afebrile times 3 days. Denies any chest pain or shortness of breath. No acute event overnight. June 28, 2018-patient seen and examined, labile BP, remains afebrile. No acute event overnight and patient remains stable. Physical Exam Vital signs: Vital Signs 06/27/18 12:00 06/27/18 16:00 06/27/18 20:00 Temperature 98.4 F 98.9 F 98.5 F Pulse Rate 77 85 78 Respiratory Rate 18 16 18 Blood Pressure 144/75 H 149/81 H 146/75 H Pulse Oximetry 99 98 100 06/28/18 00:00 06/28/18 04:00 06/28/18 08:00 Temperature 99.1 F 98.6 F 98.7 F Pulse Rate 77 77 80 Respiratory Rate 18 18 16 Blood Pressure 169/81 H 150/79 H 156/83 H Pulse Oximetry 98 99 97 Intake & Output 06/27/18 06/28/18 06/28/18 18:59 06:59 18:59 Intake Total 1230 / 1230 250 / 250 Balance 1230 / 1230 250 / 250 Weight 66.6 kg Intake: IV 250 / 250 250 / 250 Vancomycin Inj 1,000 MG In NS 250 / 250 250 / 250 Inj 250 ML @ 250 mls/hr IV.SIG Q12H [facility] Rx#:[id number] Oral 980 / 980 Other: # Voids 7 Date of Last Bowel Movement 06/28/18 # Bowel Movements 1 2 Narrative: GENERAL: NAD. SKIN: Warm and dry. HEAD: Atraumatic. Normocephalic. EYES: Pupils equal and round. No scleral icterus. No injection or drainage. ENT: No nasal bleeding or discharge. Mucous membranes pink and moist. NECK: Trachea midline. No JVD. CARDIOVASCULAR: Regular rate and rhythm. RESPIRATORY: No accessory muscle use. Clear to auscultation. Breath sounds equal bilaterally. GASTROINTESTINAL: Abdomen soft, non-tender, nondistended. Hepatic and splenic margins not palpable. MUSCULOSKELETAL: Extremities without clubbing, cyanosis, or edema. No obvious deformities. NEUROLOGICAL: Awake and alert. No obvious cranial nerve deficits. Motor grossly within normal limits. Five out of 5 muscle strength in the arms and legs. Normal speech. PSYCHIATRIC: Appropriate mood and affect; insight and judgment normal. Results - Labs CBC & Chem 7: 06/26/18 05:24 06/28/18 05:20 Laboratory Results - last 24 hr 06/28/18 05:20 Creatinine 0.85 Estimated GFR Greater than 89 Microbiology 06/24/18 12:41 Blood - Peripheral Aerobic Blood Culture - Preliminary No growth in 3 days 06/24/18 12:41 Blood - Peripheral Anaerobic Blood Culture - Preliminary No growth in 3 days 06/24/18 12:30 Blood - Peripheral Aerobic Blood Culture - Preliminary No growth in 3 days 06/24/18 12:30 Blood - Peripheral Anaerobic Blood Culture - Preliminary No growth in 3 days - Procedures none Assessment and Plan - Plan 62 years old man with Infective discitis Suspect Infective Endocarditis. 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 twice daily
[2018-06-28] MEDS: Metoprolol Tartrate 25 MG Tablet PO SCH ×2 (11:24→20:48)
[2018-06-29] MEDS: Vancomycin Inj 1,000 MG in Sodium Chlor 0.9% Inj 250 ML IV.SIG SCH ×2 (06:05→17:06)
[2018-06-29] MEDS: Metoprolol Tartrate 25 MG Tablet PO SCH ×2 (08:08→20:33)
--- NOTE | 2018-06-29 09:18 | P.PN ---
Subjective Interval history: Follow-up recurrent fevers/questionable infective endocarditis/Diskitis June 25, 2018-patient seen and examined, T-max 100.8 at 20:30 AM however currently afebrile. Denies any chest pain or shortness of breath June 26, 2018-patient seen and examined, currently afebrile and no acute event overnight. June 27, 2018-patient seen and examined, afebrile times 3 days. Denies any chest pain or shortness of breath. No acute event overnight. June 28, 2018-patient seen and examined, labile BP, remains afebrile. No acute event overnight and patient remains stable. June 29, 2018-patient seen and examined, no complaint, afebrile, no acute event overnight. Physical Exam Vital signs: Vital Signs 06/28/18 12:00 06/28/18 16:00 06/28/18 20:00 Temperature 97.9 F 99.2 F 99.1 F Pulse Rate 89 73 66 Respiratory Rate 14 16 20 Blood Pressure 155/79 H 155/77 H 134/71 Pulse Oximetry 99 98 97 06/29/18 00:00 06/29/18 04:00 Temperature 99.5 F 99.0 F Pulse Rate 73 77 Respiratory Rate 18 18 Blood Pressure 138/73 140/77 Pulse Oximetry 97 98 Intake & Output 06/28/18 06/29/18 06/29/18 18:59 06:59 18:59 Intake Total 1460 / 1460 250 / 250 Output Total 100 / 100 Balance 1460 / 1460 150 / 150 Weight 66.5 kg Intake: IV 500 / 500 250 / 250 Vancomycin Inj 1,000 MG In NS 500 / 500 250 / 250 Inj 250 ML @ 250 mls/hr IV.SIG Q12H [facility] Rx#:[id number] Oral 960 / 960 Output: Urine 100 / 100 Other: # Voids 3 2 # Bowel Movements 1 Narrative: GENERAL: NAD. SKIN: Warm and dry. HEAD: Atraumatic. Normocephalic. EYES: Pupils equal and round. No scleral icterus. No injection or drainage. ENT: No nasal bleeding or discharge. Mucous membranes pink and moist. NECK: Trachea midline. No JVD. CARDIOVASCULAR: Regular rate and rhythm. RESPIRATORY: No accessory muscle use. Clear to auscultation. Breath sounds equal bilaterally. GASTROINTESTINAL: Abdomen soft, non-tender, nondistended. Hepatic and splenic margins not palpable. MUSCULOSKELETAL: Extremities without clubbing, cyanosis, or edema. No obvious deformities. NEUROLOGICAL: Awake and alert. No obvious cranial nerve deficits. Motor grossly within normal limits. Five out of 5 muscle strength in the arms and legs. Normal speech. PSYCHIATRIC: Appropriate mood and affect; insight and judgment normal. Results - Labs CBC & Chem 7: 06/26/18 05:24 06/28/18 05:20 Microbiology 06/24/18 12:41 Blood - Peripheral Aerobic Blood Culture - Preliminary No growth in 4 days 06/24/18 12:41 Blood - Peripheral Anaerobic Blood Culture - Preliminary No growth in 4 days 06/24/18 12:30 Blood - Peripheral Aerobic Blood Culture - Preliminary No growth in 4 days 06/24/18 12:30 Blood - Peripheral Anaerobic Blood Culture - Preliminary No growth in 4 days - Procedures none Assessment and Plan - Plan 62 years old man with Infective discitis Suspect Infective Endocarditis. 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 twice daily
--- NOTE | 2018-06-29 09:31 | P.PNID ---
Subjective Remarks: Patient is a 62-year-old male, was diagnosed to have a right retroperitoneal abscess, was drained, and culture grew MSSA. He has had back pain during that admission, but workup did not show any evidence of discitis. He was getting IV vancomycin, and plans was for him to continue and complete treatment as an outpatient, but the patient signed out against advice on June 17. His last CT was done June 15 which showed some improvement. He has had on and off low-grade temps during that admission. Patient presented back to the hospital and readmitted June 24. He has been stable and afebrile. He denies any back pain or any abdominal pain. He has not had any diarrhea or any urinary complaints. Notes reviewed No fever NO rash or itching No pain hjas been getting IV vancomycin Antibiotics: Vancomycin Lines: PIV Past Medical History: Cirrhosis Degenerative joint disease Diabetes Hep C w/o coma, chronic Psoriasis Retroperitoneal mass (?) Allergies/Adverse Reactions: Allergies penicillin G Allergy (Severe, Verified 05/23/18 21:01) Anaphylaxis Objective Vital Signs 06/28/18 12:00 06/28/18 16:00 06/28/18 20:00 Temperature 97.9 F 99.2 F 99.1 F Pulse Rate 89 73 66 Respiratory Rate 14 16 20 Blood Pressure 155/79 H 155/77 H 134/71 Pulse Oximetry 99 98 97 06/29/18 00:00 06/29/18 04:00 Temperature 99.5 F 99.0 F Pulse Rate 73 77 Respiratory Rate 18 18 Blood Pressure 138/73 140/77 Pulse Oximetry 97 98 Intake & Output 06/28/18 06/29/18 06/29/18 18:59 06:59 18:59 Intake Total 1460 / 1460 250 / 250 Output Total 100 / 100 Balance 1460 / 1460 150 / 150 Weight 66.5 kg Intake: IV 500 / 500 250 / 250 Vancomycin Inj 1,000 MG In NS 500 / 500 250 / 250 Inj 250 ML @ 250 mls/hr IV.SIG Q12H [facility] Rx#:[id number] Oral 960 / 960 Output: Urine 100 / 100 Other: # Voids 3 2 # Bowel Movements 1 06/24/18 12:41 Blood - Peripheral Aerobic Blood Culture - Preliminary No growth in 4 days 06/24/18 12:41 Blood - Peripheral Anaerobic Blood Culture - Preliminary No growth in 4 days 06/24/18 12:30 Blood - Peripheral Aerobic Blood Culture - Preliminary No growth in 4 days 06/24/18 12:30 Blood - Peripheral Anaerobic Blood Culture - Preliminary No growth in 4 days Lab - Chemistry Results 06/28/18 05:20 Creatinine 0.85 Estimated GFR Greater than 89 Physical Exam: GENERAL: Patient is a thin, well-developed male, awake and alert, not in respiratory distress. SKIN: Cool and dry. No other rash. NO embolic lesions HEAD: Atraumatic. Normocephalic. No temporal wasting, or tenderness. EYES: Kevin conjunctiva. No petechia or hemorrhage. Has mild scleral icterus. No injection or drainage. EARS, NOSE AND THROAT: Nose without bleeding or purulent nasal discharge. No sinus tenderness. Mucous membranes pink and moist. No oral lesions noted. NECK: Trachea midline. Supple and not tender, no meningeal signs CARDIOVASCULAR: Regular rate and rhythm. No murmurs, rubs or gallops heard RESPIRATORY: Clear to auscultation. Breath sounds equal bilaterally. No rales , wheezing or rhonchi ABDOMEN: Soft, flat, nondistended, not tender. Bowel sounds present and normoactive. No guarding. No rebound. No organomegaly. BACK: No spine tenderness EXTREMITIES: No clubbing, cyanosis, or edema. No joint effusion, has good ROM. No calf tenderness. NEUROLOGICAL: Non-focal PSYCHIATRIC: Normal affect, calm and cooperative. LINE: No evidence of infection Assessment and Plan - Plan Impression MSSA retroperitoneal abscess S/P IR drainage. 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
--- NOTE | 2018-06-29 11:44 | CT ---
EXAM DATE: 06/29/2018 9:26 AM EDT AGE/SEX: 62 years / Male INDICATIONS: Follow up retroperitoneal abscess CLINICAL DATA: This is the patient's initial encounter. Patient reports that signs and symptoms have been present for 2 weeks and indicates a pain score of 5/10. MEDICAL/SURGICAL HISTORY: Cirrhosis. Diabetes. Hepatitis C. None. ORAL CONTRAST: No oral contrast ingested. RADIATION DOSE: 6.09 CTDI (mGy) COMPAR[place]: [facility] [place] PELVIS W CONTRAST, 06/15/2018. [facility] [place] & PELVIS W CONTRAST , 06/08/2018. . TECHNIQUE: Multiple contiguous axial images were obtained through the abdomen and pelvis following b olus infusion of 81 ml Omnipaque 350 (iohexol) nonionic water-soluble contrast as a single exam dos e. No oral contrast ingested. Using automated exposure control and adjustment of the mA and/or kV ac cording to patient size, radiation dose was kept as low as reasonably achievable to obtain optimal di agnostic quality images. DICOM format image data is available electronically for review and comparis on. FINDINGS: Lower Lungs: Tiny right pleural effusion and adjacent compressive atelectasis posteriorly are noted. Liver: Again, there is evidence of nodularity of the liver consistent with cirrhosis. No discrete mas s is noted. No biliary ductal dilatation is noted. The gallbladder is nondistended. Varices are noted throughout the abdomen and are stable indicating portal hypertension. Ascites is noted throughout th e abdomen. Spleen: The spleen is mildly prominent. Pancreas: Unremarkable without mass or calcification. Kidneys: Normal in size and shape. No evidence of mass or hydronephrosis. Adrenal Glands: Unremarkable. Aorta: The aorta and proximal iliac vessels are grossly unremarkable without aneurysmal dilation. Bowel/Mesentery: The bowel loops are grossly unremarkable. The cecum and sigmoid colon have a normal configuration. Abdominal Wall: Intact. Retroperitoneum: The previously noted tiny right retroperitoneal fluid collection is improved. A tin y sliver of fluid remains. Induration of the right psoas musculature is unchanged. Bladder: Contours are smooth. Reproductive Organs: No abnormal masses or calcifications seen. Inguinal: The inguinal region is unremarkable without evidence of adenopathy. Bony Structures: Unremarkable. CONCLUSION: 1. The previously noted tiny right retroperitoneal fluid collection is improved. A tiny sliver of fl uid remains. Induration of the right psoas musculature is unchanged. 2. Stable cirrhosis, mild splenomegaly, and varices consistent with portal hypertension. 3. Tiny right pleural effusion and adjacent compressive atelectasis. Electronically signed by: Johnathan Ramos MD 06/29/2018 11:43 AM EDT
[2018-06-30] MEDS: Vancomycin Inj 1,000 MG in Sodium Chlor 0.9% Inj 250 ML IV.SIG SCH ×4 (06:26→19:10)
[2018-06-30 07:24] LABS: Baso # (Auto) 0.1 th/mm3 (0.0-0.2); Baso % (Auto) 1.3 % (0.0-2.0); Eos # (Auto) 0.4 th/mm3 (0.0-0.4); Eos % (Auto) 9.4 % (0.0-4.0); Hematocrit 25.2 % (39.0-51.0); Hemoglobin 9.1 gm/dL (13.0-17.0); Lymph # (Auto) 0.9 th/mm3 (1.0-4.8); Lymph % (Auto) 21.6 % (9.0-44.0); Mean Corpuscular Hemoglobin 37.1 pg (27.0-34.0); Mean Corpuscular Volume 102.1 fL (80.0-100.0); Mean Platelet Volume 9.4 fL (7.0-11.0); Mono # (Auto) 0.5 th/mm3 (0.0-0.9); Mono % (Auto) 11.3 % (0.0-8.0); Neut # (Auto) 2.3 th/mm3 (1.8-7.7); Neut % (Auto) 56.4 % (16.0-70.0); Platelet Count 38 th/mm3 (150-450); Red Blood Count 2.46 mil/mm3 (4.50-5.90); Red Cell Distribution Width 20.7 % (11.6-17.2)
[2018-06-30 07:37] LABS: Vancomycin,Trough 17.7 mcg/mL (5.0-10.0)
[2018-06-30 07:48] LABS: Mean Corpuscular HGB Conc 36.3 % (32.0-36.0)
--- NOTE | 2018-06-30 08:02 | P.PN ---
Subjective Interval history: awake and alert, no complains of abdominal pain or back pain bored and wanting to go home states his BM are regular brown stools up and ambulating Physical Exam Vital signs: Vital Signs 06/29/18 12:00 06/29/18 16:00 06/29/18 20:00 Temperature 98.3 F 98 F 98.4 F Pulse Rate 70 71 71 Respiratory Rate 16 16 18 Blood Pressure 138/75 135/63 131/69 Pulse Oximetry 98 99 98 06/30/18 00:00 06/30/18 02:07 06/30/18 04:00 Temperature 98.2 F 98.8 F Pulse Rate 70 70 Respiratory Rate 18 18 18 Blood Pressure 137/72 132/72 Pulse Oximetry 97 Intake & Output 06/29/18 06/30/18 06/30/18 18:59 06:59 18:59 Intake Total 1210 / 1210 Balance 1210 / 1210 Weight 64.1 kg Intake: IV 250 / 250 Vancomycin Inj 1,000 MG In NS 250 / 250 Inj 250 ML @ 250 mls/hr IV.SIG Q12H CHARANJIT Rx#:[id number] Oral 960 / 960 Other: # Voids 3 2 Date of Last Bowel Movement 06/29/18 # Bowel Movements 1 Narrative: awake and alert, oriented x 3 anicteric neck supple lungs- clear regular rhythm abdomen-soft, nontender, good bowel sounds back- no spinal point tenderness extremities no edema neuro exam- grossly no sensory deficits, motot 5/5 all extremties, gait steady Results - Labs CBC & Chem 7: 06/30/18 06:13 06/30/18 06:13 Laboratory Results - last 24 hr 06/30/18 06/30/18 06:13 06:13 WBC 4.0 RBC 2.46 L Hgb 9.1 L Hct 25.2 L MCV 102.1 H MCH 37.1 H MCHC 36.3 H RDW 20.7 H Plt Count 38 L D MPV 9.4 Prelim Diff (Auto) Answering Service Agent Neut % (Auto) 56.4 Lymph % (Auto) 21.6 [place] % (Auto) 11.3 H Eos % (Auto) 9.4 H Baso % (Auto) 1.3 Neut # (Auto) 2.3 Lymph # (Auto) 0.9 L [place] # (Auto) 0.5 Eos # (Auto) 0.4 Baso # (Auto) 0.1 WBC Differential . Differential Comment Auto diff final Creatinine 0.92 Estimated GFR 84 L Vancomycin Trough 17.7 H Microbiology 06/24/18 12:41 Blood - Peripheral Aerobic Blood Culture - Final No growth in 5 days 06/24/18 12:41 Blood - Peripheral Anaerobic Blood Culture - Final No growth in 5 days 06/24/18 12:30 Blood - Peripheral Aerobic Blood Culture - Final No growth in 5 days 06/24/18 12:30 Blood - Peripheral Anaerobic Blood Culture - Final No growth in 5 days - Imaging Impressions Abdomen/Pelvis CT 06/29/18 00:00 CONCLUSION: 1. The previously noted tiny right retroperitoneal fluid collection is improved. A tiny sliver of fluid remains. Induration of the right psoas musculature is unchanged. 2. Stable cirrhosis, mild splenomegaly, and varices consistent with portal hypertension. 3. Tiny right pleural effusion and adjacent compressive atelectasis. - Procedures none Assessment and Plan - Plan 62 years old man with Infective discitis Suspect Infective Endocarditis. 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 twice daily DM tyype 2 Elevated Blood sugars- 170s last Hemoglobin a1C- 7.0 05/23 change to 1800 kcal ADA check A1C. consider oral hypoglycemics check BS bid and record and monitor get asthma educator, nutritonist to see patient patient appears impatient - discuss with him - last time he was here he -signed out AMA
[2018-06-30] MEDS: Metoprolol Tartrate 25 MG Tablet PO SCH ×2 (08:32→20:16)
[2018-06-30 20:36] VITALS: RESP 18
[2018-07-01] MEDS: Vancomycin Inj 1,000 MG in Sodium Chlor 0.9% Inj 250 ML IV.SIG SCH (05:45)
[2018-07-01] MEDS: Metoprolol Tartrate 25 MG Tablet PO SCH ×2 (08:03→20:00)
--- NOTE | 2018-07-01 10:32 | P.PNID ---
Subjective Remarks: Patient is a 62-year-old male, was diagnosed to have a right retroperitoneal abscess, was drained, and culture grew MSSA. He has had back pain during that admission, but workup did not show any evidence of discitis. He was getting IV vancomycin, and plans was for him to continue and complete treatment as an outpatient, but the patient signed out against advice on June 17. His last CT was done June 15 which showed some improvement. He has had on and off low-grade temps during that admission. Patient presented back to the hospital and readmitted June 24. He has been stable and afebrile. He denies any back pain or any abdominal pain. He has not had any diarrhea or any urinary complaints. Notes reviewed No fever NO rash or itching No pain Repeat CT improved Antibiotics: Vancomycin Lines: PIV Past Medical History: Cirrhosis Degenerative joint disease Diabetes Hep C w/o coma, chronic Psoriasis Retroperitoneal mass (?) Allergies/Adverse Reactions: Allergies penicillin G Allergy (Severe, Verified 05/23/18 21:01) Anaphylaxis Objective Vital Signs 06/30/18 12:00 06/30/18 16:00 06/30/18 20:00 Temperature 98.2 F 98.8 F 99.0 F Pulse Rate 69 63 68 Respiratory Rate 18 20 18 Blood Pressure 139/70 152/72 H 137/73 Pulse Oximetry 99 100 98 07/01/18 00:00 07/01/18 03:35 07/01/18 04:00 Temperature 98.8 F 98.7 F Pulse Rate 61 66 Respiratory Rate 18 18 18 Blood Pressure 128/67 130/70 Pulse Oximetry 97 96 07/01/18 08:00 Temperature 97.9 F Pulse Rate 69 Respiratory Rate 18 Blood Pressure 129/74 Pulse Oximetry 98 Intake & Output 06/30/18 07/01/18 07/01/18 18:59 06:59 18:59 Intake Total 250 / 250 500 / 500 120 / 120 Output Total 100 / 100 100 / 100 Balance 250 / 250 400 / 400 20 / 20 Weight 65.7 kg Intake: IV 250 / 250 500 / 500 Vancomycin Inj 1,000 MG In NS 250 / 250 500 / 500 Inj 250 ML @ 250 mls/hr IV.SIG Q12H CHARANJIT Rx#:[id number] Oral 120 / 120 Output: Urine 100 / 100 100 / 100 Other: # Voids 2 Date of Last Bowel Movement 06/29/18 06/30/18 06/30/18 06/24/18 12:41 Blood - Peripheral Aerobic Blood Culture - Final No growth in 5 days 06/24/18 12:41 Blood - Peripheral Anaerobic Blood Culture - Final No growth in 5 days 06/24/18 12:30 Blood - Peripheral Aerobic Blood Culture - Final No growth in 5 days 06/24/18 12:30 Blood - Peripheral Anaerobic Blood Culture - Final No growth in 5 days Lab - Hematology Results 06/30/18 06:13 WBC 4.0 RBC 2.46 L Hgb 9.1 L Hct 25.2 L MCV 102.1 H MCH 37.1 H MCHC 36.3 H RDW 20.7 H Plt Count 38 L D MPV 9.4 Prelim Diff (Auto) Structurer Neut % (Auto) 56.4 Lymph % (Auto) 21.6 [place] % (Auto) 11.3 H Eos % (Auto) 9.4 H Baso % (Auto) 1.3 Neut # (Auto) 2.3 Lymph # (Auto) 0.9 L [place] # (Auto) 0.5 Eos # (Auto) 0.4 Baso # (Auto) 0.1 WBC Differential . Differential Comment Auto diff final Lab - Chemistry Results 06/30/18 06/30/18 07/01/18 06:13 08:32 08:05 Creatinine 0.92 Estimated GFR 84 L POC Glucose 111 H 295 H Imaging: ITS Impressions Abdomen/Pelvis CT 06/29/18 00:00 CONCLUSION: 1. The previously noted tiny right retroperitoneal fluid collection is improved. A tiny sliver of fluid remains. Induration of the right psoas musculature is unchanged. 2. Stable cirrhosis, mild splenomegaly, and varices consistent with portal hypertension. 3. Tiny right pleural effusion and adjacent compressive atelectasis. Physical Exam: GENERAL: awake and alert, not in respiratory distress. SKIN: Cool and dry. No other rash. NO embolic lesions HEAD: Atraumatic. Normocephalic. No temporal wasting, or tenderness. EYES: [place] conjunctiva. No petechia or hemorrhage. Has mild scleral icterus. No injection or drainage. EARS, NOSE AND THROAT: Nose without bleeding or purulent nasal discharge. No sinus tenderness. Mucous membranes pink and moist. No oral lesions noted. NECK: Trachea midline. Supple and not tender, no meningeal signs CARDIOVASCULAR: Regular rate and rhythm. No murmurs, rubs or gallops heard RESPIRATORY: Clear to auscultation. Breath sounds equal bilaterally. No rales , wheezing or rhonchi ABDOMEN: Soft, flat, nondistended, not tender. Bowel sounds present and normoactive. No guarding. No rebound. No organomegaly. BACK: No spine tenderness EXTREMITIES: No clubbing, cyanosis, or edema. No calf tenderness. NEUROLOGICAL: Non-focal PSYCHIATRIC: Normal affect, calm and cooperative. LINE: No evidence of infection Assessment and Plan - Plan Impression MSSA retroperitoneal abscess S/P IR drainage. 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
--- NOTE | 2018-07-01 10:34 | P.DCO ---
Post Hospital Infusion Therapy Location of Infusion Therapy: Home Health Care IV Infusion Order Patient Weight: 65.7 kg - Diagnosis (1) Abscess, retroperitoneal Code(s): K68.19 - Other retroperitoneal abscess (2) MRSA (methicillin resistant Staphylococcus aureus) infection Code(s): A49.02 - Methicillin resistant Staphylococcus aureus infection, unspecified site - Administer Medication Vancomycin Dose: 1 gram IV Directions: q 12 hours Stop Treatment: 07/15/18 - Additional Information Venous Access: PICC Line Additional Instructions: [x] Peripheral flush and dressing changes per protocol [x] Implanted port and central airline managerial supervisor: * Implanted port: 10 ml Normal Saline followed by 5 ml Heparin 100 units/ml Heparin flush after each use and monthly to maintain. [] May leave port accessed during therapy. [] May leave peripheral site accessed for duration of therapy. [x] If patient has SOB or respiratory distress, check oxygen saturation. If less than 90% or clinical signs of respiratory distress, administer oxygen at 2 L/min. via nasal cannula and notify physician. [x] Anaphylaxis/Reaction orders: * Stop infusion. * Keep IV line open with saline flush. * Notify physician. * Monitor vital signs every 15 minutes until symptoms resolve. * Check Oxygen saturation; Oxygen at 2 L/min. via nasal cannula if less than 90% or clinical signs of respiratory distress. * Administer diphenhydramine (Benadryl) 25 mg IV STAT, (unless patient has received as pre-med). May repeat once, if necessary. * Solu-Cortef 250 mg IVP over 30-60 seconds, use 100 mg vials for each dissolution. * Epinephrine (1mg/1 ml) 0.3 mg subcutaneously or IVP now with any signs of respiratory distress. * Check with physician for new additional pre-med orders if patient is re- challenged or re-treated. [x] May remove PICC line when treatment complete [x] If the patient is admitted to the hospital, the ED, or transferred via [facility] , complete transfer form including medication reconciliation order sheet. Weekly Labs: CBC w/diff, Creatinine, Vancomycin Trough (Labs every Wednesday - copy to pr ) Allergies penicillin G Allergy (Severe, Verified 05/23/18 21:01) Anaphylaxis
--- NOTE | 2018-07-01 12:18 | P.PN ---
Subjective Interval history: no complains of abdominal pain or back pain afebrile good po no diarrhea Physical Exam Vital signs: Vital Signs 06/30/18 16:00 06/30/18 20:00 07/01/18 00:00 Temperature 98.8 F 99.0 F 98.8 F Pulse Rate 63 68 61 Respiratory Rate 18 18 Blood Pressure 152/72 H 137/73 128/67 Pulse Oximetry 100 98 97 07/01/18 03:35 07/01/18 04:00 07/01/18 08:00 Temperature 98.7 F 97.9 F Pulse Rate 66 69 Respiratory Rate 18 Blood Pressure 130/70 129/74 Pulse Oximetry 96 98 Intake & Output 06/30/18 07/01/18 07/01/18 18:59 06:59 18:59 Intake Total 250 / 250 500 / 500 120 / 120 Output Total 100 / 100 100 / 100 Balance 250 / 250 400 / 400 20 / 20 Weight 65.7 kg 65.7 kg Intake: IV 250 / 250 500 / 500 Vancomycin Inj 1,000 MG In NS 250 / 250 500 / 500 Inj 250 ML @ 250 mls/hr IV.SIG Q12H CHARANJIT Rx#:[id number] Oral 120 / 120 Output: Urine 100 / 100 100 / 100 Other: # Voids 2 Date of Last Bowel Movement 06/29/18 06/30/18 06/30/18 Narrative: awake and alert, oriented x 3 anicteric neck supple lungs- clear regular rhythm abdomen-soft, nontender, good bowel sounds back- no spinal point tenderness extremities no edema neuro exam- grossly no sensory deficits, motor 5/5 all extremities gait steady Results - Labs CBC & Chem 7: 06/30/18 06:13 06/30/18 06:13 Laboratory Results - last 24 hr 07/01/18 08:05 POC Glucose 295 H - Procedures none Assessment and Plan - Plan 62 years old man with Infective discitis Suspect Infective Endocarditis. 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 twice daily DM type 2 Elevated Blood sugars- 170s last Hemoglobin a1C- 7.0 05/23 change to 1800 kcal ADA check A1C- pending c- start oral hypoglycemics- Metformin check BS bid and record and monitor get tobacco prevention health educator, nutritonist to see patient 06/30 patient appears impatient - discuss with him - last time he was here he -signed out AMA
[2018-07-01 14:29] LABS: Calcium 7.5 mg/dL (8.5-10.1); Carbon Dioxide 22.5 meq/L (21.0-32.0); Potassium 3.5 meq/L (3.5-5.1)
[2018-07-01 15:55] LABS: Hemoglobin A1c 5.3 % (4.3-6.0)
[2018-07-01] MEDS ORDERED: Heparin Central Flush 100 UNIT/ML 5 ML Vial IV.FLUSH PRN (16:47)
[2018-07-01] MEDS ORDERED: Pharmacy Ordered Lab Info OTHER ONE (17:45)
[2018-07-01] MEDS ORDERED: Vancomycin Inj 1,000 MG in Sodium Chlor 0.9% Inj 250 ML IV.SIG SCH (19:00)
[2018-07-01 20:51] VITALS: BP 129/70; PULSE 69; TEMP 98.5; O2SAT 99
[2018-07-02] MEDS ORDERED: Heparin Central Flush 100 UNIT/ML 5 ML Vial IV.FLUSH SCH (09:00)
--- NOTE | 2018-07-11 08:42 | P.DS ---
Date of admission: 06/24/18 15:23 Primary care physician: UNKNOWN Attending physician on discharge: Hernando Truong Anticipated date of discharge: 07/08/18 Brief History from admission: The patient is a 62-year-old male who presents to the emergency department for fever. The patient was recently hospitalized for a prolonged period for fever thought to be secondary to discitis, suspected infective endocarditis, and a retroperitoneal abscess. The patient was seen by infectious disease and was on vancomycin. He declined desensitization of cephalosporins with an allergy to penicillin and it was recommended that the patient have a PICC line placed and received antibiotics for a prolonged period of time through beginning to mid June. However, the patient states he got tired of the "needles "and signed out AGAINST MEDICAL ADVICE 1 week ago Wednesday. The patient now notes returning fevers, as high as 101 prior to arrival per EMS. He also complains of continuing body aches, fatigue, and malaise. The patient does history of hepatitis C and previous history of IV drug abuse, denies any recent IV drug abuse. The patient is requesting hospitalization and IV antibiotics so he can clear the infection and possibly receive treatment for hepatitis C. Patient update on day of discharge: afebrile, pain controlled discussed with him need to ff up with a PCP for DM management DS: Medications - Discharge Medications Prescriptions: metformin [Glucophage] 500 mg PO BIDPC 30 Days tab metoprolol tartrate 25 mg PO BID 30 Days #60 tab DS: Summary Hospital Course: 62 years old man with Infective discitis Suspect Infective Endocarditis. 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 twice daily DM type 2 Elevated Blood sugars- 170s last Hemoglobin a1C- 7.0 05/23 change to 1800 kcal ADA Hemolglobin A1C- 5.3 on Metformin check BS bid and record and monitor nurses educator, manager compensation to see patient - Time Spent with Patient Total time spent providing and/or coordinating discharge services: Greater than 30 minutes Results Procedures completed during hospitalization: none - Impressions ITS Impressions Abdomen/Pelvis CT 06/29/18 00:00 CONCLUSION: 1. The previously noted tiny right retroperitoneal fluid collection is improved. A tiny sliver of fluid remains. Induration of the right psoas musculature is unchanged. 2. Stable cirrhosis, mild splenomegaly, and varices consistent with portal hypertension. 3. Tiny right pleural effusion and adjacent compressive atelectasis. Discharge Plan - Discharge Disposition Patient Disposition: W/Home Health Service - Discharge Condition Condition: Stable - Discharge Order Discharge Orders: Discharge Order (Routine); Ordered 07/01/18 Ordered By: Hernando Truong - Discharge Details Anticipated Discharge Date: 07/01/18 - Physicians Team Primary Care Provider: UNKNOWN, Attending Provider: Hernando Truong Other Providers: [employer],Insurance
== END 2018-07-01 21:22 | disposition home health service (06) ==
LOC: NEPE 12:03 → NEDA 15:23 → N05 15:55
PROVIDERS: ADMIT Internal Medicine; ATTEND Internal Medicine